=== PATIENT | male | born 1950 | race Caucasian/White ===

== ENCOUNTER 2020-06-02 08:04 | Outpatient (REF) | payer MEDICARE, OTHER, SELFPAY ==
[2020-06-02 10:31] LABS: MANUAL DIFF FLAG NO
[2020-06-02 10:46] LABS: Basophils Percent Auto 0.1 % (0-2); Eosinophils Absolute Auto 0.3 X10*3/uL (0.0-0.4); Eosinophils Percent Auto 4.7 % (0-4); Hematocrit 44.5 % (42-52); Hemoglobin 14.5 g/dl (14.0-18.0); Imm Gran Abs Auto 0.02 X10*3/uL (0.00-0.03); Imm Gran Pct Auto 0.3 % (0.0-0.4); Lymphocytes Percent Auto 27.5 % (20-40); Mean Corpuscular HGB Conc 32.6 g/dl (31.0-36.0); Mean Corpuscular Hemoglobin 28.9 pg (27.0-33.0); Mean Corpuscular Volume 88.8 fL (80-98); Monocytes Absolute Auto 0.6 X10*3/uL (0.1-1.2); Monocytes Percent Auto 8.3 % (2-11); Neutrophils Absolute Auto 4.2 X10*3/uL (2.0-8.3); Neutrophils Percent Auto 59.1 % (45-73); Platelet Count 283 X10*3/uL (160-400); Red Blood Count 5.01 X10*6/uL (4.60-5.80); Red Cell Distribution Width 12.1 % (11.0-16.0); White Blood Count 7.1 X10*3/uL (4.8-10.8)
[2020-06-02 11:00] LABS: Alanine Aminotransferase 21 U/L (0-40); Albumin Level 4.1 g/dL (3.5-5.0); Alkaline Phosphatase 75 U/L (39-117); Anion Gap 12 (12-20); Aspartate Amino Transferase 17 U/L (5-37); Bilirubin Total 1.7 mg/dL (0.0-1.0); Blood Urea Nitrogen 18 mg/dL (9-16); Calcium 9.1 mg/dL (8.4-10.2); Carbon Dioxide 28 mmol/L (22-29); Chloride 104 mmol/L (96-108); Cholesterol 160 mg/dL; Estimated Glomerular Filt Rate > 60; Glucose Fasting 134 mg/dL (60-99); HDL Cholesterol 34 mg/dL; LDL Cholesterol Calculated 103 mg/dl; Potassium 4.2 mmol/L (3.3-5.1); Sodium 140 mmol/L (135-145); Total Protein 6.3 g/dL (6.5-8.0); Triglycerides 116 mg/dL
[2020-06-02 11:04] LABS: Glucose Urine UA NEG (NEG); Leukocyte Esterase Urine NEG (NEG); Nitrite Urine NEG (NEG); PH 5.5 (5.0-8.0); Specific Gravity - Urine 1.025 (1.005-1.025); Urine Blood 1+ (NEG); Urine Ketones NEG (NEG); Urine Protein NEG (NEG-TRACE)
[2020-06-02 11:06] LABS: Appearance Urine CLOUDY; Color Urine YELLOW
[2020-06-02 11:07] LABS: Estimated Average Glucose 128 mg/dL; Hemoglobin A1c % 6.1 %
[2020-06-02 11:21] LABS: Prostate Specific Antigen Scr 0.77 ng/mL (<0.05-4.0)
[2020-06-02 11:25] LABS: Creatinine Urine 175.89 mg/dL; Microalbum/Creatinine Ratio Ur 14.7 ug/mg cr
[2020-06-02 11:29] LABS: Bacteria Urine TRACE /LPF; RBC Urine 0-2 /HPF (0); WBC Urine 0-2 /HPF (0-4)
[2020-06-02 11:30] LABS: Amorphous Sediment Urine 4+ /LPF
== END 2020-06-02 08:05 | disposition home or self-care (01) ==
LOC: HO.10HDL 08:04
PROVIDERS: Visit Provider Internal Medicine
DX: Z12.5 Encounter for screening for malignant neoplasm of prostate (principal); R30.0 Dysuria; I10 Essential (primary) hypertension; R73.03 Prediabetes; M19.90 Unspecified osteoarthritis, unspecified site
CPT/HCPCS: 36415; 80053; 80061; 81001; 81003; 82043; 83036; 84153; 85025

== ENCOUNTER 2020-07-09 14:42 | Outpatient (REF) | payer MEDICARE, OTHER, SELFPAY ==
--- NOTE | ~2020-07-09 | XR_ITS ---
EXAMINATION: XR CHEST CLINICAL INFORMATION: Cough COMPARISON: CT abdomen 01/08/2019, chest radiographs 09/30/2018 and 04/05/2017 TECHNIQUE: 2 views of the chest were obtained. FINDINGS: There is a 1.1 cm nodular opacity overlying the right anterior sixth rib right infrahilar region, not demonstrated on prior studies. Finding is not seen on the lateral view. Possibility of lung parenchymal nodule cannot be excluded. Recommend CT chest without contrast to further characterize. The lungs otherwise clear. There is no lobar or segmental airspace consolidation or effusion. The costophrenic sulci are clear. The heart is within normal size. The hilar and mediastinal contours are unremarkable. There is no acute bony abnormality. Ossification anterior spinal ligament and thoracic degenerative disc changes again noted. XR/XR chest 2V IMPRESSION: 1. Nodular density right infrahilar region 1.[address] chest to further characterize. 2. No lobar or segmental airspace consolidation or effusion.
[2020-07-09 15:38] LABS: MANUAL DIFF FLAG NO
[2020-07-09 15:47] LABS: Basophils Percent Auto 0.1 % (0-2); Eosinophils Absolute Auto 0.2 X10*3/uL (0.0-0.4); Eosinophils Percent Auto 2.1 % (0-4); Hemoglobin 13.9 g/dl (14.0-18.0); Imm Gran Abs Auto 0.01 X10*3/uL (0.00-0.03); Imm Gran Pct Auto 0.1 % (0.0-0.4); Lymphocytes Absolute Auto 1.5 X10*3/uL (1.2-4.9); Lymphocytes Percent Auto 17.1 % (20-40); Mean Corpuscular HGB Conc 33.1 g/dl (31.0-36.0); Mean Corpuscular Hemoglobin 29.2 pg (27.0-33.0); Mean Corpuscular Volume 88.2 fL (80-98); Mean Platelet Volume 8.8 fL (9.4-12.4); Monocytes Absolute Auto 0.8 X10*3/uL (0.1-1.2); Monocytes Percent Auto 8.6 % (2-11); Neutrophils Absolute Auto 6.5 X10*3/uL (2.0-8.3); Platelet Count 320 X10*3/uL (160-400); Red Blood Count 4.76 X10*6/uL (4.60-5.80); Red Cell Distribution Width 12.1 % (11.0-16.0)
[2020-07-09 16:18] LABS: Alanine Aminotransferase 20 U/L (0-40); Albumin Level 4.2 g/dL (3.5-5.0); Alkaline Phosphatase 71 U/L (39-117); Anion Gap 10 (12-20); Aspartate Amino Transferase 21 U/L (5-37); Bilirubin Total 1.5 mg/dL (0.0-1.0); Blood Urea Nitrogen 19 mg/dL (9-16); C Reactive Protein 1.24 mg/dL (< or = 0.50); Calcium 9.5 mg/dL (8.4-10.2); Carbon Dioxide 28 mmol/L (22-29); Chloride 108 mmol/L (96-108); Estimated Glomerular Filt Rate > 60; Glucose Random 97 mg/dL (60-115); Potassium 4.2 mmol/L (3.3-5.1); Sodium 142 mmol/L (135-145); Total Protein 6.9 g/dL (6.5-8.0)
[2020-07-09 16:56] LABS: Estimated Average Glucose 134 mg/dL; Hemoglobin A1c % 6.3 %
== END 2020-07-09 14:43 | disposition home or self-care (01) ==
LOC: HO.LAB 14:42
PROVIDERS: PCP Internal Medicine; Visit Provider Internal Medicine
DX: I10 Essential (primary) hypertension (principal); R53.83 Other fatigue; R05 Cough; R73.03 Prediabetes
CPT/HCPCS: 36415; 71046; 80053; 82550; 83036; 84484; 85025; 86140

== ENCOUNTER 2020-08-04 08:53 | Outpatient (REF) | payer MEDICARE, OTHER, SELFPAY ==
--- NOTE | ~2020-08-04 | CT_ITS ---
EXAMINATION: CT CHEST WITHOUT CONTRAST CLINICAL INFORMATION: Right lower lobe nodule on chest x-ray. COMPARISON: None. TECHNIQUE: Multidetector volumetric CT imaging of the chest was done. Axial MIP volume rendering provided. Sagittal and coronal reformatted images were obtained. This CT examination was performed using dose optimization techniques as appropriate, variously including the following: *Automated exposure control *Adjustment of mA and/or kV according to patient size (this includes techniques or standardized protocols for targeted exams where dose is matched to indication/reason for exam; i.e. extremities or head) *Use of iterative reconstruction technique DLP: 266 mGy-cm. FINDINGS: SENIOR DIGITAL DESIGNER: Well-expanded lungs with a probable nodule right lower lobe. LUNGS: The lungs are well expanded with tree in branching pattern in left apex right upper lobe posterior segment and superior segment left lower lobe. A larger tree-in-bud appearance is seen in the right middle lobe and minimal in the left lower lobe. Small punctate nodules measuring 2 mm as seen in the superior segment left upper lobe on axial image 225/5, calcified 2 mm nodule right middle lobe axial image 239/5, noncalcified 2 mm nodule right middle lobe axial image 270/5, 7 mm nodule subpleural based right lower lobe axial image 304/5, 8 mm nodule left lower lobe superior segment 301/5, several additional 2-3 mm nodules in the right lower lobe axial image 323/5 and 6 mm nodule left lower lobe axial image 437/5. MEDIASTINUM: The heart size and great vessels are normal. There are coronary artery calcifications. No pericardial effusion seen. Central trachea and the bronchi widely are widely patent. The thyroid lobes are symmetrical and normal. No abnormal-sized mediastinal or hilar lymph nodes seen. PLEURA: There is no pleural effusion. No pleural mass or thickening. AXILLA: Shotty lymph nodes seen in the axilla. UPPER ABDOMEN: Visualized liver, spleen, pancreas and bilateral adrenal glands are unremarkable. There are radiopaque gallstone suspected. OSSEOUS STRUCTURES: Moderate bridging osteophytes are seen throughout the dorsal spine. No lytic or sclerotic process seen. CT/CT chest wo con IMPRESSION: Multi segmental tree and branch appearance worse in the right middle lobe suggestive of terminal airway disease from bronchitis or bronchiolitis. The right middle lobe has thickened and variegated appearance of bronchioles likely long-standing inspissated secretions or debris. Intrabronchiolar lesion/malignancy is cannot be excluded. Consider bronchoscopy. There are several small pulmonary nodules, largest measuring 7 mm right lower lobe. Recommend clinical correlation with patient's history of follow-up CT chest as per Fleischner guidelines such as 6-12 months followed by 18-24 months. Coronary artery calcifications are present.
== END 2020-08-04 08:54 | disposition home or self-care (01) ==
LOC: HO.CT 08:53
PROVIDERS: Visit Provider Internal Medicine
DX: R91.8 Other nonspecific abnormal finding of lung field (principal)
CPT/HCPCS: 71250

== ENCOUNTER 2020-08-20 08:52 | Outpatient (REF) | payer MEDICARE, OTHER, SELFPAY ==
[2020-08-20 10:01] LABS: MANUAL DIFF FLAG NO
[2020-08-20 10:09] LABS: Basophils Percent Auto 0.2 % (0-2); Eosinophils Absolute Auto 0.2 X10*3/uL (0.0-0.4); Eosinophils Percent Auto 3.6 % (0-4); Hematocrit 42.4 % (42-52); Hemoglobin 14.2 g/dl (14.0-18.0); Imm Gran Abs Auto 0.01 X10*3/uL (0.00-0.03); Imm Gran Pct Auto 0.2 % (0.0-0.4); Lymphocytes Absolute Auto 1.4 X10*3/uL (1.2-4.9); Lymphocytes Percent Auto 21.6 % (20-40); Mean Corpuscular HGB Conc 33.5 g/dl (31.0-36.0); Mean Corpuscular Hemoglobin 29.8 pg (27.0-33.0); Mean Corpuscular Volume 89.1 fL (80-98); Mean Platelet Volume 8.5 fL (9.4-12.4); Monocytes Absolute Auto 0.7 X10*3/uL (0.1-1.2); Monocytes Percent Auto 9.9 % (2-11); Neutrophils Absolute Auto 4.3 X10*3/uL (2.0-8.3); Neutrophils Percent Auto 64.5 % (45-73); Platelet Count 278 X10*3/uL (160-400); Red Blood Count 4.76 X10*6/uL (4.60-5.80); Red Cell Distribution Width 11.9 % (11.0-16.0); White Blood Count 6.6 X10*3/uL (4.8-10.8)
[2020-08-20 10:57] LABS: Erythrocyte Sedimentation Rate 11 MM/HR (0-15)
[2020-08-24 13:26] LABS: IgA 328 mg/dL (70-320); IgG 1068 mg/dL (600-1540); IgM 71 mg/dL (50-300)
[2020-08-26 23:57] LABS: Asperg fumigatus Precip Abs NEGATIVE (NEGATIVE); Micropoly faeni Abs NEGATIVE (NEGATIVE); Pigeon serum Abs NEGATIVE (NEGATIVE); Saccharo pora viridis Abs NEGATIVE (NEGATIVE); Thermo candidus Abs NEGATIVE (NEGATIVE); Thermoa vulgaris #1 NEGATIVE (NEGATIVE)
== END 2020-08-20 08:53 | disposition home or self-care (01) ==
LOC: HO.LAB 08:52
PROVIDERS: PCP Internal Medicine; Visit Provider Hospitalist
DX: J42 Unspecified chronic bronchitis (principal); R91.8 Other nonspecific abnormal finding of lung field; R05 Cough; Z87.891 Personal history of nicotine dependence
CPT/HCPCS: 36415; 82784; 85025; 85652; 86003; 86331; 86606; 86609; 99202

== ENCOUNTER 2020-09-17 09:53 | Outpatient (REF) | payer MEDICARE, OTHER, SELFPAY ==
--- NOTE | ~2020-09-17 | XR_ITS ---
EXAMINATION: XR CHEST CLINICAL INFORMATION: Unspecified chronic bronchitis. COMPARISON: CT chest 08/04/2020. Chest radiograph 07/09/2020 TECHNIQUE: 2 views of the chest were obtained. FINDINGS: Nodular density measuring approximately 1 cm in diameter is identified in the right lung base unchanged appreciably compared with 07/09/2020 and corresponding to an area of cylindrical bronchiectasis with impacted mucus on the comparison CT of 04/25/2020. No focal pulmonary consolidation is identified. The cardiomediastinal silhouette is normal in appearance. No effusions or pneumothoraces are identified. Moderate multilevel anterior endplate osteophytosis of the visualized thoracolumbar spine is noted. XR/XR chest 2V IMPRESSION: Unchanged right middle lobe nodular density corresponding to focal cylindrical bronchiectasis with impacted secretions as visualized to better advantage on the comparison CT of 08/04/2020. Scattered subcentimeter noncalcified nodules noted on the comparison CT of 08/04/2020 are likely too small to be visualized by the current chest radiograph exam.
--- NOTE | 2020-09-17 17:48 | PFT_ITS ---
Forced vital capacity and FEV1 are both slightly decreased. [id number] and MVV also slightly decreased. Total lung capacity and residual volume are normal. Diffusion capacity normal. Bronchodilator challenge not performed. CONCLUSION: On the basis of above findings, there is no evidence of any restrictive pulmonary disorder. The patient may have a mild degree of obstructive airway disorder. Decreased FVC, FEV1, and MVV may be due to suboptimal effort. Clinical correlation is recommended. MD REBECA Edmonds/CAREY / [id number]
== END 2020-09-17 09:54 | disposition home or self-care (01) ==
LOC: HO.RESP 09:53
PROVIDERS: PCP Internal Medicine; Visit Provider Hospitalist
DX: J41.8 Mixed simple and mucopurulent chronic bronchitis (principal); R91.8 Other nonspecific abnormal finding of lung field
CPT/HCPCS: 71046; 94010; 94727; 94729; 99212

== ENCOUNTER 2020-10-07 08:34 | Day surgery (SDC) | payer MEDICARE, OTHER, SELFPAY ==
--- NOTE | 2020-10-06 09:00 | P.CONAN_ITS ---
Documented by User: Magali Mcnally NP 10/06/20 09:02 HPI - Anesthesia Eval Consult details Narrative: 69yo M for Bronchoscopy Fiberoptic PMFSH Active Problems Active Problems: All Active Problems (Updated 10/01/20 @ 08:41 by Charisma Ramsay, RN) Pulmonary nodules (Acute) Chronic bronchitis (Acute) Past Medical History Medical History Arthritis Chronic bronchitis DM type 2 (diabetes mellitus, type 2) Gallstones HTN (hypertension) ISIAH (obstructive sleep apnea) Pulmonary nodules Surgical History Surgical History (Updated 10/01/20 @ 08:41 by Charisma Ramsay RN) History of arthroscopy of right knee History of surgical removal of pilonidal cyst Hx of colonoscopy Social History Social History (Updated 08/20/20 @ 09:06 by KAREN Davies) Patient Tobacco Use Status: Former Tobacco user Tobacco use type: Cigarette Years Smoked: 30 years Use of substances other than those prescribed or required for medical reasons: Yes Have you been hit, kicked, punched, or otherwise hurt by someone within the past year? If so, by whom?: No Are you DNR?: No Advance Directives: No Advance Directives Information Provided: No Meds Allergies Allergy/AdvReac Type Severity Reaction Status Date / Time No Known Allergies Allergy Verified 10/07/20 08:56 [No Known Allergies*] Home Medications Medication Instructions Recorded Confirmed Last Taken Type hydrochlorothiazide 12.5 mg tablet 12.5 mg PO DAILY 08/20/20 10/07/20 10/07/20 06:30 History lisinopril 40 mg tablet 40 mg PO DAILY 08/20/20 10/01/20 10/07/20 06:30 History betamethasone dipropionate 0.05 % 1 appl TOPICAL BID 10/01/20 10/01/20 Unknown History topical cream calcipotriene 0.005 % topical cream 1 appl TOPICAL BID 10/01/20 10/01/20 Unknown History Exam Exam Date and Time: October 06, 2020 0900 Pertinent Lab Results Pertinent Lab Results: Laboratory Tests 07/09/20 08/20/20 15:10 09:50 WBC 6.6 Hgb 14.2 Hct 42.4 Plt Count 278 Sodium 142 Potassium 4.2 Chloride 108 Carbon Dioxide 28 BUN 19 H Creatinine 1.00 Narrative Narrative: PFT 09/2020 CONCLUSION:? On the basis of above findings, there is no evidence of any restrictive pulmonary disorder. ? The patient may have a mild degree of obstructive airway disorder. ? Decreased FVC, FEV1, and MVV may be due to suboptimal effort. ? Clinical correlation is recommended. Assessment and Plan Assessment Anesthesia Assessment: Chart Reviewed Documented by User: Moira Randhawa MD 10/07/20 10:35 [facility] Past Medical History Medical History Arthritis Chronic bronchitis DM type 2 (diabetes mellitus, type 2) Gallstones HTN (hypertension) ISIAH (obstructive sleep apnea) Pulmonary nodules Family History Family history of problems with anesthesia: No Surgical History Surgical History (Updated 10/01/20 @ 08:41 by Charisma Ramsay RN) History of arthroscopy of right knee History of surgical removal of pilonidal cyst Hx of colonoscopy History of Problems with Anesthesia: No Social History Social History (Updated 08/20/20 @ 09:06 by KAREN Davies) Patient Tobacco Use Status: Former Tobacco user Tobacco use type: Cigarette Years Smoked: 30 years Use of substances other than those prescribed or required for medical reasons: Yes Have you been hit, kicked, punched, or otherwise hurt by someone within the past year? If so, by whom?: No Are you DNR?: No Advance Directives: No Advance Directives Information Provided: No Meds Allergies Allergy/AdvReac Type Severity Reaction Status Date / Time No Known Allergies Allergy Verified 10/07/20 08:56 [No Known Allergies*] Home Medications Medication Instructions Recorded Confirmed Last Taken Type hydrochlorothiazide 12.5 mg tablet 12.5 mg PO DAILY 08/20/20 10/07/20 10/07/20 06:30 History lisinopril 40 mg tablet 40 mg PO DAILY 08/20/20 10/01/20 10/07/20 06:30 History betamethasone dipropionate 0.05 % 1 appl TOPICAL BID 10/01/20 10/01/20 Unknown History topical cream calcipotriene 0.005 % topical cream 1 appl TOPICAL BID 10/01/20 10/01/20 Unknown History Exam Airway Mallampati Class: III TM Dist: >3cm Neck ROM: Full Denture: Upper Assessment and Plan Assessment Anesthesia Assessment: Anesthesia Plan Discussed Final Anesthetic Review Family History of Problems with Anesthesia: No History of Problems with Anesthesia: No NPO: Yes ASA Class: III Final Preanesthetic Review: No Changes in Pt Med Stat, Meds/Allgs Chart Revi ewed, Consent Obtained/Reviewed and Anes Risks/Benef Reviewed Patient Risk: Intermediate Procedure Risk: Low Assessment/Block/Sedation in SS: Assess/Block/Sedation-SS Anesthetic Plan Anesthetic Plan: GA Disposition: Standard PACU
[2020-10-07] VITALS (7 sets, daily range): BP systolic 128–154; BP diastolic 58–70; PULSE 55–110; RESP 16–20; TEMP 36.5–36.6; O2SAT 96–99; BMI 44.6
--- NOTE | ~2020-10-07 | XR_ITS ---
EXAMINATION: XR CHEST CLINICAL INFORMATION: Post biopsy COMPARISON: Previous chest x-ray recent 09/17/2020 TECHNIQUE: Frontal view of the chest was obtained. FINDINGS: The cardiac and mediastinal contours are stable. There are bilateral pulmonary nodules. The largest measures 7 x 12 mm at the right lung base adjacent to the right heart border. These do not appear appreciably changed. The lung are otherwise clear. There is no pleural effusion or pneumothorax. There is no evidence of is 9. Visualized bony structures are unremarkable. XR/XR chest 1V IMPRESSION: No evidence for acute disease in the chest.
[2020-10-07 09:20] LABS: Glucose, Whole Blood 134 mg/dL (60-115)
[2020-10-07] MEDS: Lactated Ringers 1,000 ML 100 ML IVCONT (09:41)
--- NOTE | 2020-10-07 10:19 | MHC.SHP ---
Pre-Procedural Eval Section A Date of Service: 10/07/20 The patient is an INPATIENT: No Section B Chief Complaint: mucopurulent chonic bronchitis Allergies: Allergies Allergy/AdvReac Type Severity Reaction Status Date / Time No Known Allergies Allergy Verified 10/07/20 08:56 [No Known Allergies*] Plan I have reviewed the history and physical and performed a pertinent physical examination on my patient. No changes have occurred unless specified.
--- NOTE | 2020-10-07 11:39 | PM.OP ---
Brief Operative Note Date of Service: 10/07/20 Pre-op diagnosis: Pulmonary nodules Post-op diagnosis: same Procedure: Bronchoscopy with transbronchial biopsies, BAL and brushings RML Surgeon: Filipe Story MD Anesthesia: GLMA Was an Thread Weaver used for this Procedure?: No Estimated blood loss (mL): 2 Pathology: other (RML transbronchial bx, brushings RML) Condition: stable Disposition: same day
[2020-10-07] MEDS: Acetaminophen 325 MG TABLET 650 MG PO (12:17)
[2020-10-07 13:56] LABS: Eosinophils Bronchial 3 %; Lymphocytes Bronchial 6 %; Monocytes Bronchial 2 %; Neutrophils Bronchial 35 %; Other Bronchial 54 %
[2020-10-07 13:57] LABS: RBC Bronchial Washing 33 MM*3; WBC Bronchial Washing 110 MM*3
--- NOTE | 2020-10-09 09:21 | OP_ITS ---
SURGEON: Filipe Story MD PREOPERATIVE DIAGNOSIS: Pulmonary nodules. POSTOPERATIVE DIAGNOSIS: Pulmonary nodules. PROCEDURE PERFORMED: Bronchoscopy with transbronchial biopsies, bronchoalveolar lavage and brushings of the right middle lobe. ESTIMATED BLOOD LOSS: COMPLICATIONS: ANESTHESIA: LMA. ASSISTANTS: None. SPECIMENS: DESCRIPTION OF PROCEDURE: After the patient was adequately sedated, the flexible digital bronchoscope was inserted via the LMA to the level of the larynx. The vocal cords moved symmetrically to the midline without any evidence of any lesions or masses. The patient did have increased redundant tissue. After instilling the lidocaine, the bronchoscope was then passed the vocal cords to the level of the trachea. 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 After instilling additional lidocaine, the bronchoscope was then navigated to the entire tracheobronchial tree that was examined to the subsegmental level. No evidence of any endobronchial lesions or masses. No evidence of any significant secretions. The bronchoscope was navigated to the right middle lobe, where he has this peripheral density and BAL was completed with 1 aliquot of 50 mL of normal saline, recovering around 30 mL, sent for cell count and differential as well as microbiology. The bronchoscope was again navigated to the right middle lobe, where transbronchial biopsies were collected from the right middle lobe. Specimens were sent in formalin to pathology. In addition to that, brushings were also performed. No significant bleeding, although epinephrine was used with good hemostasis. Iced saline also used with good hemostasis. No evidence of any active bleeding at the end of the procedure. The patient tolerated the procedure well. No apparent complications. Minimal bleeding about 2 mL and chest x-ray pending. INTERPRETATION: 1. Successful transbronchial biopsies of the right middle lobe. 2. Bronchoalveolar lavage of the right middle lobe. 3. Bronchial brushings of the right middle lobe. 4. Bilateral lung washings. Filipe Story MD MR/MODL / [id number]
== END 2020-10-07 12:45 | disposition home or self-care (01) ==
PROVIDERS: PCP Internal Medicine; Visit Provider Hospitalist
PROC: 0BJ08ZZ Inspection of Tracheobronchial Tree, Via Natural or Artificial Opening Endoscopic (ICD-10-PCS; CPT 31622; principal; 2020-10-07 10:30)
DX: R91.8 Other nonspecific abnormal finding of lung field (principal); J41.1 Mucopurulent chronic bronchitis; I10 Essential (primary) hypertension; Z79.899 Other long term (current) drug therapy; Z87.891 Personal history of nicotine dependence
CPT/HCPCS: 31628; 31624; 31623; 71045; 82947; 87071; 87102; 87116; 87205; 88112; 88305; 89051; J0171; J1100; J2250; J2405; J3010

== ENCOUNTER → 2020-10-20 09:56 | Outpatient (BNVA) | payer MEDICARE, OTHER, SELFPAY | PROVIDERS: PCP Internal Medicine; Visit Provider Hospitalist | DX: R91.8 Other nonspecific abnormal finding of lung field (principal); J41.8 Mixed simple and mucopurulent chronic bronchitis; A49.1 Streptococcal infection, unspecified site | CPT/HCPCS: 99212 ==

== ENCOUNTER 2020-12-11 09:04 | Outpatient (REF) | payer MEDICARE, OTHER, SELFPAY ==
--- NOTE | ~2020-12-11 | CT_ITS ---
EXAMINATION: CT CHEST WITHOUT CONTRAST CLINICAL INFORMATION: Followup pulmonary nodule. COMPARISON: Previous chest CT most recent July 2020 and chest x-ray most recent October 2020 TECHNIQUE: Multidetector volumetric CT imaging of the chest was done. Axial MIP volume rendering provided. Sagittal and coronal reformatted images were obtained. This CT examination was performed using dose optimization techniques as appropriate, variously including the following: *Automated exposure control *Adjustment of mA and/or kV according to patient size (this includes techniques or standardized protocols for targeted exams where dose is matched to indication/reason for exam; i.e. extremities or head) *Use of iterative reconstruction technique DLP: 346 mGy-cm FINDINGS: LUNGS: There are clustered peribronchial nodules or tree-in-bud appearance seen throughout the lungs. There is a tubular dilated branching structure seen in the right middle lobe suggestive of bronchial soft tissue opacification or mucus plugging that is unchanged. There is a new similar area seen in the left lower lobe, for example axial image 429 series 7. Otherwise, this does not appear appreciably changed from July 2020 exam. There are several scattered separate calcified and noncalcified pulmonary nodules that are stable. The largest measures 6 mm in the right lower lobe axial image 302 series 7 and 5 mm in the left lower lobe axial image 415 series 7. MEDIASTINUM: There are small mediastinal lymph nodes that are stable. The heart does not appear enlarged. There is mild coronary artery calcification. There is no pericardial effusion. The thoracic aorta is tortuous. There is a low-attenuation left thyroid nodule 1 cm that is stable. No imaging followup needed. PLEURA: There is no pleural effusion. No pleural mass or thickening. AXILLA: There are small bilateral axillary lymph nodes that are stable. No enlarged axillary lymph nodes or chest wall mass is seen. UPPER ABDOMEN: There are gallstones in the gallbladder. OSSEOUS STRUCTURES: There are degenerative changes of the spine. CT/CT chest wo con IMPRESSION: New dilated tubular structure in the left lower lobe probably representing bronchial soft tissue opacification or mucus plugging. Otherwise clustered peribronchial tree-in-bud nodules and large area of bronchial soft tissue opacity or mucus plugging in the right middle lobe do not appear changed. There are several small scattered separate pulmonary nodules that are stable. Coronary artery calcification.
[2020-12-11 16:11] LABS: MANUAL DIFF FLAG NO
[2020-12-11 16:42] LABS: Basophils Percent Auto 0.3 % (0-2); Eosinophils Absolute Auto 0.4 X10*3/uL (0.0-0.4); Eosinophils Percent Auto 3.9 % (0-4); Hematocrit 39.7 % (42.0-52.0); Hemoglobin 13.2 g/dl (14.0-18.0); Imm Gran Abs Auto 0.02 X10*3/uL (0.00-0.03); Imm Gran Pct Auto 0.2 % (0.0-0.4); Lymphocytes Absolute Auto 2.3 X10*3/uL (1.2-4.9); Lymphocytes Percent Auto 24.8 % (20-40); Mean Corpuscular HGB Conc 33.2 g/dl (31.0-36.0); Mean Corpuscular Hemoglobin 29.7 pg (27.0-33.0); Mean Corpuscular Volume 89.4 fL (80.0-98.0); Monocytes Absolute Auto 0.9 X10*3/uL (0.1-1.2); Monocytes Percent Auto 9.6 % (2-11); Neutrophils Absolute Auto 5.7 x10*3/uL (2.0-8.3); Neutrophils Percent Auto 61.2 % (45-73); Platelet Count 282 X10*3/uL (160-400); Red Blood Count 4.44 X10*6/uL (4.60-5.80); Red Cell Distribution Width 12.3 % (11.0-16.0); White Blood Count 9.4 X10*3/uL (4.8-10.8)
[2020-12-11 16:44] LABS: Estimated Average Glucose 134 mg/dL; Hemoglobin A1c % 6.3 %
[2020-12-11 17:10] LABS: Anion Gap 12 (12-20); Blood Urea Nitrogen 20 mg/dL (9-16); Calcium 9.2 mg/dL (8.4-10.2); Carbon Dioxide 27 mmol/L (22-29); Chloride 106 mmol/L (96-108); Estimated Glomerular Filt Rate > 60; Glucose Random 92 mg/dL (60-115); Potassium 4.1 mmol/L (3.3-5.1); Sodium 141 mmol/L (135-145)
== END 2020-12-11 09:05 | disposition home or self-care (01) ==
LOC: HO.CT 09:04
PROVIDERS: Absent Provider Internal Medicine; PCP Internal Medicine; Visit Provider Hospitalist
DX: R91.8 Other nonspecific abnormal finding of lung field (principal); I10 Essential (primary) hypertension; R73.03 Prediabetes
CPT/HCPCS: 36415; 71250; 80048; 83036; 85025

== ENCOUNTER → 2021-01-26 09:54 | Outpatient (BNVA) | payer MEDICARE, OTHER, SELFPAY | PROVIDERS: PCP Internal Medicine; Visit Provider Hospitalist | DX: R91.8 Other nonspecific abnormal finding of lung field (principal); J41.8 Mixed simple and mucopurulent chronic bronchitis; J47.9 Bronchiectasis, uncomplicated; A49.1 Streptococcal infection, unspecified site; A31.0 Pulmonary mycobacterial infection | CPT/HCPCS: 99212 ==

== ENCOUNTER 2021-06-14 07:54 | Outpatient (REF) | payer MEDICARE, OTHER, SELFPAY ==
[2021-06-14 10:30] LABS: MANUAL DIFF FLAG NO
[2021-06-14 10:33] LABS: Basophils Percent Auto 0.5 % (0-2); Eosinophils Absolute Auto 0.3 X10*3/uL (0.0-0.4); Eosinophils Percent Auto 4.8 % (0-4); Hematocrit 43.1 % (42.0-52.0); Hemoglobin 14.3 g/dl (14.0-18.0); Imm Gran Abs Auto 0.01 X10*3/uL (0.00-0.03); Imm Gran Pct Auto 0.2 % (0.0-0.4); Lymphocytes Absolute Auto 1.7 X10*3/uL (1.2-4.9); Lymphocytes Percent Auto 26.3 % (20-40); Mean Corpuscular HGB Conc 33.2 g/dl (31.0-36.0); Mean Corpuscular Hemoglobin 29.2 pg (27.0-33.0); Mean Corpuscular Volume 88.1 fL (80.0-98.0); Mean Platelet Volume 9.4 fL (9.4-12.4); Monocytes Absolute Auto 0.5 X10*3/uL (0.1-1.2); Monocytes Percent Auto 7.9 % (2-11); Neutrophils Absolute Auto 3.9 x10*3/uL (2.0-8.3); Neutrophils Percent Auto 60.3 % (45-73); Platelet Count 293 X10*3/uL (160-400); Red Blood Count 4.89 X10*6/uL (4.60-5.80); Red Cell Distribution Width 12.2 % (11.0-16.0); White Blood Count 6.5 X10*3/uL (4.8-10.8)
[2021-06-14 10:45] LABS: Estimated Average Glucose 140 mg/dL; Hemoglobin A1c % 6.5 %
[2021-06-14 10:55] LABS: Alanine Aminotransferase 16 U/L (0-40); Alkaline Phosphatase 67 U/L (39-117); Anion Gap 13 (12-20); Aspartate Amino Transferase 16 U/L (5-37); Bilirubin Total 1.6 mg/dL (0.0-1.0); Blood Urea Nitrogen 21 mg/dL (9-16); Calcium 9.5 mg/dL (8.4-10.2); Carbon Dioxide 24 mmol/L (22-29); Chloride 105 mmol/L (96-108); Cholesterol 143 mg/dL; Estimated Glomerular Filt Rate > 60; Glucose Fasting 125 mg/dL (60-99); HDL Cholesterol 35 mg/dL; LDL Cholesterol Calculated 92 mg/dl; Potassium 4.2 mmol/L (3.3-5.1); Sodium 138 mmol/L (135-145); Triglycerides 84 mg/dL
[2021-06-14 11:05] LABS: PSA,Total (Free>4and<10) 0.94 ng/mL (0.00-4.00)
[2021-06-14 11:44] LABS: Creatinine Urine 175.83 mg/dL; Microalbum/Creatinine Ratio Ur 21.6 ug/mg cr
== END 2021-06-14 07:55 | disposition home or self-care (01) ==
LOC: HO.10HDL 07:54
PROVIDERS: Visit Provider Internal Medicine
DX: Z12.5 Encounter for screening for malignant neoplasm of prostate (principal); I10 Essential (primary) hypertension; G47.33 Obstructive sleep apnea (adult) (pediatric); R73.03 Prediabetes; M19.90 Unspecified osteoarthritis, unspecified site
CPT/HCPCS: 36415; 80053; 80061; 82043; 83036; 84153; 85025

== ENCOUNTER 2021-07-29 08:46 | Outpatient (REF) | payer MEDICARE, OTHER, SELFPAY ==
--- NOTE | ~2021-07-29 | XR_ITS ---
EXAMINATION: XR CHEST CLINICAL INFORMATION: Nonspecific abnormal findings of lung field COMPARISON: CT chest from 12/11/2020, chest radiograph from 10/07/2020, chest radiograph from 09/17/2020 chest radiograph from 07/09/2020 TECHNIQUE: 2 views of the chest were obtained. FINDINGS: Stable appearing nodular density in the right lung base. Prominence of the pulmonary vasculature. No pneumothorax. Trachea is midline. Cardiac mediastinal silhouette is not enlarged. No large pleural effusion. Degenerative changes of the thoracolumbar spine with anterior flowing osteophytes. Soft tissues are unremarkable. XR/XR chest 2V IMPRESSION: 1. Stable appearing nodular density in the right lung base. 2. Prominence of the pulmonary vasculature.
== END 2021-07-29 08:47 | disposition home or self-care (01) ==
LOC: HO.XRAY 08:46
PROVIDERS: PCP Internal Medicine; Visit Provider Hospitalist
DX: R91.8 Other nonspecific abnormal finding of lung field (principal); J41.8 Mixed simple and mucopurulent chronic bronchitis; A49.1 Streptococcal infection, unspecified site; A31.0 Pulmonary mycobacterial infection; J47.9 Bronchiectasis, uncomplicated
CPT/HCPCS: 71046; 99212

== ENCOUNTER 2021-10-07 08:26 | Outpatient (REF) | payer MEDICARE, OTHER, SELFPAY ==
--- NOTE | ~2021-10-07 | CT_ITS ---
EXAMINATION: CT CHEST WITHOUT CONTRAST CLINICAL INFORMATION: Prominence of pulmonary vasculature and nodular density in right lung COMPARISON: Chest x-ray of 07/29/[address] of 12/11/2020 TECHNIQUE: Multidetector volumetric CT imaging of the chest was done. Axial MIP volume rendering provided. Sagittal and coronal reformatted images were obtained. This CT examination was performed using dose optimization techniques as appropriate, variously including the following: *Automated exposure control *Adjustment of mA and/or kV according to patient size (this includes techniques or standardized protocols for targeted exams where dose is matched to indication/reason for exam; i.e. extremities or head) *Use of iterative reconstruction technique DLP: 270 mGy-cm FINDINGS: LUNGS: Central airways are patent. There is some mild central bronchial wall thickening seen. No bronchiectasis is noted. No significant changes of emphysema are appreciated. Calcified granulomas present. A few scattered sub-4 mm densities are present. There are some densities present within the left apex with the appearance of end-bronchial disease with tree-in-bud configuration. There are some scattered regions of tree-in-bud configuration disease in the dorsal aspect of the right upper lobe. There is a similar region of disease seen peripherally within the superior segment of the left lower lobe on image 225 of 613 as well as in the lingula on image 414 of 613. There is a tubular region of density within the right middle lobe measuring approximately 3 x 0.8 x 0.7 cm in size with the appearance of a dilated bronchus with soft tissue/debris within it. This is similar to previous examination of 12/11/2020. Within the right lower lobe there is a somewhat tubular density measuring 1.1 x 0.6 cm in size on image #[address] series #5. This is stable. There is an 8 x 5 mm noncalcified subpleural nodule within the right lower lobe on image 293 of 613. This is stable. Within the left upper lobe there is a subpleural tubular approximately 8 x 4 mm noncalcified density on image 112 of 613. This was present on previous CT scan of 12/11/2020. There is a 6 mm noncalcified rounded density seen within the left lower lobe on image 404 of 613. This is stable. There is a 4 mm noncalcified density seen within the left lower lobe on image 377 of 613. This is stable. MEDIASTINUM: Visualized thyroid gland appears unremarkable. Heart normal size. Coronary artery calcifications present. No pericardial effusion. Ascending thoracic aorta measures up to 4 cm in diameter. No mediastinal or hilar lymphadenopathy is identified. PLEURA: There is no pleural effusion. No pleural mass or thickening. AXILLA: No lymphadenopathy. UPPER ABDOMEN: Cholelithiasis is present. No adrenal gland mass is seen. OSSEOUS STRUCTURES: No suspicious destructive bony lesions identified. Multilevel degenerative disc disease is seen within the thoracic spine. There is calcification of the anterior longitudinal ligament at multiple levels in the thoracic spine. CT/CT chest wo IV con IMPRESSION: Stable appearance of bilateral regions of tree-in-bud configuration disease consistent with end bronchial disease with mucus plugging. There are again noted to be a few dilated tubular structures which are stable and most prominent being within the right middle lobe. Old granulomatous disease. A few stable 4 mm or greater noncalcified nodular densities. Prominent ascending thoracic aorta measuring up to 4 cm in diameter. Fleischner guidelines were followed.
== END 2021-10-07 08:27 | disposition home or self-care (01) ==
LOC: HO.CT 08:26
PROVIDERS: PCP Internal Medicine; Visit Provider Hospitalist
DX: R91.8 Other nonspecific abnormal finding of lung field (principal); J47.9 Bronchiectasis, uncomplicated
CPT/HCPCS: 71250

== ENCOUNTER 2021-10-13 09:42 | Outpatient (REF) | payer MEDICARE, OTHER, SELFPAY ==
[2021-10-13 10:39] LABS: Estimated Average Glucose 137 mg/dL; Hemoglobin A1c % 6.4 %
[2021-10-13 11:08] LABS: Alanine Aminotransferase 20 U/L (0-40); Albumin Level 4.1 g/dL (3.5-5.0); Alkaline Phosphatase 68 U/L (39-117); Anion Gap 13 (12-20); Aspartate Amino Transferase 17 U/L (5-37); Bilirubin Total 1.2 mg/dL (0.0-1.0); Blood Urea Nitrogen 16 mg/dL (9-16); Calcium 8.8 mg/dL (8.4-10.2); Carbon Dioxide 25 mmol/L (22-29); Chloride 104 mmol/L (96-108); Estimated Glomerular Filt Rate > 60; Glucose Random 123 mg/dL (60-115); Potassium 3.9 mmol/L (3.3-5.1); Sodium 138 mmol/L (135-145); Total Protein 6.9 g/dL (6.5-8.0)
[2021-10-13 11:09] LABS: Creatinine Urine 75.01 mg/dL; Microalbum/Creatinine Ratio Ur 18.6 ug/mg cr
== END 2021-10-13 09:43 | disposition home or self-care (01) ==
LOC: HO.10HDL 09:42
PROVIDERS: Visit Provider Internal Medicine
DX: I10 Essential (primary) hypertension (principal); R73.03 Prediabetes; L40.9 Psoriasis, unspecified
CPT/HCPCS: 36415; 80053; 82043; 83036

== ENCOUNTER → 2021-11-05 09:40 | Outpatient (BNVA) | payer MEDICARE, OTHER, SELFPAY | PROVIDERS: PCP Internal Medicine; Visit Provider Hospitalist | DX: R91.8 Other nonspecific abnormal finding of lung field (principal); J41.8 Mixed simple and mucopurulent chronic bronchitis; A31.0 Pulmonary mycobacterial infection; J47.9 Bronchiectasis, uncomplicated | CPT/HCPCS: 99212 ==

== ENCOUNTER 2021-11-19 05:58 | Day surgery (SDC) | payer MEDICARE, OTHER, SELFPAY ==
--- NOTE | 2021-11-18 11:36 | P.CONAN_ITS ---
Documented by User: Magali Mcnally NP 11/18/21 11:39 HPI - Anesthesia Eval Consult details Narrative: 71yo M for Colonoscopy PMFSH Active Problems Active Problems: All Active Problems (Updated 01/26/21 @ 21:41 by Filipe Story MD) Bronchiectasis (Acute) Nontuberculous mycobacterial disease of lung (Acute) Streptococcus viridans infection (Acute) ISIAH (obstructive sleep apnea) (Acute) Pulmonary nodules (Acute) Chronic bronchitis (Acute) Past Medical History Medical History Arthritis Bronchiectasis Chronic bronchitis Gallstones HTN (hypertension) Nontuberculous mycobacterial disease of lung ISIAH (obstructive sleep apnea) Prediabetes Pulmonary nodules Streptococcus viridans infection Family History Family history of problems with anesthesia: No Surgical History Surgical History History of arthroscopy of right knee History of surgical removal of pilonidal cyst Hx of colonoscopy Hx of total knee replacement History of Problems with Anesthesia: No Social History Social History Patient Tobacco Use Status: Former Tobacco user Quit Date: 20yr ago Tobacco use type: Cigarette Years Smoked: 30 years Use of substances other than those prescribed or required for medical reasons: Yes Substance Use Type Other:: gummies Substance Use Frequency: Occasionally Are you DNR?: No Advance Directives: No Advance Directives Information Provided: Yes Meds Allergies Allergy/AdvReac Type Severity Reaction Status Date / Time No Known Allergies Allergy Verified 11/19/21 06:10 [No Known Allergies*] Home Medications Medication Instructions Recorded Confirmed Last Taken Type hydrochlorothiazide 12.5 mg tablet 12.5 mg PO DAILY 08/20/20 11/19/21 10/07/20 06:30 History lisinopril 40 mg tablet 40 mg PO DAILY 08/20/20 11/19/21 10/07/20 06:30 History betamethasone dipropionate 0.05 % 1 appl topical BID 10/01/20 11/19/21 Unknown History topical cream calcipotriene 0.005 % topical cream 1 appl topical BID 10/01/20 11/19/21 Unknown History nebulizers 11/05/21 11/19/21 Unknown History Exam Exam Date and Time: November 18, 2021 1136 Pertinent Lab Results Pertinent Lab Results: Laboratory Tests 06/14/21 10/13/21 08:00 09:50 WBC 6.5 Hgb 14.3 Hct 43.1 Plt Count 293 Sodium 138 Potassium 3.9 Chloride 104 Carbon Dioxide 25 BUN 16 Creatinine 0.98 Narrative Narrative: XR chest 2V 07/2021 IMPRESSION: 1.? Stable appearing nodular density in the right lung base. 2.? Prominence of the pulmonary vasculature. CT chest wo IV con 10/2021 IMPRESSION: Stable appearance of bilateral regions of tree-in-bud configuration disease consistent with end bronchial disease with mucus plugging. There are again noted to be a few dilated tubular structures which are stable and most prominent being within the right middle lobe. ? Old granulomatous disease. ? A few stable 4 mm or greater noncalcified nodular densities. ? Prominent ascending thoracic aorta measuring up to 4 cm in diameter. ? Fleischner guidelines were followed. Assessment and Plan Assessment Anesthesia Assessment: Chart Reviewed Final Anesthetic Review Family History of Problems with Anesthesia: No History of Problems with Anesthesia: No Documented by User: Corinne Sullivan MD 11/19/21 08:12 [facility] Past Medical History Medical History Arthritis Bronchiectasis Chronic bronchitis Gallstones HTN (hypertension) Nontuberculous mycobacterial disease of lung ISIAH (obstructive sleep apnea) Prediabetes Pulmonary nodules Streptococcus viridans infection Surgical History Surgical History History of arthroscopy of right knee History of surgical removal of pilonidal cyst Hx of colonoscopy Hx of total knee replacement Social History Social History Patient Tobacco Use Status: Former Tobacco user Quit Date: 20yr ago Tobacco use type: Cigarette Years Smoked: 30 years Use of substances other than those prescribed or required for medical reasons: Yes Substance Use Type Other:: gummies Substance Use Frequency: Occasionally Are you DNR?: No Advance Directives: No Advance Directives Information Provided: Yes Meds Allergies Allergy/AdvReac Type Severity Reaction Status Date / Time No Known Allergies Allergy Verified 11/19/21 06:10 [No Known Allergies*] Home Medications Medication Instructions Recorded Confirmed Last Taken Type hydrochlorothiazide 12.5 mg tablet 12.5 mg PO DAILY 08/20/20 11/19/21 10/07/20 06:30 History lisinopril 40 mg tablet 40 mg PO DAILY 08/20/20 11/19/21 10/07/20 06:30 History betamethasone dipropionate 0.05 % 1 appl topical BID 10/01/20 11/19/21 Unknown History topical cream calcipotriene 0.005 % topical cream 1 appl topical BID 10/01/20 11/19/21 Unknown History nebulizers 11/05/21 11/19/21 Unknown History Exam Airway Mallampati Class: III TM Dist: >3cm Neck ROM: Full Denture: Upper Loose/Missing/Broken Teeth: Yes and Upper Heart: RRR Lungs: distant but clear Assessment and Plan Assessment Anesthesia Assessment: Anesthesia Plan Discussed Final Anesthetic Review NPO: Yes ASA Class: III Final Preanesthetic Review: Meds/Allgs Chart Reviewed, Consent Obtained/Reviewed and Anes Risks/Benef Reviewed Patient Risk: Intermediate Procedure Risk: Low Anesthetic Plan Anesthetic Plan: MAC: Disposition: Standard PACU
[2021-11-19 06:06] VITALS: BMI 44.6
[2021-11-19 06:16] VITALS: BP 161/77; PULSE 66; RESP 18; TEMP 36.6; O2SAT 95
[2021-11-19] MEDS: Lactated Ringers 1,000 ML 100 ML IVCONT (06:34)
[2021-11-19] MEDS: Ampicillin Sodium 2 GM in 0.9 % Sodium Chloride 100 ML IV (06:34)
[2021-11-19] MEDS: Gentamicin Sulfate/NaCl 80 MG/100 ML PIGGYBACK 100 MG IV (07:02)
[2021-11-19] MEDS: Albuterol Sulfate (0.083%) 2.5 MG/3 ML VIAL.NEB INHALE (07:18)
[2021-11-19 07:21] VITALS: PULSE 69; RESP 18; O2SAT 99
[2021-11-19 08:33] VITALS: BP 121/68; PULSE 79; RESP 18; TEMP 36.9; O2SAT 94
--- NOTE | 2021-11-19 08:39 | P.BOP_ITS ---
Brief Operative Note Date of Service: 11/19/21 Pre-op diagnosis: Screening Post-op diagnosis: other (Colon polyps) Procedure: Colonoscopy to the cecum and TI with hot snare polypectomy x 2, with placement of 2 Resolution clips on the more proximal ascending colon polypectomy site Surgeon: Burak Barragan Anesthesia: MAC Was an Automobile Body Repairer used for this Procedure?: No Estimated blood loss (mL): 2.0 Pathology: other (A. Ascending colon polyps) Condition: stable Disposition: PACU
[2021-11-19 08:48] VITALS: BP 122/62; PULSE 69; RESP 18; TEMP 36.9; O2SAT 97
--- NOTE | 2021-11-19 22:43 | OP_ITS ---
SURGEON: Burak Barragan MD INDICATIONS: The patient presents for evaluation of colorectal cancer screening and personal history of tubular adenomas of the colon. Full consent has been obtained from him for this, including risks of bleeding and perforation. PREOPERATIVE DIAGNOSIS: Colorectal cancer screening and personal history of tubular adenomas of the colon. POSTOPERATIVE DIAGNOSIS: PROCEDURE PERFORMED: Colonoscopy to the cecum and terminal ileum with hot snare polypectomy x 2, and placement of 2 resolution clips. ESTIMATED BLOOD LOSS: COMPLICATIONS: ANESTHESIA: Monitored anesthesia care. ASSISTANTS: SPECIMENS: POSTOPERATIVE DIAGNOSES: Colorectal cancer screening and personal history of tubular adenomas of the colon, colon polyps, diverticulosis, and internal hemorrhoids. DESCRIPTION OF PROCEDURE: The patient was placed in the left lateral decubitus position. The digital rectal exam revealed no abnormalities. The Olympus video pediatric colonoscope was entered into the rectum and advanced easily to the cecum. Once in the cecum, I did identify a normal-appearing cecal pouch with appendiceal orifice and a normal-appearing ileocecal valve. The terminal ileum was cannulated and appeared normal. The scope was withdrawn back in the colon. The entire cecum and ileocecal valve appeared normal. The scope was slowly withdrawn assessing all mucosal surfaces carefully. Preparation was excellent. In the proximal ascending colon was an approximately 8 to 10 mm raised, but relatively flat polyp, which was removed by hot snare polypectomy and recovered by suction. Two resolution clips were applied to the polypectomy site with good deployment and good hemostasis. There was no residual polyp tissue. Just distal to that was another flat approximately 12 mm polyp, which was removed by hot snare polypectomy and recovered by suction. The polypectomy site appeared clean, without any sign of residual polyp nor bleeding. I did not visualize any other polyps, colitis, nor angiodysplasia. There was a mild amount of sigmoid diverticulosis. In the rectum, the scope was retroflexed visualizing internal hemorrhoids, but no other pathology. The rectal mucosa appeared normal. The scope was straightened and withdrawn from the patient, he tolerated the procedure well and was returned to the recovery area in stable condition. IMPRESSION: 1. Colon polyps. 2. Diverticulosis. 3. Internal hemorrhoids. PLAN: The results of the pathology will be checked. I would recommend a repeat colonoscopy in 3 years for further screening and surveillance. He was advised not to use any aspirin or NSAIDs for 1 week. MD JOURDAN Orellana/CAREY / [id number] STEVEN
== END 2021-11-19 09:29 | disposition home or self-care (01) ==
PROVIDERS: PCP Internal Medicine; Visit Provider Internal Medicine
PROC: 0DJD8ZZ Inspection of Lower Intestinal Tract, Via Natural or Artificial Opening Endoscopic (ICD-10-PCS; CPT 45378; principal; 2021-11-19 07:30)
DX: Z12.11 Encounter for screening for malignant neoplasm of colon (principal); Z86.010 Personal history of colon polyps; D12.2 Benign neoplasm of ascending colon; K57.30 Diverticulosis of large intestine without perforation or abscess without bleeding; K64.8 Other hemorrhoids; I10 Essential (primary) hypertension; G47.33 Obstructive sleep apnea (adult) (pediatric); Z79.899 Other long term (current) drug therapy; Z79.82 Long term (current) use of aspirin; Z79.1 Long term (current) use of non-steroidal anti-inflammatories (NSAID); Z99.89 Dependence on other enabling machines and devices; Z87.891 Personal history of nicotine dependence
CPT/HCPCS: 45385; 88305; 94640; J0290; J1580; J2250

== ENCOUNTER 2022-05-10 09:22 | Emergency (ER) | payer MEDICARE, OTHER, SELFPAY ==
--- NOTE | ~2022-05-10 | XR_ITS ---
EXAMINATION: XR CHEST CLINICAL INFORMATION: Shortness of breath COMPARISON: Chest CT 10/07/2021 TECHNIQUE: 2 views of the chest were obtained FINDINGS: The lungs are well-expanded and clear of acute pneumonic process. There are small pulmonary nodules in the right middle lobe and lingular segments. Heart size and pulmonary vascularity is normal. There is mild spondylosis of dorsal spine. No aggressive lytic or sclerotic process seen. XR/XR chest 2V IMPRESSION: 1. No acute cardiopulmonary process seen. 2. Small pulmonary nodules in the right middle lobe and lingular segments. These were noted on the previous CT chest 10/07/2021.
[2022-05-10 09:26] VITALS: BP 183/80; PULSE 67; RESP 19; TEMP 36.6; O2SAT 98; BMI 45.4
[2022-05-10 09:55] VITALS: BP 193/86; PULSE 63; RESP 20; TEMP 36.8; O2SAT 98
--- NOTE | 2022-05-10 10:19 | PC.NURSE ---
pt resting comfortably in bed with at bedside, stating his biospy was one year ago, he chose to not go on antx at the time. stating he just felt off this morning. Stable on RA. Able to hold a conversation without getting sob
--- NOTE | 2022-05-10 10:55 | ECG_ITS ---
Test Reason : DYSPNEA Blood Pressure : / mmHG Vent. Rate : 053 BPM Atrial Rate : 053 BPM P-R Int : 188 ms QRS Dur : 098 ms QT Int : 424 ms P-R-T Axes : 023 031 070 degrees QTc Int : 397 ms Sinus bradycardia with sinus arrhythmia Otherwise normal ECG When compared with ECG of 01-OCT-2018 07:39, No significant change was found Referred By: Henrik Montague Electronically Signed By:Ji Forbes
--- NOTE | 2022-05-10 10:56 | ED.GENADULT ---
HPI - General Adult General Chief complaint: Upper Respiratory Symptoms Stated complaint: Diff breathing Time Seen by Provider: 05/10/22 10:38 Source: patient and family (, Milka) Mode of arrival: ambulatory Limitations: no limitations History of Present Illness HPI narrative: 71-year-old male who presents emergency department for evaluation of nausea and shortness of breath. The patient got up this morning at 05:30 hours. He states that he drinks coughing was feeling fine. At around 07:30 hours he developed nausea and felt short of breath. He states that he felt like his breathing was heavy. He did not have any dyspnea on exertion. He states that he has a 15 lb dog any was able to walk the dog down his stairs without any difficulty. He states that his dog is been ill and this is made him very sad and he was feeling anxious. When he started talking about his dog , he became tearful. He states that his symptoms of heaviness with breathing lasted approximately 2 hours. He states that his symptoms have improved at the time of my interview. He denied fever, chills, rhinorrhea, sore throat, cough, chest pain. He had associated nausea with no vomiting. Denied diarrhea. He denied dark stools or black stools. He states that he has arthritis but no increase myalgias arthralgias. The patient is followed by our telephone operator chief, Dr. Filipe Story and I did review the note from 11/05/2021. Patient has a diagnosis chronic bronchitis and bronchiectasis. On bronchoscopy he did grow strep viridans which was treated with antibiotics. 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 Related Data Home Medications Medication Instructions Recorded Confirmed hydrochlorothiazide 12.5 mg tablet 12.5 mg PO DAILY 08/20/20 11/19/21 lisinopril 40 mg tablet 40 mg PO DAILY 08/20/20 11/19/21 betamethasone dipropionate 0.05 % 1 appl topical BID 10/01/20 11/19/21 topical cream calcipotriene 0.005 % topical cream 1 appl topical BID 10/01/20 11/19/21 nebulizers 11/05/21 11/19/21 Previous Rx's Medication Instructions Recorded albuterol sulfate 2.5 mg/3 mL 2.5 mg (3 mL) inhalation Q4H PRN 03/15/21 (0.083 %) solution for nebulization shortness of breath or wheezing #180 mL sodium chloride 3 % for 4 ml inhalation BID secretions 03/15/21 nebulization #240 mL albuterol sulfate 90 mcg/actuation 2 inh inhalation Q6H PRN shortness 07/29/21 aerosol inhaler of breath or wheezing 30 days #18 grams Allergies Allergy/AdvReac Type Severity Reaction Status Date / Time No Known Allergies Allergy Verified 05/10/22 09:26 [No Known Allergies*] Review of Systems Review of Systems: Yes all other systems are reviewed and are negative [facility] Past Medical History [facility] Narrative: Social history: Denies alcohol use. He states he occasionally eats a marijuana gummy. Medical History Arthritis Bronchiectasis Chronic bronchitis Gallstones HTN (hypertension) Nontuberculous mycobacterial disease of lung ISIAH (obstructive sleep apnea) Prediabetes Pulmonary nodules Streptococcus viridans infection Surgical History History of arthroscopy of right knee History of surgical removal of pilonidal cyst Hx of colonoscopy Hx of total knee replacement Social History Social History Alcohol intake: current Alcohol intake frequency: a few times a month Patient Tobacco Use Status: Former Tobacco user Quit Date: 20yr ago Tobacco use type: Cigarette Years Smoked: 30 years Smoked in Last 30 Days: No Substance Use Type: Marijuana Advance Directives: Yes Advance Directives Information Provided: Yes Advance Directives on File: No Physical Exam ED Vital Signs: Vital Signs - 24 hr 05/10/22 09:26 05/10/22 09:55 05/10/22 09:55 Temperature 98 F 98.2 F Pulse Rate 67 63 Respiratory Rate 19 20 Blood Pressure 183/80 H 193/86 H Pulse Oximetry 98 98 98 Oxygen Delivery Method Room Air Room Air 05/10/22 13:12 05/10/22 14:43 05/10/22 15:33 Temperature 98.2 F Pulse Rate 49 L 53 53 Respiratory Rate 16 13 13 Blood Pressure 160/66 H 142/73 H 187/61 H Pulse Oximetry 97 98 98 Oxygen Delivery Method Room Air Room Air Room Air BMI result Body Mass Index 45.4 Const General: cooperative and no acute distress Orientation/consciousness: oriented to person and oriented to place Limitations: no limitations HENMT Head: Yes normal to inspection, Yes normocephalic and Yes atraumatic Ears: external ears normal General nose exam: Normal external nose present Face and sinus: Yes normal facial exam Mouth: Normal oral and palatal mucosa present Throat: Yes posterior oropharynx normal Eyes General: appearance normal, both eyes and all related structures Pupils: Equal, round and reactive pupils present Neck Neck: Yes normal visual inspection, Yes no lymphadenopathy, Yes trachea midline and Yes supple Chest Chest palpation & inspection: normal inspection of the chest and normal palpation of entire chest wall Resp Effort & Inspection: normal respiratory effort and able to speak in complete sentences Auscultation: clear to auscultation bilaterally Cardio Rate: regular rate Rhythm: regular rhythm Heart sounds: S1 normal heart sound present, S2 normal heart sound present and no murmurs GI Inspection: Yes normal to inspection Palpation (GI): Soft to palpation, nontender and no guarding Auscultation: normal bowel sounds General: Yes no CVA tenderness Back/Spine/Pelvis Back: no CVA tenderness Skin General skin exam: no rashes or lesions noted Neuro General: oriented to person and oriented to place Cranial nerves: Yes CN's II-XII intact bilaterally and Yes Equal, round and reactive pupils present Cognition (Neuro): normal cognition Motor exam (neuro): 5/5 motor strength present throughout Extrem General: Yes normal to inspection Psych Appearance: grossly normal Speech and movement: Normal speech and movement present Affect: Anxious affect present Attitude: cooperative Thought process: Normal thought process present Medications Administered Discontinued Medications Generic Name Dose Route Start Last Admin Trade Name Kelsie PRN Reason Stop Dose Admin Lorazepam 1 mg 05/10/22 10:54 05/10/22 11:30 Lorazepam 1 Mg Tablet PO 05/10/22 10:55 1 mg ONCE STA Administration Medical Decision Making Medical Decision Making [facility] Narrative: 71-year-old male who presents emergency department for evaluation of heaviness with breathing associated with nausea and no other symptoms. Symptoms started this morning but have now resolved. He also complains of being sad and anxious about his dog who is been ill recently. Vital signs did reveal an elevated blood pressure of 183/80 otherwise were unremarkable. Physical examination was unremarkable. I ordered laboratory evaluation to include CBC, CMP, lipase, PT/INR, PTT, troponin, BNP, chest x-ray two view, EKG. Patient was ordered to get Ativan 1 mg orally. 1306: My interpretation of his laboratory evaluation is as follows: Glucose elevated 123. Bilirubin elevated 1.9. BNP normal 38. High sensitive troponin I was detectable at 5.3 but not elevated. Chest x-ray was unremarkable. Patient is feeling better after receiving Ativan. I will repeat a 3 hour troponin at 14:30 hours. 1544: Repeat troponin was 5.9 suggests the patient did not have myocardial injury. I did discuss this with the patient patient's . I do not have a clear etiology for the patient's symptoms but I do think that there is a component of anxiety that may have caused his symptoms I did discuss this with him. Patient was discharged home with printed and verbal instructions. Differential Diagnosis Differential diagnosis includes but is not limited to pneumonia, bronchitis, pulmonary embolism, myocardial infarction, anxiety Lab Data MDM Lab Attestation statement: I reviewed the patient's lab results. 05/10/22 11:36 05/10/22 11:23 Labs: Lab Results 05/10/22 05/10/22 05/10/22 Range/Units 11:23 11:23 11:35 WBC (4.8-10.8) X10*3/uL RBC (4.60-5.80) X10*6/uL Hgb (14.0-18.0) g/dl Hct (42.0-52.0) % MCV (80.0-98.0) fL MCH (27.0-33.0) pg MCHC (31.0-36.0) g/dl RDW (11.0-16.0) % Plt Count (160-400) X10*3/uL MPV (9.4-12.4) fL Immature Gran % (Auto) (0.0-0.4) % Neut % (Auto) (45-73) % Lymph % (Auto) (20-40) % Keith % (Auto) (2-11) % Eos % (Auto) (0-4) % Baso % (Auto) (0-2) % Lymph # (Auto) (1.2-4.9) X10*3/uL Keith # (Auto) (0.1-1.2) X10*3/uL Eos # (Auto) (0.0-0.4) X10*3/uL Baso # (Auto) (0.0-0.2) X10*3/uL Abs Immat Gran (auto) (0.00-0.03) X10*3/uL Absolute Neuts (auto) (2.0-8.3) x10*3/uL Absolute Nucleated RBC (0.0-0.012) X10*3/uL Nucleated RBC % (auto) (0.0-0.2) /100WBC PT (10.0-13.1) SEC INR (0.9-1.1) APTT (26.0-36.4) SEC Sodium 139 (135-145) mmol/L Potassium 4.3 (3.3-5.1) mmol/L Chloride 104 (96-108) mmol/L Carbon Dioxide 26 (22-29) mmol/L Anion Gap 13 (12-20) BUN 15 (9-16) mg/dL Creatinine 0.98 (0.5-1.4) mg/dL Estim Creat Clear Calc 82.9 Estimated GFR > 60 Random Glucose 123 H (60-115) mg/dL Calcium 9.2 (8.4-10.2) mg/dL Total Bilirubin 1.9 H (0.0-1.0) mg/dL AST 21 (5-37) U/L ALT 19 (0-40) U/L Alkaline Phosphatase 75 (39-117) U/L Troponin I High Sens 5.5 (<3.5-35.0) ng/L B-Natriuretic Peptide 38 (<100) pg/mL Total Protein 7.2 (6.5-8.0) g/dL Albumin 4.1 (3.5-5.0) g/dL Lipase 65 (8-78) U/L 05/10/22 05/10/22 05/10/22 Range/Units 11:36 11:48 14:48 WBC 7.6 (4.8-10.8) X10*3/uL RBC 4.99 (4.60-5.80) X10*6/uL Hgb 14.9 (14.0-18.0) g/dl Hct 43.7 (42.0-52.0) % MCV 87.6 (80.0-98.0) fL MCH 29.9 (27.0-33.0) pg MCHC 34.1 (31.0-36.0) g/dl RDW 12.1 (11.0-16.0) % Plt Count 293 (160-400) X10*3/uL MPV 8.8 L (9.4-12.4) fL Immature Gran % (Auto) 0.1 (0.0-0.4) % Neut % (Auto) 70.1 (45-73) % Lymph % (Auto) 19.9 L (20-40) % Keith % (Auto) 7.5 (2-11) % Eos % (Auto) 2.1 (0-4) % Baso % (Auto) 0.3 (0-2) % Lymph # (Auto) 1.5 (1.2-4.9) X10*3/uL Keith # (Auto) 0.6 (0.1-1.2) X10*3/uL Eos # (Auto) 0.2 (0.0-0.4) X10*3/uL Baso # (Auto) 0.0 (0.0-0.2) X10*3/uL Abs Immat Gran (auto) 0.01 (0.00-0.03) X10*3/uL Absolute Neuts (auto) 5.3 (2.0-8.3) x10*3/uL Absolute Nucleated RBC 0.000 (0.0-0.012) X10*3/uL Nucleated RBC % (auto) 0.0 (0.0-0.2) /100WBC PT 10.8 (10.0-13.1) SEC INR 0.9 (0.9-1.1) APTT 33.7 (26.0-36.4) SEC Sodium (135-145) mmol/L Potassium (3.3-5.1) mmol/L Chloride (96-108) mmol/L Carbon Dioxide (22-29) mmol/L Anion Gap (12-20) BUN (9-16) mg/dL Creatinine (0.5-1.4) mg/dL Estim Creat Clear Calc Estimated GFR Random Glucose (60-115) mg/dL Calcium (8.4-10.2) mg/dL Total Bilirubin (0.0-1.0) mg/dL AST (5-37) U/L ALT (0-40) U/L Alkaline Phosphatase (39-117) U/L Troponin I High Sens 5.9 (<3.5-35.0) ng/L B-Natriuretic Peptide (<100) pg/mL Total Protein (6.5-8.0) g/dL Albumin (3.5-5.0) g/dL Lipase (8-78) U/L Independent Interpretation I performed an independent interpretation of an: EKG and Plain X-Ray Interpretation: My independent interpretation patient's 12 EKG done at 10:59 is as follows: Sinus bradycardia with a rate 53, normal FL interval, QRS duration QTC interval, no ST segment elevation, no depression, no PACs, no PVCs this is a normal EKG except for the bradycardia. My independent interpretation of the patient's chest x-ray: No acute disease right-sided pulmonary nodule. Radiology Impression Discussion of test interpretation with radiology: I have reviewed the radiologist's reading. Radiologist Impression: XR chest 2V IMPRESSION: 1. No acute cardiopulmonary process seen. 2. Small pulmonary nodules in the right middle lobe and lingular segments. These were noted on the previous CT chest 10/07/2021. Discharge Plan Discharge Clinical Impression: Chest pain, Dyspnea, Nausea Patient Disposition: Home, Self-Care Instructions: Chest Pain (ED) Additional Instructions: Your blood work was unremarkable. Your high sensitivity troponin I (marker of heart damage) his was initially detectable but not elevated at 5.5. Your repeat 3 hour troponin was again detectable but not elevated at 5.9. Since there was no significant increase, this suggests that you did not have heart damage as the cause of your symptoms today which is reassuring. Your chest x-ray was unremarkable, you do have a stable appearing pulmonary nodule which is unchanged from previous chest x-ray At this time I do not have a clear cause for your symptoms, but I do believe that stress and anxiety may have played a role in your symptoms. You did receive Ativan 1 mg orally today. Follow-up with your doctor in 2 days. Please return to the emergency department if your symptoms get worse or if you develop any symptoms that are concerning to you. Signs of heart disease include chest pain with exertion, shortness of breath with exertion, lightheadedness, dizziness with exertion Prescriptions: No Action sodium chloride 3 % solution for nebulization 4 ml inhalation BID Qty: 240 3RF albuterol sulfate 2.5 mg /3 mL (0.083 %) solution for nebulization 2.5 mg inhalation Q4H PRN (Reason: shortness of breath or wheezing) Qty: 180 3RF calcipotriene 0.005 % cream 1 appl topical BID betamethasone dipropionate 0.05 % cream 1 appl topical BID lisinopril 40 mg tablet 40 mg PO DAILY hydrochlorothiazide 12.5 mg tablet 12.5 mg PO DAILY (DME) nebulizers Misc See Rx Instructions .ROUTE Rx Instructions: As directed albuterol sulfate 90 mcg/actuation HFA aerosol inhaler 2 inh inhalation Q6H PRN (Reason: shortness of breath or wheezing) 30 Days Qty: 18 12RF
[2022-05-10] MEDS: LORazepam 1 MG TABLET PO (11:30)
[2022-05-10 11:43] LABS: MANUAL DIFF FLAG NO
[2022-05-10 11:57] LABS: Alanine Aminotransferase 19 U/L (0-40); Albumin Level 4.1 g/dL (3.5-5.0); Alkaline Phosphatase 75 U/L (39-117); Anion Gap 13 (12-20); Aspartate Amino Transferase 21 U/L (5-37); Bilirubin Total 1.9 mg/dL (0.0-1.0); Blood Urea Nitrogen 15 mg/dL (9-16); Calcium 9.2 mg/dL (8.4-10.2); Carbon Dioxide 26 mmol/L (22-29); Chloride 104 mmol/L (96-108); Creatinine Clr Calc Pharmacy 82.9; Estimated Glomerular Filt Rate > 60; Glucose Random 123 mg/dL (60-115); Lipase 65 U/L (8-78); Potassium 4.3 mmol/L (3.3-5.1); Sodium 139 mmol/L (135-145); Total Protein 7.2 g/dL (6.5-8.0); Troponin-I High Sensitivity 5.5 ng/L (<3.5-35.0)
[2022-05-10 11:58] LABS: Basophils Percent Auto 0.3 % (0-2); Eosinophils Absolute Auto 0.2 X10*3/uL (0.0-0.4); Eosinophils Percent Auto 2.1 % (0-4); Hematocrit 43.7 % (42.0-52.0); Hemoglobin 14.9 g/dl (14.0-18.0); Imm Gran Abs Auto 0.01 X10*3/uL (0.00-0.03); Imm Gran Pct Auto 0.1 % (0.0-0.4); Lymphocytes Absolute Auto 1.5 X10*3/uL (1.2-4.9); Lymphocytes Percent Auto 19.9 % (20-40); Mean Corpuscular HGB Conc 34.1 g/dl (31.0-36.0); Mean Corpuscular Hemoglobin 29.9 pg (27.0-33.0); Mean Corpuscular Volume 87.6 fL (80.0-98.0); Mean Platelet Volume 8.8 fL (9.4-12.4); Monocytes Absolute Auto 0.6 X10*3/uL (0.1-1.2); Monocytes Percent Auto 7.5 % (2-11); Neutrophils Absolute Auto 5.3 x10*3/uL (2.0-8.3); Neutrophils Percent Auto 70.1 % (45-73); Platelet Count 293 X10*3/uL (160-400); Red Blood Count 4.99 X10*6/uL (4.60-5.80); Red Cell Distribution Width 12.1 % (11.0-16.0); White Blood Count 7.6 X10*3/uL (4.8-10.8)
[2022-05-10 12:00] LABS: INTERNATIONAL NORM RATIO 0.9 (0.9-1.1); Prothrombin Time 10.8 SEC (10.0-13.1)
[2022-05-10 12:02] LABS: Partial Thromboplastin Time 33.7 SEC (26.0-36.4)
[2022-05-10 12:05] LABS: B Type Natriuretic Peptide 38 pg/mL (<100)
[2022-05-10 13:12] VITALS: BP 160/66; PULSE 49; RESP 16; TEMP 36.8; O2SAT 97
[2022-05-10 14:43] VITALS: BP 142/73; PULSE 53; RESP 13; O2SAT 98
[2022-05-10 15:15] LABS: Troponin-I High Sensitivity 5.9 ng/L (<3.5-35.0)
[2022-05-10 15:33] VITALS: BP 187/61; PULSE 53; RESP 13; O2SAT 98
== END 2022-05-10 16:16 | disposition home or self-care (01) ==
PROVIDERS: Emergency Provider Emergency Medicine Emergency Medical Services; PCP Internal Medicine
DX: R07.9 Chest pain, unspecified (principal); R06.02 Shortness of breath; R11.0 Nausea; R91.8 Other nonspecific abnormal finding of lung field
CPT/HCPCS: 36415; 71046; 80053; 83690; 83880; 84484; 85025; 85610; 85730; 93005; 99284; 99285

== ENCOUNTER 2022-05-23 04:54 | Emergency (ER) | payer MEDICARE, OTHER, SELFPAY ==
--- NOTE | ~2022-05-23 | CT_ITS ---
EXAMINATION: CT CERVICAL SPINE WITHOUT CONTRAST CLINICAL INFORMATION: Left arm pain, intermittent. COMPARISON: None available. TECHNIQUE: 3 mm thin axial and reformatted 2 mm thin sagittal and coronal images of cervical spine were obtained without contrast. This CT examination was performed using dose optimization techniques as appropriate, variously including the following: *Automated exposure control *Adjustment of mA and/or kV according to patient size (this includes techniques or standardized protocols for targeted exams where dose is matched to indication/reason for exam; i.e. extremities or head) *Use of iterative reconstruction technique DLP: 749 mGy-cm FINDINGS: On sagittal reconstructed images there is normal cervical lordosis. There is loss of C5-C6 disc heights with ventral and posterior spondylosis. Rest the disc heights are normal. The craniovertebral junction and the C1-C2 alignment is normal. No visible acute fracture, dislocation or subluxation seen. The C2-C3 and the C3-C4 disc level appears unremarkable. At C4-C5 disc level there is mild left uncovertebral hypertrophic changes narrowing the left neural foramina. The right neural foramina appears patent. No underlying disc bulge or herniation seen. At C5-C6 disc levels is posterior moderate spondylosis/bulge complex resulting in mild to moderate AP canal stenosis. There is bilateral narrowing of neural foramina from uncovertebral hypertrophic changes. At C6-C7 disc level there is no disc bulge, spinal canal stenosis. The neural foramina are patent bilaterally. The C7-T1 disc level appears unremarkable. CT/CT cervical spine wo IV con IMPRESSION: 1. Degenerative disc changes C5-C6 disc level with posterior spondylosis/bulge complex resulting in mild to moderate AP canal stenosis and bilateral narrowing of neural foramina. 2. Mild left uncovertebral hypertrophic changes narrowing the left neural foramina at C4-C5 disc level. Fleischner guidelines were followed.
[2022-05-23 05:00] VITALS: BP 155/63; PULSE 56; RESP 16; TEMP 36.7; O2SAT 97; BMI 45.4
--- NOTE | 2022-05-23 05:13 | ECG_ITS ---
Test Reason : chest pain Blood Pressure : / mmHG Vent. Rate : 055 BPM Atrial Rate : 055 BPM P-R Int : 184 ms QRS Dur : 098 ms QT Int : 452 ms P-R-T Axes : 010 016 058 degrees QTc Int : 432 ms Sinus bradycardia with Premature supraventricular complexes Otherwise normal ECG When compared with ECG of 10-MAY-2022 10:59, Premature supraventricular complexes are now Present Referred By: Generic ED Physician Electronically Signed By:KEVIN RONQUILLO
[2022-05-23 05:32] LABS: MANUAL DIFF FLAG NO
[2022-05-23 05:33] LABS: Basophils Percent Auto 0.3 % (0-2); Eosinophils Absolute Auto 0.3 X10*3/uL (0.0-0.4); Hematocrit 41.9 % (42.0-52.0); Hemoglobin 14.1 g/dl (14.0-18.0); Imm Gran Abs Auto 0.01 X10*3/uL (0.00-0.03); Imm Gran Pct Auto 0.1 % (0.0-0.4); Lymphocytes Percent Auto 28.9 % (20-40); Mean Corpuscular HGB Conc 33.7 g/dl (31.0-36.0); Mean Corpuscular Hemoglobin 29.4 pg (27.0-33.0); Mean Corpuscular Volume 87.5 fL (80.0-98.0); Mean Platelet Volume 8.7 fL (9.4-12.4); Monocytes Absolute Auto 0.6 X10*3/uL (0.1-1.2); Monocytes Percent Auto 9.1 % (2-11); Neutrophils Absolute Auto 4.1 x10*3/uL (2.0-8.3); Neutrophils Percent Auto 57.6 % (45-73); Platelet Count 266 X10*3/uL (160-400); Red Blood Count 4.79 X10*6/uL (4.60-5.80); White Blood Count 7.1 X10*3/uL (4.8-10.8)
[2022-05-23 05:51] LABS: Alanine Aminotransferase 19 U/L (0-40); Albumin Level 3.9 g/dL (3.5-5.0); Alkaline Phosphatase 66 U/L (39-117); Anion Gap 12 (12-20); Aspartate Amino Transferase 15 U/L (5-37); Bilirubin Total 1.1 mg/dL (0.0-1.0); Blood Urea Nitrogen 22 mg/dL (9-16); Calcium 8.7 mg/dL (8.4-10.2); Carbon Dioxide 25 mmol/L (22-29); Chloride 107 mmol/L (96-108); Creatinine Clr Calc Pharmacy 74.5; Estimated Glomerular Filt Rate > 60; Glucose Random 154 mg/dL (60-115); Potassium 3.9 mmol/L (3.3-5.1); Sodium 140 mmol/L (135-145); Total Protein 6.4 g/dL (6.5-8.0)
[2022-05-23 05:52] LABS: Troponin-I High Sensitivity 4.3 ng/L (<3.5-35.0)
--- NOTE | 2022-05-23 06:37 | ED.EXTPRO ---
HPI - Extremity Problem General Chief complaint: Extremity Injury, Upper Stated complaint: SoB, arm pain radiates to chest Time Seen by Provider: 05/23/22 06:34 Source: patient, RN notes reviewed and old records reviewed Mode of arrival: ambulatory Limitations: no limitations History of Present Illness HPI Narrative: 71-year-old male with a PMHx of anxiety, prediabetes, obstructive sleep apnea, pulmonary nodules, non tuberculosis mycobacterial lung disease presents to the ED for episodic aching left arm pain mostly originating from the upper arm/elbow radiating down to his fingers with assoc numbness and tingling for a few days. Reports episodes will last for approximately an hour associated with deep breathing and nausea then spontaneously resolved. Reports taken Tylenol this morning with some relief, he has tried topical CBD oil with good symptom control. Patient was also evaluated in our facility on 05/10 for similar symptoms, workup unremarkable diagnosed with anxiety. Denies prior injuries to the shoulder/elbow/hand, chest pain, headache, SOB, dizziness, lightheadedness, vomiting, abdominal pain, change in urine/bowel habits, swelling of the joint, fever, or chills. MD Complaint: extremity pain Onset (ago): day(s) Pain Consistency: intermittent Location: left and elbow Quality: aching Radiation: distal Relieving factors: medication Related Data Home Medications Medication Instructions Recorded Confirmed hydrochlorothiazide 12.5 mg tablet 12.5 mg PO DAILY 08/20/20 11/19/21 lisinopril 40 mg tablet 40 mg PO DAILY 08/20/20 11/19/21 betamethasone dipropionate 0.05 % 1 appl topical BID 10/01/20 11/19/21 topical cream calcipotriene 0.005 % topical cream 1 appl topical BID 10/01/20 11/19/21 nebulizers 11/05/21 11/19/21 Previous Rx's Medication Instructions Recorded albuterol sulfate 2.5 mg/3 mL 2.5 mg (3 mL) inhalation Q4H PRN 03/15/21 (0.083 %) solution for nebulization shortness of breath or wheezing #180 mL sodium chloride 3 % for 4 ml inhalation BID secretions 03/15/21 nebulization #240 mL albuterol sulfate 90 mcg/actuation 2 inh inhalation Q6H PRN shortness 07/29/21 aerosol inhaler of breath or wheezing 30 days #18 grams cyclobenzaprine 10 mg tablet 10 mg PO TID PRN muscle spasm #14 05/23/22 tabs Allergies Allergy/AdvReac Type Severity Reaction Status Date / Time No Known Allergies Allergy Verified 05/10/22 09:26 [No Known Allergies*] Review of Systems Review of Systems: Constitutional: No Fever, No Chills ENT/Mouth: No Nasal Congestion, No Hoarseness, No Rhinorrhea, No Swallowing Difficulty Cardiovascular: No Chest Pain, No SOB Respiratory: No Cough, No Sputum, No Wheezing Gastrointestinal: + Nausea, No Vomiting, No Diarrhea, No Constipation, No Abdominal pain Genitourinary: No Dysuria, No Urinary Frequency, No Hematuria, No Urinary Incontinence/retention, No Urgency, No Flank Pain Musculoskeletal: No joint pain, No Myalgias, No Joint Swelling Skin: No Skin Lesions, No rash Neuro: No Weakness, + Numbness, + Paresthesias Yes all other systems are reviewed and are negative PMFSH Past Medical History Attestation statement: The following information was validated with the patient. Medical History Arthritis Bronchiectasis Chronic bronchitis Gallstones HTN (hypertension) Nontuberculous mycobacterial disease of lung ISIAH (obstructive sleep apnea) Prediabetes Pulmonary nodules Streptococcus viridans infection Surgical History History of arthroscopy of right knee History of surgical removal of pilonidal cyst Hx of colonoscopy Hx of total knee replacement Social History Social History Alcohol intake: current Alcohol intake frequency: holidays/special occasions only Patient Tobacco Use Status: Former Tobacco user Quit Date: 20yr ago Tobacco use type: Cigarette Years Smoked: 30 years Smoked in Last 30 Days: No Use of substances other than those prescribed or required for medical reasons: Yes Substance Use Type: Marijuana Substance Use Frequency: Socially Advance Directives: No Physical Exam Vital Signs: Vital Signs: Last Vital Signs Temp 97.4 F 05/23/22 08:00 Pulse 49 L 05/23/22 08:00 Resp 8 L 05/23/22 08:00 BP 158/74 H 05/23/22 08:00 Pulse Ox 96 05/23/22 08:00 O2 Del Method Room Air 05/23/22 08:00 BMI result Body Mass Index 45.4 Const: General: cooperative, healthy appearing and no acute distress Nutritional Appearance: well nourished Orientation/consciousness: patient oriented x3 Limitations: no limitations HEENT: Head: Yes normal to inspection and Yes atraumatic Ears: hearing grossly normal bilaterally General nose exam: Normal external nose present Face and sinus: Yes normal facial exam Eyes: General: appearance normal, both eyes and all related structures Alignment and Position: alignment normal Periorbital: periorbital findings normal Eyelids: Yes eyelids normal Conjunctivae: conjunctivae normal EOM: EOMs intact bilaterally Neck: Neck: Yes normal visual inspection and Yes no meningeal signs Chest: Chest palpation & inspection: normal inspection of the chest Resp: Effort & Inspection: normal respiratory effort, able to speak in complete sentences and no respiratory distress Auscultation: clear to auscultation bilaterally Cardio: Jugular venous distension: no JVD Rate: regular rate Rhythm: regular rhythm Heart sounds: S1 normal heart sound present and S2 normal heart sound present Peripheral pulses: Peripheral pulses 2+ throughout GI: Inspection: Yes normal to inspection Palpation (GI): Soft to palpation, nontender, no guarding and not rigid : General: Yes no CVA tenderness Back/Spine/Pelvis: Other: No midline cervical/thoracic/lumbar spinous tenderness/step-off or deformity Back: no CVA tenderness Skin: Rashes: no rashes Wounds: no wounds Neuro: General: patient oriented x3, tone normal, moves all extremities, no meningeal signs, no focal motor deficits and CN's II-XI intact bilaterally Cranial nerves: Yes CN's II-XII intact bilaterally and Yes Bilaterally intact EOM present Cognition (Neuro): normal cognition Gait exam (Neuro): Normal gait present Motor exam (neuro): 5/5 motor strength present throughout Extrem: Other: Small bruising and abrasions noted to the left forearm without deformity/swelling/erythema. No tenderness to palpation to left arm/elbow. General: Yes normal to inspection, Yes full ROM and Yes capillary refill normal Right upper extremity: normal to inspection and full ROM Left upper extremity: normal to inspection and full ROM Right lower extremity: edema Details: 1+ Left lower extremity: edema Details: 1+ Course Course Course Narrative: -1102--labs reassuring. BUN mildly elevated, appears chronic. Troponin x2 negative CT cervical spine wo IV con IMPRESSION: 1.? Degenerative disc changes C5-C6 disc level with posterior spondylosis/bulge complex resulting in mild to moderate AP canal stenosis and bilateral narrowing of neural foramina. 2.? Mild left uncovertebral hypertrophic changes narrowing the left neural foramina at C4-C5 disc level. ? Fleischner guidelines were followed. > Results discussed with patient, recommended close PCP/Spine, reports symptomatic improvement after p.o. Flexeril. Discussed close follow-up including worrisome signs and symptoms and strict return precautions, and when to return to the emergency department. They verbalized understanding and feel safe for discharge at this time. Medications Administered Discontinued Medications Generic Name Dose Route Start Last Admin Trade Name Freq PRN Reason Stop Dose Admin Cyclobenzaprine HCl 10 mg 05/23/22 07:21 05/23/22 07:39 Cyclobenzaprine Hcl 10 Mg Tablet PO 05/23/22 07:22 10 mg ONCE ONE Administration Medical Decision Making Medical Decision Making [facility] Narrative: 71-year-old male with a PMHx of anxiety, prediabetes, obstructive sleep apnea, pulmonary nodules, non tuberculosis mycobacterial lung disease presents to the ED for episodic aching left arm pain mostly originating from the upper arm/elbow radiating down to his fingers with numbness and tingling for a few days. On physical exam, vitals signs stable, no deformity/swelling/tenderness to palpation to the left arm with full ROM. No midline spinous tenderness throughout or red flag symptoms. Concern for cubital tunnel syndrome, cervical radiculopathy, vs muscle spasm vs anxiety. Lower concern for AL, PE, septic joint, stroke, or rotator cuff injury. No evidence of cellulitis, compartment soft Plan: EKG, labs, cervical spine CT, pain control Please refer to course for remaining clinical decision making, interpretation of labs/imaging results, and discussions with consultants and/or family members. Differential Diagnosis Differential Diagnoses: The differential diagnosis associated with the presentation includes As above Admission/Observation Consideration of admission/observation: Escalation of care including admission/observation considered Lab Data [facility] Lab Attestation statement: I reviewed the patient's lab results. 05/23/22 05:27 05/23/22 05:27 Labs: Lab Results 05/23/22 05/23/22 05/23/22 Range/Units 05:27 05:27 05:27 WBC 7.1 (4.8-10.8) X10*3/uL RBC 4.79 (4.60-5.80) X10*6/uL Hgb 14.1 (14.0-18.0) g/dl Hct 41.9 L (42.0-52.0) % MCV 87.5 (80.0-98.0) fL MCH 29.4 (27.0-33.0) pg MCHC 33.7 (31.0-36.0) g/dl RDW 12.0 (11.0-16.0) % Plt Count 266 (160-400) X10*3/uL MPV 8.7 L (9.4-12.4) fL Immature Gran % (Auto) 0.1 (0.0-0.4) % Neut % (Auto) 57.6 (45-73) % Lymph % (Auto) 28.9 (20-40) % Grand % (Auto) 9.1 (2-11) % Eos % (Auto) 4.0 (0-4) % Baso % (Auto) 0.3 (0-2) % Lymph # (Auto) 2.0 (1.2-4.9) X10*3/uL Grand # (Auto) 0.6 (0.1-1.2) X10*3/uL Eos # (Auto) 0.3 (0.0-0.4) X10*3/uL Baso # (Auto) 0.0 (0.0-0.2) X10*3/uL Abs Immat Gran (auto) 0.01 (0.00-0.03) X10*3/uL Absolute Neuts (auto) 4.1 (2.0-8.3) x10*3/uL Absolute Nucleated RBC 0.000 (0.0-0.012) X10*3/uL Nucleated RBC % (auto) 0.0 (0.0-0.2) /100WBC Sodium 140 (135-145) mmol/L Potassium 3.9 (3.3-5.1) mmol/L Chloride 107 (96-108) mmol/L Carbon Dioxide 25 (22-29) mmol/L Anion Gap 12 (12-20) BUN 22 H (9-16) mg/dL Creatinine 1.09 (0.5-1.4) mg/dL Estim Creat Clear Calc 74.5 Estimated GFR > 60 Random Glucose 154 H (60-115) mg/dL Calcium 8.7 (8.4-10.2) mg/dL Magnesium 2.1 (1.6-2.6) mg/dL Total Bilirubin 1.1 H (0.0-1.0) mg/dL AST 15 (5-37) U/L ALT 19 (0-40) U/L Alkaline Phosphatase 66 (39-117) U/L Troponin I High Sens 4.3 (<3.5-35.0) ng/L Total Protein 6.4 L (6.5-8.0) g/dL Albumin 3.9 (3.5-5.0) g/dL 05/23/22 Range/Units 08:23 WBC (4.8-10.8) X10*3/uL RBC (4.60-5.80) X10*6/uL Hgb (14.0-18.0) g/dl Hct (42.0-52.0) % MCV (80.0-98.0) fL MCH (27.0-33.0) pg MCHC (31.0-36.0) g/dl RDW (11.0-16.0) % Plt Count (160-400) X10*3/uL MPV (9.4-12.4) fL Immature Gran % (Auto) (0.0-0.4) % Neut % (Auto) (45-73) % Lymph % (Auto) (20-40) % Grand % (Auto) (2-11) % Eos % (Auto) (0-4) % Baso % (Auto) (0-2) % Lymph # (Auto) (1.2-4.9) X10*3/uL Grand # (Auto) (0.1-1.2) X10*3/uL Eos # (Auto) (0.0-0.4) X10*3/uL Baso # (Auto) (0.0-0.2) X10*3/uL Abs Immat Gran (auto) (0.00-0.03) X10*3/uL Absolute Neuts (auto) (2.0-8.3) x10*3/uL Absolute Nucleated RBC (0.0-0.012) X10*3/uL Nucleated RBC % (auto) (0.0-0.2) /100WBC Sodium (135-145) mmol/L Potassium (3.3-5.1) mmol/L Chloride (96-108) mmol/L Carbon Dioxide (22-29) mmol/L Anion Gap (12-20) BUN (9-16) mg/dL Creatinine (0.5-1.4) mg/dL Estim Creat Clear Calc Estimated GFR Random Glucose (60-115) mg/dL Calcium (8.4-10.2) mg/dL Magnesium (1.6-2.6) mg/dL Total Bilirubin (0.0-1.0) mg/dL AST (5-37) U/L ALT (0-40) U/L Alkaline Phosphatase (39-117) U/L Troponin I High Sens 4.2 (<3.5-35.0) ng/L Total Protein (6.5-8.0) g/dL Albumin (3.5-5.0) g/dL Radiology Impression Discussion of test interpretation with radiology: I have reviewed the radiologist's reading. External Record Review External record reviewed: Inpatient record, Office record, Outpatient record, Prior outpatient labs, Prior outpatient radiology, Primary care record and Outside ED record Discharge Plan Discharge Clinical Impression: Cervical arthritis Patient Disposition: Home, Self-Care Instructions: Osteoarthritis (DC) Additional Instructions: Your blood work was reassuring, your heart enzymes were negative Your CT scan shows some arthritic changes and some mild narrowing. This could be related to her pain Please of close follow-up with her PCP as well as a internet security specialist [employer] as a muscle relaxer, take at night as it makes you drowsy, do not drive, drink alcohol, or operate machinery while taking In addition take Tylenol and Motrin If symptoms persist or worsen you develop weakness, headache, nausea or vomiting return to the ED Prescriptions: New cyclobenzaprine 10 mg tablet 10 mg PO TID PRN (Reason: muscle spasm) Qty: 14 0RF No Action sodium chloride 3 % solution for nebulization 4 ml inhalation BID Qty: 240 3RF albuterol sulfate 2.5 mg /3 mL (0.083 %) solution for nebulization 2.5 mg inhalation Q4H PRN (Reason: shortness of breath or wheezing) Qty: 180 3RF calcipotriene 0.005 % cream 1 appl topical BID betamethasone dipropionate 0.05 % cream 1 appl topical BID lisinopril 40 mg tablet 40 mg PO DAILY hydrochlorothiazide 12.5 mg tablet 12.5 mg PO DAILY (DME) nebulizers Misc See Rx Instructions .ROUTE Rx Instructions: As directed albuterol sulfate 90 mcg/actuation HFA aerosol inhaler 2 inh inhalation Q6H PRN (Reason: shortness of breath or wheezing) 30 Days Qty: 18 12RF Referrals: Silverio Rutherford MD [Primary Care Provider] - Sho Antoine MD [Physician] - Interventions: ED Discharge Assessment Last Done: 05/23/22 11:17 Discharge Date/Time: 05/23/22 11:18
[2022-05-23] MEDS: Cyclobenzaprine HCl 10 MG TABLET PO (07:39)
[2022-05-23 07:59] LABS: Magnesium 2.1 mg/dL (1.6-2.6)
[2022-05-23 08:00] VITALS: BP 158/74; PULSE 49; RESP 8; TEMP 36.3; O2SAT 96
[2022-05-23 08:55] LABS: Troponin-I High Sensitivity 4.2 ng/L (<3.5-35.0)
== END 2022-05-23 11:18 | disposition home or self-care (01) ==
PROVIDERS: Physician Assistant; Emergency Provider Emergency Medicine; PCP Internal Medicine
DX: M47.892 Other spondylosis, cervical region (principal); R60.0 Localized edema; I10 Essential (primary) hypertension; Z79.899 Other long term (current) drug therapy
CPT/HCPCS: 36415; 72125; 80053; 83735; 84484; 85025; 93005; 99284

== ENCOUNTER 2022-06-17 10:11 | Outpatient (REF) | payer MEDICARE, OTHER, SELFPAY ==
--- NOTE | ~2022-06-17 | XR_ITS ---
EXAMINATION: XR CHEST 2 VIEWS CLINICAL INFORMATION: Cough. COMPARISON: Chest radiographs dated 05/10/2022; CT chest dated 10/07/2021. TECHNIQUE: Frontal and lateral views of the chest were obtained. FINDINGS: The heart, great vessels, pulmonary vasculature and mediastinum are normal. The lungs show no focal infiltrate, effusion or pneumothorax. There is mild right base linear scar/subsegmental atelectasis. There is mild bronchiolar wall thickening. Small bibasilar nodules are redemonstrated. There is no acute osseous abnormality. XR/XR chest 2V IMPRESSION: 1. There is mild, increased right base atelectasis. Recommend short-term follow-up chest radiographs to ensure regression/resolution and exclude the possibility of underlying obstructive process. 2. There is bilateral bronchiolar wall thickening, likely infectious or inflammatory in etiology. 3. Small bibasilar lung nodules are redemonstrated.
== END 2022-06-17 10:12 | disposition home or self-care (01) ==
LOC: HO.XRAY 10:11
PROVIDERS: PCP Internal Medicine; Visit Provider Internal Medicine
DX: R05.9 Cough, unspecified (principal)
CPT/HCPCS: 71046

== ENCOUNTER 2022-07-06 10:37 | Outpatient (REF) | payer MEDICARE, OTHER, SELFPAY ==
--- NOTE | ~2022-07-06 | XR_ITS ---
EXAMINATION: XR CHEST CLINICAL INFORMATION: Right lower lobe atelectasis. COMPARISON: Chest radiograph 06/17/2022. TECHNIQUE: 2 views of the chest were obtained. FINDINGS: Normal appearance of the cardiomediastinal silhouette. Previously described platelike opacities in the right lower lobe are decreased. No new focal airspace opacities. No pleural effusion or pneumothorax. Thoracic spondylosis. No acute osseous abnormalities. The visualized upper abdomen is within normal limits. XR/XR chest 2V IMPRESSION: Decreased right lower lobe atelectasis. No new focal airspace opacities. No pleural effusion or pneumothorax.
== END 2022-07-06 10:38 | disposition home or self-care (01) ==
LOC: HO.XRAY 10:37
PROVIDERS: PCP Internal Medicine; Visit Provider Internal Medicine
DX: R91.8 Other nonspecific abnormal finding of lung field (principal)
CPT/HCPCS: 71046

== ENCOUNTER 2022-09-08 14:06 | Outpatient (AMB) | payer MEDICARE, OTHER, SELFPAY ==
[2022-09-08 14:18] VITALS: PULSE 65; O2SAT 95; BMI 45.4
--- NOTE | 2022-09-08 14:18 | A.OFFVIS_ITS ---
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 Apparently he had been exposed to very unclean environment prior to developing the worsening cough. He was cleaning house for 3 weeks without a respirator. He started developing worsening cough. Therefore, he went to see his primary care doctor ordered a chest x-ray. There appeared to be nodular opacity the right hemithorax. Therefore, he underwent a CT scan of the chest. The CT scan he did demonstrate evidence tree-in-bud in addition to bronchitis and bronchiolitis. In addition to that appears to mucus plugging with what appears to be a density in the right middle lobe which also appears to be inspissated mucus. Again malignancies also in differential although he appears to disease elsewhere suggesting that is more of a diffuse process. Likely from a exposure. Therefore, will have him undergo blood work in addition to start chest physical therapy with a flutter valve to see if he can clear his own mucus. The patient is aware that he needs to avoid significant tracey or moldy environment. And if he ever needs to going to that is dosing virus he needs to wear a respirator. Will plan to follow-up in 4 weeks with chest x-ray and pulmonary function studies. If the densities still present on his x-ray or getting worse with definitely perform bronchoscopy at that time. 09/17/2020 the patient is here for a pulmonary follow-up visit. The patient overall is doing fairly well. Does have a cough [id number] severity. Tends to be nonproductive. He has been using the flutter valve with some success. He did undergo blood work and we did reviewed. He appears to have significant allergies with elevated IgE level. His major allergies are to dogs and cats. He also has other environmental allergies. At this point will start the patient on singular for additional allergy coverage. We did review his chest x-ray and still demonstrates the opacity in the right middle lobe area. This point based on the fact that the density is not clearing with chest physical therapy will go ahead and plan for bronchoscopy at this time. 10/20/2020 the patient is here for a pulmonary follow-up visit. Overall the patient has been doing well. He did undergo the bronchoscopy. He is reassured that the cytology and the pathology were both negative for malignancy. He did have chronic inflammatory and reactive changes. The patient was found to have strep viridans and the culture. Therefore did start antibiotics. He is almost done with him. He is also going to be performing chest physical therapy with the Acapella valve. Hopefully to clearing any mucus blockage. In addition to that he does use APAP. The BiPAP therapy continues to be affecting beneficial. He was concerned about his response to the therapy. I did download his APAP and his AHI is down to 1. therefore, he does not need any further adjustments. The patient is reassured. We did review his last CT scan of the chest that was back in July 2020. Will plan to do another CT scan in 6 months from his last 1 which should be in January 2021. 01/26/2021 the patient is here for a pulmonary follow-up visit. Overall he is doing well from a respiratory status. he has undergoing a couple surgeries since we last spoke. Overall though he is doing okay. He has been using the Acapella valve. He did have a repeat CT scan of the chest that was personally by me. The patient understands that the cylindrical density is still present and looks slightly bigger in size. There is also evidence of tree-in-bud in. 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 I will provide him with a nebulizer also with hypertonic saline in order to provide better chest physical therapy. He continues to use the Acapella valve. Will have come back in 6 months a repeat chest x-ray. If the area continues to change will consider additional diagnostic testing. 07/29/2021 the patient is here for a pulmonary follow-up visit. He has been performing the chest PT although he has not seen any significant amount of mucus production. Denies any significant shortness of breath or weight loss or night sweats. The patient did have a chest x-ray still demonstrating the persistent right-sided nodular opacity. Based on the x-rays hard to North appears to be any difference in size or shape. Will require CT scan to be repeated in order to address that. We again talked about further diagnostic interventions. If the CT scan demonstrates any interval worsening of this nodular density then we will talk about how to proceed with more invasive interventions. 11/05/2021 the patient is here for a pulmonary follow-up visit. Overall the patient is doing well from a respiratory status. Cough seems to be better. Patient also is performing the chest out of either once or twice a day. Patient understands that the important for mucus clearance and bronchopulmonary hygiene. 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 The patient also has psoriasis and apparently been getting worse. He did talk to the tele marketing executive regarding biologic therapy but it would be contraindicated while having mycobacterial disease. The patient can consider PD4 inhibitors we can discuss that further with his tele marketing executive. In the meantime he did undergo a CT scan of the chest that was personally by me. Pulmonary nodules appear to be stable without any significant changes. Therefore at this point will continue monitoring. I do not advise treating the mycobacterial disease. appears to be localized is not getting worse. The patient can the start therapy becomes more symptomatic or if there is any worsening in the CT scan. This point treatment will be prolonged and does have high level relapse. Will follow-up with a CT scan in 1 years time. Will meantime does continue to use CPAP. the patient has been some difficulties with the settings. I did have him we can acquire in order to bring it in is still having difficulties. 09/08/2022 the patient is here for pulmonary follow-up visit. The patient overall is doing well. Although he has been taking care of his sick in therefore not been able to take care of himself. He has not been performing the chest PT and the patient has not been using his inhaler. He is been using the APAP. The APAP therapy has been affecting beneficial. I did download the machine and his AHI is down to 1. He feels sometimes the pressure is not high enough, therefore increased his minimum pressure from 8-10 cm. The patient also had a CT scan of the chest that I personally reviewed. It appears that he has significant treating budding pulmonary nodules 3 much unchanged from before. He does have mycobacterial disease. At this point in view of the persistent findings will go ahead and start him on azithromycin therapy. [facility] Medical History Arthritis Bronchiectasis Chronic bronchitis Gallstones HTN (hypertension) Nontuberculous mycobacterial disease of lung ISIAH (obstructive sleep apnea) Prediabetes Pulmonary nodules Streptococcus viridans infection Surgical History History of arthroscopy of right knee History of surgical removal of pilonidal cyst Hx of colonoscopy Hx of total knee replacement Social History Alcohol intake: current Alcohol intake frequency: holidays/special occasions only Patient Tobacco Use Status: Former Tobacco user Quit Date: 20yr ago Tobacco use type: Cigarette Years Smoked: 30 years Substance Use Type: Marijuana Review of Systems Const Denies night sweats ENT Denies change in voice, Denies lip swelling, Denies mouth pain, Reports nasal congestion, Reports nasal discharge and Denies tongue swelling Card Denies chest pain Resp Reports cough GI Denies abdominal pain Musc Denies no additional complaints Neuro Denies Neuro-related abnormal movements Psych Denies no additional complaints Naun/Lymph Denies easy bleeding and Denies lymphadenopathy Aller/Immun Denies lip swelling and Denies tongue swelling Physical Exam Vital Signs: Last Vital Signs Pulse 65 09/08/22 14:18 Pulse Ox 95 09/08/22 14:18 Oxygen Delivery Method Room Air 09/08/22 14:18 BMI result Body Mass Index 45.4 Const General: alert Neck Neck: Yes normal visual inspection, Yes full ROM and Yes no lymphadenopathy Chest Chest palpation & inspection: normal inspection of the chest Resp Auscultation: diminished lung sounds Cardio Rate: regular rate Rhythm: regular rhythm Heart sounds: S1 normal heart sound present and S2 normal heart sound present GI Palpation (GI): Soft to palpation and nontender Auscultation: normal bowel sounds Skin General skin exam: rashes and/or lesions noted Assessment & Plan Assessment & Plan (1) Pulmonary nodules: Code(s): R91.8 - Other nonspecific abnormal finding of lung field (2) Chronic bronchitis: Code(s): J42 - Unspecified chronic bronchitis Qualifiers: Chronic bronchitis type: mixed simple and mucopurulent Qualified Code(s): J41.8 - Mixed simple and mucopurulent chronic bronchitis (3) Nontuberculous mycobacterial disease of lung: Code(s): A31.0 - Pulmonary mycobacterial infection (4) Bronchiectasis: Code(s): J47.9 - Bronchiectasis, uncomplicated Plan continue CPT with Acapella valve continue hypertonic saline 7% via nebulizer CPT continue APAP therapy start Azithromycin MWF, consider adding additional antimycobacterial therapies Will need an EKG once on Azithromycin F/U 4-6 months Medications: New azithromycin 500 mg PO 3XW 28 days 12 tabs 5RF Refilled sodium chloride 3% 4 mL inhalation BID 240 mL 11RF secretions J47.9 - Bronchiectasis, uncomplicated albuterol sulfate 90 mcg/actuation 2 inhalations inhalation Q6H 30 days PRN 18 grams 12RF shortness of breath or wheezing J44.9 - Chronic obstructive pulmonary disease, unspecified Coding Level of Care Code Est Pt Level 4 (48827) Diagnoses Pulmonary nodules R91.8 Chronic bronchitis J41.8 Chronic bronchitis type: mixed simple and mucopurulent Nontuberculous mycobacterial disease of lung A31.0 Bronchiectasis J47.9 Time Spent (min) 20
== END 2022-09-08 14:50 | disposition home or self-care (01) ==
PROVIDERS: PCP Internal Medicine; Visit Provider Hospitalist
DX: R91.8 Other nonspecific abnormal finding of lung field (principal); J41.8 Mixed simple and mucopurulent chronic bronchitis; A31.0 Pulmonary mycobacterial infection; J47.9 Bronchiectasis, uncomplicated
CPT/HCPCS: 99214

== ENCOUNTER → 2022-09-08 14:06 | Outpatient (BNVA) | payer MEDICARE, OTHER, SELFPAY | PROVIDERS: PCP Internal Medicine; Visit Provider Hospitalist | DX: R91.8 Other nonspecific abnormal finding of lung field (principal); J41.8 Mixed simple and mucopurulent chronic bronchitis; J47.9 Bronchiectasis, uncomplicated; A31.0 Pulmonary mycobacterial infection | CPT/HCPCS: 99212 ==

== ENCOUNTER 2023-02-08 15:24 | Outpatient (REF) | payer MEDICARE, OTHER, SELFPAY | END 2023-02-08 15:25 | disposition home or self-care (01) | LOC: HO.LAB 15:24 | PROVIDERS: PCP Internal Medicine; Visit Provider Internal Medicine | DX: I10 Essential (primary) hypertension (principal); L40.9 Psoriasis, unspecified; R73.03 Prediabetes; G47.33 Obstructive sleep apnea (adult) (pediatric); K57.90 Diverticulosis of intestine, part unspecified, without perforation or abscess without bleeding | CPT/HCPCS: 36415; 80053; 83036; 85025 ==

== ENCOUNTER 2023-03-17 09:03 | Outpatient (AMB) | payer MEDICARE, OTHER, SELFPAY ==
--- NOTE | 2023-03-17 09:10 | A.OFFVIS_ITS ---
Intake Vital Signs 03/17/23 09:11 Height 5 ft 4 in Weight 270 lb BMI 46.3 Pulse 53 Pulse Source Pulse Oximeter Pulse Oximetry (%) 95 Oxygen Delivery Method Room Air Intake Visit Reasons: CT Chest Follow Up Hand Booked Folder And Stitcher Required: No Allergies No Known Allergies [No Known Allergies*] Allergy (Verified 03/17/23 09:12) HPI HPI Comments History of Present Illness Details The patient is a 72-year-old gentleman with a known history of hypertension currently on ANNE-inhibitor was started developing worsening cough. Apparently he had been exposed to very unclean environment prior to developing the worsening cough. He was cleaning house for 3 weeks without a respirator. He started developing worsening cough. Therefore, he went to see his primary care doctor ordered a chest x-ray. There appeared to be nodular opacity the right hemithorax. Therefore, he underwent a CT scan of the chest. The CT scan he did demonstrate evidence tree-in-bud in addition to bronchitis and bronchiolitis. In addition to that appears to mucus plugging with what appears to be a density in the right middle lobe which also appears to be inspissated mucus. Again malignancies also in differential although he appears to disease elsewhere suggesting that is more of a diffuse process. Likely from a exposure. Therefore, will have him undergo blood work in addition to start chest physical therapy with a flutter valve to see if he can clear his own mucus. The patient is aware that he needs to avoid significant tracey or moldy environment. And if he ever needs to going to that is dosing virus he needs to wear a respirator. Will plan to follow-up in 4 weeks with chest x-ray and pulmonary function studies. If the densities still present on his x-ray or getting worse with definitely perform bronchoscopy at that time. 09/17/2020 the patient is here for a pulmonary follow-up visit. The patient overall is doing fairly well. Does have a cough [id number] severity. Tends to be nonproductive. He has been using the flutter valve with some success. He did undergo blood work and we did reviewed. He appears to have significant allergies with elevated IgE level. His major allergies are to dogs and cats. He also has other environmental allergies. At this point will start the patient on singular for additional allergy coverage. We did review his chest x-ray and still demonstrates the opacity in the right middle lobe area. This point based on the fact that the density is not clearing with chest physical therapy will go ahead and plan for bronchoscopy at this time. 10/20/2020 the patient is here for a pulmonary follow-up visit. Overall the patient has been doing well. He did undergo the bronchoscopy. He is reassured that the cytology and the pathology were both negative for malignancy. He did have chronic inflammatory and reactive changes. The patient was found to have strep viridans and the culture. Therefore did start antibiotics. He is almost done with him. He is also going to be performing chest physical therapy with the Acapella valve. Hopefully to clearing any mucus blockage. In addition to that he does use APAP. The BiPAP therapy continues to be affecting beneficial. He was concerned about his response to the therapy. I did download his APAP and his AHI is down to 1. therefore, he does not need any further adjustments. The patient is reassured. We did review his last CT scan of the chest that was back in July 2020. Will plan to do another CT scan in 6 months from his last 1 which should be in January 2021. 01/26/2021 the patient is here for a pulmonary follow-up visit. Overall he is doing well from a respiratory status. he has undergoing a couple surgeries since we last spoke. Overall though he is doing okay. He has been using the Acapella valve. He did have a repeat CT scan of the chest that was personally by me. The patient understands that the cylindrical density is still present and looks slightly bigger in size. There is also evidence of tree-in-bud in. 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 I will provide him with a nebulizer also with hypertonic saline in order to provide better chest physical therapy. He continues to use the Acapella valve. Will have come back in 6 months a repeat chest x-ray. If the area continues to change will consider additional diagnostic testing. 07/29/2021 the patient is here for a pulmonary follow-up visit. He has been performing the chest PT although he has not seen any significant amount of mucus production. Denies any significant shortness of breath or weight loss or night sweats. The patient did have a chest x-ray still demonstrating the persistent right-sided nodular opacity. Based on the x-rays hard to North appears to be any difference in size or shape. Will require CT scan to be repeated in order to address that. We again talked about further diagnostic interventions. If the CT scan demonstrates any interval worsening of this nodular density then we will talk about how to proceed with more invasive interventions. 11/05/2021 the patient is here for a pulmonary follow-up visit. Overall the patient is doing well from a respiratory status. Cough seems to be better. Patient also is performing the chest out of either once or twice a day. Patient understands that the important for mucus clearance and bronchopulmonary hygiene. 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 The patient also has psoriasis and apparently been getting worse. He did talk to the industrial equipment wirer regarding biologic therapy but it would be contraindicated while having mycobacterial disease. The patient can consider PD4 inhibitors we can discuss that further with his industrial equipment wirer. In the meantime he did undergo a CT scan of the chest that was personally by me. Pulmonary nodules appear to be stable without any significant changes. Therefore at this point will continue monitoring. I do not advise treating the mycobacterial disease. appears to be localized is not getting worse. The patient can the start therapy becomes more symptomatic or if there is any worsening in the CT scan. This point treatment will be prolonged and does have high level relapse. Will follow-up with a CT scan in 1 years time. Will meantime does continue to use CPAP. the patient has been some difficulties with the settings. I did have him we can acquire in order to bring it in is still having difficulties. 09/08/2022 the patient is here for pulmona ry follow-up visit. The patient overall is doing well. Although he has been taking care of his sick in therefore not been able to take care of himself. He has not been performing the chest PT and the patient has not been using his inhaler. He is been using the APAP. The APAP therapy has been affecting beneficial. I did download the machine and his AHI is down to 1. He feels sometimes the pressure is not high enough, therefore increased his minimum pressure from 8-10 cm. The patient also had a CT scan of the chest that I personally reviewed. It appears that he has significant treating budding pulmonary nodules 3 much unchanged from before. He does have mycobacterial disease. At this point in view of the persistent findings will go ahead and start him on azithromycin therapy. 03/17/2023 the patient is here for a pulmo ronnelly follow-up visit. Overall he doing well. He is concerned that he is gained weight. Respiratory status stable. He did take the azithromycin but only for a month. Then he stopped it. Has not seen any significant congestion or cough. He is slightly short of breath but partly because of his weight gain and also having knee issues. The patient's last CT scan was back in July 2022 demonstrating the nodular densities again on the right side but also on the left upper lobe. The patient had a CT scan at a location [place]. We did compare to his previous. No significant changes. Although the Sizer significant. Will plan to repeat the CT scan in the fall 2023. He needs to continue using the chest PT for mucus clearance. The patient will hold off on azithromycin right now but if the CT scans worse then he will have to go back on antimycobacterial therapy. If he becomes congested I did give him a sputum cup so we can provide us another AFB culture. The patient is also using CPAP. CPAP therapy has been affecting beneficial. He still feels like his AHI is going up. Likely from the weight gain. Current settings are 8- 16. His average pressure is around 9 cm and sometimes he goes up to 15. Therefore, I will just increase the pressures the little bit 10/08/2016. He will try it if he has any difficulties he will call the office about in change in back. The therapy continues to be affecting beneficial. His AHI is 2.3. [facility] Medical History Arthritis Bronchiectasis Chronic bronchitis Gallstones HTN (hypertension) Nontuberculous mycobacterial disease of lung ISIAH (obstructive sleep apnea) Prediabetes Pulmonary nodules Streptococcus viridans infection Surgical History History of arthroscopy of right knee History of surgical removal of pilonidal cyst Hx of colonoscopy Hx of total knee replacement Social History Alcohol intake: current Alcohol intake frequency: holidays/special occasions only Patient Tobacco Use Status: Former Tobacco user Quit Date: 20yr ago Tobacco use type: Cigarette Years Smoked: 30 years Substance Use Type: Marijuana Review of Systems Const Denies night sweats ENT Denies change in voice, Denies lip swelling, Denies mouth pain, Reports nasal congestion, Reports nasal discharge and Denies tongue swelling Card Denies chest pain Resp Reports cough GI Denies abdominal pain Musc Denies no additional complaints Neuro Denies Neuro-related abnormal movements Psych Denies no additional complaints Naun/Lymph Denies easy bleeding and Denies lymphadenopathy Aller/Immun Denies lip swelling and Denies tongue swelling Physical Exam Vital Signs: Last Vital Signs Pulse 53 03/17/23 09:11 Pulse Ox 95 03/17/23 09:11 Oxygen Delivery Method Room Air 03/17/23 09:11 BMI result Body Mass Index 46.3 Const General: alert Neck Neck: Yes normal visual inspection, Yes full ROM and Yes no lymphadenopathy Chest Chest palpation & inspection: normal inspection of the chest Resp Auscultation: diminished lung sounds Cardio Rate: regular rate Rhythm: regular rhythm Heart sounds: S1 normal heart sound present and S2 normal heart sound present GI Palpation (GI): Soft to palpation and nontender Auscultation: normal bowel sounds Skin General skin exam: rashes and/or lesions noted Assessment & Plan Assessment & Plan (1) Pulmonary nodules: Code(s): R91.8 - Other nonspecific abnormal finding of lung field (2) Chronic bronchitis: Code(s): J42 - Unspecified chronic bronchitis Qualifiers: Chronic bronchitis type: mixed simple and mucopurulent Qualified Code(s): J41.8 - Mixed simple and mucopurulent chronic bronchitis (3) Nontuberculous mycobacterial disease of lung: Code(s): A31.0 - Pulmonary mycobacterial infection (4) Bronchiectasis: Code(s): J47.9 - Bronchiectasis, uncomplicated Qualifiers: Bronchiectasis type: uncomplicated Qualified Code(s): J47.9 - Bronchiectasis, uncomplicated Plan continue CPT with Acapella valve continue hypertonic saline 7% via nebulizer CPT continue APAP therapy stopped Azithromycin MWF, consider adding additional antimycobacterial therapies repeat AFB sputum CT chest 10/2023 F/U 6-8 months Orders: Orders Acid-fast Culture + Smear 03/17/23 A31.0 - Pulmonary mycobacterial infection CT chest wo IV con 10/08/23 R91.8 - Other nonspecific abnormal finding of lung field Coding Level of Care Code Est Pt Level 4 (62819) Diagnoses Pulmonary nodules R91.8 Mixed simple and mucopurulent chronic bronchitis J41.8 Chronic bronchitis type: mixed simple and mucopurulent Nontuberculous mycobacterial disease of lung A31.0 Bronchiectasis without complication J47.9 Bronchiectasis type: uncomplicated Time Spent (min) 17
[2023-03-17 09:11] VITALS: PULSE 53; O2SAT 95; BMI 46.3
== END 2023-03-17 09:29 | disposition home or self-care (01) ==
PROVIDERS: PCP Internal Medicine; Visit Provider Hospitalist
DX: R91.8 Other nonspecific abnormal finding of lung field (principal); J41.8 Mixed simple and mucopurulent chronic bronchitis; A31.0 Pulmonary mycobacterial infection; J47.9 Bronchiectasis, uncomplicated
CPT/HCPCS: 99214

== ENCOUNTER → 2023-03-17 09:03 | Outpatient (BNVA) | payer MEDICARE, OTHER, SELFPAY | PROVIDERS: PCP Internal Medicine; Visit Provider Hospitalist | DX: J41.8 Mixed simple and mucopurulent chronic bronchitis (principal); R91.8 Other nonspecific abnormal finding of lung field; A31.0 Pulmonary mycobacterial infection; J47.9 Bronchiectasis, uncomplicated | CPT/HCPCS: 99212 ==

== ENCOUNTER 2023-05-02 06:34 | Emergency (ER) | payer MEDICARE, OTHER, SELFPAY ==
[2023-05-02] VITALS (7 sets, daily range): BP systolic 147–167; BP diastolic 56–79; PULSE 44–75; RESP 12–17; TEMP 36.4–36.6; O2SAT 95–98; BMI 47.6
--- NOTE | 2023-05-02 | ECG_ITS ---
Test Reason : CHEST PAIN Blood Pressure : / mmHG Vent. Rate : 071 BPM Atrial Rate : 071 BPM P-R Int : 200 ms QRS Dur : 096 ms QT Int : 394 ms P-R-T Axes : 064 023 067 degrees QTc Int : 428 ms Poor data quality Normal sinus rhythm Abnormal ECG When compared with ECG of 23-MAY-2022 05:19, Poor data quality in current ECG precludes serial comparison Referred By: Generic ED Physician Electronically Signed By:Ji Forbes
--- NOTE | ~2023-05-02 | XR_ITS ---
EXAMINATION: XR CHEST CLINICAL INFORMATION: Pain COMPARISON: PA and lateral chest 07/06/2022 TECHNIQUE: Frontal view of the chest was obtained. FINDINGS: Lungs are mildly hypoinflated. Otherwise no abnormality is noted involving the heart, lungs, mediastinum, bony thorax or soft tissues. Mild degenerative changes are present in the spine and shoulders. XR/XR chest 1V IMPRESSION: Unremarkable examination.
--- NOTE | 2023-05-02 06:59 | PC.NURSE ---
Iv access established, 22G placed in right AC, labs obtained and sent to lab.
--- NOTE | 2023-05-02 07:01 | MHC.EDTECH ---
THIS PCT JUST ASSUMED CARE OF PATIENT ,PATIENT WAS CHANGE INTO HOSPITAL G[facility] ,AND HOOKED UP TO LOG TUMBLER ,BLOOD DRAWN AND SENT TO LAB ,PATIENT CALL DENIS WITHIN REACH .
[2023-05-02 07:03] LABS: MANUAL DIFF FLAG NO
[2023-05-02 07:16] LABS: Basophils Percent Auto 0.5 % (0-2); Eosinophils Absolute Auto 0.2 X10*3/uL (0.0-0.4); Eosinophils Percent Auto 3.7 % (0-4); Hematocrit 42.8 % (42.0-52.0); Hemoglobin 14.5 g/dl (14.0-18.0); Imm Gran Abs Auto 0.02 X10*3/uL (0.00-0.03); Imm Gran Pct Auto 0.3 % (0.0-0.4); Lymphocytes Absolute Auto 1.7 X10*3/uL (1.2-4.9); Lymphocytes Percent Auto 26.6 % (20-40); Mean Corpuscular HGB Conc 33.9 g/dl (31.0-36.0); Mean Corpuscular Volume 88.4 fL (80.0-98.0); Mean Platelet Volume 8.9 fL (9.4-12.4); Monocytes Absolute Auto 0.5 X10*3/uL (0.1-1.2); Neutrophils Absolute Auto 3.8 x10*3/uL (2.0-8.3); Neutrophils Percent Auto 60.9 % (45-73); Platelet Count 250 X10*3/uL (160-400); Red Blood Count 4.84 X10*6/uL (4.60-5.80); Red Cell Distribution Width 11.9 % (11.0-16.0); White Blood Count 6.2 X10*3/uL (4.8-10.8)
--- NOTE | 2023-05-02 07:21 | ECG_ITS ---
Test Reason : chest pain Blood Pressure : / mmHG Vent. Rate : 059 BPM Atrial Rate : 059 BPM P-R Int : 206 ms QRS Dur : 102 ms QT Int : 410 ms P-R-T Axes : 065 027 081 degrees QTc Int : 405 ms Sinus bradycardia with marked sinus arrhythmia Otherwise normal ECG When compared with ECG of 02-MAY-2023 06:39, ST no longer depressed in Anterior leads T wave inversion no longer evident in Lateral leads Referred By: Italia Muller Electronically Signed By:Ji Forbes
--- NOTE | 2023-05-02 07:47 | ED.CHESTPAIN ---
HPI - Chest Pain General Chief Complaint: Chest Pain Stated Complaint: heart pain Time Seen by Provider: 05/02/23 07:04 Source: patient Mode of arrival: ambulatory Limitations: no limitations History of Present Illness HPI narrative: 72 yo male with PMH of ISIAH on CPAP, HTN, anxiety, bronchiectasis here with c/o being at the grocery store yesterday looking in the freezer section when he felt a little weak and woozy no chest pain or shortness of breath he did not fall. He checked his HR and it was in the 40s. His O2 was normal. He went home and kept an eye on it all day - his HR was normal the rest of the day. He had a hard time sleeping thinking about it. This am he woke u and felt internal shaking and panicking. He woke up this AM denies chest pain to me states it was this recurrent L sided body pain in the arm and leg that he has seen specialists for. He is just feeling stressed about yesterday's event. No travel no procedures. He is under stress due to recent knee surgery his had. MD complaint: other Onset (ago): day(s) (yesterday ) Timing of current episode: now resolved Prior episodes: No Onset: other (standing) Pain location: other (L side of body) Pain radiation: none Severity: moderate Quality: aching Relieving factors: nothing Exacerbating factors: nothing Context: other (hx of similar episodes) Treatment prior to arrival: aspirin Related Data Home Medications Medication Instructions Recorded Confirmed hydrochlorothiazide 12.5 mg tablet 12.5 mg PO DAILY 08/20/20 11/19/21 lisinopril 40 mg tablet 40 mg PO DAILY 08/20/20 11/19/21 betamethasone dipropionate 0.05 % 1 appl topical BID 10/01/20 11/19/21 topical cream calcipotriene 0.005 % topical cream 1 appl topical BID 10/01/20 11/19/21 nebulizers 11/05/21 11/19/21 buspirone 10 mg tablet 10 mg PO BID PRN 09/08/22 Previous Rx's Medication Instructions Recorded albuterol sulfate 2.5 mg/3 mL 2.5 mg (3 mL) inhalation Q4H PRN 03/15/21 (0.083 %) solution for nebulization shortness of breath or wheezing #180 mL albuterol sulfate 90 mcg/actuation 2 inh inhalation Q6H PRN shortness 09/08/22 aerosol inhaler of breath or wheezing 30 days #18 grams azithromycin 500 mg tablet 500 mg PO 3XW 28 days #12 tabs 09/08/22 sodium chloride 3 % for 4 ml inhalation BID secretions 09/08/22 nebulization #240 mL Allergies Allergy/AdvReac Type Severity Reaction Status Date / Time No Known Allergies Allergy Verified 05/02/23 06:59 [No Known Allergies*] Review of Systems Review of Systems: Constitutional : No Weight loss, No Fever, No Chills ENT/Mouth : No sore throat, No Rhinorrhea Eyes: No Eye Pain, No Swelling Cardiovascular : no Chest Pain, no SOB, no Dyspnea on Exertion, No Orthopnea, No Edema, No Palpitations Respiratory : No Cough, No Sputum Gastrointestinal : pos Nausea, No Vomiting, No Diarrhea, No abdominal Pain, No Hematochezia, No Melena Genitourinary : No Dysuria, No Urinary Frequency Musculoskeletal : No joint pain, pos Myalgias, No Joint Swelling Skin : No Skin Lesions, No rash Neuro : No Weakness, No Numbness, No Dizziness, No Headache Psych : No Anxiety/Panic, No Depression All other systems reviewed and are negative PMFSH Past Medical History Attestation statement: The following information was validated with the patient. Source: old records reviewed Medical History Prediabetes Bronchiectasis Nontuberculous mycobacterial disease of lung Streptococcus viridans infection Arthritis Gallstones ISIAH (obstructive sleep apnea) HTN (hypertension) Pulmonary nodules Chronic bronchitis Surgical History Hx of total knee replacement History of surgical removal of pilonidal cyst History of arthroscopy of right knee Hx of colonoscopy Social History Social History Alcohol intake: current Alcohol intake frequency: holidays/special occasions only Patient Tobacco Use Status: Former Tobacco user Quit Date: 20yr ago Tobacco use type: Cigarette Years Smoked: 30 years Substance Use Type: Marijuana Advance Directives: Yes Advance Directives Information Provided: Yes Advance Directives on File: No Physical Exam Vital Signs: Vital Signs: Last Vital Signs Temp 97.8 F 05/02/23 11:56 Pulse 53 05/02/23 11:56 Resp 14 05/02/23 11:56 BP 151/64 H 05/02/23 11:56 Pulse Ox 96 05/02/23 11:56 O2 Del Method Room Air 05/02/23 11:56 BMI result Body Mass Index 47.6 Appearance: Alert. Oriented X3. No acute distress. Eyes: Pupils equal, round and reactive to light. ENT: Pharynx normal. Neck: Normal inspection. Neck supple. CVS: Normal heart rate and rhythm. Pulses normal. Respiratory: No respiratory distress. Breath sounds normal. Abdomen: Soft and nontender. Skin: Skin warm and dry. Normal skin color. Normal skin turgor. Extremities: No lower extremity edema. No calf ttp Neuro: Oriented X 3. No motor deficit. No sensory deficit. Medical Decision Making Medical Decision Making [facility] Narrative: 72 yo male with PMH of ISIAH on CPAP, HTN, anxiety, bronchiectasis here with event yesterday when he felt dizzy and his HR went to 40s he has no real chest pain it is his intermittent baseline L sided pain that he has had he has no tachycardia, hypoxia signs of DVT to suggest VTE. At this time will obtain EKG as initial had too much artifact, CXR, troponin x 2, orthostatic VS, monitor on tele. Seems atypical for ACS not related to exertion if negative workup would recommend holter monitor at home. Differential Diagnosis Differential Diagnoses: The differential diagnosis associated with the presentation includes anxiety, atypical chest pain, lyte abnormality Admission/Observation Consideration of admission/observation: Escalation of care including admission/observation considered negative troponin x 2, HR down into 40s x 1 sinus bradycardia but no symptoms orthostatics negative will refer for holter monitor Lab Data [facility] Lab Attestation statement: I reviewed the patient's lab results. 05/02/23 06:58 05/02/23 06:58 Labs: Lab Results 05/02/23 05/02/23 Range/Units 06:58 10:08 WBC 6.2 (4.8-10.8) X10*3/uL RBC 4.84 (4.60-5.80) X10*6/uL Hgb 14.5 (14.0-18.0) g/dl Hct 42.8 (42.0-52.0) % MCV 88.4 (80.0-98.0) fL MCH 30.0 (27.0-33.0) pg MCHC 33.9 (31.0-36.0) g/dl RDW 11.9 (11.0-16.0) % Plt Count 250 (160-400) X10*3/uL MPV 8.9 L (9.4-12.4) fL Immature Gran % (Auto) 0.3 (0.0-0.4) % Neut % (Auto) 60.9 (45-73) % Lymph % (Auto) 26.6 (20-40) % [place] % (Auto) 8.0 (2-11) % Eos % (Auto) 3.7 (0-4) % Baso % (Auto) 0.5 (0-2) % Lymph # (Auto) 1.7 (1.2-4.9) X10*3/uL [place] # (Auto) 0.5 (0.1-1.2) X10*3/uL Eos # (Auto) 0.2 (0.0-0.4) X10*3/uL Baso # (Auto) 0.0 (0.0-0.2) X10*3/uL Abs Immat Gran (auto) 0.02 (0.00-0.03) X10*3/uL Absolute Neuts (auto) 3.8 (2.0-8.3) x10*3/uL Absolute Nucleated RBC 0.000 (0.0-0.012) X10*3/uL Nucleated RBC % (auto) 0.0 (0.0-0.2) /100WBC Sodium 141 (135-145) mmol/L Potassium 3.9 (3.3-5.1) mmol/L Chloride 106 (96-108) mmol/L Carbon Dioxide 23 (22-29) mmol/L Anion Gap 16 (12-20) BUN 21 H (9-16) mg/dL Creatinine 1.01 (0.5-1.4) mg/dL Estim Creat Clear Calc 81.4 Estimated GFR > 60 Random Glucose 144 H (60-115) mg/dL Calcium 9.4 (8.4-10.2) mg/dL Total Bilirubin 1.4 H (0.0-1.0) mg/dL AST 22 (5-37) U/L ALT 23 (0-40) U/L Alkaline Phosphatase 66 (39-117) U/L Troponin I High Sens 10.0 D 6.2 (<3.5-35.0) ng/L Total Protein 7.3 (6.5-8.0) g/dL Albumin 3.9 (3.5-5.0) g/dL Independent Interpretation I performed an independent interpretation of an: EKG and Plain X-Ray (normal ) Interpretation: Rate: 59 Rhythm: sinus bradycardia [place]: normal Normal P waves. Normal KIKE. Normal QRS complex. ST T wave : nonspecific changes I and aVL, no BC qTC: 405 prior studies: no sig change from priors The study has been interpreted contemporaneously by me. EKG #2 Rate: 53 Rhythm: sinus bradycardia with PACs [place]: normal Normal P waves. Normal KIKE. Normal QRS complex. ST T wave : on BC, nonspecific I and aVL ST T wave qTC: 410 prior studies: no acute ischemia The study has been interpreted contemporaneously by me. . Radiology Impression Discussion of test interpretation with radiology: I have reviewed the radiologist's reading. External Record Review External record reviewed: Inpatient record Critical Care Time Critical Care Time Critical Care Time: Yes Total Critical Care Time: 35 Attestation: review or records, repeat labs, repeat EKG I attest to this time spent taking care of the patient Discharge Plan Discharge Clinical Impression: Atypical chest pain, PAC (premature atrial contraction) Patient Disposition: Home, Self-Care Instructions: Chest Pain (ED), Premature Atrial Contractions (ED) Additional Instructions: your chest xray, troponin x 2 were normal. blood pressure not dropping when you stand. you need to call your doctor today to ask for outpatient holter monitor. please return for any worsening symptoms or concerns. your EKG shows premature atrial contractions but no evidence of heart block. this is usually benign. please follow up with your doctor. Prescriptions: No Action albuterol sulfate 2.5 mg /3 mL (0.083 %) solution for nebulization 2.5 mg inhalation Q4H PRN (Reason: shortness of breath or wheezing) Qty: 180 3RF calcipotriene 0.005 % cream 1 appl topical BID betamethasone dipropionate 0.05 % cream 1 appl topical BID lisinopril 40 mg tablet 40 mg PO DAILY hydrochlorothiazide 12.5 mg tablet 12.5 mg PO DAILY (DME) nebulizers Misc See Rx Instructions .ROUTE Rx Instructions: As directed buspirone 10 mg tablet 10 mg PO BID PRN sodium chloride 3 % solution for nebulization 4 ml inhalation BID Qty: 240 11RF albuterol sulfate 90 mcg/actuation HFA aerosol inhaler 2 inh inhalation Q6H PRN (Reason: shortness of breath or wheezing) 30 Days Qty: 18 12RF azithromycin 500 mg tablet 500 mg PO 3XW 28 Days Qty: 12 5RF Discharge Date/Time: 05/02/23 12:07
[2023-05-02 08:14] LABS: Anion Gap 16 (12-20)
[2023-05-02 08:21] LABS: Alanine Aminotransferase 23 U/L (0-40); Albumin Level 3.9 g/dL (3.5-5.0); Alkaline Phosphatase 66 U/L (39-117); Aspartate Amino Transferase 22 U/L (5-37); Bilirubin Total 1.4 mg/dL (0.0-1.0); Blood Urea Nitrogen 21 mg/dL (9-16); Calcium 9.4 mg/dL (8.4-10.2); Carbon Dioxide 23 mmol/L (22-29); Chloride 106 mmol/L (96-108); Creatinine Clr Calc Pharmacy 81.4; Estimated Glomerular Filt Rate > 60; Glucose Random 144 mg/dL (60-115); Potassium 3.9 mmol/L (3.3-5.1); Sodium 141 mmol/L (135-145); Total Protein 7.3 g/dL (6.5-8.0)
[2023-05-02 10:36] LABS: Troponin-I High Sensitivity 6.2 ng/L (<3.5-35.0)
--- NOTE | 2023-05-02 11:08 | ECG_ITS ---
Test Reason : repeat EKG bradycardia Blood Pressure : / mmHG Vent. Rate : 053 BPM Atrial Rate : 053 BPM P-R Int : 190 ms QRS Dur : 098 ms QT Int : 438 ms P-R-T Axes : 055 030 077 degrees QTc Int : 410 ms Sinus bradycardia with Premature atrial complexes Nonspecific T wave abnormality Abnormal ECG When compared with ECG of 02-MAY-2023 07:25, Premature atrial complexes are now Present Referred By: Italia Muller Electronically Signed By:Ji Forbes
== END 2023-05-02 12:07 | disposition home or self-care (01) ==
PROVIDERS: Emergency Provider Emergency Medicine; PCP Internal Medicine
DX: R07.89 Other chest pain (principal); I49.1 Atrial premature depolarization; I10 Essential (primary) hypertension; G47.33 Obstructive sleep apnea (adult) (pediatric); Z79.899 Other long term (current) drug therapy
CPT/HCPCS: 36415; 71045; 80053; 84484; 85025; 93005; 99283; 99284

== ENCOUNTER → 2023-05-02 06:39 | Outpatient (BNV) | payer MEDICARE, OTHER, SELFPAY | PROVIDERS: Emergency Provider Emergency Medicine; PCP Internal Medicine; Visit Provider Internal Medicine Cardiovascular Disease | DX: R00.1 Bradycardia, unspecified (principal) | CPT/HCPCS: 93010 ==

== ENCOUNTER → 2023-05-10 07:40 | Outpatient (REF) | payer MEDICARE, OTHER, SELFPAY ==
--- NOTE | 2023-05-10 07:43 | HM_ITS ---
Conclusion: 1. Patient was monitored for total period of 2 days and 23 hours 2. Baseline was sinus rhythm with average heart rate of 48 beats per minute 3. Frequent sinus bradycardia noted with 87% of the time heart rate below 60 beats per minute with no significant pauses 4. Occasional PACs noted with total burden of 0.6% 5. Patient marked the counter 4 times in association with sinus bradycardia or PACs or PVCs MTDD
== END ==
LOC: HO.CARD 07:40
PROVIDERS: PCP Internal Medicine; Visit Provider Internal Medicine
DX: R00.1 Bradycardia, unspecified (principal)
CPT/HCPCS: 93242

== ENCOUNTER → 2023-05-10 07:43 | Outpatient (BNV) | payer MEDICARE, OTHER, SELFPAY | PROVIDERS: PCP Internal Medicine; Visit Provider Internal Medicine Cardiovascular Disease | DX: R00.1 Bradycardia, unspecified (principal) | CPT/HCPCS: 93244 ==

== ENCOUNTER 2023-05-16 14:49 | Outpatient (REF) | payer MEDICARE, OTHER, SELFPAY ==
[2023-05-16 15:01] LABS: MANUAL DIFF FLAG NO
[2023-05-16 15:37] LABS: Basophils Percent Auto 0.2 % (0-2); Eosinophils Absolute Auto 0.3 X10*3/uL (0.0-0.4); Eosinophils Percent Auto 2.8 % (0-4); Hematocrit 44.6 % (42.0-52.0); Hemoglobin 15.1 g/dl (14.0-18.0); Imm Gran Abs Auto 0.02 X10*3/uL (0.00-0.03); Imm Gran Pct Auto 0.2 % (0.0-0.4); Lymphocytes Absolute Auto 2.3 X10*3/uL (1.2-4.9); Lymphocytes Percent Auto 23.8 % (20-40); Mean Corpuscular HGB Conc 33.9 g/dl (31.0-36.0); Mean Corpuscular Hemoglobin 29.7 pg (27.0-33.0); Mean Corpuscular Volume 87.8 fL (80.0-98.0); Monocytes Absolute Auto 0.8 X10*3/uL (0.1-1.2); Monocytes Percent Auto 7.8 % (2-11); Neutrophils Absolute Auto 6.2 x10*3/uL (2.0-8.3); Neutrophils Percent Auto 65.2 % (45-73); Platelet Count 283 X10*3/uL (160-400); Red Blood Count 5.08 X10*6/uL (4.60-5.80); Red Cell Distribution Width 11.9 % (11.0-16.0); White Blood Count 9.6 X10*3/uL (4.8-10.8)
[2023-05-16 16:06] LABS: B Type Natriuretic Peptide 55 pg/mL (<100)
[2023-05-16 18:53] LABS: D Dimer High Sensitivity 378 NG/ML
== END 2023-05-16 14:50 | disposition home or self-care (01) ==
LOC: HO.LAB 14:49
PROVIDERS: PCP Internal Medicine; Visit Provider Internal Medicine
DX: R06.02 Shortness of breath (principal); G47.33 Obstructive sleep apnea (adult) (pediatric); I10 Essential (primary) hypertension
CPT/HCPCS: 36415; 83880; 85025; 85379

== ENCOUNTER 2023-05-19 12:52 | Outpatient (AMB) | payer MEDICARE, OTHER, SELFPAY ==
--- NOTE | 2023-05-19 12:54 | MHC.OFFVIS ---
Intake Vital Signs 05/19/23 12:55 Height 5 ft 4 in Weight 273 lb 5.971 oz BMI 46.9 BP 134/78 Blood Pressure Location Lt brachial Position Sitting Pulse 50 Pulse Source Pulse Oximeter Pulse Oximetry (%) 98 Oxygen Delivery Method Room Air Intake Visit Reasons: Worsening COPD Sports Book Board Attendant Required: No Allergies No Known Allergies [No Known Allergies*] Allergy (Verified 05/19/23 12:58) HPI HPI Comments History of Present Illness Details The patient is a 72-year-old gentleman with a known history of hypertension currently on ANNE-inhibitor was started developing worsening cough. Apparently he had been exposed to very unclean environment prior to developing the worsening cough. He was cleaning house for 3 weeks without a respirator. He started developing worsening cough. Therefore, he went to see his primary care doctor ordered a chest x-ray. There appeared to be nodular opacity the right hemithorax. Therefore, he underwent a CT scan of the chest. The CT scan he did demonstrate evidence tree-in-bud in addition to bronchitis and bronchiolitis. In addition to that appears to mucus plugging with what appears to be a density in the right middle lobe which also appears to be inspissated mucus. Again malignancies also in differential although he appears to disease elsewhere suggesting that is more of a diffuse process. Likely from a exposure. Therefore, will have him undergo blood work in addition to start chest physical therapy with a flutter valve to see if he can clear his own mucus. The patient is aware that he needs to avoid significant tracey or moldy environment. And if he ever needs to going to that is dosing virus he needs to wear a respirator. Will plan to follow-up in 4 weeks with chest x-ray and pulmonary function studies. If the densities still present on his x-ray or getting worse with definitely perform bronchoscopy at that time. 09/08/2022 the patient is here for pulmonary follow-up visit. The patient overall is doing well. Although he has been taking care of his sick in therefore not been able to take care of himself. He has not been performing the chest PT and the patient has not been using his inhaler. He is been using the APAP. The APAP therapy has been affecting beneficial. I did download the machine and his AHI is down to 1. He feels sometimes the pressure is not high enough, therefore increased his minimum pressure from 8-10 cm. The patient also had a CT scan of the chest that I personally reviewed. It appears that he has significant treating budding pulmonary nodules 3 much unchanged from before. He does have mycobacterial disease. At this point in view of the persistent findings will go ahead and start him on azithromycin therapy. 03/17/2023 the patient is here for a pulmonary follow-up visit. Overall he doing well. He is concerned that he is gained weight. Respiratory status stable. He did take the azithromycin but only for a month. Then he stopped it. Has not seen any significant congestion or cough. He is slightly short of breath but partly because of his weight gain and also having knee issues. The patient's last CT scan was back in July 2022 demonstrating the nodular densities again on the right side but also on the left upper lobe. The patient had a CT scan at a location [place]. We did compare to his previous. No significant changes. Although the Sizer significant. Will plan to repeat the CT scan in the fall 2023. He needs to continue using the chest PT for mucus clearance. The patient will hold off on azithromycin right now but if the CT scans worse then he will have to go back on antimycobacterial therapy. If he becomes congested I did give him a sputum cup so we can provide us another AFB culture. The patient is also using CPAP. CPAP therapy has been affecting beneficial. He still feels like his AHI is going up. Likely from the weight gain. Current settings are 8-16. His average pressure is around 9 cm and sometimes he goes up to 15. Therefore, I will just increase the pressures the little bit 10/08/2016. He will try it if he has any difficulties he will call the office about in change in back. The therapy continues to be affecting beneficial. His AHI is 2.3. 05/19/2023 the patient is here for sick visit. The patient has been complaining of shortness of breath along with feeling tremulousness internally. Feels anxious. He has been having a lot of issues with the family with health issues. Making him a little bit more concerned. He went to the ER because the shortness of breath in the anxious feeling. He had a blood work done which is reassuring. EKG was consistent with sinus bradycardia. Ultimately after that he did undergo a Holter monitor and demonstrated bradycardia. He then went to see his primary care doctor for order blood work including a D-dimer though slightly elevated. He was recommended to go to the ER if symptoms worsen. The patient did come in for sick visit. He is feeling little better although he still having this episodic episodes of the shortness of breath sensation in the fluttering side. We did go for brief walking oximetry the patient maintained a nice stable pulse ox and also heart rate actually came up to about 80 beats per minute. He has been pretty sedentary for the last few weeks since his has been healing from surgery. The patient also has significant lower extremity edema. Since he went to the ER is trying to make dietary discretion. I do believe that he is volume overloaded and taking a diuretic a stronger diuretic for a few days will be helpful in improving his volume status and hopefully that will decrease the workload hard. I am concerned for his underlying cardiac risk. He is going to be seeing Cardiology in July. Will go ahead and request a nuclear stress test at this time. In the meantime the patient is using the CPAP. The CPAP therapy has been affecting beneficial in his AHI now is below 1 which is reassuring. He is trying to sleep elevated. The patient also has been taking a baby asthma which I believe is a good idea. [facility] Medical History Prediabetes Bronchiectasis Nontuberculous mycobacterial disease of lung Streptococcus viridans infection Arthritis Gallstones ISIAH (obstructive sleep apnea) HTN (hypertension) Pulmonary nodules Chronic bronchitis Surgical History Hx of total knee replacement History of surgical removal of pilonidal cyst History of arthroscopy of right knee Hx of colonoscopy Social History Alcohol intake: current Alcohol intake frequency: holidays/special occasions only Patient Tobacco Use Status: Former Tobacco user Quit Date: 20yr ago Tobacco use type: Cigarette Years Smoked: 30 years Substance Use Type: Marijuana Review of Systems Const Reports fatigue and Denies night sweats ENT Denies change in voice, Denies lip swelling, Denies mouth pain, Reports nasal congestion, Reports nasal discharge and Denies tongue swelling Card Denies chest pain and Reports dyspnea on exertion Resp Reports cough and Reports dyspnea on exertion GI Denies abdominal pain Musc Denies no additional complaints Neuro Denies Neuro-related abnormal movements Psych Denies no additional complaints Endo Reports fatigue Naun/Lymph Denies easy bleeding and Denies lymphadenopathy Aller/Immun Denies lip swelling and Denies tongue swelling Physical Exam Vital Signs: Last Vital Signs Pulse 50 05/19/23 12:55 BP 134/78 05/19/23 12:55 Pulse Ox 98 05/19/23 12:55 Oxygen Delivery Method Room Air 05/19/23 12:55 BMI result Body Mass Index 46.9 Const General: alert Neck Neck: Yes normal visual inspection, Yes full ROM and Yes no lymphadenopathy Chest Chest palpation & inspection: normal inspection of the chest Resp Auscultation: diminished lung sounds Cardio Rate: regular rate Rhythm: regular rhythm Heart sounds: S1 normal heart sound present and S2 normal heart sound present GI Palpation (GI): Soft to palpation and nontender Auscultation: normal bowel sounds Skin General skin exam: rashes and/or lesions noted Assessment & Plan Assessment & Plan (1) Pulmonary nodules: Code(s): R91.8 - Other nonspecific abnormal finding of lung field (2) Chronic bronchitis: Code(s): J42 - Unspecified chronic bronchitis Qualifiers: Chronic bronchitis type: mixed simple and mucopurulent Qualified Code(s): J41.8 - Mixed simple and mucopurulent chronic bronchitis (3) Nontuberculous mycobacterial disease of lung: Code(s): A31.0 - Pulmonary mycobacterial infection (4) Bronchiectasis: Code(s): J47.9 - Bronchiectasis, uncomplicated Qualifiers: Bronchiectasis type: uncomplicated Qualified Code(s): J47.9 - Bronchiectasis, uncomplicated Plan Lasix x 2 day continue ASA Nuclear stress test continue hypertonic saline 7% via nebulizer CPT continue APAP therapy stopped Azithromycin repeat AFB sputum CT chest 10/2023 Needs to go to the ED if recurrent symptoms F/U 3-4 months Orders: Orders [place] lexiscan stress w [place] Today NM cardiolite stress test Today R07.9 - Chest pain, unspecified Medications: New furosemide (Lasix) 20 mg PO DAILY 4 days 4 tabs 0RF Coding Level of Care Code Est Pt Level 4 (81049) Diagnoses Pulmonary nodules R91.8 Mixed simple and mucopurulent chronic bronchitis J41.8 Chronic bronchitis type: mixed simple and mucopurulent Nontuberculous mycobacterial disease of lung A31.0 Bronchiectasis without complication J47.9 Bronchiectasis type: uncomplicated Time Spent (min) 17
[2023-05-19 12:55] VITALS: BP 134/78; PULSE 50; O2SAT 98; BMI 46.9
== END 2023-05-19 13:21 | disposition home or self-care (01) ==
PROVIDERS: PCP Internal Medicine; Visit Provider Hospitalist
DX: R91.8 Other nonspecific abnormal finding of lung field (principal); J41.8 Mixed simple and mucopurulent chronic bronchitis; A31.0 Pulmonary mycobacterial infection; J47.9 Bronchiectasis, uncomplicated
CPT/HCPCS: 99214

== ENCOUNTER → 2023-05-19 12:52 | Outpatient (BNVA) | payer MEDICARE, OTHER, SELFPAY | PROVIDERS: PCP Internal Medicine; Visit Provider Hospitalist | DX: R91.8 Other nonspecific abnormal finding of lung field (principal); J41.8 Mixed simple and mucopurulent chronic bronchitis; J47.9 Bronchiectasis, uncomplicated; A31.0 Pulmonary mycobacterial infection | CPT/HCPCS: 99212 ==

== ENCOUNTER 2023-05-23 21:05 | Emergency (ER) | payer MEDICARE, OTHER, SELFPAY ==
[2023-05-23 21:08] VITALS: BP 189/83; PULSE 60; RESP 18; TEMP 35.9; O2SAT 98; BMI 47.4
--- NOTE | 2023-05-23 21:16 | ECG_ITS ---
Test Reason : ANXIETY Blood Pressure : / mmHG Vent. Rate : 047 BPM Atrial Rate : 047 BPM P-R Int : 194 ms QRS Dur : 102 ms QT Int : 442 ms P-R-T Axes : 025 020 061 degrees QTc Int : 391 ms Sinus bradycardia Otherwise normal ECG When compared with ECG of 02-MAY-2023 11:16, Premature atrial complexes are no longer Present Referred By: Generic ED Physician Electronically Signed By:KEVIN RONQUILLO
[2023-05-23 21:56] LABS: MANUAL DIFF FLAG NO
[2023-05-23 22:05] LABS: Basophils Percent Auto 0.4 % (0-2); Eosinophils Absolute Auto 0.3 X10*3/uL (0.0-0.4); Eosinophils Percent Auto 3.2 % (0-4); Hematocrit 42.5 % (42.0-52.0); Hemoglobin 14.3 g/dl (14.0-18.0); Imm Gran Abs Auto 0.03 X10*3/uL (0.00-0.03); Imm Gran Pct Auto 0.3 % (0.0-0.4); Lymphocytes Absolute Auto 2.6 X10*3/uL (1.2-4.9); Lymphocytes Percent Auto 25.5 % (20-40); Mean Corpuscular HGB Conc 33.6 g/dl (31.0-36.0); Mean Corpuscular Volume 89.3 fL (80.0-98.0); Mean Platelet Volume 8.9 fL (9.4-12.4); Monocytes Absolute Auto 0.8 X10*3/uL (0.1-1.2); Monocytes Percent Auto 8.1 % (2-11); Neutrophils Absolute Auto 6.5 x10*3/uL (2.0-8.3); Neutrophils Percent Auto 62.5 % (45-73); Platelet Count 248 X10*3/uL (160-400); Red Blood Count 4.76 X10*6/uL (4.60-5.80); White Blood Count 10.4 X10*3/uL (4.8-10.8)
[2023-05-23 22:18] LABS: Alanine Aminotransferase 22 U/L (0-40); Alkaline Phosphatase 66 U/L (39-117); Anion Gap 12 (12-20); Aspartate Amino Transferase 15 U/L (5-37); Blood Urea Nitrogen 23 mg/dL (9-16); Calcium 9.4 mg/dL (8.4-10.2); Carbon Dioxide 26 mmol/L (22-29); Chloride 106 mmol/L (96-108); Creatinine Clr Calc Pharmacy 85.4; Estimated Glomerular Filt Rate > 60; Glucose Random 147 mg/dL (60-115); Potassium 3.9 mmol/L (3.3-5.1); Sodium 140 mmol/L (135-145); Total Protein 6.9 g/dL (6.5-8.0)
[2023-05-23 22:25] LABS: Troponin-I High Sensitivity 4.9 ng/L (<3.5-35.0)
[2023-05-24 03:40] VITALS: BP 187/66; PULSE 55; RESP 17; TEMP 36.7; O2SAT 96
[2023-05-24 03:52] VITALS: BP 178/80; PULSE 59; RESP 16; O2SAT 96
--- NOTE | 2023-05-24 04:02 | ED_ITS ---
HPI - General Adult General Chief complaint: General Medical Stated complaint: Sob/Anxiety Time Seen by Provider: 05/24/23 04:02 Source: patient Mode of arrival: ambulatory Limitations: no limitations History of Present Illness HPI narrative: Patient history of anxiety take buspirone been more anxious lately got worse when he uses CPAP at this time patient is feeling much better any SI or HI no chest pain no palpitation Related Data Home Medications ?Medication ?Instructions ?Recorded ?Confirmed hydrochlorothiazide 12.5 mg tablet 12.5 mg PO DAILY 08/20/20 11/19/21 lisinopril 40 mg tablet 40 mg PO DAILY 08/20/20 11/19/21 betamethasone dipropionate 0.05 % 1 appl topical BID 10/01/20 11/19/21 topical cream calcipotriene 0.005 % topical cream 1 appl topical BID 10/01/20 11/19/21 nebulizers 11/05/21 11/19/21 buspirone 10 mg tablet 10 mg PO BID PRN 09/08/22 fluoride (sodium) 1.1 % dental PO 05/19/23 paste triamcinolone acetonide 0.1 % 1 appl topical BID-TID 05/19/23 topical cream Previous Rx's ?Medication ?Instructions ?Recorded albuterol sulfate 2.5 mg/3 mL 2.5 mg (3 mL) inhalation Q4H PRN 03/15/21 (0.083 %) solution for nebulization shortness of breath or wheezing #180 mL albuterol sulfate 90 mcg/actuation 2 inh inhalation Q6H PRN shortness 09/08/22 aerosol inhaler of breath or wheezing 30 days #18 grams azithromycin 500 mg tablet 500 mg PO 3XW 28 days #12 tabs 09/08/22 sodium chloride 3 % for 4 ml inhalation BID secretions 09/08/22 nebulization #240 mL furosemide 20 mg tablet (Lasix) 20 mg PO DAILY 4 days #4 tabs 05/19/23 alprazolam 0.5 mg tablet 0.5 mg PO BEDTIME PRN anxiety #14 05/24/23 tabs Allergies Allergy/AdvReac Type Severity Reaction Status Date / Time No Known Allergies Allergy Verified 05/23/23 21:13 [No Known Allergies*] Review of Systems 2 Review of Systems: Yes all other systems are reviewed and are negative PMFSH Past Medical History Medical History Prediabetes Bronchiectasis Nontuberculous mycobacterial disease of lung Streptococcus viridans infection Arthritis Gallstones ISIAH (obstructive sleep apnea) HTN (hypertension) Pulmonary nodules Chronic bronchitis Surgical History Hx of total knee replacement History of surgical removal of pilonidal cyst History of arthroscopy of right knee Hx of colonoscopy Social History Social History Alcohol intake: current Alcohol intake frequency: holidays/special occasions only Alcohol type: beer Patient Tobacco Use Status: Former Tobacco user Quit Date: 20yr ago Tobacco use type: Cigarette Years Smoked: 30 years Smoked in Last 30 Days: No Use of substances other than those prescribed or required for medical reasons: No Substance Use Type: Marijuana Advance Directives: No Advance Directives Information Provided: No Physical Exam ED Vital Signs: Vital Signs - 24 hr 05/23/23 21:08 05/24/23 03:40 05/24/23 03:52 Temperature 96.6 F L 98.1 F Pulse Rate 60 55 59 Respiratory Rate 18 17 16 Blood Pressure 189/83 H 187/66 H 178/80 H Pulse Oximetry 98 96 96 Oxygen Delivery Method Room Air Room Air Room Air BMI result Body Mass Index 47.4 Appearance: Alert. Oriented X3. No acute distress. Anxious Eyes: PERRLA, No Nystagmus ENT: Pharynx normal. Oral Mucosa moist Neck: Normal inspection. Neck supple. CVS: Normal heart rate and rhythm. Pulses normal. Respiratory: No respiratory distress. Equal air entry bilateral, no wheezing/rales/rhonchi Abdomen: Soft and nontender. Bowel sounds are present, Skin: Skin warm and dry. Normal skin color. Normal skin turgor. Extremities: No lower extremity edema. No calf tenderness Neuro: Oriented X 3. No motor deficit. Medical Decision Making Medical Decision Making [facility] Narrative: Patient's anxiety comes here for anxiety attack happened earlier at this time patient feeling much better take risperidone. Patient advised to continue BuSpar and take Xanax 0.5 mg as needed for severe anxiety/panic attack Lab Data [facility] Lab Attestation statement: I reviewed the patient's lab results. 05/23/23 21:39 04/16/24 21:39 Labs: Lab Results 05/23/23 Range/Units 21:39 WBC 10.4 (4.8-10.8) X10*3/uL RBC 4.76 (4.60-5.80) X10*6/uL Hgb 14.3 (14.0-18.0) g/dl Hct 42.5 (42.0-52.0) % MCV 89.3 (80.0-98.0) fL MCH 30.0 (27.0-33.0) pg MCHC 33.6 (31.0-36.0) g/dl RDW 12.0 (11.0-16.0) % Plt Count 248 (160-400) X10*3/uL MPV 8.9 L (9.4-12.4) fL Immature Gran % (Auto) 0.3 (0.0-0.4) % Neut % (Auto) 62.5 (45-73) % Lymph % (Auto) 25.5 (20-40) % Nash % (Auto) 8.1 (2-11) % Eos % (Auto) 3.2 (0-4) % Baso % (Auto) 0.4 (0-2) % Lymph # (Auto) 2.6 (1.2-4.9) X10*3/uL Nash # (Auto) 0.8 (0.1-1.2) X10*3/uL Eos # (Auto) 0.3 (0.0-0.4) X10*3/uL Baso # (Auto) 0.0 (0.0-0.2) X10*3/uL Abs Immat Gran (auto) 0.03 (0.00-0.03) X10*3/uL Absolute Neuts (auto) 6.5 (2.0-8.3) x10*3/uL Absolute Nucleated RBC 0.000 (0.0-0.012) X10*3/uL Nucleated RBC % (auto) 0.0 (0.0-0.2) /100WBC Sodium 140 (135-145) mmol/L Potassium 3.9 (3.3-5.1) mmol/L Chloride 106 (96-108) mmol/L Carbon Dioxide 26 (22-29) mmol/L Anion Gap 12 (12-20) BUN 23 H (9-16) mg/dL Creatinine 0.96 (0.5-1.4) mg/dL Estim Creat Clear Calc 85.4 Estimated GFR > 60 Random Glucose 147 H (60-115) mg/dL Calcium 9.4 (8.4-10.2) mg/dL Total Bilirubin 1.0 (0.0-1.0) mg/dL AST 15 (5-37) U/L ALT 22 (0-40) U/L Alkaline Phosphatase 66 (39-117) U/L Troponin I High Sens 4.9 (<3.5-35.0) ng/L Total Protein 6.9 (6.5-8.0) g/dL Albumin 4.0 (3.5-5.0) g/dL Independent Interpretation I performed an independent interpretation of an: EKG Interpretation: Sinus bradycardia heart rate 47 beats per minute no acute ST-T elevation normal axis no acute ischemia Discharge Plan Discharge Clinical Impression: Acute anxiety Patient Disposition: Home, Self-Care Instructions: Anxiety (ED) Additional Instructions: Continue your medication as prescribed by PCP Alprazolam 0.5 mg for severe anxiety as needed Prescriptions: New alprazolam 0.5 mg tablet 0.5 mg PO BEDTIME PRN (Reason: anxiety) Qty: 14 0RF No Action albuterol sulfate 2.5 mg /3 mL (0.083 %) solution for nebulization 2.5 mg inhalation Q4H PRN (Reason: shortness of breath or wheezing) Qty: 180 3RF calcipotriene 0.005 % cream 1 appl topical BID betamethasone dipropionate 0.05 % cream 1 appl topical BID lisinopril 40 mg tablet 40 mg PO DAILY hydrochlorothiazide 12.5 mg tablet 12.5 mg PO DAILY (DME) nebulizers Misc See Rx Instructions .ROUTE Rx Instructions: As directed buspirone 10 mg tablet 10 mg PO BID PRN sodium chloride 3 % solution for nebulization 4 ml inhalation BID Qty: 240 11RF albuterol sulfate 90 mcg/actuation HFA aerosol inhaler 2 inh inhalation Q6H PRN (Reason: shortness of breath or wheezing) 30 Days Qty: 18 12RF azithromycin 500 mg tablet 500 mg PO 3XW 28 Days Qty: 12 5RF triamcinolone acetonide 0.1 % cream 1 appl topical BID-TID fluoride (sodium) 1.1 % paste PO furosemide [Lasix] 20 mg tablet 20 mg PO DAILY 4 Days Qty: 4 0RF Print Language: Portuguese
[2023-05-24 05:13] VITALS: BP 153/68; PULSE 59; RESP 16; TEMP 36.7; O2SAT 98
== END 2023-05-24 05:14 | disposition home or self-care (01) ==
PROVIDERS: Emergency Provider Internal Medicine; PCP Internal Medicine
DX: R06.02 Shortness of breath (principal); F41.9 Anxiety disorder, unspecified; R00.1 Bradycardia, unspecified; Z79.899 Other long term (current) drug therapy
CPT/HCPCS: 36415; 80053; 84484; 85025; 93005; 99283; 99284

== ENCOUNTER → 2023-05-23 21:16 | Outpatient (BNV) | payer MEDICARE, OTHER, SELFPAY | PROVIDERS: Emergency Provider Internal Medicine; PCP Internal Medicine; Visit Provider Internal Medicine | DX: R00.1 Bradycardia, unspecified (principal) | CPT/HCPCS: 93010 ==

== ENCOUNTER → 2023-06-22 08:18 | Outpatient (REF) | payer MEDICARE, OTHER, SELFPAY ==
--- NOTE | ~2023-06-22 | NM_ITS ---
Myocardial perfusion study Indication: Shortness of breath Technique: The patient was brought in for a Lexiscan perfusion study on 06/21/2023. Patient performed low-level exercise and was injected 0.4 mg of Lexiscan intravenously. Within a minute of injection, 40 mCi of sestamibi was given intravenously. Images were obtained using the SPECT gamma camera interlaced with the gating device. Images were obtained in supine position. Resting perfusion study was performed on 06/26/2023. Patient was administered 40 mCi of sestamibi intravenously at rest. Images were then obtained in supine position. Images obtained with and without CT attenuation. Total DLP 144 mGy-cm. Images were processed with the software and compared side to side in short axis, horizontal long axis and vertical long axis views. Findings: The stress perfusion study showed non attenuated images show mildly reduced uptake in the basal inferior wall of the LV myocardium as well as thinning of the anterior wall of the LV myocardium. Attenuation corrected images show mildly reduced uptake in the apex of the LV myocardium.. The gated study shows normal LV systolic function with calculated LVEF of 66%. LV cavity is normal in size. The gated study shows normal systolic wall thickening and contraction of segments. Resting study shows non attenuated images show improved uptake in the basal inferior as the anterior wall of the LV myocardium. Attenuation corrected images show improved uptake in the apex of the LV myocardium Gating at rest reveals normal systolic wall motion with ejection fraction at 59%. The findings are consistent with equivocal for small area of mild reversible defect of the apex suggestive of ischemia.. NM/NM cardiolite stress test Impression: 1. Myocardial perfusion imaging study shows equivocal for apical ischemia 2. Gated LVEF is 66% 3. Transient ischemic dilatation not present EKG is nondiagnostic for ischemia
--- NOTE | 2023-06-22 08:21 | CA_ITS ---
Acquisition Time: 2023-06-22 08:29:28 Total Exercise Time: 00:02:00 Test Indications: Dyspnea Medications: ALBUTEROL ALPRAZOLAM AZITHROMYCIN BUSPIRONE FUROSEMIDE HCTZ LISINOPRIL Protocol: LEXISCAN Max HR: 102 BPM 68% of Pred: 149 BPM Max BP: 152/080 mmHG Max Work Load: 1.6 METS Pharmacological stress test with Lexiscan injeciton while walking slowly on the treadmill, without anginal symptoms, with isolated PACs, with normotensive response to injection, withnondiagnoisitic EKGs. Aminophylline 75mg IVP given to reverse Lexiscan. Nuclear images pending. Test reviewed with Dr. Herman Referred By: Filipe Story Overread By: Janell Uribe
== END ==
LOC: HO.CARD 08:18
PROVIDERS: PCP Internal Medicine; Visit Provider Hospitalist
DX: R07.9 Chest pain, unspecified (principal)
CPT/HCPCS: 78452; 93017; A9500; J0280; J2785

== ENCOUNTER → 2023-06-22 08:21 | Outpatient (BNV) | payer MEDICARE, OTHER, SELFPAY | PROVIDERS: PCP Internal Medicine; Visit Provider Nurse Practitioner | DX: R06.02 Shortness of breath (principal) | CPT/HCPCS: 78452; 93016; 93018 ==

== ENCOUNTER 2023-07-26 09:18 | Outpatient (AMB) | payer MEDICARE, OTHER, SELFPAY ==
[2023-07-26 09:29] VITALS: BP 130/64; PULSE 68; BMI 46.1
--- NOTE | 2023-07-26 09:29 | A.OFFVIS_ITS ---
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: No Accompanied by: Self / Same As Patient Allergies No Known Allergies [No Known Allergies*] Allergy (Verified 05/23/23 21:13) Medication List - Last Reconciled 07/26/23 by Corey West MD albuterol sulfate 2.5 mg (3 mL) inhalation Q4H PRN albuterol sulfate 90 mcg/actuation 2 inhalations inhalation Q6H PRN 30 days betamethasone dipropionate 0.05% 1 appl topical BID buspirone 10 mg PO BID PRN calcipotriene 0.005% 1 appl topical BID hydrochlorothiazide 12.5 mg PO DAILY lisinopril 40 mg PO DAILY nebulizers As directed sodium chloride 3% 4 mL inhalation BID HPI Comments Details: Lisandro has been referred for evaluation of a recent stress test reported as equivocal. He denies any history of coronary artery disease myocardial infarction or cardiomyopathy. He also denies any clear-cut exertional anginal- type chest pains. Breathing is also at baseline. From the pulmonary standpoint, listed to have diagnosis including bronchiectasis, non tuberculous mycobacterial disease or lung as well as bronchitis and pulmonary nodules. Within limits of his activity, he is doing fine for the most part. [facility] Medical History Prediabetes Bronchiectasis Nontuberculous mycobacterial disease of lung Streptococcus viridans infection Arthritis Gallstones ISIAH (obstructive sleep apnea) HTN (hypertension) Pulmonary nodules Chronic bronchitis Surgical History Hx of total knee replacement History of surgical removal of pilonidal cyst History of arthroscopy of right knee Hx of colonoscopy Social History Alcohol intake: current Alcohol intake frequency: holidays/special occasions only Alcohol type: beer Patient Tobacco Use Status: Former Tobacco user Tobacco use type: Cigarette Years Smoked: 30 years Substance Use Type: Marijuana Review of Systems Const Denies chills, Denies fatigue, Denies fever(s), Denies frequent falls, Denies weakness, Denies weight gain and Denies weight loss ENT Denies dizziness Card Denies chest pain, Denies leg edema, Denies lightheadedness, Denies palpitations, Denies dyspnea and Denies dyspnea on exertion Resp Denies cough, Denies dyspnea and Denies dyspnea on exertion GI Denies hematochezia Musc Denies abnormal gait, Denies muscle weakness, Denies numbness, Denies radiating pain into limb and Denies tingling Neuro Denies abnormal gait, Denies dizziness, Denies frequent falls, Denies numbness, Denies tingling and Denies weakness Endo Denies fatigue and Denies palpitations Physical Exam Vital Signs: Last Vital Signs Pulse 68 07/26/23 09:29 BP 130/64 07/26/23 09:29 BMI result Body Mass Index 46.1 Const General: comfortable and no acute distress Orientation/consciousness: patient oriented x3 HEENT Other: Unremarkable Head: Yes normal to inspection Neck Neck: Yes normal visual inspection Chest Chest palpation & inspection: normal inspection of the chest Resp Auscultation: clear to auscultation bilaterally Cardio Palpation: normal PMI Heart sounds: S1 normal heart sound present, S2 normal heart sound present, no gallops, no murmurs and no rubs GI Palpation (GI): Soft to palpation Back/Spine/Pelvis Other: unremarkable Skin General skin exam: no rashes or lesions noted Neuro General: patient oriented x3 Extrem General: Yes normal to inspection Psych Mental Status: mental status grossly normal Assessment & Plan Assessment & Plan (1) Equivocal stress test: Code(s): R94.39 - Abnormal result of other cardiovascular function study Category: Medical (2) Sinus bradycardia: Code(s): R00.1 - Bradycardia, unspecified Category: Medical Plan Recent EKG with sinus bradycardia at 47/Min. In the Holter monitor, underlying rhythm is sinus with an average rate of 48/Min. Frequent sinus bradycardia noted about 87% of the time. Myocardial perfusion imaging study shows equivocal findings for apical ischemia. Recent chest CT scan reported to have mild coronary calcification. Overall, patient does not have any overt cardiac symptoms and specifically no exertional angina. The stress test findings could be related to his body habitus possibly. In the absence of symptoms, mainly risk factor modification. Weight loss if able. Blood pressure management and it seems okay today but has been high in the past. His baseline LDL is not too high at 92 mg/dL. Will get an echocardiogram for cardiac function as well as wall motion and see him back in follow-up. Orders: Orders CA echo transthoracic complete Today I25.10 - Atherosclerotic heart disease of [place] coronary artery without angina pectoris Coding Level of Care Code New Pt Level 4 (42576) Diagnoses Equivocal stress test R94.39 Sinus bradycardia R00.1
== END 2023-07-26 09:56 | disposition home or self-care (01) ==
PROVIDERS: PCP Internal Medicine; Visit Provider Internal Medicine
DX: R00.1 Bradycardia, unspecified (principal); R94.39 Abnormal result of other cardiovascular function study
CPT/HCPCS: 99214

== ENCOUNTER → 2023-07-26 09:18 | Outpatient (BNVA) | payer MEDICARE, OTHER, SELFPAY | PROVIDERS: PCP Internal Medicine; Visit Provider Internal Medicine | DX: R94.39 Abnormal result of other cardiovascular function study (principal); R00.1 Bradycardia, unspecified | CPT/HCPCS: 99212 ==

== ENCOUNTER → 2023-08-15 10:51 | Outpatient (REF) | payer MEDICARE, OTHER, SELFPAY ==
--- NOTE | 2023-08-15 10:53 | CA_ITS ---
Transthoracic Echocardiogram Patient (Last, First, Middle): Lisandro Cuevas A Gender: Male Date of : 1950 Age: 72 Procedure Date: 08/15/2023 Procedure Type: Transthoracic Echocardiogram Location: OP Height: 162.56 cm Weight: 120.2 kg BSA: 2.20 m2 Heart Rate: bpm BP: 140 / 62 mmHg Insurance Attorney: TO Referring MD: Corey West MD Symptoms: I25.10 - Atherosclerotic heart disease of [place] coronary artery without... Study Quality: Fair/Contrast ECG Rhythm: Sinus Conclusions: - The left ventricular systolic function is normal. The calculated ejection fraction is 70% by biplane method. - There is moderate septal asymmetric hypertrophy. - No obvious valvular pathology seen on this study. - There is mild dilatation of the ascending aorta measuring 4.00 cm. Findings Procedure Information Contrast agent, definity, is being given per protocol without apparent complications. Left Ventricle Normal left ventricular cavity size. There is mildly increased left ventricular wall thickness. The left ventricular systolic function is normal. The calculated ejection fraction is 70% by biplane method. There is no evidence of regional wall motion abnormalities. Evidence suggests grade I (mild) diastolic dysfunction. There is moderate septal asymmetric hypertrophy. Right Ventricle Mildly increased right ventricular cavity size. There is normal right ventricular systolic function. Atria The left atrium is mildly dilated. The right atrium is normal in size. Aortic Valve There is a normal trileaflet aortic valve. There is no aortic valve stenosis. There is no aortic valve regurgitation. Mitral Valve The mitral valve appears normal. There is no mitral valve regurgitation. There is no mitral valve stenosis. Pulmonic Valve The pulmonic valve is likely normal. Tricuspid Valve There is trace tricuspid valve regurgitation. There is no evidence of pulmonary hypertension. Great Vessels There is mild dilatation of the ascending aorta measuring 4.00 cm. Venous The inferior vena cava is normal in size and collapses greater than 50% with inspiration. Pericardium/Pleural Prominent epicardial adipose tissue noted. There is no evidence of pericardial effusion. Prior Study Comparison Changes noted compared to prior study dated: 10/10/2018. slight increase in ascending aortic size. Recommendations, Care & Conclusions No obvious valvular pathology seen on this study. Measurements 2D Linear Measurements IVSd: 1.33 0.6-0.9/0.6-1.0 cm LVIDd: 4.86 3.9-5.3/4.2-5.9 cm LVIDd Index: 2.21 2.4-3.2/2.2-3.1 cm/m2 LVIDs: 3.04 2.0-3.6 cm LVPWd: 1.10 0.7-1.1 cm LA Diam: 4.00 2.7-3.8/3.0-4.0 cm LAIDs Index: 1.82 1.5-2.3 cm/m2 LV Mass: 283.53 67-162/88-224 g LV Mass Index: 128.88 43-95/49-115 g/m2 LVOT Diam: 2.40 3.0+(-)1.3 cm 2D Systolic Function EF 4C: 68.10 >55% EF 2C: 67.10 >55% EF BiP: 69.50 >55% Mitral Valve MV VTI: 0.50 MV Pk Diego: 1.09 MV Mn Diego: 0.60 MV Pk Grad: 5.00 MV Mn Grad: 2.00 MV Pk E: 0.90 MV PK A: 1.11 MV Decel Time: 316.00 E/A: 0.80 E'Lateral: 5.66 E'Medial: 5.44 E/E' Med: 16.50 E/E' Lat: 15.90 PHT: 93.00 MVA PHT: 2.37 MVA Continuity: 3.02 Decel [place]: 2.85 Aortic Valve AoV Pk Diego: 1.77 AoV Mn Diego: 1.27 AoV VTI: 0.44 AoV Pk Grad: 13.00 Aov Mn Grad: 7.00 BIANCA Cont.VTI: 3.39 LVOT LVOT Pk Diego: 1.33 LVOT Mn Diego: 0.88 LVOT VTI: 0.33 LVOT Pk Grad: 7.00 LVOT Mn Grad: 4.00 LVOT Diam: 2.40 LVOT Area: 4.52 Diastolic Function MV Pk E: 0.90 MV Pk A: 1.11 E/A: 0.80 E'Medial: 5.44 E/E' Med: 16.50 E' Laterial: 5.66 E/E' Lat: 15.90 Right Ventricle TAPSE (mm): 27.70 TVS' Diego: 15.40 Tricuspid Valve TR Pk Diego: 2.48 TR Pk Grad: 25.00 RA Press: 8.00 RVSP: 33.00 Great Vessels Aorta Sinus of Valsalva: 3.70 2.0-3.[address] [place]: 3.64 1.7-3.4 cm Ao Asc: 4.00 2.1-3.4 cm Updated in Other Vendor System with Status of Final Corey West MD electronically signed on 08/15/2023 1:26:44 PM with status of Final
== END ==
LOC: HO.CARD 10:51
PROVIDERS: PCP Internal Medicine; Visit Provider Internal Medicine
DX: I25.10 Atherosclerotic heart disease of native coronary artery without angina pectoris (principal)
CPT/HCPCS: 93306; Q9957

== ENCOUNTER → 2023-08-15 10:53 | Outpatient (BNV) | payer MEDICARE, OTHER, SELFPAY | PROVIDERS: PCP Internal Medicine; Visit Provider Internal Medicine | DX: I42.2 Other hypertrophic cardiomyopathy (principal) | CPT/HCPCS: 93306 ==

== ENCOUNTER 2023-09-08 10:05 | Outpatient (REF) | payer MEDICARE, OTHER, SELFPAY ==
[2023-09-08 10:26] LABS: MANUAL DIFF FLAG NO
[2023-09-08 11:06] LABS: Appearance Urine Clear; Color Urine Dark Yellow; Glucose Urine UA Negative (Negative); Leukocyte Esterase Urine Negative (Negative); Nitrite Urine Negative (Negative); PH 5.5 (5.0-9.0); Urine Blood Negative (Negative); Urine Ketones Negative (Negative); Urine Protein Trace mg/dL (Neg-Trace)
[2023-09-08 11:06] LABS: Basophils Percent Auto 0.3 % (0-2); Eosinophils Absolute Auto 0.3 X10*3/uL (0.0-0.4); Eosinophils Percent Auto 4.7 % (0-4); Hematocrit 42.8 % (42.0-52.0); Hemoglobin 14.5 g/dl (14.0-18.0); Imm Gran Abs Auto 0.02 X10*3/uL (0.00-0.03); Imm Gran Pct Auto 0.3 % (0.0-0.4); Lymphocytes Absolute Auto 1.8 X10*3/uL (1.2-4.9); Mean Corpuscular HGB Conc 33.9 g/dl (31.0-36.0); Mean Corpuscular Hemoglobin 30.1 pg (27.0-33.0); Mean Platelet Volume 9.1 fL (9.4-12.4); Monocytes Absolute Auto 0.5 X10*3/uL (0.1-1.2); Monocytes Percent Auto 7.7 % (2-11); Neutrophils Absolute Auto 4.3 x10*3/uL (2.0-8.3); Platelet Count 275 X10*3/uL (160-400); Red Blood Count 4.81 X10*6/uL (4.60-5.80); Red Cell Distribution Width 12.3 % (11.0-16.0); White Blood Count 7.1 X10*3/uL (4.8-10.8)
[2023-09-08 11:28] LABS: Estimated Average Glucose 143 mg/dL; Hemoglobin A1c % 6.6 % (<6.0)
[2023-09-08 12:02] LABS: Prostate Specific Antigen 1.57 ng/mL (<0.05-4.0)
[2023-09-08 12:04] LABS: Alanine Aminotransferase 19 U/L (0-40); Albumin Level 4.1 g/dL (3.5-5.0); Alkaline Phosphatase 71 U/L (39-117); Anion Gap 12 (12-20); Aspartate Amino Transferase 16 U/L (5-37); Bilirubin Total 1.7 mg/dL (0.0-1.0); Blood Urea Nitrogen 16 mg/dL (9-16); Calcium 9.8 mg/dL (8.4-10.2); Carbon Dioxide 26 mmol/L (22-29); Chloride 106 mmol/L (96-108); Cholesterol 139 mg/dL (<200); Estimated Glomerular Filt Rate > 60; Glucose Fasting 140 mg/dL (60-99); HDL Cholesterol 36 mg/dL (>40); LDL Cholesterol Calculated 82 mg/dL (<100); Sodium 140 mmol/L (135-145); Triglycerides 106 mg/dL (<150)
[2023-09-08 12:11] LABS: Microalbum/Creatinine Ratio Ur 7.3 ug/mg cr (<30)
== END 2023-09-08 10:06 | disposition home or self-care (01) ==
LOC: HO.LAB 10:05
PROVIDERS: PCP Internal Medicine; Visit Provider Internal Medicine
DX: Z12.5 Encounter for screening for malignant neoplasm of prostate (principal); G47.33 Obstructive sleep apnea (adult) (pediatric); F51.9 Sleep disorder not due to a substance or known physiological condition, unspecified
CPT/HCPCS: 36415; 80053; 80061; 81003; 82043; 82570; 83036; 84153; 85025

== ENCOUNTER 2023-10-09 08:47 | Emergency (ER) | payer MEDICARE, OTHER, SELFPAY ==
--- NOTE | ~2023-10-09 | XR_ITS ---
EXAMINATION: XR CHEST CLINICAL INFORMATION: sob COMPARISON: Chest radiograph 05/02/2023 TECHNIQUE: 2 views of the chest FINDINGS: Lines and tubes: None. Clear lungs. No pleural effusion. No pneumothorax. Borderline enlarged cardiac silhouette, unchanged. Multilevel flowing disc osteophyte complexes suggesting diffuse idiopathic skeletal hyperostosis. XR/XR chest 2V IMPRESSION: 1. Clear lungs. 2. Borderline enlarged cardiac silhouette, unchanged. Electronically signed by: Ramona Montalvo MD 10/09/2023 10:20 AM EDT
--- NOTE | 2023-10-09 09:01 | ECG_ITS ---
Test Reason : CHEST PAIN Blood Pressure : / mmHG Vent. Rate : 067 BPM Atrial Rate : 000 BPM P-R Int : 000 ms QRS Dur : 096 ms QT Int : 416 ms P-R-T Axes : 000 034 071 degrees QTc Int : 439 ms Sinus rhythm with sinus arrhythmia Nonspecific ST abnormality Abnormal ECG When compared with ECG of 23-MAY-2023 21:34, No significant change was found Referred By: Sonal Mcneil Electronically Signed By:LEO ROMAN
--- NOTE | 2023-10-09 09:02 | ED.SOB ---
HPI - SOB/Dyspnea General Chief Complaint: Dyspnea Stated Complaint: Diff breathing Time Seen by Provider: 10/09/23 08:54 Source: patient, RN notes reviewed and old records reviewed Mode of arrival: ambulatory History of Present Illness ED Provider: Sonal Mcneil PA-C HPI Narrative: 72-year-old male with a past medical history of prediabetes, bronchiectasis, arthritis, ISIAH, HTN, non tuberculosis mycobacterium disease of lung, presenting to the ED complaining SOB described as feeling like I can not get enough air x few days with left chest wall discomfort under breast. Admits to similar symptoms in the past, attributed to his anxiety. denies CP being worse with movement or deep breathing. Denies fever, chills, cough, LE edema, recent travel, AC use Related Data Home Medications ?Medication ?Instructions ?Recorded ?Confirmed hydrochlorothiazide 12.5 mg tablet 12.5 mg PO DAILY 08/20/20 07/26/23 lisinopril 40 mg tablet 40 mg PO DAILY 08/20/20 07/26/23 betamethasone dipropionate 0.05 % 1 appl topical BID 10/01/20 07/26/23 topical cream calcipotriene 0.005 % topical cream 1 appl topical BID 10/01/20 07/26/23 nebulizers 11/05/21 11/19/21 buspirone 10 mg tablet 10 mg PO BID PRN 09/08/22 07/26/23 Previous Rx's ?Medication ?Instructions ?Recorded albuterol sulfate 2.5 mg/3 mL 2.5 mg (3 mL) inhalation Q4H PRN 03/15/21 (0.083 %) solution for nebulization shortness of breath or wheezing #180 mL albuterol sulfate 90 mcg/actuation 2 inh inhalation Q6H PRN shortness 09/08/22 aerosol inhaler of breath or wheezing 30 days #18 grams sodium chloride 3 % for 4 ml inhalation BID secretions 09/08/22 nebulization #240 mL apixaban 5 mg tablet (Eliquis) 5 mg PO BID 30 days #60 tabs 10/09/23 Allergies Allergy/AdvReac Type Severity Reaction Status Date / Time No Known Allergies Allergy Verified 10/09/23 09:05 [No Known Allergies*] Review of Systems Review of Systems: Yes all other systems are reviewed and are negative Constitutional: Constitutional: Reports as per HPI PMF Past Medical History Attestation statement: The following information was validated with the patient. Source: old records reviewed Medical History Prediabetes Bronchiectasis Nontuberculous mycobacterial disease of lung Streptococcus viridans infection Arthritis Gallstones ISIAH (obstructive sleep apnea) HTN (hypertension) Pulmonary nodules Chronic bronchitis Surgical History Hx of total knee replacement History of surgical removal of pilonidal cyst History of arthroscopy of right knee Hx of colonoscopy Social History Social History Alcohol intake: current Alcohol intake frequency: holidays/special occasions only Alcohol type: beer Patient Tobacco Use Status: Former Tobacco user Tobacco use type: Cigarette Years Smoked: 30 years Substance Use Type: Marijuana Advance Directives: No Advance Directives Information Provided: Yes Do you have a plan to hurt others: No Plan Physical Exam Vital Signs: Vital Signs: Last Vital Signs Temp 98.0 F 10/09/23 11:31 Pulse 53 10/09/23 11:31 Resp 16 10/09/23 11:31 BP 190/63 H 10/09/23 11:31 Pulse Ox 96 10/09/23 11:31 O2 Del Method Room Air 10/09/23 11:31 BMI result Body Mass Index 45.5 Const: General: cooperative, healthy appearing and no acute distress Orientation/consciousness: patient oriented x3 Limitations: no limitations HEENT: Head: Yes normal to inspection and Yes atraumatic Ears: hearing grossly normal bilaterally General nose exam: Normal external nose present Face and sinus: Yes normal facial exam Eyes: General: appearance normal, both eyes and all related structures EOM: EOMs intact bilaterally Neck: Neck: Yes normal visual inspection and Yes no meningeal signs Chest: Chest palpation & inspection: normal inspection of the chest, no crepitus and no tenderness Resp: Effort & Inspection: normal respiratory effort and no respiratory distress Auscultation: clear to auscultation bilaterally and no wheezes Cardio: Rate: regular rate Heart sounds: S1 normal heart sound present and S2 normal heart sound present GI: Inspection: Yes normal to inspection Palpation (GI): Soft to palpation, nontender, no guarding and not rigid : General: Yes no CVA tenderness Back/Spine/Pelvis: Back: no CVA tenderness Skin: Rashes: no rashes Wounds: no wounds Neuro: General: patient oriented x3, tone normal and no meningeal signs Cranial nerves: Yes CN's II-XII intact bilaterally Gait exam (Neuro): Normal gait present Extrem: Other: 1+ bilateral LE pitting edema General: Yes normal to inspection Course Course Course Narrative: -patient appears to be in new onset AFib, rate controlled. -1115--no leukocytosis, labs otherwise reassuring. Trop negative. -TSH WNL -COVID/flu/RSV negative XR chest 2V IMPRESSION: 1. Clear lungs. 2. Borderline enlarged cardiac silhouette, unchanged. -[id number] = 3, recommended anticoagulation > will initiate patient on Eliquis -1311--repeat Trop without rise, [place] unlikely Results discussed with patient including worrisome signs and symptoms and strict return precautions, and when to return to the emergency department. They verbalized understanding and feel safe for discharge at this time. Medical Decision Making Medical Decision Making [facility] Narrative: 72-year-old male with a past medical history of prediabetes, bronchiectasis, arthritis, ISIAH, HTN, non tuberculosis mycobacterium disease of lung, presenting to the ED complaining SOB described as feeling like I can not get enough air x few days with left chest wall discomfort under breast. On exam vital signs stable, NAD, nontoxic appearing, lungs CTA. 1+ bilateral LE pitting edema. Concern for atypical ACS vs CHF vs pneumonia. Lower suspicion for pulmonary embolism, AAA, dissection Plan: Labs, CXR, viral studies Please refer to course for remaining clinical decision making, interpretation of labs/imaging results, and discussions with consultants and/or family members. Differential Diagnosis Differential Diagnoses: The differential diagnosis associated with the presentation includes As above Admission/Observation Consideration of admission/observation: Escalation of care including admission/observation considered Lab Data [facility] Lab Attestation statement: I reviewed the patient's lab results. 10/09/23 09:23 10/09/23 09:16 Labs: Lab Results 10/09/23 10/09/23 10/09/23 Range/Units 09:16 09:23 12:29 WBC 7.8 (4.8-10.8) X10*3/uL RBC 4.77 (4.60-5.80) X10*6/uL Hgb 14.7 (14.0-18.0) g/dl Hct 42.1 (42.0-52.0) % MCV 88.3 (80.0-98.0) fL MCH 30.8 (27.0-33.0) pg MCHC 34.9 (31.0-36.0) g/dl RDW 11.8 (11.0-16.0) % Plt Count 255 (160-400) X10*3/uL MPV 8.7 L (9.4-12.4) fL Immature Gran % (Auto) 0.4 (0.0-0.4) % Neut % (Auto) 71.3 (45-73) % Lymph % (Auto) 18.2 L (20-40) % [place] % (Auto) 7.9 (2-11) % Eos % (Auto) 1.9 (0-4) % Baso % (Auto) 0.3 (0-2) % Lymph # (Auto) 1.4 (1.2-4.9) X10*3/uL [place] # (Auto) 0.6 (0.1-1.2) X10*3/uL Eos # (Auto) 0.2 (0.0-0.4) X10*3/uL Baso # (Auto) 0.0 (0.0-0.2) X10*3/uL Abs Immat Gran (auto) 0.03 (0.00-0.03) X10*3/uL Absolute Neuts (auto) 5.5 (2.0-8.3) x10*3/uL Absolute Nucleated RBC 0.000 (0.0-0.012) X10*3/uL Nucleated RBC % (auto) 0.0 (0.0-0.2) /100WBC PT 11.1 (11.1-13.3) SEC INR 0.9 (0.9-1.1) Sodium 140 (135-145) mmol/L Potassium 3.7 (3.3-5.1) mmol/L Chloride 108 (96-108) mmol/L Carbon Dioxide 25 (22-29) mmol/L Anion Gap 11 L (12-20) BUN 20 H (9-16) mg/dL Creatinine 1.04 (0.5-1.4) mg/dL Estim Creat Clear Calc 77.0 Estimated GFR > 60 Random Glucose 166 H (60-115) mg/dL Calcium 9.2 D (8.4-10.2) mg/dL Magnesium 2.3 (1.6-2.6) mg/dL Total Bilirubin 1.3 H (0.0-1.0) mg/dL Direct Bilirubin 0.4 (0.0-0.5) mg/dL AST 14 (5-37) U/L ALT 19 (0-40) U/L Alkaline Phosphatase 65 (39-117) U/L Troponin I High Sens 4.2 5.7 (<3.5-35.0) ng/L B-Natriuretic Peptide 72 (<100) pg/mL Total Protein 7.0 (6.5-8.0) g/dL Albumin 4.1 (3.5-5.0) g/dL TSH 1.62 (0.32-4.0) uIU/mL Influenza Type A (PCR) NEGATIVE (Negative) Influenza Type B (PCR) NEGATIVE (Negative) RSV RNA Qual (PCR) NEGATIVE (Negative) SARS-CoV-2 RNA (RT-PCR) NEGATIVE (Negative) Independent Interpretation I performed an independent interpretation of an: EKG (My interpretation EKG AFib rate of 67. QRS 96. QTC 439. AFib has replaced sinus rhythm when compared to prior. ) Radiology Impression Discussion of test interpretation with radiology: I have reviewed the radiologist's reading. External Record Review External record reviewed: Inpatient record, Office record, Outpatient record, Prior outpatient labs, Prior outpatient radiology, Primary care record and Outside ED record Tests considered The following testing was considered but not selected: As above Prescription Management I considered prescription management with: Other Chronic Conditions Patient?s care impacted by: Other (ISIAH, bronchiectasis) Discharge Plan Discharge Clinical Impression: New onset atrial fibrillation Patient Disposition: Home, Self-Care Instructions: A-fib (Atrial Fibrillation) (DC) Additional Instructions: You are in atrial fibrillation. Continue home prescribed medications In addition you need to start taking a blood thinner, Eliquis. IF YOU FALL, HIT HER HEAD, DEVELOP HEADACHE, CHEST PAIN OR SHORTNESS OF BREATH RETURN TO THE ED Being on a blood thinner to our risk of internal bleeding You need to follow-up with her doctor and Cardiology Prescriptions: New Eliquis 5 mg tablet 5 mg PO BID 30 Days Qty: 60 0RF No Action albuterol sulfate 2.5 mg /3 mL (0.083 %) solution for nebulization 2.5 mg inhalation Q4H PRN (Reason: shortness of breath or wheezing) Qty: 180 3RF calcipotriene 0.005 % cream 1 appl topical BID betamethasone dipropionate 0.05 % cream 1 appl topical BID lisinopril 40 mg tablet 40 mg PO DAILY hydrochlorothiazide 12.5 mg tablet 12.5 mg PO DAILY (DME) nebulizers Misc See Rx Instructions .ROUTE Rx Instructions: As directed buspirone 10 mg tablet 10 mg PO BID PRN sodium chloride 3 % solution for nebulization 4 ml inhalation BID Qty: 240 11RF albuterol sulfate 90 mcg/actuation HFA aerosol inhaler 2 inh inhalation Q6H PRN (Reason: shortness of breath or wheezing) 30 Days Qty: 18 12RF Referrals: [facility] [Provider Group] - 1 week Silverio Rutherford MD [Primary Care Provider] - 2 days Print Language: Beninese
[2023-10-09 09:04] VITALS: BP 168/65; PULSE 66; RESP 18; TEMP 36.9; O2SAT 96; BMI 45.5
[2023-10-09 09:28] LABS: MANUAL DIFF FLAG NO
[2023-10-09 09:29] LABS: Basophils Percent Auto 0.3 % (0-2); Eosinophils Absolute Auto 0.2 X10*3/uL (0.0-0.4); Eosinophils Percent Auto 1.9 % (0-4); Hematocrit 42.1 % (42.0-52.0); Hemoglobin 14.7 g/dl (14.0-18.0); Imm Gran Abs Auto 0.03 X10*3/uL (0.00-0.03); Imm Gran Pct Auto 0.4 % (0.0-0.4); Lymphocytes Absolute Auto 1.4 X10*3/uL (1.2-4.9); Lymphocytes Percent Auto 18.2 % (20-40); Mean Corpuscular HGB Conc 34.9 g/dl (31.0-36.0); Mean Corpuscular Hemoglobin 30.8 pg (27.0-33.0); Mean Corpuscular Volume 88.3 fL (80.0-98.0); Mean Platelet Volume 8.7 fL (9.4-12.4); Monocytes Absolute Auto 0.6 X10*3/uL (0.1-1.2); Monocytes Percent Auto 7.9 % (2-11); Neutrophils Absolute Auto 5.5 x10*3/uL (2.0-8.3); Neutrophils Percent Auto 71.3 % (45-73); Platelet Count 255 X10*3/uL (160-400); Red Blood Count 4.77 X10*6/uL (4.60-5.80); Red Cell Distribution Width 11.8 % (11.0-16.0); White Blood Count 7.8 X10*3/uL (4.8-10.8)
[2023-10-09 09:35] LABS: INTERNATIONAL NORM RATIO 0.9 (0.9-1.1); Prothrombin Time 11.1 SEC (11.1-13.3)
[2023-10-09 09:46] LABS: Alanine Aminotransferase 19 U/L (0-40); Albumin Level 4.1 g/dL (3.5-5.0); Alkaline Phosphatase 65 U/L (39-117); Anion Gap 11 (12-20); Aspartate Amino Transferase 14 U/L (5-37); Bilirubin Direct 0.4 mg/dL (0.0-0.5); Bilirubin Total 1.3 mg/dL (0.0-1.0); Blood Urea Nitrogen 20 mg/dL (9-16); Calcium 9.2 mg/dL (8.4-10.2); Carbon Dioxide 25 mmol/L (22-29); Chloride 108 mmol/L (96-108); Estimated Glomerular Filt Rate > 60; Glucose Random 166 mg/dL (60-115); Magnesium 2.3 mg/dL (1.6-2.6); Potassium 3.7 mmol/L (3.3-5.1); Sodium 140 mmol/L (135-145)
[2023-10-09 09:52] LABS: B Type Natriuretic Peptide 72 pg/mL (<100)
[2023-10-09 09:53] LABS: Troponin-I High Sensitivity 4.2 ng/L (<3.5-35.0)
[2023-10-09 10:07] LABS: TSH reflex Free T4 1.62 uIU/mL (0.32-4.0)
[2023-10-09 10:12] LABS: Influenza A PCR NEGATIVE (Negative); Influenza B PCR NEGATIVE (Negative); Resp Syncy Virus RNA Qual PCR NEGATIVE (Negative); SARS COV2 PCR INHOUSE NEGATIVE (Negative)
[2023-10-09 11:31] VITALS: BP 190/63; PULSE 53; RESP 16; TEMP 36.7; O2SAT 96
[2023-10-09 13:05] LABS: Troponin-I High Sensitivity 5.7 ng/L (<3.5-35.0)
[2023-10-09] MEDS: Apixaban 5 MG TABLET PO (13:13)
[2023-10-09 13:48] VITALS: BP 190/63; PULSE 53; RESP 16; TEMP 36.7; O2SAT 96
== END 2023-10-09 13:48 | disposition home or self-care (01) ==
PROVIDERS: Physician Assistant; Emergency Provider Emergency Medicine; PCP Internal Medicine
DX: I49.8 Other specified cardiac arrhythmias (principal); I48.91 Unspecified atrial fibrillation; R06.00 Dyspnea, unspecified; R06.02 Shortness of breath; R07.9 Chest pain, unspecified; Z03.818 Encounter for observation for suspected exposure to other biological agents ruled out
CPT/HCPCS: 0241U; 36415; 71046; 80048; 80076; 83735; 83880; 84443; 84484; 85025; 85610; 93005; 99284

== ENCOUNTER 2023-10-24 16:19 | Outpatient (REF) | payer MEDICARE, SELFPAY ==
--- NOTE | ~2023-10-24 | CT_ITS ---
EXAMINATION: CT CHEST WITHOUT CONTRAST CLINICAL INFORMATION: Shortness of breath COMPARISON: October 07, 2021 TECHNIQUE: Multidetector volumetric CT imaging of the chest was done. Axial MIP volume rendering provided. Sagittal and coronal reformatted images were obtained. This CT examination was performed using dose optimization techniques as appropriate, variously including the following: *Automated exposure control *Adjustment of mA and/or kV according to patient size (this includes techniques or standardized protocols for targeted exams where dose is matched to indication/reason for exam; i.e. extremities or head) *Use of iterative reconstruction technique DLP: 638 mGy-cm FINDINGS: TRAVELING OPERATOR: Unremarkable LUNGS: There are mild changes of centrilobular emphysema seen again. There are numerous lung nodules some of them in clusters unchanged significantly since previous study and there is right middle lobe granuloma calcified. Tree in bud appearance micronodules seen in the left upper lobe, left lower lobe, right middle lobe with peribronchial thickening. No evidence of dense consolidations. Central airways are patent. MEDIASTINUM: Thyroid gland is unremarkable. There is no mediastinal or hilar lymphadenopathy seen. No pericardial effusion. CORONARY ARTERY CALCIFICATION: Mild coronary artery calcifications present. PLEURA: There is no pleural effusion. No pleural mass or thickening. AXILLA: No lymphadenopathy. UPPER ABDOMEN: Partially visualized gallbladder reveals gallstones. Liver is of low attenuation due to hepatic steatosis. OSSEOUS STRUCTURES: There are changes of degenerative spondylosis in the thoracic spine CT/CT chest wo IV con IMPRESSION: 1. Mild changes of centrilobular emphysema. 2. Numerous lung nodules with tree in bud appearance and peribronchial thickening, stable since previous study. 3. Cholelithiasis unchanged since previous study. 4. Hepatic steatosis. Fleischner guidelines were followed. Electronically signed by: Evangelista Hodge MD 12/20/2023 06:20 PM [facility] [place]
== END 2023-10-24 16:20 | disposition home or self-care (01) ==
LOC: HO.CT 16:19
PROVIDERS: PCP Internal Medicine; Visit Provider Hospitalist
DX: R91.8 Other nonspecific abnormal finding of lung field (principal)
CPT/HCPCS: 71250

== ENCOUNTER 2023-10-25 08:52 | Outpatient (AMB) | payer MEDICARE, OTHER, SELFPAY ==
--- NOTE | 2023-10-25 08:54 | A.OFFVIS_ITS ---
Vital Signs 10/25/23 08:55 Height 5 ft 4 in Weight 264 lb 8.875 oz BMI 45.4 BP 130/62 Blood Pressure Location Lt brachial Position Sitting Pulse 56 Pulse Source Pulse Oximeter Intake Visit Reasons: 3 mth s/p echo Allergies No Known Allergies [No Known Allergies*] Allergy (Verified 10/09/23 09:05) Medication List - Last Reconciled 10/25/23 by Corey West MD albuterol sulfate 2.5 mg (3 mL) inhalation Q4H PRN albuterol sulfate 90 mcg/actuation 2 inhalations inhalation Q6H PRN 30 days betamethasone dipropionate 0.05% 1 appl topical BID buspirone 10 mg PO BID PRN calcipotriene 0.005% 1 appl topical BID hydrochlorothiazide 12.5 mg PO DAILY lisinopril 40 mg PO DAILY nebulizers As directed sodium chloride 3% 4 mL inhalation BID HPI Comments Details: Lisandro returns for follow-up. In the past, he was seen regarding question of equivocal stress test. He has no history of coronary disease or myocardial infarction or cardiomyopathy. It does not have any exertional chest pains. Known pulmonary issues including bronchiectasis, non tuberculous mycobacterial disease, bronchitis/pulmonary nodules. He recently came to the ER for shortness of breath and in that context, diagnosed to have atrial fibrillation. However, EKG showed rather sinus rhythm and it was discussed with the ER provider. Otherwise, no new issues relevant to cardiac. [facility] Medical History Prediabetes Bronchiectasis Nontuberculous mycobacterial disease of lung Streptococcus viridans infection Arthritis Gallstones ISIAH (obstructive sleep apnea) HTN (hypertension) Pulmonary nodules Chronic bronchitis Surgical History Hx of total knee replacement History of surgical removal of pilonidal cyst History of arthroscopy of right knee Hx of colonoscopy Family History (Updated 10/25/23 @ 09:15 by Corey West MD) Mother Heart attack Father CHF (congestive heart failure) Social History Alcohol intake: current Alcohol intake frequency: holidays/special occasions only Alcohol type: beer Patient Tobacco Use Status: Former Tobacco user Tobacco use type: Cigarette Years Smoked: 30 years Substance Use Type: Marijuana Review of Systems Const Denies weakness ENT Denies dizziness Card Denies chest pain, Denies chest pain with activity, Denies syncope, Denies rapid heart rate, Denies pedal edema, Denies edema, Denies leg edema, Denies lightheadedness, Denies palpitations, Denies dyspnea, Denies dyspnea on exertion and Denies orthopnea Resp Denies cough, Denies dyspnea and Denies dyspnea on exertion GI Denies hematochezia and Denies change in stool character Musc Denies abnormal gait, Denies muscle cramps, Denies muscle weakness, Denies numbness, Denies radiating pain into limb and Denies tingling Neuro Denies abnormal gait, Denies dizziness, Denies syncope, Denies numbness, Denies tingling and Denies weakness Endo Denies palpitations Physical Exam Vital Signs: Last Vital Signs Pulse 56 10/25/23 08:55 BP 130/62 10/25/23 08:55 BMI result Body Mass Index 45.4 Const General: comfortable and no acute distress Orientation/consciousness: patient oriented x3 HEENT Other: Unremarkable Head: Yes normal to inspection Neck Neck: Yes normal visual inspection Chest Chest palpation & inspection: normal inspection of the chest Resp Auscultation: clear to auscultation bilaterally Cardio Palpation: normal PMI Heart sounds: S1 normal heart sound present, S2 normal heart sound present, no gallops, no murmurs and no rubs GI Palpation (GI): Soft to palpation Back/Spine/Pelvis Other: unremarkable Skin General skin exam: no rashes or lesions noted Neuro General: patient oriented x3 Extrem General: Yes normal to inspection Psych Mental Status: mental status grossly normal Assessment & Plan Assessment & Plan (1) Equivocal stress test: Code(s): R94.39 - Abnormal result of other cardiovascular function study Category: Medical (2) Sinus bradycardia: Code(s): R00.1 - Bradycardia, unspecified Category: Medical (3) ISIAH (obstructive sleep apnea): Code(s): G47.33 - Obstructive sleep apnea (adult) (pediatric) Category: Medical Plan EKG with underlying sinus rhythm and sinus arrhythmia. Nonspecific ST-T changes. Echocardiogram with LVEF of 70%. Moderate septal hypertrophy. No significant valvular findings. Ascending aortic size 4 cm, probably acceptable for his age. Myocardial perfusion imaging study shows equivocal findings for apical ischemia. In the Holter monitor, underlying rhythm is sinus with an average rate of 48/Min. Frequent sinus bradycardia noted about 87% of the time. Recent chest CT scan reported to have mild coronary calcification. It seems he has had anterior chest CTA yesterday but not yet reported. Recent ER finding of atrial fibrillation is an error. Overall, patient has absolutely no symptoms like angina. Stress test findings possibly from his body habitus. Overall, mainly risk factor modification. If able to lose weight, that will definitely help. Blood pressure has been up and down. Today, seems reasonable. Lipids seem reasonable even without any statin s. Overall, patient does not have any overt cardiac symptoms and specifically no exertional angina. The stress test findings could be related to his body habitus possibly. In the absence of symptoms, mainly risk factor modification. Weight loss if able. Blood pressure management and it seems okay today but has been high in the past. His baseline LDL is not too high at 92 mg/dL. For the obstructive sleep apnea, he is on CPAP. Follow-up in 6 months. In the interim, call with concerns. Coding Level of Care Code Est Pt Level 4 (12683) Diagnoses Equivocal stress test R94.39 Sinus bradycardia R00.1 ISIAH (obstructive sleep apnea) G47.33
[2023-10-25 08:55] VITALS: BP 130/62; PULSE 56; BMI 45.4
== END 2023-10-25 09:22 | disposition home or self-care (01) ==
PROVIDERS: PCP Internal Medicine; Visit Provider Internal Medicine
DX: R94.39 Abnormal result of other cardiovascular function study (principal); R00.1 Bradycardia, unspecified; G47.33 Obstructive sleep apnea (adult) (pediatric)
CPT/HCPCS: 99214

== ENCOUNTER → 2023-10-25 08:52 | Outpatient (BNVA) | payer MEDICARE, OTHER, SELFPAY | PROVIDERS: PCP Internal Medicine; Visit Provider Internal Medicine | DX: R94.39 Abnormal result of other cardiovascular function study (principal); R00.1 Bradycardia, unspecified; G47.33 Obstructive sleep apnea (adult) (pediatric) | CPT/HCPCS: 99212 ==

== ENCOUNTER 2023-11-10 09:28 | Outpatient (AMB) | payer MEDICARE, OTHER, SELFPAY ==
[2023-11-10 09:33] VITALS: BP 132/70; PULSE 58; O2SAT 96; BMI 46.4
--- NOTE | 2023-11-10 09:33 | MHC.OFFVIS ---
Vital Signs 11/10/23 09:33 Height 5 ft 4 in Weight 270 lb 1.06 oz BMI 46.4 BP 132/70 Blood Pressure Location Lt brachial Position Sitting Pulse 58 Pulse Source Pulse Oximeter Pulse Oximetry (%) 96 Oxygen Delivery Method Room Air Intake Visit Reasons: COPD Medical Staff Services Manager Required: No Allergies No Known Allergies [No Known Allergies*] Allergy (Verified 11/10/23 09:36) HPI Comments Details: The patient is a 73-year-old gentleman with a known history of hypertension currently on ANNE-inhibitor was started developing worsening cough. Apparently he had been exposed to very unclean environment prior to developing the worsening cough. He was cleaning house for 3 weeks without a respirator. He started developing worsening cough. Therefore, he went to see his primary care doctor ordered a chest x-ray. There appeared to be nodular opacity the right hemithorax. Therefore, he underwent a CT scan of the chest. The CT scan he did demonstrate evidence tree-in-bud in addition to bronchitis and bronchiolitis. In addition to that appears to mucus plugging with what appears to be a density in the right middle lobe which also appears to be inspissated mucus. Again malignancies also in differential although he appears to disease elsewhere suggesting that is more of a diffuse process. Likely from a exposure. Therefore, will have him undergo blood work in addition to start chest physical therapy with a flutter valve to see if he can clear his own mucus. The patient is aware that he needs to avoid significant tracey or moldy environment. And if he ever needs to going to that is dosing virus he needs to wear a respirator. Will plan to follow-up in 4 weeks with chest x-ray and pulmonary function studies. If the densities still present on his x-ray or getting worse with definitely perform bronchoscopy at that time. 09/08/2022 the patient is here for pulmonary follow-up visit. The patient overall is doing well. Although he has been taking care of his sick in therefore not been able to take care of himself. He has not been performing the chest PT and the patient has not been using his inhaler. He is been using the APAP. The APAP therapy has been affecting beneficial. I did download the machine and his AHI is down to 1. He feels sometimes the pressure is not high enough, therefore increased his minimum pressure from 8-10 cm. The patient also had a CT scan of the chest that I personally reviewed. It appears that he has significant treating budding pulmonary nodules 3 much unchanged from before. He does have mycobacterial disease. At this point in view of the persistent findings will go ahead and start him on azithromycin therapy. 03/17/2023 the patient is here for a pulmonary follow-up visit. Overall he doing well. He is concerned that he is gained weight. Respiratory status stable. He did take the azithromycin but only for a month. Then he stopped it. Has not seen any significant congestion or cough. He is slightly short of breath but partly because of his weight gain and also having knee issues. The patient's last CT scan was back in July 2022 demonstrating the nodular densities again on the right side but also on the left upper lobe. The patient had a CT scan at a location [place]. We did compare to his previous. No significant changes. Although the Sizer significant. Will plan to repeat the CT scan in the fall 2023. He needs to continue using the chest PT for mucus clearance. The patient will hold off on azithromycin right now but if the CT scans worse then he will have to go back on antimycobacterial therapy. If he becomes congested I did give him a sputum cup so we can provide us another AFB culture. The patient is also using CPAP. CPAP therapy has been affecting beneficial. He still feels like his AHI is going up. Likely from the weight gain. Current settings are 8-16. His average pressure is around 9 cm and sometimes he goes up to 15. Therefore, I will just increase the pressures the little bit 10/08/2016. He will try it if he has any difficulties he will call the office about in change in back. The therapy continues to be affecting beneficial. His AHI is 2.3. 05/19/2023 the patient is here for sick visit. The patient has been complaining of shortness of breath along with feeling tremulousness internally. Feels anxious. He has been having a lot of issues with the family with health issues. Making him a little bit more concerned. He went to the ER because the shortness of breath in the anxious feeling. He had a blood work done which is reassuring. EKG was consistent with sinus bradycardia. Ultimately after that he did undergo a Holter monitor and demonstrated bradycardia. He then went to see his primary care doctor for order blood work including a D-dimer though slightly elevated. He was recommended to go to the ER if symptoms worsen. The patient did come in for sick visit. He is feeling little better although he still having this episodic episodes of the shortness of breath sensation in the fluttering side. We did go for brief walking oximetry the patient maintained a nice stable pulse ox and also heart rate actually came up to about 80 beats per minute. He has been pretty sedentary for the last few weeks since his has been healing from surgery. The patient also has significant lower extremity edema. Since he went to the ER is trying to make dietary discretion. I do believe that he is volume overloaded and taking a diuretic a stronger diuretic for a few days will be helpful in improving his volume status and hopefully that will decrease the workload hard. I am concerned for his underlying cardiac risk. He is going to be seeing Cardiology in July. Will go ahead and request a nuclear stress test at this time. In the meantime the patient is using the CPAP. The CPAP therapy has been affecting beneficial in his AHI now is below 1 which is reassuring. He is trying to sleep elevated. The patient also has been taking a baby asthma which I believe is a good idea. 11/10/2023 the patient is here for a follow-up visit. Overall he is doing well. Over the summer he was given a diagnosis of the atrial fibrillation and became a little concerned with that but subsequently after that he has followed up with Cardiology and has no evidence of any atrial filling additional this time. In addition to that he did undergo a CT scan of the chest that I personally reviewed. Unfortunately has not been officially read yet. The appears that the nodular densities are completely stable and unchanging. Most likely the related to the smoldering mycobacterial disease infection. Clinically he is doing well so therefore we do not have to consider treating him at this time. Although if there is any evidence of any worsening disease with symptoms or Radiology findings and we can also consider treating him then. He has been using the CPAP. CPAP therapy continues to be affecting beneficial he does try to use it more than 4 hours a night. [facility] Medical History Prediabetes Bronchiectasis Nontuberculous mycobacterial disease of lung Streptococcus viridans infection Arthritis Gallstones ISIAH (obstructive sleep apnea) HTN (hypertension) Pulmonary nodules Chronic bronchitis Surgical History Hx of total knee replacement History of surgical removal of pilonidal cyst History of arthroscopy of right knee Hx of colonoscopy Family History (Updated 10/25/23 @ 09:15 by Corey West MD) Mother Heart attack Father CHF (congestive heart failure) Social History Alcohol intake: current Alcohol intake frequency: holidays/special occasions only Alcohol type: beer Patient Tobacco Use Status: Former Tobacco user Tobacco use type: Cigarette Years Smoked: 30 years Substance Use Type: Marijuana Review of Systems Const Reports fatigue and Denies night sweats ENT Denies change in voice, Denies lip swelling, Denies mouth pain, Reports nasal congestion, Reports nasal discharge and Denies tongue swelling Card Denies chest pain and Reports dyspnea on exertion Resp Reports cough and Reports dyspnea on exertion GI Denies abdominal pain Musc Denies no additional complaints Neuro Denies Neuro-related abnormal movements Psych Denies no additional complaints Endo Reports fatigue Naun/Lymph Denies easy bleeding and Denies lymphadenopathy Aller/Immun Denies lip swelling and Denies tongue swelling Physical Exam Vital Signs: Last Vital Signs Pulse 58 11/10/23 09:33 BP 132/70 11/10/23 09:33 Pulse Ox 96 11/10/23 09:33 Oxygen Delivery Method Room Air 11/10/23 09:33 BMI result Body Mass Index 46.4 Const General: alert Neck Neck: Yes normal visual inspection, Yes full ROM and Yes no lymphadenopathy Chest Chest palpation & inspection: normal inspection of the chest Resp Auscultation: diminished lung sounds Cardio Rate: regular rate Rhythm: regular rhythm Heart sounds: S1 normal heart sound present and S2 normal heart sound present GI Palpation (GI): Soft to palpation and nontender Auscultation: normal bowel sounds Skin General skin exam: rashes and/or lesions noted Assessment & Plan Assessment & Plan (1) Pulmonary nodules: Code(s): R91.8 - Other nonspecific abnormal finding of lung field Category: Medical (2) Chronic bronchitis: Code(s): J42 - Unspecified chronic bronchitis Category: Medical Qualifiers: Chronic bronchitis type: mixed simple and mucopurulent Qualified Code(s): J41.8 - Mixed simple and mucopurulent chronic bronchitis (3) Nontuberculous mycobacterial disease of lung: Code(s): A31.0 - Pulmonary mycobacterial infection Category: Medical (4) Bronchiectasis: Code(s): J47.9 - Bronchiectasis, uncomplicated Category: Medical Qualifiers: Bronchiectasis type: uncomplicated Qualified Code(s): J47.9 - Bronchiectasis, uncomplicated Plan continue ASA continue hypertonic saline 7% via nebulizer CPT continue APAP therapy repeat AFB sputum CT chest, awaiting final read F/U 3-4 months Coding Level of Care Code Est Pt Level 4 (35029) Diagnoses Pulmonary nodules R91.8 Mixed simple and mucopurulent chronic bronchitis J41.8 Chronic bronchitis type: mixed simple and mucopurulent Nontuberculous mycobacterial disease of lung A31.0 Bronchiectasis without complication J47.9 Bronchiectasis type: uncomplicated Time Spent (min) 17
== END 2023-11-10 09:54 | disposition home or self-care (01) ==
PROVIDERS: PCP Internal Medicine; Visit Provider Hospitalist
DX: R91.8 Other nonspecific abnormal finding of lung field (principal); J41.8 Mixed simple and mucopurulent chronic bronchitis; A31.0 Pulmonary mycobacterial infection; J47.9 Bronchiectasis, uncomplicated
CPT/HCPCS: 99214

== ENCOUNTER → 2023-11-10 09:28 | Outpatient (BNVA) | payer MEDICARE, OTHER, SELFPAY | PROVIDERS: PCP Internal Medicine; Visit Provider Hospitalist | DX: J47.9 Bronchiectasis, uncomplicated (principal); J41.8 Mixed simple and mucopurulent chronic bronchitis; R91.8 Other nonspecific abnormal finding of lung field; A31.0 Pulmonary mycobacterial infection; G47.33 Obstructive sleep apnea (adult) (pediatric); Z99.89 Dependence on other enabling machines and devices; Z79.899 Other long term (current) drug therapy | CPT/HCPCS: 99212 ==

== ENCOUNTER 2023-12-10 12:59 | Emergency (ER) | payer MEDICARE, OTHER, SELFPAY ==
--- NOTE | ~2023-12-10 | XR_ITS ---
EXAMINATION: XR CHEST CLINICAL INFORMATION: Shortness of breath COMPARISON: 10/09/2023 TECHNIQUE: 2 views of the chest were obtained. FINDINGS: Mildly enlarged cardiomediastinal silhouette is stable. No dense consolidation, pleural effusion or pneumothorax. There are degenerative changes in the spine. XR/XR chest 2V IMPRESSION: No acute cardiopulmonary process. Electronically signed by: Burak Wheeler MD 12/10/2023 01:39 PM EST
[2023-12-10 13:03] VITALS: BP 103/80; PULSE 56; RESP 18; TEMP 36.6; O2SAT 98; BMI 44.7
--- NOTE | 2023-12-10 13:03 | ED_ITS ---
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 Patient denies cough, hemoptysis, leg swelling chest pain associated with any this and most of this is chronic who was just slightly worse earlier in the morning today. No abdominal pain nausea vomiting diarrhea otherwise feeling well. No drug use Related Data Home Medications ?Medication ?Instructions ?Recorded ?Confirmed hydrochlorothiazide 12.5 mg tablet 12.5 mg PO DAILY 08/20/20 10/25/23 lisinopril 40 mg tablet 40 mg PO DAILY 08/20/20 10/25/23 betamethasone dipropionate 0.05 % 1 appl topical BID 10/01/20 10/25/23 topical cream calcipotriene 0.005 % topical cream 1 appl topical BID 10/01/20 10/25/23 nebulizers 11/05/21 11/19/21 buspirone 10 mg tablet 10 mg PO BID PRN 09/08/22 10/25/23 Previous Rx's ?Medication ?Instructions ?Recorded albuterol sulfate 90 mcg/actuation 2 inh inhalation Q6H PRN shortness 09/08/22 aerosol inhaler of breath or wheezing 30 days #18 grams sodium chloride 3 % for 4 ml inhalation BID secretions 09/08/22 nebulization #240 mL albuterol sulfate 2.5 mg/3 mL 2.5 mg (3 mL) inhalation Q4H PRN 11/21/23 (0.083 %) solution for nebulization shortness of breath or wheezing #180 mL Allergies Allergy/AdvReac Type Severity Reaction Status Date / Time No Known Allergies Allergy Verified 12/10/23 13:06 [No Known Allergies*] FORMERLY [facility], [facility] Past Medical History Medical History Prediabetes Bronchiectasis Nontuberculous mycobacterial disease of lung Streptococcus viridans infection Arthritis Gallstones ISIAH (obstructive sleep apnea) HTN (hypertension) Pulmonary nodules Chronic bronchitis Surgical History Hx of total knee replacement History of surgical removal of pilonidal cyst History of arthroscopy of right knee Hx of colonoscopy Family History Family History (Updated 10/25/23 @ 09:15 by Corey West MD) Mother Heart attack Father CHF (congestive heart failure) Social History Social History Alcohol intake: current Alcohol intake frequency: holidays/special occasions only Alcohol type: beer Patient Tobacco Use Status: Former Tobacco user Tobacco use type: Cigarette Years Smoked: 30 years Smoked in Last 30 Days: No Use of substances other than those prescribed or required for medical reasons: No Substance Use Type: Marijuana Advance Directives: No Advance Directives Information Provided: Yes Do you have a plan to hurt others: No Plan Physical Exam 2 Vital Signs: Vital Signs: Last Vital Signs Temp 98.0 F 12/10/23 18:07 Pulse 49 L 12/10/23 18:07 Resp 15 12/10/23 18:07 BP 177/62 H 12/10/23 18:07 Pulse Ox 96 12/10/23 18:07 O2 Del Method Room Air 12/10/23 18:07 BMI result Body Mass Index 44.7 Const: Other: EXAM: Gen: Alert, awake, well appearing, well hydrated. Head: Atraumatic Eyes: Anicteric, Normal conjunctiva. ENT: Moist mucosa, no pallor. ? Neck: Supple. Respiratory: Breathing comfortably, No distress.Clear to auscultation bilaterally, symmetric chest expansion, No wheeze, rales, ronchi. Cardiovascular: Regular rate and rhythm. No murmurs or rub. Well perfused periphery, warm extremities. No edema. ?No calf tenderness Abdominal: Soft, no objective distension. No palpable masses or obvious organomegaly. No focal tenderness, no guarding, no rebound tenderness or other peritoneal findings. : No flank tenderness. Neuro: Alert. Gross movement of all extremities intact. ? Vital signs: See flowsheet Course Course Course Narrative: This is an RME: Additional HPI, ROS, PE not included below will be deferred to primary provider. RME assessment and note performed by: Ursula Sanchez PA-C This is a 25-dnyp-gdt-male, with a hx of prediabetes, bronchiectasis, arthritis, ISIAH, HTN, non tuberculosis mycobacterium disease of lung, who presents to the ER with complaints of shortness of breath and nausea. Reports that he woke up at 3AM and felt these symptoms. Took an aspirin and anxiety and used his cpap machine at that time, and eventually fell back asleep. Woke up later on to get ready and still felt these symptoms. Has been seen by Dr. West as there was a question of a fib, which he was told that he did not have a fib. He had a chest CT on 10/23 here which still has not been read. Plan: Labs, EKG, chest x-ray, further ER evaluation needed Medications Administered Discontinued Medications Generic Name Dose Route Start Last Admin Trade Name Kelsie PRN Reason Stop Dose Admin Clonazepam 0.125 mg 12/10/23 16:19 12/10/23 16:26 Clonazepam 0.125 Mg Tab.Rapdis PO 12/10/23 16:20 0.125 mg ONCE ONE Administration Ondansetron HCl 4 mg 12/10/23 16:19 12/10/23 16:27 Ondansetron Hcl 4 Mg/2 Ml Vial IVPUSH 12/10/23 16:20 4 mg ONCE ONE Administration Medical Decision Making Medical Decision Making [facility] Narrative: [age] male with anxiety. Vague shortness of breath no classical anginal symptoms. Patient tells me he has had outpatient workup with Cardiology including echo with no identifiable abnormalities he feels he also had a stress test during that time. He clinically looks well has clear lungs is not distressed he does seem somewhat anxious and attributes most of his symptoms to this. ECG is reassuring without ischemic changes. Bedside echo with normal EF, no RV dilation, no pericardial effusion. Reassuring lab work certainly no anginal symptomatology. I do suspect anxiety is the main corporate driver for this but strongly urged him to call his primary doctor and PCP Differential Diagnosis Differential Diagnoses: The differential diagnosis associated with the presentation includes Pneumonia, CHF, pleural effusion, anxiety, dysrhythmia Lab Data [facility] Lab Attestation statement: I reviewed the patient's lab results. 12/10/23 13:46 12/10/23 13:46 Labs: Lab Results 12/10/23 Range/Units 13:46 WBC 8.2 (4.8-10.8) X10*3/uL RBC 4.88 (4.60-5.80) X10*6/uL Hgb 14.8 (14.0-18.0) g/dl Hct 42.8 (42.0-52.0) % MCV 87.7 (80.0-98.0) fL MCH 30.3 (27.0-33.0) pg MCHC 34.6 (31.0-36.0) g/dl RDW 12.0 (11.0-16.0) % Plt Count 253 (160-400) X10*3/uL MPV 9.5 (9.4-12.4) fL Immature Gran % (Auto) 0.1 (0.0-0.4) % Neut % (Auto) 70.4 (45-73) % Lymph % (Auto) 20.4 (20-40) % [place] % (Auto) 6.6 (2-11) % Eos % (Auto) 2.3 (0-4) % Baso % (Auto) 0.2 (0-2) % Lymph # (Auto) 1.7 (1.2-4.9) X10*3/uL [place] # (Auto) 0.5 (0.1-1.2) X10*3/uL Eos # (Auto) 0.2 (0.0-0.4) X10*3/uL Baso # (Auto) 0.0 (0.0-0.2) X10*3/uL Abs Immat Gran (auto) 0.01 (0.00-0.03) X10*3/uL Absolute Neuts (auto) 5.8 (2.0-8.3) x10*3/uL Absolute Nucleated RBC 0.000 (0.0-0.012) X10*3/uL Nucleated RBC % (auto) 0.0 (0.0-0.2) /100WBC PT 11.5 (10.9-12.4) SEC INR 1.0 (0.9-1.1) Sodium 143 (135-145) mmol/L Potassium 4.7 D (3.3-5.1) mmol/L Chloride 107 (96-108) mmol/L Carbon Dioxide 24 (22-29) mmol/L Anion Gap 17 (12-20) BUN 15 (9-16) mg/dL Creatinine 0.89 (0.5-1.4) mg/dL Estim Creat Clear Calc 87.8 Estimated GFR > 60 Random Glucose 120 H (60-115) mg/dL Calcium 9.7 (8.4-10.2) mg/dL Magnesium 2.2 (1.6-2.6) mg/dL Total Bilirubin 1.4 H (0.0-1.0) mg/dL Direct Bilirubin 0.4 (0.0-0.5) mg/dL AST 40 H (5-37) U/L ALT 20 (0-40) U/L Alkaline Phosphatase 62 (39-117) U/L Troponin I High Sens 5.5 (<3.5-35.0) ng/L B-Natriuretic Peptide 90 (<100) pg/mL Total Protein 7.7 (6.5-8.0) g/dL Albumin 4.2 (3.5-5.0) g/dL Independent Interpretation I performed an independent interpretation of an: EKG Interpretation: 12/10/2023 1329: Sinus rhythm rate 52 QTC 420, [place] 180. No ischemic changes. Of note there are subtle ST changes in the inferior leads however morphology is consistent with at least the past 4 ECGs and very similar to 05/27/2023 with Cardiology. I also reviewed a prior stress test which was without ischemic provocation Discharge Plan Discharge Clinical Impression: Acute dyspnea Patient Disposition: Home, Self-Care Instructions: Dyspnea (ED) Additional Instructions: _ DISCHARGE DIAGNOSES: Shortness of breath unclear cause. Likely exacerbation or worsening of your underlying anxiety or panic. HISTORY OF PRESENTATION: ?Intermittent anxiety and shortness of breath ongoing for weeks to months EMERGENCY DEPARTMENT COURSE,TESTS, TREATMENTS: While in the ED today you had reassuring workup including a chest x-ray which showed no signs of pneumonia or fluid in the lungs or other abnormalities. Lab work including cardiac enzyme tests, electrolytes blood counts all of which was reassuring and normal. We did an echocardiogram at the bedside which was also reassuring showing normal structure of your heart. DISCHARGE MEDICATIONS: ?[We have made no changes to your regular medication regimen] FOLLOW-UP: ?Call your primary or general physician soon as possible to discuss your symptoms, your ED visit and to discuss follow up plans Call your primary doctor and office machine technician. INSTRUCTIONS ?& RETURN PRECAUTIONS: If any symptoms change first call your primary physician, if it is after-hours your primary doctors office should have a provider construction specialist you can speak with. If the symptoms are severe or very concerning to you then call 911 or return to the ED. Lane Colby MD Emergency Physician [facility] Prescriptions: No Action albuterol sulfate 2.5 mg /3 mL (0.083 %) solution for nebulization 2.5 mg inhalation Q4H PRN (Reason: shortness of breath or wheezing) Qty: 180 3RF calcipotriene 0.005 % cream 1 appl topical BID betamethasone dipropionate 0.05 % cream 1 appl topical BID lisinopril 40 mg tablet 40 mg PO DAILY hydrochlorothiazide 12.5 mg tablet 12.5 mg PO DAILY (DME) nebulizers Misc See Rx Instructions .ROUTE Rx Instructions: As directed buspirone 10 mg tablet 10 mg PO BID PRN sodium chloride 3 % solution for nebulization 4 ml inhalation BID Qty: 240 11RF albuterol sulfate 90 mcg/actuation HFA aerosol inhaler 2 inh inhalation Q6H PRN (Reason: shortness of breath or wheezing) 30 Days Qty: 18 12RF Interventions: ED Discharge Assessment Last Done: 12/10/23 18:07 Discharge Date/Time: 12/10/23 18:07 Print Language: Indonesian
--- NOTE | 2023-12-10 13:11 | ECG_ITS ---
Test Reason : Dyspnea Blood Pressure : / mmHG Vent. Rate : 052 BPM Atrial Rate : 052 BPM P-R Int : 186 ms QRS Dur : 094 ms QT Int : 452 ms P-R-T Axes : 035 027 062 degrees QTc Int : 420 ms Sinus bradycardia Nonspecific ST and T wave abnormality Abnormal ECG When compared with ECG of 09-OCT-2023 08:58, No significant change was found Referred By: Ursula Sanchez Electronically Signed By:KEVIN RONQUILLO
[2023-12-10 13:51] LABS: MANUAL DIFF FLAG NO
[2023-12-10 13:54] LABS: Basophils Percent Auto 0.2 % (0-2); Eosinophils Absolute Auto 0.2 X10*3/uL (0.0-0.4); Eosinophils Percent Auto 2.3 % (0-4); Hematocrit 42.8 % (42.0-52.0); Hemoglobin 14.8 g/dl (14.0-18.0); Imm Gran Abs Auto 0.01 X10*3/uL (0.00-0.03); Imm Gran Pct Auto 0.1 % (0.0-0.4); Lymphocytes Absolute Auto 1.7 X10*3/uL (1.2-4.9); Lymphocytes Percent Auto 20.4 % (20-40); Mean Corpuscular HGB Conc 34.6 g/dl (31.0-36.0); Mean Corpuscular Hemoglobin 30.3 pg (27.0-33.0); Mean Corpuscular Volume 87.7 fL (80.0-98.0); Mean Platelet Volume 9.5 fL (9.4-12.4); Monocytes Absolute Auto 0.5 X10*3/uL (0.1-1.2); Monocytes Percent Auto 6.6 % (2-11); Neutrophils Absolute Auto 5.8 x10*3/uL (2.0-8.3); Neutrophils Percent Auto 70.4 % (45-73); Platelet Count 253 X10*3/uL (160-400); Red Blood Count 4.88 X10*6/uL (4.60-5.80); White Blood Count 8.2 X10*3/uL (4.8-10.8)
[2023-12-10 13:59] LABS: Prothrombin Time 11.5 SEC (10.9-12.4)
[2023-12-10 14:03] VITALS: BP 103/80; PULSE 56; RESP 18; TEMP 36.6; O2SAT 98
[2023-12-10 14:21] LABS: B Type Natriuretic Peptide 90 pg/mL (<100)
[2023-12-10 14:25] LABS: Alanine Aminotransferase 20 U/L (0-40); Albumin Level 4.2 g/dL (3.5-5.0); Alkaline Phosphatase 62 U/L (39-117); Anion Gap 17 (12-20); Aspartate Amino Transferase 40 U/L (5-37); Bilirubin Direct 0.4 mg/dL (0.0-0.5); Bilirubin Total 1.4 mg/dL (0.0-1.0); Blood Urea Nitrogen 15 mg/dL (9-16); Calcium 9.7 mg/dL (8.4-10.2); Carbon Dioxide 24 mmol/L (22-29); Chloride 107 mmol/L (96-108); Creatinine Clr Calc Pharmacy 87.8; Estimated Glomerular Filt Rate > 60; Glucose Random 120 mg/dL (60-115); Magnesium 2.2 mg/dL (1.6-2.6); Potassium 4.7 mmol/L (3.3-5.1); Sodium 143 mmol/L (135-145); Total Protein 7.7 g/dL (6.5-8.0)
[2023-12-10 14:26] LABS: Troponin-I High Sensitivity 5.5 ng/L (<3.5-35.0)
--- NOTE | 2023-12-10 16:20 | ED_ITS ---
HPI - SOB/Dyspnea General Chief Complaint: Dyspnea Stated Complaint: Diff breathing Time Seen by Provider: 12/10/23 15:49 History of Present Illness ED Provider: angel HPI Narrative: 73 M reports shortness of breath intermittently and ongoing for several months slightly worse this morning upon awaking feels occasional shortness of breath at night Related Data Home Medications ?Medication ?Instructions ?Recorded ?Confirmed hydrochlorothiazide 12.5 mg tablet 12.5 mg PO DAILY 08/20/20 10/25/23 lisinopril 40 mg tablet 40 mg PO DAILY 08/20/20 10/25/23 betamethasone dipropionate 0.05 % 1 appl topical BID 10/01/20 10/25/23 topical cream calcipotriene 0.005 % topical cream 1 appl topical BID 10/01/20 10/25/23 nebulizers 11/05/21 11/19/21 buspirone 10 mg tablet 10 mg PO BID PRN 09/08/22 10/25/23 Previous Rx's ?Medication ?Instructions ?Recorded albuterol sulfate 90 mcg/actuation 2 inh inhalation Q6H PRN shortness 09/08/22 aerosol inhaler of breath or wheezing 30 days #18 grams sodium chloride 3 % for 4 ml inhalation BID secretions 09/08/22 nebulization #240 mL albuterol sulfate 2.5 mg/3 mL 2.5 mg (3 mL) inhalation Q4H PRN 11/21/23 (0.083 %) solution for nebulization shortness of breath or wheezing #180 mL Allergies Allergy/AdvReac Type Severity Reaction Status Date / Time No Known Allergies Allergy Verified 12/10/23 13:06 [No Known Allergies*] [facility] Past Medical History Medical History Prediabetes Bronchiectasis Nontuberculous mycobacterial disease of lung Streptococcus viridans infection Arthritis Gallstones ISIAH (obstructive sleep apnea) HTN (hypertension) Pulmonary nodules Chronic bronchitis Surgical History Hx of total knee replacement History of surgical removal of pilonidal cyst History of arthroscopy of right knee Hx of colonoscopy Family History Family History (Updated 10/25/23 @ 09:15 by Corey West MD) Mother Heart attack Father CHF (congestive heart failure) Social History Social History Alcohol intake: current Alcohol intake frequency: holidays/special occasions only Alcohol type: beer Patient Tobacco Use Status: Former Tobacco user Tobacco use type: Cigarette Years Smoked: 30 years Smoked in Last 30 Days: No Use of substances other than those prescribed or required for medical reasons: No Substance Use Type: Marijuana Advance Directives: No Advance Directives Information Provided: Yes Do you have a plan to hurt others: No Plan Physical Exam 2 Vital Signs: Vital Signs: Last Vital Signs Temp 97.8 F 12/10/23 14:03 Pulse 56 12/10/23 14:03 Resp 18 12/10/23 14:03 BP 103/80 12/10/23 14:03 Pulse Ox 98 12/10/23 14:03 O2 Del Method Room Air 12/10/23 14:03 BMI result Body Mass Index 44.7 Medical Decision Making Lab Data 12/10/23 13:46 12/10/23 13:46 Labs: Lab Results 12/10/23 Range/Units 13:46 WBC 8.2 (4.8-10.8) X10*3/uL RBC 4.88 (4.60-5.80) X10*6/uL Hgb 14.8 (14.0-18.0) g/dl Hct 42.8 (42.0-52.0) % MCV 87.7 (80.0-98.0) fL MCH 30.3 (27.0-33.0) pg MCHC 34.6 (31.0-36.0) g/dl RDW 12.0 (11.0-16.0) % Plt Count 253 (160-400) X10*3/uL MPV 9.5 (9.4-12.4) fL Immature Gran % (Auto) 0.1 (0.0-0.4) % Neut % (Auto) 70.4 (45-73) % Lymph % (Auto) 20.4 (20-40) % [place] % (Auto) 6.6 (2-11) % Eos % (Auto) 2.3 (0-4) % Baso % (Auto) 0.2 (0-2) % Lymph # (Auto) 1.7 (1.2-4.9) X10*3/uL [place] # (Auto) 0.5 (0.1-1.2) X10*3/uL Eos # (Auto) 0.2 (0.0-0.4) X10*3/uL Baso # (Auto) 0.0 (0.0-0.2) X10*3/uL Abs Immat Gran (auto) 0.01 (0.00-0.03) X10*3/uL Absolute Neuts (auto) 5.8 (2.0-8.3) x10*3/uL Absolute Nucleated RBC 0.000 (0.0-0.012) X10*3/uL Nucleated RBC % (auto) 0.0 (0.0-0.2) /100WBC PT 11.5 (10.9-12.4) SEC INR 1.0 (0.9-1.1) Sodium 143 (135-145) mmol/L Potassium 4.7 D (3.3-5.1) mmol/L Chloride 107 (96-108) mmol/L Carbon Dioxide 24 (22-29) mmol/L Anion Gap 17 (12-20) BUN 15 (9-16) mg/dL Creatinine 0.89 (0.5-1.4) mg/dL Estim Creat Clear Calc 87.8 Estimated GFR > 60 Random Glucose 120 H (60-115) mg/dL Calcium 9.7 (8.4-10.2) mg/dL Magnesium 2.2 (1.6-2.6) mg/dL Total Bilirubin 1.4 H (0.0-1.0) mg/dL Direct Bilirubin 0.4 (0.0-0.5) mg/dL AST 40 H (5-37) U/L ALT 20 (0-40) U/L Alkaline Phosphatase 62 (39-117) U/L Troponin I High Sens 5.5 (<3.5-35.0) ng/L B-Natriuretic Peptide 90 (<100) pg/mL Total Protein 7.7 (6.5-8.0) g/dL Albumin 4.2 (3.5-5.0) g/dL Discharge Plan Discharge Prescriptions: No Action albuterol sulfate 2.5 mg /3 mL (0.083 %) solution for nebulization 2.5 mg inhalation Q4H PRN (Reason: shortness of breath or wheezing) Qty: 180 3RF calcipotriene 0.005 % cream 1 appl topical BID betamethasone dipropionate 0.05 % cream 1 appl topical BID lisinopril 40 mg tablet 40 mg PO DAILY hydrochlorothiazide 12.5 mg tablet 12.5 mg PO DAILY (DME) nebulizers Misc See Rx Instructions .ROUTE Rx Instructions: As directed buspirone 10 mg tablet 10 mg PO BID PRN sodium chloride 3 % solution for nebulization 4 ml inhalation BID Qty: 240 11RF albuterol sulfate 90 mcg/actuation HFA aerosol inhaler 2 inh inhalation Q6H PRN (Reason: shortness of breath or wheezing) 30 Days Qty: 18 12RF Print Language: Yakut
[2023-12-10] MEDS: ondansetron HCL 4 MG/2 ML VIAL IVPUSH (16:27)
[2023-12-10 16:39] VITALS: BP 176/71; PULSE 49; RESP 15; O2SAT 96
[2023-12-10 17:59] VITALS: BP 177/62; PULSE 49; RESP 15; TEMP 36.7; O2SAT 96
[2023-12-10 18:07] VITALS: BP 177/62; PULSE 49; RESP 15; TEMP 36.7; O2SAT 96
== END 2023-12-10 18:07 | disposition home or self-care (01) ==
PROVIDERS: Physician Assistant Medical; Emergency Provider Emergency Medicine; PCP Internal Medicine
DX: R06.02 Shortness of breath (principal); R00.1 Bradycardia, unspecified; F41.9 Anxiety disorder, unspecified; Z79.899 Other long term (current) drug therapy
CPT/HCPCS: 36415; 71046; 80048; 80076; 83735; 83880; 84484; 85025; 85610; 93005; 99284; 99285; J2405

== ENCOUNTER → 2023-12-10 13:11 | Outpatient (BNV) | payer MEDICARE, OTHER, SELFPAY | PROVIDERS: PCP Internal Medicine; Visit Provider Internal Medicine | DX: R00.1 Bradycardia, unspecified (principal); R06.09 Other forms of dyspnea; R94.31 Abnormal electrocardiogram [ECG] [EKG] | CPT/HCPCS: 93010 ==

== ENCOUNTER 2024-03-08 19:09 | Emergency (ER) | payer MEDICARE, OTHER, SELFPAY ==
--- NOTE | 2024-03-08 | ECG_ITS ---
Test Reason : cp Blood Pressure : */* mmHG Vent. Rate : 64 BPM Atrial Rate : 64 BPM P-R Int : 182 ms QRS Dur : 92 ms QT Int : 400 ms P-R-T Axes : 42 28 70 degrees QTcB Int : 412 ms Sinus rhythm with marked sinus arrhythmia Otherwise normal ECG When compared with ECG of 10-Dec-2023 13:29, No significant change was found Referred By: Generic ED Physician Electronically Signed By: KEVIN RONQUILLO
--- NOTE | ~2024-03-08 | XR_ITS ---
CLINICAL HISTORY: chest pain 2 view chest x-ray Comparison: CR/SR - XR CHEST 2V - 12/10/23 14:10 EST CR/WI/SR - XR CHEST 2V - 10/09/23 09:39 EDT Findings: No consolidation or effusion. Heart size is normal. No acute fracture. IMPRESSION: 1. No acute findings. This document has been electronically signed by: Kareem Vargas MD on 03/08/2024 19:34:03
[2024-03-08 19:15] VITALS: BP 178/76; PULSE 71; RESP 17; TEMP 36.9; O2SAT 98; BMI 44.7
--- NOTE | 2024-03-08 19:15 | ED.CHESTPAIN ---
HPI - Chest Pain General Chief Complaint: Chest Pain Stated Complaint: chest pains/sob/jittery/nauseous Time Seen by Provider: 03/08/24 21:23 Source: patient Mode of arrival: ambulatory Limitations: no limitations History of Present Illness ED Provider: HPI narrative: Patient obese prediabetic history of ISIAH and hypotension no history of coronary artery disease or myocardial infarction had a equivocal stress test 06/29 with frequent chest pain with anxiety been here multiple times today around 14:00 noticed left-sided chest pain which sharp radiating in the right side with anxiety took his lorazepam pain improved pain is similar to that in the past but more on the right side this shortness a breath no cough at this time patient denied any chest pain initial troponin was negative EKG without ischemic changes Related Data Home Medications ?Medication ?Instructions ?Recorded ?Confirmed hydrochlorothiazide 12.5 mg tablet 12.5 mg PO DAILY 08/20/20 10/25/23 lisinopril 40 mg tablet 40 mg PO DAILY 08/20/20 10/25/23 betamethasone dipropionate 0.05 % 1 appl topical BID 10/01/20 10/25/23 topical cream calcipotriene 0.005 % topical cream 1 appl topical BID 10/01/20 10/25/23 nebulizers 11/05/21 11/19/21 buspirone 10 mg tablet 10 mg PO BID PRN 09/08/22 10/25/23 Previous Rx's ?Medication ?Instructions ?Recorded albuterol sulfate 90 mcg/actuation 2 inh inhalation Q6H PRN shortness 09/08/22 aerosol inhaler of breath or wheezing 30 days #18 grams sodium chloride 3 % for 4 ml inhalation BID secretions 09/08/22 nebulization #240 mL albuterol sulfate 2.5 mg/3 mL 2.5 mg (3 mL) inhalation Q4H PRN 11/21/23 (0.083 %) solution for nebulization shortness of breath or wheezing #180 mL Allergies Allergy/AdvReac Type Severity Reaction Status Date / Time No Known Allergies Allergy Verified 03/08/24 19:19 [No Known Allergies*] Review of Systems Review of Systems: Yes all other systems are reviewed and are negative PMFSH Past Medical History Medical History Prediabetes Bronchiectasis Nontuberculous mycobacterial disease of lung Streptococcus viridans infection Arthritis Gallstones ISIAH (obstructive sleep apnea) HTN (hypertension) Pulmonary nodules Chronic bronchitis Surgical History Hx of total knee replacement History of surgical removal of pilonidal cyst History of arthroscopy of right knee Hx of colonoscopy Family History Family History Mother Heart attack Father CHF (congestive heart failure) Social History Social History Alcohol intake: current Alcohol intake frequency: holidays/special occasions only Alcohol type: beer Patient Tobacco Use Status: Former Tobacco user Tobacco use type: Cigarette Years Smoked: 30 years Smoked in Last 30 Days: No Substance Use Type: Marijuana Advance Directives: No Advance Directives Information Provided: No Do you have a plan to hurt others: No Plan Physical Exam Vital Signs: Vital Signs: Last Vital Signs Temp 98 F 03/08/24 22:20 Pulse 60 03/08/24 22:20 Resp 16 03/08/24 22:20 BP 185/77 H 03/08/24 22:20 Pulse Ox 97 03/08/24 22:20 O2 Del Method Room Air 03/08/24 22:20 BMI result Body Mass Index 44.7 Appearance: Alert. Oriented X3. No acute distress. Obese anxious Eyes: PERRLA, No Nystagmus ENT: Pharynx normal. Oral Mucosa moist Neck: Normal inspection. Neck supple. CVS: Normal heart rate and rhythm. Pulses normal. Respiratory: No respiratory distress. Equal air entry bilateral, no wheezing/rales/rhonchi Abdomen: Soft and nontender. Bowel sounds are present, no mass palpable, no CVA tenderness Skin: Skin warm and dry. Normal skin color. Normal skin turgor. Extremities: No lower extremity edema. No calf tenderness Neuro: Oriented X 3. No motor deficit. No sensory deficit.No cerebellar signs , cranial nerves II-XII intact Course Course Course Narrative: This is a rapid medical exam. deferred additional HPI, ROS, PE to primary provider. 73 yo male with history of ISIAH here with complaints of chest pain, nausea, anxiety, ears ringing at 6pm while he was sitting down watching TV. Will obtain labs, EKG, CXR JANETTE Christensen APRN Medical Decision Making Medical Decision Making [facility] Narrative: Patient has atypical chest pain with previous on week ago stress test recurrent chest pain almost to 3 times a week with history of anxiety 2 sets of cardiac enzymes negative patient advised to follow with [facility] for further management Differential Diagnosis Differential Diagnoses: The differential diagnosis associated with the presentation includes ACS/atypical chest pain/pericarditis/anxiety Lab Data [facility] Lab Attestation statement: I reviewed the patient's lab results. 03/08/24 19:23 03/08/24 19:23 Labs: Lab Results 03/08/24 03/08/24 Range/Units 19:23 21:35 WBC 10.8 (4.8-10.8) X10*3/uL RBC 5.06 (4.60-5.80) X10*6/uL Hgb 15.2 (14.0-18.0) g/dl Hct 44.1 (42.0-52.0) % MCV 87.2 (80.0-98.0) fL MCH 30.0 (27.0-33.0) pg MCHC 34.5 (31.0-36.0) g/dl RDW 11.9 (11.0-16.0) % Plt Count 284 (160-400) X10*3/uL MPV 8.7 L (9.4-12.4) fL Immature Gran % (Auto) 0.3 (0.0-0.4) % Neut % (Auto) 68.8 (45-73) % Lymph % (Auto) 19.6 L (20-40) % [place] % (Auto) 7.9 (2-11) % Eos % (Auto) 3.1 (0-4) % Baso % (Auto) 0.3 (0-2) % Lymph # (Auto) 2.1 (1.2-4.9) X10*3/uL [place] # (Auto) 0.9 (0.1-1.2) X10*3/uL Eos # (Auto) 0.3 (0.0-0.4) X10*3/uL Baso # (Auto) 0.0 (0.0-0.2) X10*3/uL Abs Immat Gran (auto) 0.03 (0.00-0.03) X10*3/uL Absolute Neuts (auto) 7.4 (2.0-8.3) x10*3/uL Absolute Nucleated RBC 0.000 (0.0-0.012) X10*3/uL Nucleated RBC % (auto) 0.0 (0.0-0.2) /100WBC Sodium 141 (135-145) mmol/L Potassium 4.0 (3.3-5.1) mmol/L Chloride 106 (96-108) mmol/L Carbon Dioxide 25 (22-29) mmol/L Anion Gap 14 (12-20) BUN 18 H (9-16) mg/dL Creatinine 0.96 (0.5-1.4) mg/dL Estim Creat Clear Calc 81.4 Estimated GFR > 60 Random Glucose 141 H (60-115) mg/dL Calcium 9.9 (8.4-10.2) mg/dL Magnesium 2.1 (1.6-2.6) mg/dL Total Bilirubin 1.7 H (0.0-1.0) mg/dL Direct Bilirubin 0.4 (0.0-0.5) mg/dL AST 21 (5-37) U/L ALT 18 (0-40) U/L Alkaline Phosphatase 67 (39-117) U/L Troponin I High Sens 4.0 4.5 (<3.5-35.0) ng/L Total Protein 7.8 (6.5-8.0) g/dL Albumin 4.3 (3.5-5.0) g/dL Independent Interpretation I performed an independent interpretation of an: EKG Interpretation: Normal sinus rhythm with heart rate 64 beats per minute normal interval normal axis no acute STT wave changes no acute ischemia Discharge Plan Discharge Clinical Impression: Atypical chest pain Patient Disposition: Home, Self-Care Instructions: Chest Pain (ED) Additional Instructions: There is no evidence of coronary artery disease at this time causing the chest pain you need further testing Follow with your leverman/PCP Prescriptions: No Action albuterol sulfate 2.5 mg /3 mL (0.083 %) solution for nebulization 2.5 mg inhalation Q4H PRN (Reason: shortness of breath or wheezing) Qty: 180 3RF calcipotriene 0.005 % cream 1 appl topical BID betamethasone dipropionate 0.05 % cream 1 appl topical BID lisinopril 40 mg tablet 40 mg PO DAILY hydrochlorothiazide 12.5 mg tablet 12.5 mg PO DAILY (DME) nebulizers Misc See Rx Instructions .ROUTE Rx Instructions: As directed buspirone 10 mg tablet 10 mg PO BID PRN sodium chloride 3 % solution for nebulization 4 ml inhalation BID Qty: 240 11RF albuterol sulfate 90 mcg/actuation HFA aerosol inhaler 2 inh inhalation Q6H PRN (Reason: shortness of breath or wheezing) 30 Days Qty: 18 12RF Print Language: Macedonian
[2024-03-08 19:31] LABS: MANUAL DIFF FLAG NO
[2024-03-08 19:33] LABS: Basophils Percent Auto 0.3 % (0-2); Eosinophils Absolute Auto 0.3 X10*3/uL (0.0-0.4); Eosinophils Percent Auto 3.1 % (0-4); Hematocrit 44.1 % (42.0-52.0); Hemoglobin 15.2 g/dl (14.0-18.0); Imm Gran Abs Auto 0.03 X10*3/uL (0.00-0.03); Imm Gran Pct Auto 0.3 % (0.0-0.4); Lymphocytes Absolute Auto 2.1 X10*3/uL (1.2-4.9); Lymphocytes Percent Auto 19.6 % (20-40); Mean Corpuscular HGB Conc 34.5 g/dl (31.0-36.0); Mean Corpuscular Volume 87.2 fL (80.0-98.0); Mean Platelet Volume 8.7 fL (9.4-12.4); Monocytes Absolute Auto 0.9 X10*3/uL (0.1-1.2); Monocytes Percent Auto 7.9 % (2-11); Neutrophils Absolute Auto 7.4 x10*3/uL (2.0-8.3); Neutrophils Percent Auto 68.8 % (45-73); Platelet Count 284 X10*3/uL (160-400); Red Blood Count 5.06 X10*6/uL (4.60-5.80); Red Cell Distribution Width 11.9 % (11.0-16.0); White Blood Count 10.8 X10*3/uL (4.8-10.8)
--- NOTE | 2024-03-08 19:57 | PC.NURSE ---
Pt is an a&ox4, 73 yo male w pmh anxiety and prediabetes presents to ED w/ c/o 05/16 left chest pain, nausea, and flushing. Pt reports having similar sx for years has been seen for this on multiple occasions and work up is always neg. Pt denies vomiting, pain that radiates or visual changes. Plan of care ongoing.
[2024-03-08 19:58] LABS: Alanine Aminotransferase 18 U/L (0-40); Albumin Level 4.3 g/dL (3.5-5.0); Anion Gap 14 (12-20); Aspartate Amino Transferase 21 U/L (5-37); Bilirubin Direct 0.4 mg/dL (0.0-0.5); Bilirubin Total 1.7 mg/dL (0.0-1.0); Blood Urea Nitrogen 18 mg/dL (9-16); Calcium 9.9 mg/dL (8.4-10.2); Carbon Dioxide 25 mmol/L (22-29); Chloride 106 mmol/L (96-108); Creatinine Clr Calc Pharmacy 81.4; Estimated Glomerular Filt Rate > 60; Glucose Random 141 mg/dL (60-115); Magnesium 2.1 mg/dL (1.6-2.6); Sodium 141 mmol/L (135-145); Total Protein 7.8 g/dL (6.5-8.0)
[2024-03-08 20:45] LABS: Alkaline Phosphatase 67 U/L (39-117)
[2024-03-08 22:05] LABS: Troponin-I High Sensitivity 4.5 ng/L (<3.5-35.0)
[2024-03-08 22:20] VITALS: BP 185/77; PULSE 60; RESP 16; TEMP 36.6; O2SAT 97
[2024-03-08 22:53] VITALS: BP 185/77; PULSE 60; RESP 16; TEMP 36.6; O2SAT 97
== END 2024-03-08 22:56 | disposition home or self-care (01) ==
PROVIDERS: Nurse Practitioner Family; Physician Assistant Medical; Emergency Provider Internal Medicine; PCP Internal Medicine
DX: R07.89 Other chest pain (principal); R11.0 Nausea; R06.02 Shortness of breath; I25.10 Atherosclerotic heart disease of native coronary artery without angina pectoris; Z79.899 Other long term (current) drug therapy; Z87.891 Personal history of nicotine dependence
CPT/HCPCS: 36415; 71046; 80048; 80076; 83735; 84484; 85025; 93005; 99283; 99285

== ENCOUNTER → 2024-03-08 19:14 | Outpatient (BNV) | payer MEDICARE, OTHER, SELFPAY | PROVIDERS: Emergency Provider Internal Medicine; PCP Internal Medicine; Visit Provider Internal Medicine | DX: R07.9 Chest pain, unspecified (principal) | CPT/HCPCS: 93010 ==

== ENCOUNTER → 2024-03-08 19:16 | Outpatient (BNV) | payer MEDICARE, OTHER, SELFPAY | PROVIDERS: PCP Internal Medicine; Visit Provider Radiology Diagnostic Radiology | DX: R07.9 Chest pain, unspecified (principal) | CPT/HCPCS: 71046 ==

== ENCOUNTER 2024-03-21 14:08 | Outpatient (AMB) | payer MEDICARE, OTHER, SELFPAY ==
[2024-03-21 14:12] VITALS: BP 146/60; PULSE 55; BMI 45.0
--- NOTE | 2024-03-21 14:12 | MHC.OFFVIS ---
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 Outside Required: No Accompanied by: Self / Same As Patient Allergies No Known Allergies [No Known Allergies*] Allergy (Verified 03/08/24 19:19) Medication List - Last Reconciled 03/21/24 by Corey West MD albuterol sulfate 2.5 mg (3 mL) inhalation Q4H PRN albuterol sulfate 90 mcg/actuation 2 inhalations inhalation Q6H PRN 30 days betamethasone dipropionate 0.05% 1 appl topical BID buspirone 10 mg PO BID PRN calcipotriene 0.005% 1 appl topical BID hydrochlorothiazide 12.5 mg PO DAILY lisinopril 40 mg PO DAILY nebulizers As directed sodium chloride 3% 4 mL inhalation BID HPI Comments Details: Lisandro returns for follow-up. In the past, he was seen regarding question of equivocal stress test. Known pulmonary issues including bronchiectasis, non tuberculous mycobacterial disease, bronchitis/pulmonary nodules. There was a recent erroneous diagnosis of atrial fibrillation in the emergency room when he in fact had just sinus rhythm. Otherwise, he seems to be getting some chest pains in the lower part of his chest across the lower ribs. Very atypical for angina but seems to be bothering him a lot. However, it has been somewhat chronic. Nonexertional. He also states that sometimes when he checks his heart rate on pulse oximetry, it shows in the 30s. However, it does not have any symptoms like presyncope. Lot of anxiety at baseline. [facility] Medical History Prediabetes Bronchiectasis Nontuberculous mycobacterial disease of lung Streptococcus viridans infection Arthritis Gallstones ISIAH (obstructive sleep apnea) HTN (hypertension) Pulmonary nodules Chronic bronchitis Surgical History Hx of total knee replacement History of surgical removal of pilonidal cyst History of arthroscopy of right knee Hx of colonoscopy Family History Mother Heart attack Father CHF (congestive heart failure) Social History Alcohol intake: current Alcohol intake frequency: holidays/special occasions only Alcohol type: beer Patient Tobacco Use Status: Former Tobacco user Tobacco use type: Cigarette Years Smoked: 30 years Substance Use Type: Marijuana Review of Systems Const Denies chills, Denies fatigue, Denies fever(s), Denies weight gain and Denies weight loss ENT Denies dizziness Card Denies chest pain, Denies leg edema, Denies lightheadedness, Denies palpitations, Reports dyspnea on exertion, Denies orthopnea and Denies other Resp Denies cough and Reports dyspnea on exertion GI Denies hematochezia and Denies change in stool character Musc Denies abnormal gait, Denies muscle weakness, Denies numbness, Denies radiating pain into limb and Denies tingling Neuro Denies abnormal gait, Denies dizziness, Denies numbness and Denies tingling Endo Denies fatigue and Denies palpitations Physical Exam Vital Signs: Last Vital Signs Pulse 55 03/21/24 14:12 BP 146/60 H 03/21/24 14:12 BMI result Body Mass Index 45.0 Const General: comfortable and no acute distress Orientation/consciousness: patient oriented x3 HEENT Other: Unremarkable Head: Yes normal to inspection Neck Neck: Yes normal visual inspection Chest Chest palpation & inspection: normal inspection of the chest Resp Auscultation: clear to auscultation bilaterally Cardio Palpation: normal PMI Heart sounds: S1 normal heart sound present, S2 normal heart sound present, no gallops, no murmurs and no rubs GI Palpation (GI): Soft to palpation Back/Spine/Pelvis Other: unremarkable Skin General skin exam: no rashes or lesions noted Neuro General: patient oriented x3 Extrem General: Yes normal to inspection Psych Mental Status: mental status grossly normal Assessment & Plan Assessment & Plan (1) Equivocal stress test: Code(s): R94.39 - Abnormal result of other cardiovascular function study Category: Medical (2) Precordial chest pain: Code(s): R07.2 - Precordial pain Category: Medical (3) Sinus bradycardia: Code(s): R00.1 - Bradycardia, unspecified Category: Medical (4) ISIAH (obstructive sleep apnea): Code(s): G47.33 - Obstructive sleep apnea (adult) (pediatric) Category: Medical Plan Cardiac studies reviewed. EKG with underlying sinus rhythm and sinus arrhythmia. Nonspecific ST-T changes. Echocardiogram with LVEF of 70%. Moderate septal hypertrophy. No significant valvular findings. Ascending aortic size 4 cm, probably acceptable for his age. Myocardial perfusion imaging study shows equivocal findings for apical ischemia. In the Holter monitor, underlying rhythm is sinus with an average rate of 48/Min. Frequent sinus bradycardia noted about 87% of the time. Recent chest CT scan reported to have mild coronary calcification. Recent ER finding of atrial fibrillation is an error. With regard to the atypical chest pain, equivocal stress test, consider coronary CTA. Patient agrees. With regard to the question of bradycardia, repeat Holter monitor. With regard to blood pressure, seems to be up and down. Advised him to do home readings. For obstructive sleep apnea, continue CPAP. Follow-up after the testing. Orders: Orders Basic Metabolic Panel Today R94.39 - Abnormal result of other cardiovascular function study ECG 3 day holter monitor Today R00.1 - Bradycardia, unspecified CT Cardiac Coronary Angio Today I25.10 - Atherosclerotic heart disease of [place] coronary artery without angina pectoris Coding Level of Care Code Est Pt Level 4 (10856) Diagnoses Equivocal stress test R94.39 Precordial chest pain R07.2 Sinus bradycardia R00.1 ISIAH (obstructive sleep apnea) G47.33
--- OUTSIDE RECORDS SUMMARY | 2024-03-21 14:12 | XMS_ITS ---
Author Organization [facility] Address [address] [place] [address] Care Team Providers Care Territory Service Representative Name Role Phone Silverio Rutherford MD Primary Care Provider Daisy Fatima [phone] REASON FOR VISIT rs from 03/11/24 Encounters Encounter Location Date Provider Diagnosis [address] [address] 03/07/2024 Daisy Dailey Plan Of Treatment Next Appt Details Provider Name:Daisy manuel, 07/03/2024 02:45:00 PM, [address] [place], [address], Progress Notes * Lisandro GARCIADOB: 2 (73 yo M)Acc No.[id number]:03/07/2024 Patient:?MASON Lisandro :1950???Age:73 Y???Sex:Male Address:[place] [address] * true * Date:? Generated for Printi ng/Faleg/eTransmitting on:?03/21/2024 02:12 PM EST
--- OUTSIDE RECORDS SUMMARY | 2024-03-21 14:12 | XMS_ITS | Clinical Summary ---
Author Organization [employer] Address [address] [facility] [address] [place] [address] Care Team Providers Care Devil Tender Name Role Phone Unavailable Primary Care Provider Unavailabl e Encounters Date Type Department Care Team Description 01/16/2024 9:15 AM EST Immunization [facility] [address] [place] [address] Encounter for immunization from Last 3 Months Immunizations Name Administration Dates Next Due Influenza, High Dose Seasonal, Preservative Free 01/16/2024 Social History Tobacco Use Types Packs/Day Years Used Date Smoking Tobacco: Never Assessed Sex and Gender Information Value Date Recorded Sex Assigned at Male 01/16/2024 12:45 PM EST Legal Sex Male 12:44 PM EST Gender Identity Male 01/16/2024 12:45 PM EST Sexual Orientation Straight 01/16/2024 12 :45 PM EST Plan of Treatment Health Maintenance Due Date Last Done Comments CT Colonography 1950 Colonoscopy 1950 Colorectal Cancer Screening 1950 Depression Screening 1950 FIT DNA/Cologuard 1950 FIT 1950 FOBT 1950 Lipid Panel 1950 SDOH Screening 1950 Sigmoidoscopy 1950 Alcohol/Substance Use Screening 1963 Tobacco Screening 1963 Hepatitis C Screening 10/20/1969 DTaP/Tdap/Td Vaccines (1 - Tdap) 10/20/1970 Pneumococcal Vaccine: 50+ Ye ars (1 of 1 - PCV) 10/20/2001 Zoster Vaccines (1 of 2) 10/20/2001 COVID-19 Vaccine ( - 2023-2 5 season) 2023 RSV Patients and Pa tients Aged 60 years or older (1 - 1-dose 75+ series) 10/20/2026 Influenza Vaccine Completed 01/16/2024 HIB Vaccines Aged Out No longer eligi ble based on patient's age to complete this topic HPV Vaccines Aged Out No longer eligi ble based on patient's age to complete this topic Hepatitis A Vaccines Aged Out No long er eligible based on patient's age to complete this topic Hepatitis B Vaccines Aged Out No long er eligible based on patient's age to complete this topic IPV Vaccines Aged Out No longer eligi ble based on patient's age to complete this topic Meningococcal Vaccine Aged Out No andres lainey eligible based on patient's age to complete this topic RSV under 20 months Aged Out No longe r eligible based on patient's age to complete this topic Rotavirus Vaccines Aged Out No longer eligible based on patient's age to complete this topic Insurance MEDICARE
--- OUTSIDE RECORDS SUMMARY | 2024-03-21 14:12 | XMS_ITS | Patient Health Record ---
[facility] Address [address] [facility] [place] [address] Care Team Providers Care Scouring Train Operator Chief Name Role Phone Silverio Rutherford MD Primary Care Provider UnavailDaisy García Unavailable [phone] Maciel Layton Unavailable [phone] Allergies No Known Allergies Reason For Referral No Information Medications Medication SIG (Take, Route, Frequency, Duration) Notes Start Date End Date Status busPIRone HCl 10 MG 1 tablet Orally Twic e a day Active Posaconazole Not-Esteban ing ALPRAZolam Not-Takin g Lisinopril Active Saline Active albuterol Active hydroCHLOROthiazide 25 MG 1 tablet Orall y Once a day for 30 day(s) Active HYDROcodone-Acetaminophen Not-Taking Cephalexin 500 MG 1 tablet Orally Twic e a day for 5 days Not-Taking oxyCODONE HCl 5 MG 1 tablet as needed Orally every 6 hrs Not-Taking Immunizations Vaccine Route Administration Date Status Comme nts COVID-19 Moderna Vaccine Unknown 11/24/2021 Administered 1st 04/02/2020 2nd 04/30/2020 3rd 10/31/2020 Influenza Unknown 11/24/2021 Administered Social History Tobacco Use: Social History Observation Description Date Details (start date - stop date) Never Smoker NA - NA Tobacco Use/Smoking Question Answer Notes Are you a: nonsmoker Alcohol Screen Question Answer Notes Did you have a drink containing alcohol in the p ast year? No Points 0 Interpretation Negative Tobacco use other than smoking: Question Answer Notes Are you an other tobacco user? No Problems Problem Type SNOMED Code ICD Code Onset Dates Problem Status W/U Status Risk Notes Problem Acquired hammer toe of right foot (1059689483842436 ) Other hammer toe(s) (acquired), right foot (M20.41) Active confirmed Problem Acquired hammer toe of left foot (7946855769852594 ) Other hammer toe(s) (acquired), left foot (M20.42) Active confirmed Problem Polyneuropathy due to type 2 diabetes mellitus (663610158) Type 2 diabetes mellitus with diabetic polyneuropathy (E11.42) Active confirmed Vital Signs Blood pressure diastolic 80 mm Hg 06/05/2023 Height 5ft 4in in 12/07/2023 Blood pressure systolic 120 mm Hg 06/05/2023 Weight 265 lbs 12/07/2023 BMI 45.48 kg/m2 12/07/2023 Procedures Procedure Date Ordered Date Performed Result Body Sit e 67953-PYJK SKIN LESIONS, 2 TO 4 12/07/2023 N/A Encounters Encounter Location Date Provider Diagnosis [address] [address] 06/05/2023 MacielMortensen Tinea unguium B35.1 ; Pain in right toe(s) M79.674 ; Pain in left toe(s) M79.675 ; Type 2 diabetes mellitus with diabetic polyneuropathy E11.42 ; Other hammer toe(s) (acquired), left foot M20.42 ; Other hammer toe(s) (acquired), right foot M20.41 ; Ingrowing nail L60.0 and Xerosis cutis L85.[address] [address] 12/07/2023 Maciel Layton Tinea unguium B35.1 ; Pain in right toe(s) M79.674 ; Pain in left toe(s) M79.675 ; Type 2 diabetes mellitus with diabetic polyneuropathy E11.42 ; Other hammer toe(s) (acquired), left foot M20.42 ; Other hammer toe(s) (acquired), right foot M20.41 ; Ingrowing nail L60.0 and Xerosis cutis L85.[address] [address] 03/07/2024 Daisy Dailey Assessments Encounter Date Diagnosis (ICD Code) Assessment Notes Treatment Notes Treatment Clinical Notes Section Notes 06/05/2023 Tinea unguium (ICD-10 - B35.1) 06/05/2023 Pain in right toe(s) (ICD-10 - M79.674) 12/07/2023 Tinea unguium (ICD-10 - B35.1) 12/07/2023 Pain in right toe(s) (ICD-10 - M79.674) 12/07/2023 Pain in left toe(s) (ICD-10 - M79.675) 06/05/2023 Pain in left toe(s) (ICD-10 - M79.675) 06/05/2023 Type 2 diabetes mellitus with diabetic polyneuropathy (ICD-10 - E11.42) 12/07/2023 Type 2 diabetes mellitus with diabetic polyneuropathy (ICD-10 - E11.42) 12/07/2023 Other hammer toe(s) (acquired), left foot (ICD-10 - M20.42) 06/05/2023 Other hammer toe(s) (acquired), left foot (ICD-10 - M20.42) 06/05/2023 Other hammer toe(s) (acquired), right foot (ICD-10 - M20.41) 12/07/2023 Other hammer toe(s) (acquired), right foot (ICD-10 - M20.41) 12/07/2023 Ingrowing nail (ICD-10 - L60.0) 06/05/2023 Ingrowing nail (ICD-10 - L60.0) 06/05/2023 Xerosis cutis (ICD-10 - L85.3) 12/07/2023 Xerosis cutis (ICD-10 - L85.3) Plan Of Treatment Pending Test Test Name Order Date 02962 I&D ABSCESS- SIMPLE,SINGLE 021 37365-KYTW SKIN LESIONS, OVER 4 12/01/19 23 84675-ZWUZ SKIN LESIONS, 2 TO 4 12/07/19 24 78961-ALSO SKIN LESIONS, 2 TO 4 05/12/19 21 83312-TARN SKIN LESIONS, 2 TO 4 12/03/19 21 27049-ARZT SKIN LESIONS, 2 TO 4 06/03/19 22 [id number]-DHKGTZUJ OF HEMATOMA/FLUID 023 Next Appt Details Provider Name:Daisy manuel, 07/03/2024 02:45:00 PM, [address] [place], [address], Insurance Providers Payer Name Payer Address Payer Phone Subscriber Number Group Number Insured Name Patient Relationship to Insured Coverage Start Date Coverage End Date Medicare National Govt [facility] [address] [place] [address] [id number] Lisandro Rodriguez Self - patient is the insured [employer] [address] [place] [id number] Lisandro Rodriguez Self - patient is the insured Medical (General) History Medical History History ICD Code measles psoriasis/eczema hypertension back, hip, knee pain Arthritis Vascular grafts pre type II diabetes Surgical History Surgery Date(Month/Year) knee replacement 12/24-12/25 Meniscus repair 2014 cataract surgery 2020 knee cleaned out 2020 Lung Biopsy colonoscopy 2021 Hospitalization History Reason Date(Month/Year) CT scan bacterial infection lungs 2021
--- OUTSIDE RECORDS SUMMARY | 2024-03-21 14:12 | XMS_ITS ---
Author Organization [facility] Address [address] [place] [address] Care Team Providers Care Oxidation Operator Name Role Phone Silverio Rutherford MD Primary Care Provider Daisy Fatima [phone] Encounters Encounter Location Date Provider Diagnosis [address] [address] 03/11/2024 Daisy Dailey Plan Of Treatment Next Appt Details Provider Name:Daisy manuel, 07/03/2024 02:45:00 PM, [address] [place] [address], [phone], Progress Notes * Lisandro GARCIADOB: (73 yo M)Acc No.[id number]:03/11/2024 Progress Note Patient:?Lisandro GARCIA Provider:?Daisy Dailey DPM :1950???Age:73 Y???Sex:Male Richard e:03/11/2024 Address:[id number] Pcp:Silverio Rutherford MD Subjective: * Chief Complaints: * ??? * Medical History:? Objective: * Vitals:? Assessment: Plan: * Treatment: * Images: * The named appointment provid er may or may not be the originator of this progress note, and it is not deemed complete until electronically signed by the appointment provider. Sign off status: Pending * Provider:?Daisy Dailey DPM Date:?0 03/11/2024 Generated for Madhuri forte/Lexie/Pantera on:?03/21/2024 02:12 PM EST
--- OUTSIDE RECORDS SUMMARY | 2024-03-21 14:13 | XMS_ITS ---
Author Organization [facility] Address [address] [place] [address] Care Team Providers Care Dairy Quality Assurance Officer Name Role Phone Silverio Rutherford MD Primary Care Provider UnavailDaisy García Unavailable [phone] Maciel Layton Unavailable [phone] Allergies No Known Allergies REASON FOR VISIT Painful nail(s) aggrevated by shoes and causing difficulty standing/walking. Medications Medication SIG (Take, Route, Frequency, Duration) Notes Start Date End Date Status busPIRone HCl 10 MG 1 tablet Orally Twic e a day Active Posaconazole Not-Esteban ing Lisinopril Active albuterol Active hydroCHLOROthiazide 25 MG 1 tablet Orall y Once a day for 30 day(s) Active ALPRAZolam Not-Takin g Saline Active HYDROcodone-Acetaminophen Not-Taking Cephalexin 500 MG 1 tablet Orally Twic e a day for 5 days Not-Taking oxyCODONE HCl 5 MG 1 tablet as needed Orally every 6 hrs Not-Taking Social History Tobacco Use: Social History Observation [...] Are you an other tobacco user? No Vital Signs Height 5ft 4in in 12/07/2023 Weight 265 lbs 12/07/2023 BMI 45.48 kg/m2 12/07/2023 Procedures Procedure Date Ordered Date Performed Result Body Sit e 35025-ZPOD SKIN LESIONS, 2 TO 4 12/07/2023 N/A Encounters Encounter Location Date Provider Diagnosis [facility] [address] [address] 12/07/2023 Maciel Layton Tinea unguium B35.1 ; Pain in right toe(s) M79.674 ; Pain in left toe(s) M79.675 ; Type 2 diabetes mellitus with diabetic polyneuropathy E11.42 ; Other hammer toe(s) (acquired), left foot M20.42 ; Other hammer toe(s) (acquired), right foot M20.41 ; Ingrowing nail L60.0 and Xerosis cutis L85.3 Assessments Encounter Date Diagnosis (ICD Code) Assessment Notes Treatment Notes Treatment Clinical Notes Section Notes 12/07/2023 Tinea unguium (ICD-10 - B35.1) 12/07/2023 Pain in right toe(s) (ICD-10 - M79.674) 12/07/2023 Pain in left toe(s) (ICD-10 - M79.675) 12/07/2023 Type 2 diabetes mellitus with diabetic polyneuropathy (ICD-10 - E11.42) 12/07/2023 Other hammer toe(s) (acquired), left foot (ICD-10 - M20.42) 12/07/2023 Other hammer toe(s) (acquired), right foot (ICD-10 - M20.41) 12/07/2023 Ingrowing nail (ICD-10 - L60.0) 12/07/2023 Xerosis cutis (ICD-10 - L85.3) Plan Of Treatment Pending Test Test Name Order Date 24326-JOPX SKIN LESIONS, 2 TO 4 12/07/19 24 Next Appt Details Follow Up: 4 Months, Reason: Provider Name:Daisy manuel, 07/03/2024 02:45:00 PM, [address] [place] [address], [phone], Procedure Notes * Category Sub-Category Detail Notes Debride Nail 6-10 Nail debridement Nail debridem ent performed extensively to reduce/remove overall nail length and girth, subungual debris, and necrotic tissue, by manual and electrical means with use of a nail nipper and/or dremel, to more viable healthy nail plate or bed tissue 6-10. Silver nitrate used for any petechial bleeding as necessary. Patient chooses, no pharmaceutical tx (89113) Keratoma Treatment Parring or Cutting o f Benign Hyperkeratotic Lesion(s) (-56) 2-4 Lesions - The Benign hyperkeratotic lesions, as described above were pared, and/or cut utilizing a sterile 15 blade, tissue nippers, and/or dremel - 75405 Progress Notes * Lisandro CUEVASDOB: 2 (73 yo M)Acc No.[id number]:12/07/2023 Progress Note Patient:?Lisandro Cuevas Provider:?Maciel Layton DPM :1950???Age:73 Y???Sex:Male Richard e:12/07/2023 Address:[address] [place], [place] [address] Pcp:Silverio Rutherford MD Subjective: * Chief Complaints: * ??? Painful nail(s) aggrevat ed by shoes and causing difficulty standing/walking. * HPI: ???Painful Nails:?Pt States Last PCP Visit:?Date:?09/07/2023 * ROS:?General/Constitutional:?Nausea?denies.?Vomiting?denies.?Hunger Thirst?denies.?Loss appetite?denies.?Chills?denies.?Fatigue?denies.?Fever?denies.?Night Sweats?denies.?Unexplained weight loss?denies.?Unexplained weight gain?denies.?HEENTM:?Dentures?admits.?Dizziness?denies.?Glasses/contacts?admits.?Retinopathy?de nies.?Blurred/double vision?denies.?TMJ?denies.?Discharge/drainage?denies.?Implants?denies.?Sore throat?denies.?Dental implants?denies.?Hard of hearing ?denies.?Difficulty chewing/swallowing/speaking?denies.?Nose bleeds?denies.?Sore mouth?denies.?Respiratory:?On Oxygen?denies.?Pneumonia/pleurisy?denies.?Bronchitis?denies.?Emphysema?denies.?C oughing?denies.?Cough blood?denies.?Shortness of breath?denies.?Wheezing?denies.?Cardiovascular:?Pacemaker?denies.?MVP?denies.?WPW?denies.?CHF?denies.?Heart attack?denies.?Septal defect?denies.?Rapid beat?denies.?Chest pain ?denies.?Atrial Fib.?denies.?Murmur/Palpitations?denies.?Gastrointestinal:?Hemorrhoids?denies.?Stomach/Abdominal pain?denies.?Dark blood stool?denies.?Irritable bowel ?denies.?Constipation?denies.?Diarrhea?denies.?Hematology:?Swelling?denies.?Clots?denies.?Varicose Veins?denies.?Bruising?denies.?Bleeding problem?denies.?Genitourinary:?Blood urine?denies.?Frequent/Painfu/urination/bladder control?denies.?Kidney stones?denies.?Infection (UTI)?denies.?Nephropathy?denies.?sex trans dis (STD)?denies.?Prostate?denies.?Musculoskeletal:?Hammertoes?denies.?Bunions?denies.?Back Pain?admits.?Muscle Cramps/ Resting?denies.?Muscle cramps / walking?denies.?Generalized aches and pains?admits.?Weakness?denies.?Integ.:?Brewster?denies.?Scars?denies.?Corns/calluses?denies.?Ingrown nails?admits.?Painful nails?denies.?Open Sores?denies.?Rashes?denies.?Neurologic:?Difficulty sleeping?denies.?Brain disorder?denies.?Numbness?denies.?Balance trouble?denies.?Confusion?denies.?Fainting/blackouts?denies.?Tingling?denies.?Tr emors?denies.? * Medical History:? * Surgical History:?knee repla cement 12/24-12/25Meniscus repair 2015cataract surgery 2020knee cleaned out ung Biopsy colonoscopy 2021 * Hospitalization/Major Diagno stic Procedure:?CT scan bacterial infection lungs 2021 * Family History:?Mother: dece ased, arthritis,heart attach, diagnosed with Unspecified essential hypertension.?Father: , arthritis, cancer.? * Social History:?Tobacco Use:?Tobacco Use/Smoking?Are you a:?nonsmoker ?Tobacco use other than smoking?Are you an other tobacco user??No ???Drugs/Alcohol:?Drugs?Have you used drugs other than those for medical reasons in the past 12 months??No ?Alcohol Screen?Did you have a drink containing alcohol in the past year??No ?Points?0 ?Interpretation?Negative * Medications:?TakingbusPIRone HCl 10 MG Tablet 1 tablet Orally Twice a dayalbuterol hydroCHLOROthiazide 25 MG Tablet 1 tablet Orally Once a dayLisinopril Saline Taking busPIRone HCl 10 MG Tablet 1 tablet Orally Twice a dayTaking albuterol Taking hydroCHLOROthiazide 25 MG Tablet 1 tablet Orally Once a dayTaking Lisinopril Taking Saline Not-Taking/PRNALPRAZolam Posaconazole Cephalexin 500 MG Tablet 1 tablet Orally Twice a dayoxyCODONE HCl 5 MG Tablet 1 tablet as needed Orally every 6 hrsHYDROcodone-Acetaminophen Medication List reviewed and reconciled with the patientNot-Taking/PRN ALPRAZolam Not-Taking/PRN Posaconazole Not-Taking/PRN Cephalexin 500 MG Tablet 1 tablet Orally Twice a dayNot-Taking/PRN oxyCODONE HCl 5 MG Tablet 1 tablet as needed Orally every 6 hrsNot-Taking/PRN HYDROcodone- Acetaminophen Medication List reviewed and reconciled with the patient * Allergies:?N.K.D.A.yes[Aller gies Verified] Objective: * Vitals:?Ht: 5ft 4in, Wt:265, BMI:45.48, Shoe size: 9.5-10, BS: not taken, Ht-cm: 162.56 cm, Wt-k.2 kg. * Examination: ???Nails: ?NAILS are:?Elongated, overgrown, dystrophic, lytic, greater than 3mm thick, discolored and friable with crumbly malodorous subungual debris, with dull to no pain on palpation due to neuropathy, 1-5 B/L.?Dermatologic: ?SKIN FINDINGS:? Skin exam reveals Keratotic lesion(s) located at, Medial plantar, IPJ, TA, T5, Plantar, Heel(s), B/L .?General Examination: ?GENERAL APPEARANCE:?Reveals a pleasant, alert, well nourished, well developed, well hydrated individual, who demonstrates proper attention to hygene/body habitus, and is in no acute distress.?ORIENTED:?person, place, and time.?FOOT EXAM:?Neurological: ?SENSORY:?Neurological exam demonstrates, reduced vibration sensation, 5.07 monofilament test performed at plantar aspects of 5 varied sites per foot shows sensation, reduced , B/L.?Vascular: ?DP PULSES(B):? 1/4, B/L.?PT PULSES(B):? 2/4, B/L.?CAPILLARY FILL TIME:?immediate, all digits, B/L.?TROPHIC CONDITION-TEXTURE/ELASTICITY/TURGOR/HAIR GROWTH(B):?normal, B/L.?TEMPERTURE GRADIENT(C):?warm to cool, proximal to distal, B/L.?PIGMENTATION:?normal, B/L.?EDEMA(C):?absent, B/L.?Orthopedic: ?MUSCLE STRENGTH:?5/5 all groups in a symmetrical fashion , B/L.?GAIT ABNORMALITY:?antalgic.?DIGITAL DEFORMITIES:? Digital contracture, PIPJ, 2-5 B/L, non-reducable with WB or to push-up test.?Ophthalmology Referral: ?DIABETES EYE EXAM?Ingrown Nail: ?INSPECTION:? Reveals nail incurvation, dull pain on palpation due to neuropathy, groove hypertrophy, Bilateral nail borders, TA, T1, T5, T6.? Assessment: * Assessment: 1.?Tinea unguium - B35.1 (Pr imary)?2.?Pain in right toe(s) - M79.674?3.?Pain in left toe(s) - M79.675?4.?Type 2 diabetes mellitus with diabetic polyneuropathy - E11.42?5.?Other hammer toe(s) (acquired), left foot - M20.42?6.?Other hammer toe(s) (acquired), right foot - M20.41?7.?Ingrowing nail - L60.0?8.?Xerosis cutis - L85.3? Plan: * Treatment: * Procedures:?Debride Nail 6-10:?Nail debridement?Nail debridement performed extensively to reduce/remove overall nail length and girth, subungual debris, and necrotic tissue, by manual and electrical means with use of a nail nipper and/or dremel, to more viable healthy nail plate or bed tissue 6-10. Silver nitrate used for any petechial bleeding as necessary. Patient chooses, no pharmaceutical tx (80133).?Keratoma Treatment:?Parring or Cutting of Benign Hyperkeratotic Lesion(s)?(-56) 2-4 Lesions - The Benign hyperkeratotic lesions, as described above were pared, and/or cut utilizing a sterile 15 blade, tissue nippers, and/or dremel - 96867.? * Procedure Codes:?50198 DEBRI DE NAIL, 6 OR MORE, Modifiers: XS 80621 TRIM SKIN LESIONS, 2 TO 4, Modifiers: XS * Follow Up:?4 Months * Images: * Sign off status: Completed true * Provider:?Maciel Layton DPM Date:? 024 Generated for Madhuri forte/Lexie/Pantera on:?03/21/2024 02:12 PM EST History and Physical Notes * HPI (History of Present Illness) Category Sub-Category Detail Notes Category Not es Painful Nails Pt States Last PCP Visit: Date:: 09/07/2023 Examination Category Sub-Category Detail Notes Category Not es Ingrown Nail INSPECTION: Reveals nail inc urvation, dull pain on palpation due to neuropathy, groove hypertrophy, Bilateral nail borders, TA, T1, T5, T6 Neurological SENSORY: Neurological exa m demonstrates, reduced vibration sensation, 5.07 monofilament test performed at plantar aspects of 5 varied sites per foot shows sensation, reduced , B/L Dermatologic SKIN FINDINGS: Skin exam reveal s Keratotic lesion(s) located at, Medial plantar, IPJ, TA, T5, Plantar, Heel(s), B/L Orthopedic GAIT ABNORMALITY: antalgic DIGITAL DEFORMITIES: Digital contracture , PIPJ, 2-5 B/L, non-reducable with WB or to push-up test MUSCLE STRENGTH: 5/5 all groups in a symmetrical fashion , B/L General Examination GENERAL APPEARANCE: Reveals a pleasant, alert, well nourished, well developed, well hydrated individual, who demonstrates proper attention to hygene/body habitus, and is in no acute distress FOOT EXAM: Lower Extremity Neurological Exa m performed:: Yes Visual exam of foot performed:: Yes Date: 12/07/2023 Sensory testing performed:: sensations d iminished Pedal pulse taking performed:: 1+ ORIENTED: person, place, and t brian Ophthalmology Referral DIABETES EYE EXAM Diabeti c Retinopathy Screening:: Yes 11/2020 Findings of Diabetic Eye Exam:: no retin opathy Vascular DP PULSES (B): 1/4, B/L PT PULSES (B): 2/4, B/L CAPILLARY FILL TIME: immediate, all digi ts, B/L TEMPERTURE GRADIENT (C): warm to cool, p roximal to distal, B/L TROPHIC CONDITION-TEXTURE/ELASTICITY/TURGOR/HAIR GROWTH (B): normal, B/L EDEMA (C): absent, B/L PIGMENTATION: normal, B/L Nails NAILS are: Elongated, overg rown, dystrophic, lytic, greater than 3mm thick, discolored and friable with crumbly malodorous subungual debris, with dull to no pain on palpation due to neuropathy, 1-5 B/L
== END 2024-03-21 14:46 | disposition home or self-care (01) ==
PROVIDERS: PCP Internal Medicine; Visit Provider Internal Medicine
DX: R94.39 Abnormal result of other cardiovascular function study (principal); R07.2 Precordial pain; R00.1 Bradycardia, unspecified; G47.33 Obstructive sleep apnea (adult) (pediatric)
CPT/HCPCS: 99214

== ENCOUNTER → 2024-03-21 14:08 | Outpatient (BNVA) | payer MEDICARE, OTHER, SELFPAY | PROVIDERS: PCP Internal Medicine; Visit Provider Internal Medicine | DX: R94.39 Abnormal result of other cardiovascular function study (principal); R07.2 Precordial pain; R00.1 Bradycardia, unspecified; G47.33 Obstructive sleep apnea (adult) (pediatric) | CPT/HCPCS: 99212 ==

== ENCOUNTER → 2024-03-29 10:22 | Outpatient (REF) | payer MEDICARE, OTHER, SELFPAY ==
--- OUTSIDE RECORDS SUMMARY | 2024-03-29 11:13 | XMS_ITS ---
Author Organization [facility] Address [address] [facility] [place] [address] Care Team Providers Care In Store Marketing Representative Name Role Phone Silverio Rutherford MD Primary Care Provider UnavailDaisy García Unavailable [phone] Maciel Layton Unavailable [phone] Allergies No Known Allergies REASON FOR VISIT [...] Ordered Date Performed Result Body Sit e 61214-LPQC SKIN LESIONS, 2 TO 4 12/07/2023 N/A Encounters Encounter Location Date Provider Diagnosis [facility] [address] [address] 12/07/2023 Maciel Layton Tinea unguium B35.1 ; [...] Treatment Pending Test Test Name Order Date 60694-PUMA SKIN LESIONS, 2 TO 4 12/07/19 24 Next Appt Details Follow Up: 4 Months, Reason: Provider Name:Daisy manuel, 07/03/2024 02:45:00 PM, [address] [place] [address], [phone], Procedure Notes * Category Sub-Category Detail Notes [...] as necessary. Patient chooses, no pharmaceutical tx (01546) Keratoma Treatment Parring or Cutting o f Benign Hyperkeratotic Lesion(s) (-56) 2-4 Lesions - The Benign hyperkeratotic lesions, as described above were pared, and/or cut utilizing a sterile 15 blade, tissue nippers, and/or dremel - 18372 Progress Notes * Lisandro CUEVASDOB: 2 (73 yo M)Acc No.[id number]:12/07/2023 Progress Note Patient:?Lisandro Cuevas Provider:?Maciel Layton DPM :1950???Age:73 Y???Sex:Male Richard e:12/07/2023 Address:[address] [place], [place] [address] Pcp:Silverio Rutherford MD Subjective: * Chief Complaints: [...] as necessary. Patient chooses, no pharmaceutical tx (00334).?Keratoma Treatment:?Parring or Cutting of Benign Hyperkeratotic Lesion(s)?(-56) 2-4 Lesions - The Benign hyperkeratotic lesions, as described above were pared, and/or cut utilizing a sterile 15 blade, tissue nippers, and/or dremel - 48565.? * Procedure Codes:?59767 DEBRI DE NAIL, 6 OR MORE, Modifiers: XS 23949 TRIM SKIN LESIONS, 2 TO 4, Modifiers: XS * Follow Up:?4 Months * Images: * Sign off status: Completed true * Provider:?Maciel Layton DPM Date:? 024 Generated for Madhuri forte/Lexie/Pantera on:?03/29/2024 11:13 AM EST History and Physical Notes * HPI [...]
--- OUTSIDE RECORDS SUMMARY | 2024-03-29 11:13 | XMS_ITS ---
Author Organization [facility] Address [address] [place] [address] Care Team Providers Care Product Support Analyst Name Role Phone Silverio Rutherford MD Primary Care Provider Daisy Fatima [phone] Encounters Encounter Location Date Provider Diagnosis [address] [address] 03/11/2024 Daisy Dailey Plan Of Treatment Next Appt Details Provider Name:Daisy manuel, 07/03/2024 02:45:00 PM, [address] [place] [address], [phone], Progress Notes * Lisandro GARCIADOB: (73 yo M)Acc No.[id number]:03/11/2024 Progress Note Patient:?Lisandro GARCIA Provider:?Daisy Dailey DPM [...] DPM Date:?0 03/11/2024 Generated for Madhuri forte/Lexie/Pantera on:?03/29/2024 11:12 AM EST
--- OUTSIDE RECORDS SUMMARY | 2024-03-29 11:13 | XMS_ITS ---
Author Organization [facility] Address [address] [place] [address] Care Team Providers Care Controls Technician Name Role Phone Silverio Rutherford MD Primary Care Provider Daisy Fatima [phone] REASON FOR VISIT rs from 03/11/24 Encounters Encounter Location Date Provider Diagnosis [address] [address] 03/07/2024 Daisy Dailey Plan Of Treatment Next Appt Details Provider Name:Daisy manuel, 07/03/2024 02:45:00 PM, [address] [place], [address], Progress Notes * Lisandro GARCIADOB: 2 (73 yo M)Acc No.[id number]:03/07/2024 Patient:?MASON Lisandro :1950???Age:73 Y???Sex:Male Address:[place] [address] * true * Date:? Generated for Printi ng/Faleg/eTransmitting on:?03/29/2024 11:12 AM EST
--- OUTSIDE RECORDS SUMMARY | 2024-03-29 11:13 | XMS_ITS | Patient Health Record ---
Author [facility] Address [address] [facility] [place] [address] Care Team Providers Care Manufacturing Quality Engineer Name Role Phone Silverio Rutherford MD Primary Care Provider UnavailDaisy García Unavailable [phone] Maciel Layton Unavailable [phone] Allergies No Known Allergies Reason For Referral [...] Problem Acquired hammer toe of right foot (4886708211910611 ) Other hammer toe(s) (acquired), right foot (M20.41) Active confirmed Problem Acquired hammer toe of left foot (2979617004701488 ) Other hammer toe(s) (acquired), left foot (M20.42) Active confirmed Problem Polyneuropathy due to type 2 diabetes mellitus (835437659) Type 2 diabetes mellitus with diabetic polyneuropathy (E11.42) Active confirmed Vital Signs Blood pressure diastolic 80 mm Hg 06/05/2023 Height 5ft 4in in 12/07/2023 Blood pressure systolic 120 mm Hg 06/05/2023 Weight 265 lbs 12/07/2023 BMI 45.48 kg/m2 12/07/2023 Procedures Procedure Date Ordered Date Performed Result Body Sit e 20294-YKVE SKIN LESIONS, 2 TO 4 12/07/2023 N/A Encounters Encounter Location Date Provider Diagnosis [address] [address] 06/05/2023 MacielMortensen Tinea unguium B35.1 ; Pain in right toe(s) M79.674 ; Pain in left toe(s) M79.675 ; Type 2 diabetes mellitus with diabetic polyneuropathy E11.42 ; Other hammer toe(s) (acquired), left foot M20.42 ; Other hammer toe(s) (acquired), right foot M20.41 ; Ingrowing nail L60.0 and Xerosis cutis L85.[address] [address] 12/07/2023 Maciel Layton Tinea unguium B35.1 ; Pain in right toe(s) M79.674 ; Pain in left toe(s) M79.675 ; Type 2 diabetes mellitus with diabetic polyneuropathy E11.42 ; Other hammer toe(s) (acquired), left foot M20.42 ; Other hammer toe(s) (acquired), right foot M20.41 ; Ingrowing nail L60.0 and Xerosis cutis L85.[address] [address] 03/07/2024 Daisy Dailey Assessments Encounter Date Diagnosis [...] Treatment Pending Test Test Name Order Date 60132 I&D ABSCESS- SIMPLE,SINGLE 021 19859-ETNY SKIN LESIONS, OVER 4 12/01/19 23 97572-RRKX SKIN LESIONS, 2 TO 4 12/07/19 24 18966-RUSC SKIN LESIONS, 2 TO 4 05/12/19 21 64607-BQIR SKIN LESIONS, 2 TO 4 12/03/19 21 03759-GRLO SKIN LESIONS, 2 TO 4 06/03/19 22 42176-ZOONHKWV OF HEMATOMA/FLUID 023 Next Appt Details Provider Name:Daisy manuel, 07/03/2024 02:45:00 PM, [address] [place], [address], Insurance Providers Payer Name Payer Address Payer Phone Subscriber Number Group Number Insured Name Patient Relationship to Insured Coverage Start Date Coverage End Date Medicare National Govt [facility] [address] [place] [address] [id number] Lisandro Rodriguez Self - patient is the insured [employer] [address] [place] [id number] Lisandro Rodriguez Self - patient is the [...]
--- OUTSIDE RECORDS SUMMARY | 2024-03-29 11:13 | XMS_ITS | Clinical Summary ---
Author Organization [facility] Address [address] [facility] [address] [place] [address] Care Team Providers Care Conventional Machinist Name Role Phone Unavailable Primary Care Provider Unavailabl e Encounters Date Type Department Care Team Description 01/16/2024 9:15 AM EST Immunization [facility] [address] [place] [address] Encounter for immunization from Last 3 Months [...]
== END ==
LOC: HO.CARD 10:22
PROVIDERS: PCP Internal Medicine; Visit Provider Internal Medicine
DX: R00.1 Bradycardia, unspecified (principal)
CPT/HCPCS: 93242

== ENCOUNTER → 2024-03-29 10:24 | Outpatient (BNV) | payer MEDICARE, OTHER, SELFPAY | PROVIDERS: PCP Internal Medicine; Visit Provider Internal Medicine Cardiovascular Disease | DX: I49.1 Atrial premature depolarization (principal) | CPT/HCPCS: 93244 ==

== ENCOUNTER 2024-04-04 13:35 | Outpatient (AMB) | payer MEDICARE, OTHER, SELFPAY ==
--- NOTE | 2024-04-04 13:38 | A.OFFVIS_ITS ---
Vital Signs 04/04/24 13:39 Height 5 ft 4 in Weight 267 lb 13.786 oz BMI 46.0 BP 156/88 H Blood Pressure Location Rt brachial Position Sitting Pulse 57 Pulse Source Pulse Oximeter Pulse Oximetry (%) 97 Oxygen Delivery Method Room Air Intake Visit Reasons: Post ED visit Allergies No Known Allergies [No Known Allergies*] Allergy (Verified 04/04/24 13:42) HPI Comments Details: The patient is a 73-year-old gentleman with a known history of hypertension currently on ANNE-inhibitor was started developing worsening cough. Apparently he had been exposed to very unclean environment prior to developing the worsening cough. He was cleaning house for 3 weeks without a respirator. He started developing worsening cough. Therefore, he went to see his primary care doctor ordered a chest x-ray. There appeared to be nodular opacity the right hemithorax. Therefore, he underwent a CT scan of the chest. The CT scan he did demonstrate evidence tree-in-bud in addition to bronchitis and bronchiolitis. In addition to that appears to mucus plugging with what appears to be a density in the right middle lobe which also appears to be inspissated mucus. Again malignancies also in differential although he appears to disease elsewhere suggesting that is more of a diffuse process. Likely from a exposure. Therefore, will have him undergo blood work in addition to start chest physical therapy with a flutter valve to see if he can clear his own mucus. The patient is aware that he needs to avoid significant tracey or moldy environment. And if he ever needs to going to that is dosing virus he needs to wear a respirator. Will plan to follow-up in 4 weeks with chest x-ray and pulmonary function studies. If the densities still present on his x-ray or getting worse with definitely perform bronchoscopy at that time. 09/08/2022 the patient is here for pulmonary follow-up visit. The patient overall is doing well. Although he has been taking care of his sick in therefore not been able to take care of himself. He has not been performing the chest PT and the patient has not been using his inhaler. He is been using the APAP. The APAP therapy has been affecting beneficial. I did download the machine and his AHI is down to 1. He feels sometimes the pressure is not high enough, therefore increased his minimum pressure from 8-10 cm. The patient also had a CT scan of the chest that I personally reviewed. It appears that he has significant treating budding pulmonary nodules 3 much unchanged from before. He does have mycobacterial disease. At this point in view of the persistent findings will go ahead and start him on azithromycin therapy. 03/17/2023 the patient is here for a pulmonary follow-up visit. Overall he doing well. He is concerned that he is gained weight. Respiratory status stable. He did take the azithromycin but only for a month. Then he stopped it. Has not seen any significant congestion or cough. He is slightly short of breath but partly because of his weight gain and also having knee issues. The patient's last CT scan was back in July 2022 demonstrating the nodular densities again on the right side but also on the left upper lobe. The patient had a CT scan at a location [place]. We did compare to his previous. No significant changes. Although the Sizer significant. Will plan to repeat the CT scan in the fall 2023. He needs to continue using the chest PT for mucus clearance. The patient will hold off on azithromycin right now but if the CT scans worse then he will have to go back on antimycobacterial therapy. If he becomes congested I did give him a sputum cup so we can provide us another AFB culture. The patient is also using CPAP. CPAP therapy has been affecting beneficial. He still feels like his AHI is going up. Likely from the weight gain. Current settings are 8- 16. His average pressure is around 9 cm and sometimes he goes up to 15. Therefore, I will just increase the pressures the little bit 10/08/2016. He will try it if he has any difficulties he will call the office about in change in back. The therapy continues to be affecting beneficial. His AHI is 2.3. 05/19/2023 the patient is here for sick visit. The patient has been complaining of shortness of breath along with feeling tremulousness internally. Feels anxious. He has been having a lot of issues with the family with health issues. Making him a little bit more concerned. He went to the ER because the shortness of breath in the anxious feeling. He had a blood work done which is reassuring. EKG was consistent with sinus bradycardia. Ultimately after that he did undergo a Holter monitor and demonstrated bradycardia. He then went to see his primary care doctor for order blood work including a D-dimer though slightly elevated. He was recommended to go to the ER if symptoms worsen. The patient did come in for sick visit. He is feeling little better although he still having this episodic episodes of the shortness of breath sensation in the fluttering side. We did go for brief walking oximetry the patient maintained a nice stable pulse ox and also heart rate actually came up to about 80 beats per minute. He has been pretty sedentary for the last few weeks since his has been healing from surgery. The patient also has significant lower extremity edema. Since he went to the ER is trying to make dietary discretion. I do believe that he is volume overloaded and taking a diuretic a stronger diuretic for a few days will be helpful in improving his volume status and hopefully that will decrease the workload hard. I am concerned for his underlying cardiac risk. He is going to be seeing Cardiology in July. Will go ahead and request a nuclear stress test at this time. In the meantime the patient is using the CPAP. The CPAP therapy has been affecting beneficial in his AHI now is below 1 which is reassuring. He is trying to sleep elevated. The patient also has been taking a baby asthma which I believe is a good idea. 11/10/2023 the patient is here for a follow-up visit. Overall he is doing well. Over the summer he was given a diagnosis of the atrial fibrillation and became a little concerned with that but subsequently after that he has followed up with Cardiology and has no evidence of any atrial filling additional this time. In addition to that he did undergo a CT scan of the chest that I personally reviewed. Unfortunately has not been officially read yet. The appears that the nodular densities are completely stable and unchanging. Most likely the related to the smoldering mycobacterial disease infection. Clinically he is doing well so therefore we do not have to consider treating him at this time. Although if there is any evidence of any worsening disease with symptoms or Radiology findings and we can also consider treating him then. He has been using the CPAP. CPAP therapy continues to be affecting beneficial he does try to use it more than 4 hours a night. 04/04/2024 the patient is here for a pulmonary follow-up visit. Overall the patient has been doing fair. She still having some left-sided chest discomfort. It comes and goes. He is better right now. He did go to the ER because he was concerning anxious about the discomfort. He had his initial cardiac evaluation was negative. He did follow-up with cardiology it now scheduled to undergo a coronary artery CT scan. The patient also had CT scan of the chest back in the fall 2023 which I personally reviewed with him that and now. Patient does have some evidence of the pulmonary nodules in a little bit of emphysema. Will plan to repeat the CT scan again in the fall of 2024. For now continue with CPT and will follow-up with the cardiology evaluation. I suspect that his symptoms may be more musculoskeletal suggesting possible muscular spasms or diaphragmatic irritation. Once his cardiac workup is complete consider antispasmodic agents to see this provides him relief. 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 infection Arthritis Gallstones ISIAH (obstructive sleep apnea) HTN (hypertension) Pulmonary nodules Chronic bronchitis Surgical History Hx of total knee replacement History of surgical removal of pilonidal cyst History of arthroscopy of right knee Hx of colonoscopy Family History Mother Heart attack Father CHF (congestive heart failure) Social History Alcohol intake: current Alcohol intake frequency: holidays/special occasions only Alcohol type: beer Patient Tobacco Use Status: Former Tobacco user Tobacco use type: Cigarette Years Smoked: 30 years Substance Use Type: Marijuana Review of Systems Const Reports fatigue and Denies night sweats ENT Denies change in voice, Denies lip swelling, Denies mouth pain, Reports nasal congestion, Reports nasal discharge and Denies tongue swelling Card Reports chest pain and Reports dyspnea on exertion Resp Reports cough and Reports dyspnea on exertion GI Denies abdominal pain Musc Denies no additional complaints Neuro Denies Neuro-related abnormal movements Psych Denies no additional complaints Endo Reports fatigue Naun/Lymph Denies easy bleeding and Denies lymphadenopathy Aller/Immun Denies lip swelling and Denies tongue swelling Physical Exam Vital Signs: Last Vital Signs Pulse 57 04/04/24 13:39 BP 156/88 H 04/04/24 13:39 Pulse Ox 97 04/04/24 13:39 Oxygen Delivery Method Room Air 04/04/24 13:39 BMI result Body Mass Index 46.0 Const General: alert Neck Neck: Yes normal visual inspection, Yes full ROM and Yes no lymphadenopathy Chest Chest palpation & inspection: normal inspection of the chest Resp Auscultation: diminished lung sounds Cardio Rate: regular rate Rhythm: regular rhythm Heart sounds: S1 normal heart sound present and S2 normal heart sound present GI Palpation (GI): Soft to palpation and nontender Auscultation: normal bowel sounds Skin General skin exam: rashes and/or lesions noted Assessment & Plan Assessment & Plan (1) Pulmonary nodules: Code(s): R91.8 - Other nonspecific abnormal finding of lung field Category: Medical (2) Chronic bronchitis: Code(s): J42 - Unspecified chronic bronchitis Category: Medical Qualifiers: Chronic bronchitis type: mixed simple and mucopurulent Qualified Code(s): J41.8 - Mixed simple and mucopurulent chronic bronchitis (3) Nontuberculous mycobacterial disease of lung: Code(s): A31.0 - Pulmonary mycobacterial infection Category: Medical (4) Bronchiectasis: Code(s): J47.9 - Bronchiectasis, uncomplicated Category: Medical Qualifiers: Bronchiectasis type: uncomplicated Qualified Code(s): J47.9 - Bronchiectasis, uncomplicated Plan continue ASA continue hypertonic saline 7% via nebulizer CPT continue APAP therapy, AHI 0.8 repeat AFB sputum when able cradiac evaluation in progress CT chest in November 2024 F/U Fall [address] chest Orders: Orders CT chest wo IV con 11/06/24 R91.8 - Other nonspecific abnormal finding of lung field Coding Level of Care Code Tele Est Pt Level 4 (57398) Complex EM visit Add On G2211 Diagnoses Pulmonary nodules R91.8 Mixed simple and mucopurulent chronic bronchitis J41.8 Chronic bronchitis type: mixed simple and mucopurulent Nontuberculous mycobacterial disease of lung A31.0 Bronchiectasis without complication J47.9 Bronchiectasis type: uncomplicated Time Spent (min) 17
[2024-04-04 13:39] VITALS: BP 156/88; PULSE 57; O2SAT 97; BMI 46.0
--- OUTSIDE RECORDS SUMMARY | 2024-04-04 16:19 | XMS_ITS ---
Author Organization [facility] Address [address] [place] [address] Care Team Providers Care Pickle Sorter Name Role Phone Silverio Rutherford MD Primary Care Provider Daisy Fatima [phone] Encounters Encounter Location Date Provider Diagnosis [address] [address] 03/11/2024 Daisy Dailey Plan Of Treatment Next Appt Details Provider Name:Daisy manuel, 07/03/2024 02:45:00 PM, [address] [place] [address], [phone], Progress Notes * Lisandro GARCIADOB: (73 yo M)Acc No.[id number]:03/11/2024 Progress Note Patient:?Lisandro GARCIA Provider:?Daisy Dailey DPM [...] DPM Date:?0 03/11/2024 Generated for Madhuri forte/Lexie/Pantera on:?04/04/2024 04:19 PM EST
--- OUTSIDE RECORDS SUMMARY | 2024-04-04 16:19 | XMS_ITS ---
Author Organization [facility] Address [address] [place] [address] Care Team Providers Care Railroad Police Officer Name Role Phone Silverio Rutherford MD Primary Care Provider Daisy Fatima [phone] REASON FOR VISIT rs from 03/11/24 Encounters Encounter Location Date Provider Diagnosis [address] [address] 03/07/2024 Daisy Dailey Plan Of Treatment Next Appt Details Provider Name:Daisy manuel, 07/03/2024 02:45:00 PM, [address] [place] [address], [phone], Progress Notes * Lisandro GARCIADOB: 2 (73 yo M)Acc No.[id number]:03/07/2024 Patient:?MASON Lisandro :1950???Age:73 Y???Sex:Male Address:[place] [address] * true * Date:? Generated for Printi ng/Faleg/eTransmitting on:?04/04/2024 04:19 PM EST
--- OUTSIDE RECORDS SUMMARY | 2024-04-04 16:19 | XMS_ITS | Patient Health Record ---
Author Organization [facility] Address [address] [facility] [place] [address] Care Team Providers Care Mud Plant Operator Name Role Phone Silverio Rutherford MD Primary Care Provider UnavailDaisy García Unavailable [phone] Maciel Layton Unavailable [phone] Allergies No Known Allergies Reason For Referral [...] Problem Acquired hammer toe of right foot (0765967654967099 ) Other hammer toe(s) (acquired), right foot (M20.41) Active confirmed Problem Acquired hammer toe of left foot (3569329622855081 ) Other hammer toe(s) (acquired), left foot (M20.42) Active confirmed Problem Polyneuropathy due to type 2 diabetes mellitus (941238009) Type 2 diabetes mellitus with diabetic polyneuropathy (E11.42) Active confirmed Vital Signs Blood pressure diastolic 80 mm Hg 06/05/2023 Height 5ft 4in in 12/07/2023 Blood pressure systolic 120 mm Hg 06/05/2023 Weight 265 lbs 12/07/2023 BMI 45.48 kg/m2 12/07/2023 Procedures Procedure Date Ordered Date Performed Result Body Sit e 33196-BYXB SKIN LESIONS, 2 TO 4 12/07/2023 N/A Encounters Encounter Location Date Provider Diagnosis [address] [address] 06/05/2023 MacielMortensen Tinea unguium B35.1 ; Pain in right toe(s) M79.674 ; Pain in left toe(s) M79.675 ; Type 2 diabetes mellitus with diabetic polyneuropathy E11.42 ; Other hammer toe(s) (acquired), left foot M20.42 ; Other hammer toe(s) (acquired), right foot M20.41 ; Ingrowing nail L60.0 and Xerosis cutis L85.[address] [address] 12/07/2023 Maciel Layton Tinea unguium B35.1 ; Pain in right toe(s) M79.674 ; Pain in left toe(s) M79.675 ; Type 2 diabetes mellitus with diabetic polyneuropathy E11.42 ; Other hammer toe(s) (acquired), left foot M20.42 ; Other hammer toe(s) (acquired), right foot M20.41 ; Ingrowing nail L60.0 and Xerosis cutis L85.[address] [address] 03/07/2024 Daisy Dailey Assessments Encounter Date Diagnosis [...] Treatment Pending Test Test Name Order Date 85504 I&D ABSCESS- SIMPLE,SINGLE 021 94782-VDNZ SKIN LESIONS, OVER 4 12/01/19 23 87284-JOPD SKIN LESIONS, 2 TO 4 12/07/19 24 81556-ALSC SKIN LESIONS, 2 TO 4 05/12/19 21 79958-QIHT SKIN LESIONS, 2 TO 4 12/03/19 21 11672-NZCC SKIN LESIONS, 2 TO 4 06/03/19 22 54635-PEIZFOGS OF HEMATOMA/FLUID 023 Next Appt Details Provider Name:Daisy manuel, 07/03/2024 02:45:00 PM, [address] [place], [address], Insurance Providers Payer Name Payer Address Payer Phone Subscriber Number Group Number Insured Name Patient Relationship to Insured Coverage Start Date Coverage End Date Medicare National Govt [facility] [address] [place] [address] [id number] Lisandro Rodriguez Self - patient is the insured Gaylord Kyte [address] [place] [id number] Lisandro Rodriguez Self - patient is the [...]
--- OUTSIDE RECORDS SUMMARY | 2024-04-04 16:20 | XMS_ITS ---
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 Patient chooses, no pharmaceutical tx (34017) Keratoma Treatment Parring or Cutting o f Benign Hyperkeratotic Lesion(s) (-56) 2-4 Lesions - The Benign hyperkeratotic lesions, as described above were pared, and/or cut utilizing a sterile 15 blade, tissue nippers, and/or dremel - 58732 Progress Notes * Lisandro CUEVASDOB: 2 (73 yo M)Acc No.[id number]:12/07/2023 Progress Note Patient:?Lisandro Cuevas Provider:?Maciel Layton DPM :1950???Age:73 Y???Sex:Male Richard e:12/07/2023 Address:[address] [place], [place] [phone] Pcp:Silverio Rutherford MD Subjective: * Chief Complaints: [...] in no acute distress.?ORIENTED:?person, place, and time.?FOOT EXAM:?Lower Extremity Neurological Exam performed:?Yes ?Visual exam of foot performed:?Yes ?Date?12/07/2023 ?Sensory testing performed:?sensations diminished ?Pedal pulse taking performed:?1+?Neurological: ?SENSORY:?Neurological exam demonstrates, reduced vibration sensation, 5.07 [...] or to push-up test.?Ophthalmology Referral: ?DIABETES EYE EXAM?Diabetic Retinopathy Screening:?Yes 11/2020 ?Findings of Diabetic Eye Exam:?no retinopathy?Ingrown Nail: ?INSPECTION:? Reveals nail incurvation, dull pain [...] as necessary. Patient chooses, no pharmaceutical tx (83087).?Keratoma Treatment:?Parring or Cutting of Benign Hyperkeratotic Lesion(s)?(-56) 2-4 Lesions - The Benign hyperkeratotic lesions, as described above were pared, and/or cut utilizing a sterile 15 blade, tissue nippers, and/or dremel - 91879.? * Procedure Codes:?92422 DEBRI DE NAIL, 6 OR MORE, Modifiers: XS 70318 TRIM SKIN LESIONS, 2 TO 4, Modifiers: XS * Follow Up:?4 Months * Images: * Sign off status: Completed true * Provider:?Maciel Layton DPM Date:? 024 Generated for Madhuri forte/Lexie/Pantera on:?04/04/2024 04:19 PM EST History and Physical Notes * [...]
== END 2024-04-04 14:42 | disposition home or self-care (01) ==
PROVIDERS: PCP Internal Medicine; Visit Provider Hospitalist
DX: R91.8 Other nonspecific abnormal finding of lung field (principal); J41.8 Mixed simple and mucopurulent chronic bronchitis; A31.0 Pulmonary mycobacterial infection; J47.9 Bronchiectasis, uncomplicated
CPT/HCPCS: 99214; G2211

== ENCOUNTER → 2024-04-04 13:35 | Outpatient (BNVA) | payer MEDICARE, OTHER, SELFPAY | PROVIDERS: PCP Internal Medicine; Visit Provider Hospitalist | DX: R91.8 Other nonspecific abnormal finding of lung field (principal); J41.8 Mixed simple and mucopurulent chronic bronchitis; J47.9 Bronchiectasis, uncomplicated; A31.0 Pulmonary mycobacterial infection | CPT/HCPCS: 99212 ==

== ENCOUNTER 2024-04-25 12:46 | Outpatient (AMB) | payer MEDICARE, OTHER, SELFPAY ==
--- NOTE | 2024-04-25 13:08 | MHC.PC.OV ---
Vital Signs 04/25/24 13:16 Height 5 ft 4 in Weight 258 lb BMI 44.3 BP 128/70 Blood Pressure Location Lt brachial Position Sitting Pulse 64 Temp 97.7 F Pulse Oximetry (%) 97 Intake Visit Reasons: Routine Intake Note: Pt coming to the office for a bp check and also for other issues to talk with Doctor Allergies No Known Allergies [No Known Allergies*] Allergy (Verified 04/25/24 13:24) HPI HPI Comments History of Present Illness Details The patient is a 73 y/o male with htn, hld, anxiety, bronchiectasis presenting for follow up Last seen pcp Dec 2023 CV: On lisinopril, hctz. 128/70. No chest pain. [place] [facility] Going for cardiac ct scan. ringing in the ears b/l non pulsatile. Interested in GLP BH: On buspar 10mg bid. not well controlled Respiratory: Following with pulmonology. ROS see HPI PHYSICAL EXAM: GENERAL: Alert and oriented x 3. NAD EYES: EOMI. Anicteric. HENT: Moist mucous membranes. No scleral icterus. No cervical lymphadenopathy. LUNGS: Clear to auscultation bilaterally. CARDIOVASCULAR: Regular rate and rhythm. No murmur. No JVD. ABDOMEN: Soft, non-tender +bs EXTREMITIES: No edema. Non-tender. SKIN: No rashes or lesions. Warm. NEUROLOGIC: No focal neurological deficits. CN II-XII grossly intact PSYCHIATRIC: Cooperative. Appropriate mood and affect [facility] Medical History Prediabetes Bronchiectasis Nontuberculous mycobacterial disease of lung Streptococcus viridans infection Arthritis Gallstones ISIAH (obstructive sleep apnea) HTN (hypertension) Pulmonary nodules Chronic bronchitis Surgical History Hx of total knee replacement History of surgical removal of pilonidal cyst History of arthroscopy of right knee Hx of colonoscopy Family History Mother Heart attack Father CHF (congestive heart failure) Social History Alcohol intake: current Alcohol intake frequency: holidays/special occasions only Alcohol type: beer Patient Tobacco Use Status: Former Tobacco user Tobacco use type: Cigarette Years Smoked: 30 years Substance Use Type: Marijuana Physical exam (Primary Care) Vital Signs: Last Vital Signs Temp 97.7 F 04/25/24 13:16 Pulse 64 04/25/24 13:16 BP 128/70 04/25/24 13:16 Pulse Ox 97 04/25/24 13:16 BMI result Body Mass Index 44.3 Tobacco/Smoking Status: Tobacco use Status Patient Tobacco Use Status Former Tobacco user 04/25/24 13:26 Tobacco use type Cigarette 04/25/24 13:26 Coding Level of Care Code New Pt Level 4 (04331) Complex EM visit Add On G2211 Diagnoses Encounter to establish care Z76.89 Mixed simple and mucopurulent chronic bronchitis J41.8 Chronic bronchitis type: mixed simple and mucopurulent Primary hypertension I10 Hypertension type: primary hypertension 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 Assessment & Plan Assessment & Plan (1) Encounter to establish care: Code(s): Z76.89 - Persons encountering health services in other specified circumstances Category: Medical (2) Chronic bronchitis: Code(s): J42 - Unspecified chronic bronchitis Category: Medical Qualifiers: Chronic bronchitis type: mixed simple and mucopurulent Qualified Code(s): J41.8 - Mixed simple and mucopurulent chronic bronchitis (3) Hypertension: Code(s): I10 - Essential (primary) hypertension Qualifiers: Hypertension type: primary hypertension Qualified Code(s): I10 - Essential (primary) hypertension (4) Hearing loss associated with syndrome of both ears: Code(s): H91.93 - Unspecified hearing loss, bilateral [facility] medical, surgical, social family reviewed meds reconciled start SSRI. return in six months. consider glp Orders: Orders Complete Blood Count Auto Diff Today J41.8 - Mixed simple and mucopurulent chronic bronchitis, R73.09 - Other abnormal glucose, R79.89 - Other specified abnormal findings of blood chemistry Pathologist Review - CBC Today J41.8 - Mixed simple and mucopurulent chronic bronchitis, R73.09 - Other abnormal glucose, R79.89 - Other specified abnormal findings of blood chemistry Comprehensive Met. Panel Today J41.8 - Mixed simple and mucopurulent chronic bronchitis, R73.09 - Other abnormal glucose, R79.89 - Other specified abnormal findings of blood chemistry Hemoglobin A1c Today J41.8 - Mixed simple and mucopurulent chronic bronchitis, R73.09 - Other abnormal glucose, R79.89 - Other specified abnormal findings of blood chemistry Prostate Specific Antigen Today J41.8 - Mixed simple and mucopurulent chronic bronchitis, R73.09 - Other abnormal glucose, R79.89 - Other specified abnormal findings of blood chemistry Referrals Speech and Hearing Referral H91.93 - Unspecified hearing loss, bilateral Medications: New sertraline Take 1/2 tab oral once daily then 1 tab oral once daily 25 mg PO DAILY 90 tabs 3RF
[2024-04-25 13:16] VITALS: BP 128/70; PULSE 64; TEMP 36.5; O2SAT 97; BMI 44.3
--- OUTSIDE RECORDS SUMMARY | 2024-04-25 15:09 | XMS_ITS | Clinical Summary ---
Author Organization [facility] Address [address] [facility] [address] [place] [address] Care Team Providers Care Civil Rights Investigator Name Role Phone Unavailable Primary Care Provider Unavailabl e Immunizations Name Administration Dates Next Due Influenza, [...] Vaccines (1 of 2) 10/20/2001 COVID-19 Vaccine (2023-2 5 season) 2023 RSV Patients and Pa [...]
--- OUTSIDE RECORDS SUMMARY | 2024-04-25 15:09 | XMS_ITS ---
Author Organization [facility] Address [address] [place] [id number] Care Team Providers Care Dishing Machine Operator Name Role Phone Silverio Rutherford MD Primary Care Provider Daisy Fatima [phone] Encounters Encounter Location Date Provider Diagnosis [address] [address] 03/11/2024 Daisy Dailey Plan Of Treatment Next Appt Details Provider Name:Daisy manuel, 07/03/2024 02:45:00 PM, [address] [place] [address], [phone], Progress Notes * Lisandro GARCIADOB: (73 yo M)Acc No.[id number]:03/11/2024 Progress Note Patient:?Lisandro GARCIA Provider:?Daisy Dailey DPM :1950???Age:73 Y???Sex:Male Richard e:03/11/2024 Address:[id number] Pcp:Silverio Rutherford MD Subjective: * Chief Complaints: [...] DPM Date:?0 03/11/2024 Generated for Madhuri forte/Lexie/Pantera on:?04/25/2024 03:09 PM EDT
--- OUTSIDE RECORDS SUMMARY | 2024-04-25 15:09 | XMS_ITS ---
Author Organization [facility] Address [address] [place] [address] Care Team Providers Care Director Of Recruitment Name Role Phone Silverio Rutherford MD Primary Care Provider Daisy Fatima [phone] REASON FOR VISIT rs from 03/11/24 Encounters Encounter Location Date Provider Diagnosis [address] [address] 03/07/2024 Daisy Dailey Plan Of Treatment Next Appt Details Provider Name:Daisy manuel, 07/03/2024 02:45:00 PM, [address] [place] [address], [phone], Progress Notes * Lisandro GARCIADOB: 2 (73 yo M)Acc No.[id number]:03/07/2024 Patient:?MASON Lisandro :1950???Age:73 Y???Sex:Male Address:[place] [address] * true * Date:? Generated for Printi ng/Faxing/eTransmitting on:?04/25/2024 03:09 PM EDT
--- OUTSIDE RECORDS SUMMARY | 2024-04-25 15:10 | XMS_ITS | Patient Health Record ---
Author Organization [facility] Address [address] [facility] [place] [address] Care Team Providers Care Spa Consultant Name Role Phone Silverio Rutherford MD Primary Care Provider UnavailDaisy García Unavailable [phone] Maciel Layton Unavailable [phone] Allergies No Known Allergies Reason For Referral [...] Problem Acquired hammer toe of right foot (0484763264145883 ) Other hammer toe(s) (acquired), right foot (M20.41) Active confirmed Problem Acquired hammer toe of left foot (0403479613360545 ) Other hammer toe(s) (acquired), left foot (M20.42) Active confirmed Problem Polyneuropathy due to type 2 diabetes mellitus (408240687) Type 2 diabetes mellitus with diabetic polyneuropathy (E11.42) Active confirmed Vital Signs Blood pressure diastolic 80 mm Hg 06/05/2023 Height 5ft 4in in 12/07/2023 Blood pressure systolic 120 mm Hg 06/05/2023 Weight 265 lbs 12/07/2023 BMI 45.48 kg/m2 12/07/2023 Procedures Procedure Date Ordered Date Performed Result Body Sit e 45555-VLRL SKIN LESIONS, 2 TO 4 12/07/2023 N/A Encounters Encounter Location Date Provider Diagnosis [address] [address] 06/05/2023 MacielMortensen Tinea unguium B35.1 ; Pain in right toe(s) M79.674 ; Pain in left toe(s) M79.675 ; Type 2 diabetes mellitus with diabetic polyneuropathy E11.42 ; Other hammer toe(s) (acquired), left foot M20.42 ; Other hammer toe(s) (acquired), right foot M20.41 ; Ingrowing nail L60.0 and Xerosis cutis L85.[address] [address] 12/07/2023 Maciel Layton Tinea unguium B35.1 ; Pain in right toe(s) M79.674 ; Pain in left toe(s) M79.675 ; Type 2 diabetes mellitus with diabetic polyneuropathy E11.42 ; Other hammer toe(s) (acquired), left foot M20.42 ; Other hammer toe(s) (acquired), right foot M20.41 ; Ingrowing nail L60.0 and Xerosis cutis L85.[address] [address] 03/07/2024 Daisy Dailey Assessments Encounter Date Diagnosis [...] Treatment Pending Test Test Name Order Date 07028 I&D ABSCESS- SIMPLE,SINGLE 021 65689-LICN SKIN LESIONS, OVER 4 12/01/19 23 51054-RNWL SKIN LESIONS, 2 TO 4 12/07/19 24 29748-ETHC SKIN LESIONS, 2 TO 4 05/12/19 21 65114-QQHB SKIN LESIONS, 2 TO 4 12/03/19 21 29483-VWLV SKIN LESIONS, 2 TO 4 06/03/19 22 21371-CPEPMCVI OF HEMATOMA/FLUID 023 Next Appt Details Provider Name:Daisy manuel, 07/03/2024 02:45:00 PM, [address] [place], [address], Insurance Providers Payer Name Payer Address Payer Phone Subscriber Number Group Number Insured Name Patient Relationship to Insured Coverage Start Date Coverage End Date Medicare National Govt [facility] [address] [place] [address] [id number] Lisandro Rodriguez Self - patient is the insured [employer] [address] [place] [id number] Lisandro Rodriguez Self - patient is the [...]
--- OUTSIDE RECORDS SUMMARY | 2024-04-25 15:10 | XMS_ITS ---
Author Organization [facility] Address [address] [place] [address] Care Team Providers Care Players Club Representative Name Role Phone Silverio Rutherford MD Primary Care Provider UnavailDaisy García Unavailable [phone] Maciel Layton Unavailable [phone] Allergies No Known Allergies REASON FOR VISIT [...] Ordered Date Performed Result Body Sit e 24602-SMVF SKIN LESIONS, 2 TO 4 12/07/2023 N/A Encounters Encounter Location Date Provider Diagnosis [facility] [address] [address] 12/07/2023 Maciel Layton Tinea unguium B35.1 ; [...] Treatment Pending Test Test Name Order Date 28015-APMO SKIN LESIONS, 2 TO 4 12/07/19 24 Next Appt Details Follow Up: 4 Months, Reason: Provider Name:Daisy manuel, 07/03/2024 02:45:00 PM, [address] [place] [address], [phone], Procedure Notes * Category Sub-Category Detail Notes [...] as necessary. Patient chooses, no pharmaceutical tx (93628) Keratoma Treatment Parring or Cutting o f Benign Hyperkeratotic Lesion(s) (-56) 2-4 Lesions - The Benign hyperkeratotic lesions, as described above were pared, and/or cut utilizing a sterile 15 blade, tissue nippers, and/or dremel - 92806 Progress Notes * Lisandro CUEVASDOB: 2 (73 yo M)Acc No.[id number]:12/07/2023 Progress Note Patient:?Lisandro Cuevas Provider:?Maciel Layton DPM :1950???Age:73 Y???Sex:Male Richard e:12/07/2023 Address:[address] [place], [place] [phone] Pcp:Silverio Rutherford MD Subjective: * Chief Complaints: [...] as necessary. Patient chooses, no pharmaceutical tx (76220).?Keratoma Treatment:?Parring or Cutting of Benign Hyperkeratotic Lesion(s)?(-56) 2-4 Lesions - The Benign hyperkeratotic lesions, as described above were pared, and/or cut utilizing a sterile 15 blade, tissue nippers, and/or dremel - 79453.? * Procedure Codes:?51663 DEBRI DE NAIL, 6 OR MORE, Modifiers: XS 82597 TRIM SKIN LESIONS, 2 TO 4, Modifiers: XS * Follow Up:?4 Months * Images: * Sign off status: Completed true * Provider:?Maciel Layton DPM Date:? 024 Generated for Madhuri forte/Lexie/Pantera on:?04/25/2024 03:09 PM EDT History and Physical Notes * HPI (History [...]
== END 2024-04-25 14:05 | disposition home or self-care (01) ==
LOC: HO.HMCHD 12:46
PROVIDERS: PCP Internal Medicine; Visit Provider Internal Medicine
DX: Z76.89 Persons encountering health services in other specified circumstances (principal); J41.8 Mixed simple and mucopurulent chronic bronchitis; I10 Essential (primary) hypertension; H91.93 Unspecified hearing loss, bilateral

== ENCOUNTER → 2024-04-25 12:46 | Outpatient (BNVA) | payer MEDICARE, OTHER, SELFPAY | PROVIDERS: PCP Internal Medicine; Visit Provider Internal Medicine | DX: I10 Essential (primary) hypertension (principal); E78.5 Hyperlipidemia, unspecified; J41.8 Mixed simple and mucopurulent chronic bronchitis; H91.93 Unspecified hearing loss, bilateral; R73.09 Other abnormal glucose; Z76.89 Persons encountering health services in other specified circumstances | CPT/HCPCS: 99202 ==

== ENCOUNTER 2024-05-16 10:48 | Outpatient (REF) | payer MEDICARE, OTHER, SELFPAY ==
[2024-05-16 11:08] LABS: MANUAL DIFF FLAG NO
[2024-05-16 11:37] LABS: Basophils Percent Auto 0.2 % (0-2); Eosinophils Absolute Auto 0.2 X10*3/uL (0.0-0.4); Eosinophils Percent Auto 2.3 % (0-4); Hematocrit 42.4 % (42.0-52.0); Hemoglobin 14.8 g/dl (14.0-18.0); Imm Gran Abs Auto 0.02 X10*3/uL (0.00-0.03); Imm Gran Pct Auto 0.2 % (0.0-0.4); Lymphocytes Absolute Auto 1.8 X10*3/uL (1.2-4.9); Lymphocytes Percent Auto 20.5 % (20-40); Mean Corpuscular HGB Conc 34.9 g/dl (31.0-36.0); Mean Corpuscular Hemoglobin 30.3 pg (27.0-33.0); Mean Corpuscular Volume 86.9 fL (80.0-98.0); Mean Platelet Volume 8.7 fL (9.4-12.4); Monocytes Absolute Auto 0.7 X10*3/uL (0.1-1.2); Monocytes Percent Auto 7.5 % (2-11); Neutrophils Absolute Auto 6.1 x10*3/uL (2.0-8.3); Neutrophils Percent Auto 69.3 % (45-73); Platelet Count 269 X10*3/uL (160-400); Red Blood Count 4.88 X10*6/uL (4.60-5.80); Red Cell Distribution Width 12.1 % (11.0-16.0); White Blood Count 8.8 X10*3/uL (4.8-10.8)
[2024-05-16 11:48] LABS: Estimated Average Glucose 143 mg/dL; Hemoglobin A1C 188.9432 umol/L; Hemoglobin A1c % 6.6 % (<6.0); Total Hemoglobin (HGBA1C) 3907.8822 umol/L
[2024-05-16 12:16] LABS: Alanine Aminotransferase 17 U/L (0-40); Albumin Level 4.3 g/dL (3.5-5.0); Alkaline Phosphatase 63 U/L (39-117); Anion Gap 12 (12-20); Aspartate Amino Transferase 17 U/L (5-37); Bilirubin Total 1.4 mg/dL (0.0-1.0); Blood Urea Nitrogen 20 mg/dL (9-16); Calcium 9.8 mg/dL (8.4-10.2); Carbon Dioxide 28 mmol/L (22-29); Chloride 106 mmol/L (96-108); Estimated Glomerular Filt Rate > 60; Glucose Random 122 mg/dL (60-115); Potassium 4.1 mmol/L (3.3-5.1); Sodium 142 mmol/L (135-145); Total Protein 7.1 g/dL (6.5-8.0)
--- OUTSIDE RECORDS SUMMARY | 2024-05-16 12:55 | XMS_ITS | Clinical Summary ---
Author Organization [employer] Address [address] [facility] [address]t [place] [address] Care Team Providers Care Multiple Sclerosis Nurse Name Role Phone Unavailable Primary Care Provider [...]
== END 2024-05-16 10:49 | disposition home or self-care (01) ==
LOC: HO.LAB 10:48
PROVIDERS: Absent Provider Internal Medicine; PCP Internal Medicine; Visit Provider Internal Medicine
DX: R73.09 Other abnormal glucose (principal); R79.89 Other specified abnormal findings of blood chemistry; J41.8 Mixed simple and mucopurulent chronic bronchitis; Z12.5 Encounter for screening for malignant neoplasm of prostate
CPT/HCPCS: 80053; 83036; 84153; 85025

== ENCOUNTER 2024-05-23 14:32 | Outpatient (REF) | payer MEDICARE, OTHER, SELFPAY | END 2024-05-23 14:33 | disposition home or self-care (01) | LOC: HO.SH 14:32 | PROVIDERS: PCP Internal Medicine; Visit Provider Internal Medicine | DX: Z01.118 Encounter for examination of ears and hearing with other abnormal findings (principal); H90.3 Sensorineural hearing loss, bilateral | CPT/HCPCS: 92557 ==

== ENCOUNTER 2024-06-11 13:27 | Outpatient (AMB) | payer MEDICARE, OTHER, SELFPAY ==
[2024-06-11 13:30] VITALS: BP 148/62; PULSE 51; BMI 44.6
--- NOTE | 2024-06-11 13:30 | MHC.OFFVIS ---
Vital Signs 06/11/24 13:30 Height 5 ft 4 in Weight 260 lb 2.327 oz BMI 44.6 BP 148/62 H Blood Pressure Location Lt brachial Position Sitting Pulse 51 Pulse Source Pulse Oximeter Intake Visit Reasons: follow up CTA Residential Roofer Helper Required: No Allergies No Known Allergies [No Known Allergies*] Allergy (Verified 06/11/24 13:32) Medication List - Last Reconciled 06/11/24 by SONJA Feliz albuterol sulfate 2.5 mg (3 mL) inhalation Q4H PRN albuterol sulfate 90 mcg/actuation 2 inhalations inhalation Q6H PRN 30 days betamethasone dipropionate 0.05% 1 appl topical BID buspirone 10 mg PO BID PRN calcipotriene 0.005% 1 appl topical BID hydrochlorothiazide 12.5 mg PO DAILY lisinopril 40 mg PO DAILY nebulizers As directed sertraline 25 mg PO DAILY sodium chloride 3% 4 mL inhalation BID HPI HPI follow up CTA: Details: Lisandro is a 73-year-old male past medical history of hypertension, prediabetes, morbid obesity, atypical chest discomfort who recently had nuclear stress test which was equivocal for ischemia. He then underwent a coronary CTA which is showing moderate LAD stenosis. He now presents for follow-up. Today he reports that he does get some twinges of pain in his left chest region which have occurred for many years. He says there is no pattern to this symptom and it is not worse with physical activity. He has had episodes where he feels he is not able to get oxygen and then gets anxious. He has been seen in the ER for this and was told it was panic attacks. In the mornings at times he will notice pressure in his chest that he says goes away when he gets up and moves around. He does wear his CPAP at night. He has been trying to increase his walking which he says he tolerates well. He is working on weight loss due to the newer diagnosis of prediabetes. No heart palpitations, lightheadedness, presyncope, syncope, falls. Compliant with meds. He tells me he has a chronic bacterial infection in his lungs and he follows with Dr. Story for pulmonology. At times he will get shortness of breath that is relieved with his inhaler and/or use of updraft machine. [facility] Medical History Prediabetes Bronchiectasis Nontuberculous mycobacterial disease of lung Streptococcus viridans infection Arthritis Gallstones ISIAH (obstructive sleep apnea) HTN (hypertension) Pulmonary nodules Chronic bronchitis Surgical History Hx of total knee replacement History of surgical removal of pilonidal cyst History of arthroscopy of right knee Hx of colonoscopy Family History Mother Heart attack Father CHF (congestive heart failure) Social History Alcohol intake: current Alcohol intake frequency: holidays/special occasions only Alcohol type: beer Patient Tobacco Use Status: Former Tobacco user Tobacco use type: Cigarette Years Smoked: 30 years Substance Use Type: Marijuana Review of Systems Const All systems reviewed & are unremarkable except as noted in HPI and below ENT Denies dizziness Card Reports chest pain, Denies chest pain at rest, Denies chest pain with activity, Denies rapid heart rate, Denies pedal edema, Denies edema, Denies leg edema, Denies lightheadedness, Denies palpitations, Denies dyspnea, Denies dyspnea on exertion and Denies orthopnea Resp Denies cough, Denies dyspnea and Denies dyspnea on exertion GI Denies hematochezia and Denies change in stool character Musc Denies abnormal gait, Denies limited range of motion, Denies muscle cramps, Denies muscle weakness, Denies numbness, Denies radiating pain into limb, Denies stiffness and Denies tingling Neuro Denies abnormal gait, Denies dizziness, Denies numbness and Denies tingling Endo Denies palpitations Physical Exam Vital Signs: Last Vital Signs Pulse 51 06/11/24 13:30 BP 148/62 H 06/11/24 13:30 BMI result Body Mass Index 44.6 Const Other: Morbidly obese General: cooperative, comfortable and no acute distress Orientation/consciousness: patient oriented x3 Neck Neck: Yes normal visual inspection and Yes no JVD Resp Effort & Inspection: normal respiratory effort Auscultation: clear to auscultation bilaterally, no rales, no rhonchi and no wheezes Cardio Rate: regular rate Rhythm: regular rhythm Heart sounds: S1 normal heart sound present, S2 normal heart sound present, no murmurs and no rubs Neuro General: patient oriented x3 Extrem General: Yes normal to inspection, No no pedal edema and No calf tenderness Psych Appearance: grossly normal Mental Status: mental status grossly normal Speech and movement: Normal speech and movement present Assessment & Plan Assessment & Plan (1) Precordial chest pain: Code(s): R07.2 - Precordial pain Category: Medical Plan: Atypical chest discomfort with prior ER evaluation showing normal troponins. His EKGs show sinus rhythm and sinus bradycardia without acute ST or T-wave abnormalities. He has cardiac risk factors of morbid obesity, hypertension and prediabetes. A pharmacological nuclear stress test was done on 06/26/2023 which was equivocal for apical ischemia. He did undergo a CTA of the coronary arteries 05/29/2024 showing moderate to significant plaque in the proximal to mid LAD, 50-70%. Discuss this finding with him in detail, reviewed coronary artery disease in the need for risk factor modification. Signs and symptoms of angina reviewed. Will start on aspirin 81 mg daily. Labs 09/08/2023 showed LDL 82. Will start on atorvastatin 40 mg daily. Blood pressure elevated this visit, recheck done by me 172/82. Will add amlodipine 5 mg daily. Will not use beta-denisse since he has underlying sinus bradycardia. Continue his current hydrochlorothiazide and lisinopril. Spent time discussing cardiac catheterization, risks, potential outcomes and he is interested in pursuing further testing at this time. Will order cardiac catheterization, question PCI. Will order preprocedure labs. Cardiology follow-up 2 weeks post procedure, sooner if needed. (2) CAD (coronary artery disease): Comment: CTA of coronary arteries 05/29/2024, left main non calcific plaque less than 25% stenosis, lad proximal 25-50% stenosis, proximal to mid LAD junction, causing possible 50-70% stenosis, also possible 50-70% focal stenosis at the D1 origin, suspicious long segment 30-50% stenosis of the mid LAD left circumflex no plaque or stenosis, ramus small to medium size branch with focal 50% stenosis at its origin, RCA no plaque or stenosis Code(s): I25.10 - Atherosclerotic heart disease of [place] coronary artery without angina pectoris Category: Medical Plan: Confirmed coronary artery disease based on CTA of the coronary arteries (3) Equivocal stress test: Code(s): R94.39 - Abnormal result of other cardiovascular function study Category: Medical Plan: As above (4) ISIAH (obstructive sleep apnea): Code(s): G47.33 - Obstructive sleep apnea (adult) (pediatric) Category: Medical Plan: Compliant with CPAP (5) Morbid obesity: Code(s): E66.01 - Morbid (severe) obesity due to excess calories Category: Medical Plan: Morbidly obese, prediabetic. He tells me he is working on weight loss with diet control and increasing physical activity (6) Sinus bradycardia: Code(s): R00.1 - Bradycardia, unspecified Category: Medical Plan: EKG shows sinus bradycardia, asymptomatic. Holter monitor 05/10/2023 for 3 days shows sinus rhythm with average heart rate 48, 87% of the time heart rate less than 60, occasional PACs, burden 0.6%. Repeat Holter monitor done 03/29/2024 for 3 days shows sinus bradycardia, average heart rate 57, 73% of the time heart rate less than 60, Pac burden 8.1%. Avoid rate slowing agents. Plan Time spent on chart review, documentation, interviewing assessment Patient was informed and verbally consented to the use of an ambient scribe for clinic note documentation during this visit. In our discussion, I outlined the current findings from the heart CT scan and their implications for coronary artery disease, concentrating on the LAD artery's narrowing. We agreed to start aspirin and atorvastatin as part of medical management to improve artery blood flow and address high cholesterol levels. I emphasized the need for amlodipine to manage blood pressure independently from heart rate, considering the patient's bradycardia history. We discussed the coronary angiography and angioplasty procedure, detailing its advantages in improving arterial flow and contrasting it against medical management, with attention to procedural risks like bleeding and contrast effects on kidneys. The patient accepted the plan while committing to lifestyle modifications, particularly for weight management and addressing prediabetes. Follow-up arrangements and potential concerns were also reviewed. Orders: Orders Cardiac Cath LT w PCI 06/18/24 I25.10 - Atherosclerotic heart disease of [place] coronary artery without angina pectoris, R07.2 - Precordial pain Complete Blood Count Auto Diff 06/18/24 I25.10 - Atherosclerotic heart disease of [place] coronary artery without angina pectoris Basic Metabolic Panel 06/18/24 I25.10 - Atherosclerotic heart disease of [place] coronary artery without angina pectoris, R07.2 - Precordial pain Prothrombin Time INR 06/18/24 I25.10 - Atherosclerotic heart disease of [place] coronary artery without angina pectoris Medications: New amlodipine 5 mg PO DAILY 30 tabs 5RF aspirin 81 mg PO DAILY 30 tabs 5RF atorvastatin 40 mg PO BEDTIME 30 tabs 5RF Patient Instructions: - Take prescribed aspirin once daily in the morning with food. - Take atorvastatin as directed to lower cholesterol levels. - Take amlodipine daily for blood pressure management. - Maintain regular physical activity, focusing on daily walks. - Follow dietary guidelines to manage weight and prediabetes. - Monitor for any new or worsening chest discomfort, breathlessness, or other cardiovascular symptoms. - Report any side effects from medications. - Return for follow-up as scheduled or if symptoms change. - Seek immediate care if experiencing signs of heart attack or other urgent symptoms. Coding Level of Care Code Est Pt Level 4 (87793) Complex EM visit Add On G2211 Diagnoses Precordial chest pain R07.2 CAD (coronary artery disease) I25.10 Equivocal stress test R94.39 ISIAH (obstructive sleep apnea) G47.33 Morbid obesity E66.01 Sinus bradycardia R00.1 Time Spent (min) 32
--- OUTSIDE RECORDS SUMMARY | 2024-06-11 14:44 | XMS_ITS | Clinical Summary ---
Author Organization [employer] Address [address] [facility] [address] [place] [address] Care Team Providers Care Credit Interviewer Name Role Phone Unavailable Primary Care Provider [...]
== END 2024-06-11 14:34 | disposition home or self-care (01) ==
LOC: HO.HCS 13:28
PROVIDERS: PCP Internal Medicine; Visit Provider Nurse Practitioner Family
DX: R07.2 Precordial pain (principal); I25.10 Atherosclerotic heart disease of native coronary artery without angina pectoris; R94.39 Abnormal result of other cardiovascular function study; G47.33 Obstructive sleep apnea (adult) (pediatric); E66.01 Morbid (severe) obesity due to excess calories; R00.1 Bradycardia, unspecified
CPT/HCPCS: 99214; G2211

== ENCOUNTER 2024-06-11 13:27 | Outpatient (REF) | payer MEDICARE, OTHER, SELFPAY ==
--- OUTSIDE RECORDS SUMMARY | 2024-06-11 15:48 | XMS_ITS | Clinical Summary ---
Author Organization [employer] Address [address] [facility] [address] [place] [address] Care Team Providers Care Welder Boilermaker Name Role Phone Unavailable Primary Care Provider [...]
[2024-06-11 15:54] LABS: Anion Gap 12 (12-20); Blood Urea Nitrogen 18 mg/dL (9-16); Calcium 9.3 mg/dL (8.4-10.2); Carbon Dioxide 27 mmol/L (22-29); Chloride 106 mmol/L (96-108); Estimated Glomerular Filt Rate > 60; Glucose Random 114 mg/dL (60-115); Potassium 4.3 mmol/L (3.3-5.1); Sodium 141 mmol/L (135-145)
== END 2024-06-11 13:28 | disposition home or self-care (01) ==
LOC: HO.LAB 13:27
PROVIDERS: Absent Provider Internal Medicine; PCP Internal Medicine; Visit Provider Nurse Practitioner Family
DX: R07.2 Precordial pain (principal); R94.39 Abnormal result of other cardiovascular function study; I25.10 Atherosclerotic heart disease of native coronary artery without angina pectoris; G47.33 Obstructive sleep apnea (adult) (pediatric); E66.01 Morbid (severe) obesity due to excess calories; R00.1 Bradycardia, unspecified
CPT/HCPCS: 36415; 80048; 99212

== ENCOUNTER 2024-06-21 09:59 | Outpatient (REF) | payer MEDICARE, OTHER, SELFPAY ==
[2024-06-21 10:15] LABS: MANUAL DIFF FLAG NO
--- OUTSIDE RECORDS SUMMARY | 2024-06-21 10:19 | XMS_ITS | Clinical Summary ---
Author Organization [employer] Address [address] [facility] [address] [place] [address] Care Team Providers Care Sound Assistant Name Role Phone Unavailable Primary Care Provider Unavailabl e Immunizations Immunization Administration Dates Next Due Influenza, High Dose [...] patient's age to complete this topic Meningococcal B Vaccine Aged Out No l onger eligible based on patient's age to complete [...]
[2024-06-21 10:45] LABS: Prothrombin Time 11.2 SEC (10.9-12.4)
[2024-06-21 10:47] LABS: Basophils Percent Auto 0.3 % (0-2); Eosinophils Absolute Auto 0.3 X10*3/uL (0.0-0.4); Eosinophils Percent Auto 4.1 % (0-4); Hematocrit 41.8 % (42.0-52.0); Hemoglobin 14.5 g/dl (14.0-18.0); Imm Gran Abs Auto 0.02 X10*3/uL (0.00-0.03); Imm Gran Pct Auto 0.3 % (0.0-0.4); Lymphocytes Absolute Auto 1.4 X10*3/uL (1.2-4.9); Lymphocytes Percent Auto 21.7 % (20-40); Mean Corpuscular HGB Conc 34.7 g/dl (31.0-36.0); Mean Corpuscular Hemoglobin 30.3 pg (27.0-33.0); Mean Corpuscular Volume 87.3 fL (80.0-98.0); Monocytes Absolute Auto 0.6 X10*3/uL (0.1-1.2); Monocytes Percent Auto 8.4 % (2-11); Neutrophils Absolute Auto 4.3 x10*3/uL (2.0-8.3); Neutrophils Percent Auto 65.2 % (45-73); Platelet Count 261 X10*3/uL (160-400); Red Blood Count 4.79 X10*6/uL (4.60-5.80); White Blood Count 6.5 X10*3/uL (4.8-10.8)
[2024-06-21 11:08] LABS: Anion Gap 14 (12-20); Blood Urea Nitrogen 18 mg/dL (9-16); Calcium 9.1 mg/dL (8.4-10.2); Carbon Dioxide 26 mmol/L (22-29); Chloride 106 mmol/L (96-108); Estimated Glomerular Filt Rate > 60; Glucose Random 154 mg/dL (60-115); Potassium 3.7 mmol/L (3.3-5.1); Sodium 142 mmol/L (135-145)
== END 2024-06-21 10:00 | disposition home or self-care (01) ==
LOC: HO.LAB 09:59
PROVIDERS: PCP Internal Medicine; Visit Provider Nurse Practitioner Family
DX: I25.10 Atherosclerotic heart disease of native coronary artery without angina pectoris (principal); R07.2 Precordial pain
CPT/HCPCS: 36415; 80048; 85025; 85610

== ENCOUNTER 2024-06-27 14:40 | Outpatient (AMB) | payer MEDICARE, OTHER, SELFPAY ==
--- NOTE | 2024-06-27 14:14 | A.OFFPC_ITS ---
Vital Signs 06/27/24 14:47 Height 5 ft 4 in Weight 256 lb BMI 43.9 BP 144/80 H Respiration 14 Pulse 56 Pulse Source Pulse Oximeter Temp 97.5 F Temp Source Temporal Artery Scan Pulse Oximetry (%) 97 Oxygen Delivery Method Room Air Intake Visit Reasons: Routine - see comments Metal Slitter Required: No Accompanied by: Self / Same As Patient Allergies No Known Allergies [No Known Allergies*] Allergy (Verified 06/27/24 14:14) Tobacco use date assessed: 06/27/24 Fall risk assessment: No Falls in past year Last assessed Fall Risk: 06/27/24 Dental Screening Dental Screen Date: 06/27/24 Did you have a dental visit in the last 12 months?: Yes Did you have a dental problem in the last 6 months where you did not have access to dental care?: No Was dental information given to patient?: Patient has dentist HPI HPI Comments History of Present Illness Details The patient is a 73 y/o male with htn, hld, anxiety, bronchiectasis presenting for follow up CV: On lisinopril, hctz. BP well controlled. No chest pain. Seeing cardiology at [facility] [place]. Going for cardiac ct scan. ringing in the ears b/l non pulsatile. Diabetes: Last A1C increased into diabetic range. He has made some interval d ietary changes. Interested in GLP BH: Started on sertraline. Is helping even anxiety out but is giving him diarrhea. On buspar 10mg bid. Respiratory: Following with pulmonology. ROS see HPI PHYSICAL EXAM: GENERAL: Alert and oriented x 3. NAD EYES: EOMI. Anicteric. HENT: Moist mucous membranes. No scleral icterus. No cervical lymphadenopathy. LUNGS: Clear to auscultation bilaterally. CARDIOVASCULAR: Regular rate and rhythm. No murmur. No JVD. ABDOMEN: Soft, non-tender +bs EXTREMITIES: No edema. Non-tender. SKIN: No rashes or lesions. Warm. NEUROLOGIC: No focal neurological deficits. CN II-XII grossly intact PSYCHIATRIC: Cooperative. Appropriate mood and affect [facility] Medical History Prediabetes Bronchiectasis Nontuberculous mycobacterial disease of lung Streptococcus viridans infection Arthritis Gallstones ISIAH (obstructive sleep apnea) HTN (hypertension) Pulmonary nodules Chronic bronchitis Surgical History Hx of total knee replacement History of surgical removal of pilonidal cyst History of arthroscopy of right knee Hx of colonoscopy (~11/19/21) Family History Mother Heart attack Father CHF (congestive heart failure) Social History Housing: House Alcohol intake: current Alcohol intake frequency: holidays/special occasions only Alcohol type: beer Patient Tobacco Use Status: Former Tobacco user Tobacco use type: Cigarette Years Smoked: 30 years Substance Use Type: Marijuana service: No Current occupational status: retired Cognitive needs: No Hearing needs: No Vision needs: Yes (reading glasses) Questionnaire PHQ-9 Over the last 2 weeks, how often have you been bothered by any of the following problems? 1. Little interest or pleasure in doing things: not at all 2. Feeling down, depressed, or hopeless: not at all 3. Trouble falling or staying asleep, or sleeping too much: not at all 4. Feeling tired or having little energy: not at all 5. Poor appetite or overeating: not at all 6. Feeling bad about yourself - or that you are a failure or have let yourself or your family down: not at all 7. Trouble concentrating on things, such as reading the newspaper or watching television: not at all 8. Moving or speaking so slowly that other people could have noticed. Or the opposite - being so fidgety or restless that you have been moving around a lot more than usual: not at all 9. Thoughts that you would be better off or of hurting yourself in some way: not at all Total score: 0 Depression Screening Interpretation: Negative Depression Screening Done: Yes 99930 - PHQ-9 Billing: Yes Source: Developed by Drs. Burak Posada, Paola Glasgow, Simón Peña and colleagues, with an educational vamshi from [employer]. Thrive Questionnaire Date Thrive assessed: 06/27/24 I am a: Patient What is your living situation today?: I have a steady place to live Within the past 12 months, did the food you bought not last and you didn't have the money to get more?: Never true Within the past 12 months, did you worry whether your food would run out before you got money to buy more?: Never true Do you have trouble paying for medicines?: No Do you have trouble getting transportation to medical appointments?: No Do you have trouble paying your heating and electricity bill?: No Do you have trouble taking care of your child, family member or friend?: No Do you have trouble with day-to-day activities such as bathing, preparing meals, shopping, managing finances, etc.?: No Are you currently unemployed and looking for a job?: No Are you interested in more education?: No Please select the resources that you would like help with: None THRIVE Score: 0 AUDIT C Alcohol Use Questionnaire (AUDIT-C) 1. How often do you have a drink containing alcohol?: Monthly or less 2. How many drinks containing alcohol do you have on a typical day when you are drinking?: 1 or 2 3. How often do you have six or more drinks on one occasion?: Never Total Score: 1 MERLE-7 AMB Questionnaire MERLE-7 Date MERLE - 7 assessed: 06/27/24 Feeling nervous, anxious, or on edge: 0 = Not at all Not being able to stop or control worryin = Not at all Worrying too much about different things: 0 = Not at all Trouble relaxin = Not at all Being so restless that it is hard to sit still: 0 = Not at all Becoming easily annoyed or irritable: 0 = Not at all Feeling afraid as if something awful might happen: 0 = Not at all Total MERLE-7 score (0-4 normal; 5-9 mild; 10-14 moderate; 15-21 severe): 0 Source: Developed by Drs. Burak Posada, Paola Glasgow, Simón Peña and colleagues, with an educational vamshi from [employer]. Physical exam (Primary Care) Vital Signs: Last Vital Signs Temp 97.5 F 06/27/24 14:47 Pulse 56 06/27/24 14:47 Resp 14 06/27/24 14:47 BP 144/80 H 06/27/24 14:47 Pulse Ox 97 06/27/24 14:47 Oxygen Delivery Method Room Air 06/27/24 14:47 BMI result Body Mass Index 43.9 Tobacco/Smoking Status: Tobacco use Status Tobacco use date assessed 06/27/24 06/27/24 14:16 Patient Tobacco Use Status Former Tobacco user 06/27/24 14:16 Tobacco use type Cigarette 06/27/24 14:16 PHQ-9: PHQ-9 Score PHQ-9: Total score 0 06/27/24 15:31 Depression Screening Interpretation: Negative Thrive Assessment: Date of Thrive Assessment Date Thrive assessed 06/27/24 06/27/24 14:16 Coding Level of Care Code Est Pt Level 4 (10245) Diagnoses Anxiety F41.9 Type 2 diabetes mellitus without complication, without long-term current use of insulin E11.9 Diabetes mellitus type: type 2 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: without petroleum terminal plant operator use Diabetes mellitus complication status: without complication ISIAH (obstructive sleep apnea) G47.33 Additional Codes PHQ-9 - 31019 - PHQ-9 Billing: Yes ([id number]) Assessment & Plan Assessment & Plan (1) Anxiety: Code(s): F41.9 - Anxiety disorder, unspecified Category: Medical (2) Diabetes: Code(s): E11.9 - Type 2 diabetes mellitus without complications Category: Medical Qualifiers: Diabetes mellitus type: type 2 Diabetes mellitus group home insulin use: without petroleum terminal plant operator use Diabetes mellitus complication status: without complication Qualified Code(s): E11.9 - Type 2 diabetes mellitus without complications (3) ISIAH (obstructive sleep apnea): Code(s): G47.33 - Obstructive sleep apnea (adult) (pediatric) Category: Medical Plan Anxiety improved on SSRI but sertraline is giving him diarrhea. Will switch him to prozac. A1C is now diabetic range-start glp. He will follow up in one month to review glucose, weight HTN well controlled Medications: New fluoxetine 20 mg PO DAILY 90 caps 3RF Mounjaro (tirzepatide) for 4 weeks 2.5 mg (0.5 mL) subcut QWEEK 2 mL 1RF NS Discontinued sertraline Take 1/2 tab oral once daily for one week then increase to 1 tab oral once daily Discontinued Reason: Doctor's Order 25 mg PO DAILY 90 tabs 3RF
--- OUTSIDE RECORDS SUMMARY | 2024-06-27 14:43 | XMS_ITS | Clinical Summary ---
Author Organization [employer] Address [address] [place] [address] Care Team Providers Care Client Architect Name Role Phone Unavailable Primary Care Provider [...]
[2024-06-27 14:47] VITALS: BP 144/80; PULSE 56; RESP 14; TEMP 36.4; O2SAT 97; BMI 43.9
== END 2024-06-27 15:45 | disposition home or self-care (01) ==
LOC: HO.HMCHD 14:40
PROVIDERS: PCP Internal Medicine; Visit Provider Internal Medicine
DX: F41.9 Anxiety disorder, unspecified (principal); E11.9 Type 2 diabetes mellitus without complications; G47.33 Obstructive sleep apnea (adult) (pediatric)

== ENCOUNTER → 2024-06-27 14:40 | Outpatient (BNVA) | payer MEDICARE, OTHER, SELFPAY | PROVIDERS: PCP Internal Medicine; Visit Provider Internal Medicine | DX: F41.9 Anxiety disorder, unspecified (principal); I10 Essential (primary) hypertension; E78.5 Hyperlipidemia, unspecified; E11.9 Type 2 diabetes mellitus without complications; G47.33 Obstructive sleep apnea (adult) (pediatric) | CPT/HCPCS: 96127; 99212 ==

== ENCOUNTER → 2024-07-11 23:59 | Outpatient (BNV) | payer MEDICARE, OTHER, SELFPAY | PROVIDERS: PCP Internal Medicine; Visit Provider Internal Medicine Cardiovascular Disease | DX: I20.89 Other forms of angina pectoris (principal) | CPT/HCPCS: 93458; 99152 ==

== ENCOUNTER 2024-07-26 08:41 | Outpatient (AMB) | payer MEDICARE, OTHER, SELFPAY ==
[2024-07-26 08:45] VITALS: BP 118/74; PULSE 78; BMI 43.5
--- NOTE | 2024-07-26 08:45 | A.OFFVIS_ITS ---
Vital Signs 07/26/24 08:45 Height 5 ft 4 in Weight 253 lb 8.505 oz BMI 43.5 BP 118/74 Blood Pressure Location Lt brachial Position Sitting Pulse 78 Intake Visit Reasons: 2 wk s/p cath Intake Note: 2 week follow-up Cardiac Cath feeling good Allergies No Known Allergies (No Known Allergies*) Allergy (Verified 06/27/24 14:14) Medication List - Last Reconciled 07/26/24 by Justine Graff GENERAL ASSIGNMENT REPORTER-C albuterol sulfate 2.5 mg (3 mL) inhalation Q4H PRN albuterol sulfate 90 mcg/actuation 2 inhalations inhalation Q6H PRN 30 days amlodipine 5 mg PO DAILY aspirin 81 mg PO DAILY atorvastatin 40 mg PO BEDTIME betamethasone dipropionate 0.05% 1 appl topical BID buspirone 10 mg PO BID PRN calcipotriene 0.005% 1 appl topical BID fluoxetine 20 mg PO DAILY hydrochlorothiazide 12.5 mg PO DAILY lisinopril 40 mg PO DAILY Mounjaro (tirzepatide) 2.5 mg (0.5 mL) subcut QWEEK NS nebulizers As directed sodium chloride 3% 4 mL inhalation BID HPI HPI 2 wk s/p cath: Details: Lisandro is a 73-year-old male past medical history of hypertension, prediabetes, morbid obesity, atypical chest discomfort who recently had nuclear stress test which was equivocal for ischemia. He then underwent a coronary CTA which is showing moderate LAD stenosis, followed by cardiac catheterization showing ostial diagonal 60% stenosis, managed medically. He now presents for follow-up. Today he reports that he still gets some twinges of pain in his left chest region which have occurred for many years. He has not had any new or exertional chest discomfort. He has some shortness of breath with activity which is not new. No PND, orthopnea or edema. He wears CPAP at night. No palpitations, lightheadedness, presyncope, syncope. He follows with Dr. Story for pulmo nology. Right radial catheterization site feels good. [facility] Medical History Prediabetes Bronchiectasis Nontuberculous mycobacterial disease of lung Streptococcus viridans infection Arthritis Gallstones ISIAH (obstructive sleep apnea) HTN (hypertension) Pulmonary nodules Chronic bronchitis Surgical History Hx of total knee replacement History of surgical removal of pilonidal cyst History of arthroscopy of right knee Hx of colonoscopy (~11/19/21) Family History Mother Heart attack Father CHF (congestive heart failure) Social History Housing: House Alcohol intake: current Alcohol intake frequency: holidays/special occasions only Alcohol type: beer Patient Tobacco Use Status: Former Tobacco user Tobacco use type: Cigarette Years Smoked: 30 years Substance Use Type: Marijuana service: No Current occupational status: retired Cognitive needs: No Hearing needs: No Vision needs: Yes (reading glasses) Review of Systems Const All systems reviewed & are unremarkable except as noted in HPI and below Denies chills, Denies fatigue, Denies fever(s), Denies frequent falls, Denies weakness, Denies weight gain and Denies weight loss ENT Denies dizziness Card Denies chest pain, Denies leg edema, Denies lightheadedness, Denies palpitations, Denies dyspnea, Denies dyspnea on exertion, Denies orthopnea and Denies other (loss of consciousness) Resp Denies cough, Denies dyspnea and Denies dyspnea on exertion GI Denies hematochezia and Denies change in stool character Musc Details: right radial cath site feeling good Denies abnormal gait, Denies muscle weakness, Denies numbness, Denies radiating pain into limb and Denies tingling Neuro Denies abnormal gait, Denies dizziness, Denies frequent falls, Denies numbness, Denies tingling and Denies weakness Endo Denies fatigue and Denies palpitations Physical Exam Vital Signs: Last Vital Signs Pulse 78 07/26/24 08:45 BP 118/74 07/26/24 08:45 BMI result Body Mass Index 43.5 Const Other: Morbidly obese General: cooperative, comfortable and no acute distress Orientation/consciousness: patient oriented x3 Neck Neck: Yes normal visual inspection and Yes no JVD Resp Effort & Inspection: normal respiratory effort Auscultation: clear to auscultation bilaterally, no rales, no rhonchi and no wheezes Cardio Rate: regular rate Rhythm: regular rhythm Heart sounds: S1 normal heart sound present, S2 normal heart sound present, no murmurs and no rubs Neuro General: patient oriented x3 Extrem Other: right radial pulse easily palpable, right hand assessment normal General: Yes normal to inspection, No no pedal edema and No calf tenderness Psych Appearance: grossly normal Mental Status: mental status grossly normal Speech and movement: Normal speech and movement present Assessment & Plan Assessment & Plan (1) Precordial chest pain: Code(s): R07.2 - Precordial pain Category: Medical Plan: Atypical chest discomfort with prior ER evaluation showing normal troponins. He has cardiac risk factors of morbid obesity, hypertension and prediabetes. A pharmacological nuclear stress test was done on 06/26/2023 which was equivocal for apical ischemia. CTA of the coronary arteries 05/29/2024 showing moderate to significant plaque in the proximal to mid LAD, 50-70%. Cardiac catheterization 07/11/2024 showing LAD ostial diagonal 60% stenosis, RCA minimal irregularities, managed medically. Currently no anginal symptoms. The ongoing need for risk factor modification discussed. Continue aspirin indefinitely. Continue atorvastatin with ideal LDL goal less than 70. Continue amlodipine and lisinopril for good blood pressure control. He is not on beta-denisse due to sinus bradycardia. Signs and symptoms of angina reviewed with him. Cardiology follow-up 6 months, sooner if needed (2) CAD (coronary artery disease): Comment: CTA of coronary arteries 05/29/2024, left main non calcific plaque less than 25% stenosis, lad proximal 25-50% stenosis, proximal to mid LAD junction, causing possible 50-70% stenosis, also possible 50-70% focal stenosis at the D1 origin, suspicious long segment 30-50% stenosis of the mid LAD left circumflex no plaque or stenosis, ramus small to medium size branch with focal 50% stenosis at its origin, RCA no plaque or stenosis Cardiac catheterization 07/11/2024 lad ostial diagonal 60% stenosis RCA minimal irregularities Code(s): I25.10 - Atherosclerotic heart disease of algaaciq coronary artery without angina pectoris Category: Medical Plan: Nonobstructive coronary disease, managed medically as above (3) ISIAH (obstructive sleep apnea): Code(s): G47.33 - Obstructive sleep apnea (adult) (pediatric) Category: Medical Plan: Compliant with CPAP (4) Morbid obesity: Code(s): E66.01 - Morbid (severe) obesity due to excess calories Category: Medical Plan: Morbidly obese, prediabetic. He tells me he is working on weight loss with shots, diet control and increasing physical activity (5) Sinus bradycardia: Code(s): R00.1 - Bradycardia, unspecified Category: Medical Plan: History of sinus bradycardia with last Holter monitor 03/29/2024 for 3 days shows sinus bradycardia, average heart rate 57, 73% of the time heart rate less than 60, Pac burden 8.1%. Pulse normal range on exam today. Avoid rate slowing agents. (6) S/P cardiac cath: Comment: 07/11/2024 lad ostial diagonal 60% stenosis, RCA minimal irregularities Code(s): Z98.890 - Other specified postprocedural states Category: Surgical Plan: Right radial catheterization site well healed Plan I discussed with the patient the findings from his cardiac catheterization, w hich showed moderate LAD ostial diagonal 60% stenosis, but no need for stenting at this time. We talked about the importance of risk factor modification, including cholesterol management and weight control, to prevent further progression of coronary artery disease. I advised him to monitor for any new symptoms such as chest pain or unexplained dizziness, and to maintain hydration, especially in hot weather. We agreed on a follow-up in six months, with fasting blood work to check cholesterol levels. Orders: Orders Lipid Panel Today I25.10 - Atherosclerotic heart disease of algaaciq coronary artery without angina pectoris Patient Instructions: - Continue with cholesterol management and weight control. - Monitor for new symptoms like chest pain or dizziness. - Stay hydrated, especially in hot weather. - Schedule fasting blood work in September or October. - Follow up in six months unless new symptoms arise. Patient was informed and verbally consented to the use of an ambient scribe for clinic note documentation during this visit. Visit time spent on chart review, interview, assessment, orders, documentation. Coding Level of Care Code Est Pt Level 4 (22410) Complex EM visit Add On G2211 Diagnoses Precordial chest pain R07.2 CAD (coronary artery disease) I25.10 ISIAH (obstructive sleep apnea) G47.33 Morbid obesity E66.01 Sinus bradycardia R00.1 S/P cardiac cath Z98.890 Time Spent (min) 30
== END 2024-07-26 09:23 | disposition home or self-care (01) ==
LOC: HO.HCS 08:42
PROVIDERS: PCP Internal Medicine; Visit Provider Nurse Practitioner Family
DX: R07.2 Precordial pain (principal); I25.10 Atherosclerotic heart disease of native coronary artery without angina pectoris; G47.33 Obstructive sleep apnea (adult) (pediatric); E66.01 Morbid (severe) obesity due to excess calories; R00.1 Bradycardia, unspecified; Z98.890 Other specified postprocedural states
CPT/HCPCS: 99214; G2211

== ENCOUNTER → 2024-07-26 08:41 | Outpatient (BNVA) | payer MEDICARE, OTHER, SELFPAY | PROVIDERS: PCP Internal Medicine; Visit Provider Nurse Practitioner Family | DX: R07.2 Precordial pain (principal); R00.1 Bradycardia, unspecified; I25.10 Atherosclerotic heart disease of native coronary artery without angina pectoris; G47.33 Obstructive sleep apnea (adult) (pediatric); E66.01 Morbid (severe) obesity due to excess calories; Z98.890 Other specified postprocedural states; Z68.41 Body mass index [BMI] 40.0-44.9, adult | CPT/HCPCS: 99212 ==

== ENCOUNTER 2024-08-02 10:53 | Outpatient (AMB) | payer MEDICARE, OTHER, SELFPAY ==
[2024-08-02 09:58] VITALS: BP 122/74; PULSE 53; TEMP 36.3; O2SAT 98; BMI 43.3
--- NOTE | 2024-08-02 09:58 | A.OFFPC_ITS ---
Vital Signs 08/02/24 09:58 Height 5 ft 4 in Weight 252 lb BMI 43.3 BP 122/74 Blood Pressure Location Lt brachial Position Sitting Pulse 53 Pulse Source Pulse Oximeter Temp 97.3 F Temp Source Axillary Pulse Oximetry (%) 98 Oxygen Delivery Method Room Air Intake Visit Reasons: RE Mounjaro update Singeing Torch Operator Required: No Accompanied by: Self / Same As Patient Allergies No Known Allergies (No Known Allergies*) Allergy (Verified 08/02/24 09:59) Tobacco use date assessed: 08/02/24 Fall risk assessment: No Falls in past year Last assessed Fall Risk: 08/02/24 Dental Screening Dental Screen Date: 08/02/24 Did you have a dental visit in the last 12 months?: Yes Did you have a dental problem in the last 6 months where you did not have access to dental care?: No HPI HPI Comments History of Present Illness Details The patient is a 73 y/o male with htn, hld, anxiety, bronchiectasis presenting for follow up CV: On lisinopril, hctz. BP well controlled. No chest pain. Seeing cardiology at [facility]. Going for cardiac ct scan. ringing in the ears b/l non pulsatile. Diabetes: Last A1C increased into diabetic range. Mounjaro sent. 252 from 256. The mounjaro is causing vertigo. At first he thought it was a coincident but then it happened again with the second and third shot of the medication BH: Started on sertraline. Is helping even anxiety out but is giving him diarrhea. On buspar 10mg bid. Respiratory: Following with pulmonology. ROS see HPI PHYSICAL EXAM: GENERAL: Alert and oriented x 3. NAD EYES: EOMI. Anicteric. HENT: Moist mucous membranes. No scleral icterus. No cervical lymphadenopathy. LUNGS: Clear to auscultation bilaterally. CARDIOVASCULAR: Regular rate and rhythm. No murmur. No JVD. ABDOMEN: Soft, non-tender +bs EXTREMITIES: No edema. Non-tender. SKIN: No rashes or lesions. Warm. NEUROLOGIC: No focal neurological deficits. CN II-XII grossly intact PSYCHIATRIC: Cooperative. 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 infection Arthritis Gallstones ISIAH (obstructive sleep apnea) HTN (hypertension) Pulmonary nodules Chronic bronchitis Surgical History Hx of total knee replacement History of surgical removal of pilonidal cyst History of arthroscopy of right knee Hx of colonoscopy (~11/19/21) Family History Mother Heart attack Father CHF (congestive heart failure) Social History Housing: House Alcohol intake: current Alcohol intake frequency: holidays/special occasions only Alcohol type: beer Patient Tobacco Use Status: Former Tobacco user Tobacco use type: Cigarette Years Smoked: 30 years Substance Use Type: Marijuana service: No Current occupational status: retired Cognitive needs: No Hearing needs: No Vision needs: Yes (reading glasses) Questionnaire PHQ-9 Over the last 2 weeks, how often have you been bothered by any of the following problems? 1. Little interest or pleasure in doing things: not at all 2. Feeling down, depressed, or hopeless: not at all 3. Trouble falling or staying asleep, or sleeping too much: not at all 4. Feeling tired or having little energy: not at all 5. Poor appetite or overeating: not at all 6. Feeling bad about yourself - or that you are a failure or have let yourself or your family down: not at all 7. Trouble concentrating on things, such as reading the newspaper or watching television: not at all 8. Moving or speaking so slowly that other people could have noticed. Or the opposite - being so fidgety or restless that you have been moving around a lot more than usual: not at all 9. Thoughts that you would be better off or of hurting yourself in some way: not at all Total score: 0 Depression Screening Interpretation: Negative Depression Screening Done: Yes 75675 - PHQ-9 Billing: Yes Source: Developed by Drs. Burak Posada, Paola Glasgow, Simón Peña and colleagues, with an educational vamshi from [employer]. Thrive Questionnaire Date Thrive assessed: 08/02/24 I am a: Patient Within the past 12 months, did the food you bought not last and you didn't have the money to get more?: Never true Do you have trouble paying for medicines?: No Do you have trouble getting transportation to medical appointments?: No Do you have trouble paying your heating and electricity bill?: No Do you have trouble taking care of your child, family member or friend?: No Do you have trouble with day-to-day activities such as bathing, preparing meals, shopping, managing finances, etc.?: No Are you currently unemployed and looking for a job?: No Are you interested in more education?: No THRIVE Score: 0 AUDIT C Alcohol Use Questionnaire (AUDIT-C) 1. How often do you have a drink containing alcohol?: Monthly or less 2. How many drinks containing alcohol do you have on a typical day when you are drinking?: 1 or 2 3. How often do you have six or more drinks on one occasion?: Less than monthly Total Score: 2 MERLE-7 AMB Questionnaire MERLE-7 Date MERLE - 7 assessed: 08/02/24 Feeling nervous, anxious, or on edge: 0 = Not at all Not being able to stop or control worryin = Not at all Worrying too much about different things: 0 = Not at all Trouble relaxin = Not at all Being so restless that it is hard to sit still: 0 = Not at all Becoming easily annoyed or irritable: 0 = Not at all Feeling afraid as if something awful might happen: 0 = Not at all Total MERLE-7 score (0-4 normal; 5-9 mild; 10-14 moderate; 15-21 severe): 0 Source: Developed by Drs. Burak Posada, Paola Glasgow, Simón Peña and colleagues, with an educational vamshi from [employer]. Physical exam (Primary Care) Vital Signs: Last Vital Signs Temp 97.3 F 08/02/24 09:58 Pulse 53 08/02/24 09:58 BP 122/74 08/02/24 09:58 Pulse Ox 98 08/02/24 09:58 Oxygen Delivery Method Room Air 08/02/24 09:58 BMI result Body Mass Index 43.3 Tobacco/Smoking Status: Tobacco use Status Tobacco use date assessed 08/02/24 08/02/24 10:00 Patient Tobacco Use Status Former Tobacco user 08/02/24 10:00 Tobacco use type Cigarette 08/02/24 10:00 e-Cigarette/Vaping Use 08/02/24 10:00 PHQ-9: PHQ-9 Score PHQ-9: Total score 0 08/04/24 10:51 Depression Screening Interpretation: Negative Thrive Assessment: Date of Thrive Assessment Date Thrive assessed 08/02/24 08/02/24 10:00 Coding Level of Care Code Est Pt Level 4 (21815) Diagnoses Anxiety F41.9 Primary hypertension I10 Hypertension type: primary hypertension Coronary artery disease, unspecified vessel or lesion type, unspecified whether angina present, unspecified whether [place] or transplanted heart I25.10 Associated angina: unspecified whether angina present Coronary Disease-Associated Artery/Lesion type: unspecified vessel or lesion type [place] vs. transplanted heart: unspecified whether [place] or transplanted heart Type 2 diabetes mellitus without complication, without long-term current use of insulin E11.9 Diabetes mellitus complication status: without complication Diabetes mellitus long term care phlebotomist insulin use: without long term care phlebotomist use Diabetes mellitus type: type 2 Additional Codes PHQ-9 - 66987 - PHQ-9 Billing: Yes ([id number]) Assessment & Plan Assessment & Plan (1) Anxiety: Code(s): F41.9 - Anxiety disorder, unspecified Category: Medical (2) HTN (hypertension): Code(s): I10 - Essential (primary) hypertension Category: Medical Qualifiers: Hypertension type: primary hypertension Qualified Code(s): I10 - Essential (primary) hypertension (3) CAD (coronary artery disease): Comment: CTA of coronary arteries 05/29/2024, left main non calcific plaque less than 25% stenosis, lad proximal 25-50% stenosis, proximal to mid LAD junction, causing possible 50-70% stenosis, also possible 50-70% focal stenosis at the D1 origin, suspicious long segment 30-50% stenosis of the mid LAD left circumflex no plaque or stenosis, ramus small to medium size branch with focal 50% stenosis at its origin, RCA no plaque or stenosis Cardiac catheterization 07/11/2024 lad ostial diagonal 60% stenosis RCA minimal irregularities Code(s): I25.10 - Atherosclerotic heart disease of [place] coronary artery without angina pectoris Category: Medical Qualifiers: Associated angina: unspecified whether angina present Coronary Disease- Associated Artery/Lesion type: unspecified vessel or lesion type [place] vs. transplanted heart: unspecified whether [place] or transplanted heart Qualified Code(s): I25.10 - Atherosclerotic heart disease of [place] coronary artery without angina pectoris (4) Diabetes: Code(s): E11.9 - Type 2 diabetes mellitus without complications Category: Medical Qualifiers: Diabetes mellitus complication status: without complication Diabetes mellitus long term care phlebotomist insulin use: without long term care phlebotomist use Diabetes mellitus type: type 2 Qualified Code(s): E11.9 - Type 2 diabetes mellitus without complications Plan 73 year old presenting for diabetic follow up diabetes-improved weight glucose. However there was vertigo associated with the mounajro so we will trial ozempic He will follow up in Orders: Orders Hemoglobin A1c 08/02/24 E11.9 - Type 2 diabetes mellitus without complications Comprehensive Met. Panel 08/02/24 E11.9 - Type 2 diabetes mellitus without complications Medications: New Ozempic (semaglutide) 0.5 mg (0.736 mL) subcut QWEEK 9 mL 3RF NS E11.9 - Type 2 diabetes mellitus without complications Ozempic (semaglutide) 0.5 mg (0.736 mL) subcut QWEEK 9 mL 3RF NS E11.9 - Type 2 diabetes mellitus without complications Discontinued Mounjaro (tirzepatide) for 4 weeks Discontinued Reason: Doctor's Order 2.5 mg (0.5 mL) subcut QWEEK 2 mL 1RF NS
--- OUTSIDE RECORDS SUMMARY | 2024-08-02 12:01 | XMS_ITS | Clinical Summary ---
Author Organization [employer] Address [address] 7[address] [place] [address] Care Team Providers Care Transformer Maker Name Role Phone Unavailable Primary Care Provider [...]
== END 2024-08-02 11:35 | disposition home or self-care (01) ==
LOC: HO.HMCHD 10:54
PROVIDERS: PCP Internal Medicine; Visit Provider Internal Medicine
DX: F41.9 Anxiety disorder, unspecified (principal); I10 Essential (primary) hypertension; I25.10 Atherosclerotic heart disease of native coronary artery without angina pectoris; E11.9 Type 2 diabetes mellitus without complications

== ENCOUNTER → 2024-08-02 10:53 | Outpatient (BNVA) | payer MEDICARE, OTHER, SELFPAY | PROVIDERS: PCP Internal Medicine; Visit Provider Internal Medicine | DX: I10 Essential (primary) hypertension (principal); F41.9 Anxiety disorder, unspecified; I25.10 Atherosclerotic heart disease of native coronary artery without angina pectoris; E11.9 Type 2 diabetes mellitus without complications; Z79.899 Other long term (current) drug therapy; Z13.31 Encounter for screening for depression; Z13.30 Encounter for screening examination for mental health and behavioral disorders, unspecified | CPT/HCPCS: 96127; 99212 ==

== ENCOUNTER 2024-10-01 08:52 | Outpatient (REF) | payer MEDICARE, OTHER, SELFPAY ==
--- OUTSIDE RECORDS SUMMARY | 2024-09-30 13:15 | XMS_ITS | Encounter Summary ---
Author Organization [facility] Address [address] [place] [address] Phone Care Team Providers Care Director Of Event Marketing Name Role Phone Silverio Rutherford MD Primary Care Provider Encounter Details Date Type Department Care Team (Latest Contact Info) Description 11/26/2016 Ancillary Orders [facility] [address] 3[address] Floor, [address] [place] [address] Gonzalo Torres MD [address] [place] [address] Diagnosis unknown Social History Tobacco Use Types Packs/Day Years Used Date Smoking Tobacco: Never Assessed Sex and Gender Information Value Date Recorded Sex Assigned at Not on file Legal Sex Male 5:20 PM EDT Gender Identity Not on file Sexual Orientation Not on file documented as of this encounter Plan of Treatment Scheduled Orders Name Type Priority Associated Diagnoses Orde r Schedule Adult Echo TTE Echocardiography Routine Diagnosis unknown 1 Occurrences starting 11/26/2016 until 02/26/2018 documented as of this encounter Visit Diagnoses Diagnosis Diagnosis unknown documented in this encounter Care Teams Director Of Event Marketing Relationship Specialty Start Date End Date Silverio Rutherford MD [address] [place] [address] [address] PCP - General 08/30/16 documented as of this encounter Additional Source Comments The information contained in this document represents components of the legal health record. It is not the complete legal health record.[facility]
--- OUTSIDE RECORDS SUMMARY | 2024-09-30 13:15 | XMS_ITS | Clinical Summary ---
Author Organization [employer] Address [address] [facility] 7t [place] [address] Care Team Providers Care Joiner Helper Name Role Phone Unavailable Primary Care Provider [...] Vaccine ( - 2023-2 5 season) 2023 Influenza Vaccine (#1) 2024 01/16/2024 RSV Patients and Pa tients Aged 60 years or older (1 - 1-dose 75+ series) 10/20/2026 HIB Vaccines Aged Out No longer eligi [...]
--- OUTSIDE RECORDS SUMMARY | 2024-10-01 09:11 | XMS_ITS | Encounter Summary ---
Author Organization [facility] Address [address] [place] [address] Phone Care Team Providers Care Felt Pad Cutter Name Role Phone Silverio Rutherford MD Primary Care Provider Encounter Details Date Type Department Care Team (Latest Contact Info) Description 11/26/2016 Ancillary Orders [facility] [address] 3[address] Floor, [address] [place] [address] Gonzalo Torres MD [address] [place] [address] Diagnosis unknown Social History Tobacco Use Types [...] unknown documented in this encounter Care Teams Felt Pad Cutter Relationship Specialty Start Date End Date Silverio Rutherford MD [address] [place] [address] [address] PCP - General 08/30/16 documented as of this encounter Additional Source Comments The information contained in this document represents components of the legal health record. It is not the complete legal health record.[facility]
--- OUTSIDE RECORDS SUMMARY | 2024-10-01 09:11 | XMS_ITS | Encounter Summary ---
Author Organization [facility] Address [address] [place] [address] Phone Care Team Providers Care Record Librarian Name Role Phone Silverio Rutherford MD Primary Care Provider Encounter Details Date Type Department Care Team (Late st Contact Info) Description 11/26/2016 Ancillary Orders [facility] [address] [place] [id number] Gonzalo Torres MD [address] [facility] [place] [facility] [place] [place] [id number] Social History Tobacco Use Types Packs/Day Years Used Date Smoking Tobacco: Never Assessed Sex and Gender Information Value Date Recorded Sex Assigned at Not on file Legal Sex Male 5:20 PM EDT Gender Identity Not on file Sexual Orientation Not on file documented as of this encounter Plan of Treatment Not on file documented as of this encounter Visit Diagnoses Not on filedocumented in this encounter Care Teams Record Librarian Relationship Specialty Start Date End Date Silverio Rutherford MD [address] [place] [address] [place] [address] PCP - General 08/30/16 documented as of this encounter Additional Source Comments The information contained in this document represents components of the legal health record. It is not the complete legal health record.[facility]
--- OUTSIDE RECORDS SUMMARY | 2024-10-01 09:11 | XMS_ITS | Clinical Summary ---
Author Organization [facility] Address [address] [place] [address] Phone Care Team Providers Care Bisque Grader Name Role Phone Silverio Rutherford MD Primary Care Provider Social History Tobacco Use Types Packs/Day Years Used Date Smoking Tobacco: Never Assessed Education Answer Date Recorded Are you interested in more education? Not on agustin e 06/03/2022 Are you concerned about learning? Not on file 06/03/2022 No 06/03/2022 No 06/03/2022 Digital Access Answer Date Recorded No 07/04/2022 No 07/04/2022 No 07/04/2022 Reliable internet access at home? Not on file 07/04/2022 Device with a working camera? Not on file Sex and Gender Information Value Date Recorded Sex Assigned at Not on file Legal Sex Male 5:20 PM EDT Gender Identity Not on file Sexual Orientation Not on file Plan of Treatment Health Maintenance Due Date Last Done Comments Adult Td,Tdap Booster 1950 LIPID PANEL 1950 DEPRESSION SCREENING 1963 SMOKING Hx and SMOKELESS TOB ACCO SCREENING 10/20/1964 HEPATITIS C SCREENING 10/20/1969 COLOGUARD 10/20/1996 COLONOSCOPY 10/20/1996 COLORECTAL CANCER SCREENING 10/20/1996 FIT TEST 10/20/1996 FOBT 10/20/1996 SIGMOIDOSCOPY 10/20/1996 VIRTUAL COLONOSCOPY 10/20/1996 ZOSTER VACCINES (2 of 3) 04/30/2014 03/05/2014 PNEUMOCOCCAL VACCINES (50+ y ears) (2 of 2 - PPSV23) 11/09/2019 11/08/2018 COVID-19 VACCINE (2 - 2023-2 5 season) 2023 04/02/2020 RSV VACCINE (1 - 1-dose 75+ series) 10/20/2026 HEPATITIS A VACCINES Aged Out No long er eligible based on patient's age to complete this topic HIB VACCINES Aged Out No longer eligi ble based on patient's age to complete this topic MENINGOCOCCAL VACCINES (ACWY) Aged Out No longer eligible based on patient's age to complete this topic MENINGOCOCCAL VACCINES (B) Aged Out N o longer eligible based on patient's age to complete this topic Medical Devices Not on file Care Teams Bisque Grader Relationship Specialty Start Date End Date Silverio Rutherford MD [address] [place] [address] [place] [address] PCP - General 08/30/16 Additional Source Comments The information contained in this document represents components of the legal health record. It is not the complete legal health record.[facility]
[2024-10-01 10:09] LABS: Hemoglobin A1C 149.9468 umol/L; Total Hemoglobin (HGBA1C) 3637.4365 umol/L
[2024-10-01 10:57] LABS: Alanine Aminotransferase 21 U/L (0-40); Albumin Level 4.0 g/dL (3.5-5.0); Alkaline Phosphatase 80 U/L (39-117); Anion Gap 11 (12-20); Aspartate Amino Transferase 23 U/L (5-37); Blood Urea Nitrogen 23 mg/dL (9-16); Calcium 9.0 mg/dL (8.4-10.2); Carbon Dioxide 25 mmol/L (22-29); Chloride 108 mmol/L (96-108); Cholesterol 90 mg/dL (<200); Estimated Glomerular Filt Rate > 60; HDL Cholesterol 31 mg/dL (>40); Potassium 3.8 mmol/L (3.3-5.1); Sodium 140 mmol/L (135-145); Total Protein 6.4 g/dL (6.5-8.0); Triglycerides 92 mg/dL (<150)
== END 2024-10-01 08:53 | disposition home or self-care (01) ==
LOC: HO.LAB 08:52
PROVIDERS: Absent Provider Nurse Practitioner Family; PCP Internal Medicine; Visit Provider Internal Medicine
DX: I25.10 Atherosclerotic heart disease of native coronary artery without angina pectoris (principal); E11.9 Type 2 diabetes mellitus without complications
CPT/HCPCS: 36415; 80053; 80061; 83036

== ENCOUNTER 2024-10-11 10:08 | Outpatient (AMB) | payer MEDICARE, OTHER, SELFPAY ==
--- NOTE | 2024-10-11 10:11 | A.OFFPC_ITS ---
Vital Signs 10/11/24 10:12 Height 5 ft 4 in Weight 249 lb 4 oz BMI 42.8 BP 114/64 Blood Pressure Location Lt brachial Position Sitting Respiration 14 Pulse 60 Pulse Source Pulse Oximeter Pulse Oximetry (%) 94 Oxygen Delivery Method Room Air Intake Visit Reasons: follow-up Intake Note: Follow up Allergies No Known Allergies (No Known Allergies*) Allergy (Verified 10/11/24 10:14) Tobacco use date assessed: 10/11/24 Fall risk assessment: No Falls in past year Last assessed Fall Risk: 10/11/24 Dental Screening Dental Screen Date: 08/02/24 HPI HPI Comments History of Present Illness Details The patient is a 73 y/o male with htn, hld, anxiety, bronchiectasis presenting for follow up CV: On lisinopril, hctz,amlodipine. BP well controlled. No chest pain. Follows with cardiology at [facility]. Diabetes: On ozempic 0.25mg weekly. A1C at goal. Would like to increase to 0.5mg weekly. He did not tolerate mounjaro. BH: On prozac 20mg daily. On buspar 10mg bid. Did not tolerate sertraline - diarrhea Respiratory: Following with pulmonology. Pulled his back last week-lower,mid left. ROS see HPI PHYSICAL EXAM: GENERAL: Alert and oriented x 3. NAD EYES: EOMI. Anicteric. HENT: Moist mucous membranes. No scleral icterus. No cervical lymphadenopathy. LUNGS: Clear to auscultation bilaterally. CARDIOVASCULAR: Regular rate and rhythm. No murmur. No JVD. ABDOMEN: Soft, non-tender +bs EXTREMITIES: No edema. Non-tender. MSK: Right paraspinal muscle spasm SKIN: No rashes or lesions. Warm. NEUROLOGIC: No focal neurological deficits. CN II-XII grossly intact PSYCHIATRIC: Cooperative. Appropriate mood and affect [facility] Medical History Prediabetes Bronchiectasis Nontuberculous mycobacterial disease of lung Streptococcus viridans infection Arthritis Gallstones ISIAH (obstructive sleep apnea) HTN (hypertension) Pulmonary nodules Chronic bronchitis Surgical History Hx of total knee replacement History of surgical removal of pilonidal cyst History of arthroscopy of right knee Hx of colonoscopy (~10/14/22) Family History Mother Heart attack Father CHF (congestive heart failure) Social History Housing: House Alcohol intake: current Alcohol intake frequency: holidays/special occasions only Alcohol type: beer Patient Tobacco Use Status: Former Tobacco user Tobacco use type: Cigarette Years Smoked: 30 years Substance Use Type: Marijuana service: No Current occupational status: retired Cognitive needs: No Hearing needs: No Vision needs: Yes (reading glasses) Questionnaire PHQ-9 Over the last 2 weeks, how often have you been bothered by any of the following problems? 1. Little interest or pleasure in doing things: not at all 2. Feeling down, depressed, or hopeless: not at all 3. Trouble falling or staying asleep, or sleeping too much: not at all 4. Feeling tired or having little energy: not at all 5. Poor appetite or overeating: not at all 6. Feeling bad about yourself - or that you are a failure or have let yourself or your family down: not at all 7. Trouble concentrating on things, such as reading the newspaper or watching television: not at all 8. Moving or speaking so slowly that other people could have noticed. Or the opposite - being so fidgety or restless that you have been moving around a lot more than usual: not at all 9. Thoughts that you would be better off or of hurting yourself in some way: not at all Total score: 0 Depression Screening Interpretation: Negative Depression Screening Done: Yes 48939 - PHQ-9 Billing: Yes Source: Developed by Drs. Burak Posada, Paola Glasgow, Simón Peña and colleagues, with an educational vamshi from [employer]. Thrive Questionnaire Date Thrive assessed: 10/08/24 I am a: Patient What is your living situation today?: I have a steady place to live Within the past 12 months, did the food you bought not last and you didn't have the money to get more?: Never true Within the past 12 months, did you worry whether your food would run out before you got money to buy more?: Never true Do you have trouble paying for medicines?: No Do you have trouble getting transportation to medical appointments?: No Do you have trouble paying your heating and electricity bill?: No Do you have trouble taking care of your child, family member or friend?: No Do you have trouble with day-to-day activities such as bathing, preparing meals, shopping, managing finances, etc.?: No Are you currently unemployed and looking for a job?: No Are you interested in more education?: No Please select the resources that you would like help with: None Currently or been in a relationship where the following occur: No concerns reported THRIVE Score: 0 AUDIT C Alcohol Use Questionnaire (AUDIT-C) 1. How often do you have a drink containing alcohol?: Monthly or less 2. How many drinks containing alcohol do you have on a typical day when you are drinking?: 1 or 2 3. How often do you have six or more drinks on one occasion?: Never Total Score: 1 MERLE-7 AMB Questionnaire MERLE-7 Date MERLE - 7 assessed: 08/02/24 Feeling nervous, anxious, or on edge: 0 = Not at all Not being able to stop or control worryin = Not at all Worrying too much about different things: 0 = Not at all Trouble relaxin = Not at all Being so restless that it is hard to sit still: 0 = Not at all Becoming easily annoyed or irritable: 0 = Not at all Feeling afraid as if something awful might happen: 0 = Not at all Total MERLE-7 score (0-4 normal; 5-9 mild; 10-14 moderate; 15-21 severe): 0 Source: Developed by Drs. Burak Posada, Paola Glasgow, Simón Peña and colleagues, with an educational vamshi from [employer]. Physical exam (Primary Care) Vital Signs: Last Vital Signs Pulse 60 10/11/24 10:12 Resp 14 10/11/24 10:12 BP 114/64 10/11/24 10:12 Pulse Ox 94 10/11/24 10:12 Oxygen Delivery Method Room Air 10/11/24 10:12 BMI result Body Mass Index 42.8 Tobacco/Smoking Status: Tobacco use Status Tobacco use date assessed 10/11/24 10/11/24 10:20 Patient Tobacco Use Status Former Tobacco user 10/11/24 10:20 Tobacco use type Cigarette 10/11/24 10:20 Depression Screening Interpretation: Negative Thrive Assessment: Date of Thrive Assessment Date Thrive assessed 10/08/24 10/11/24 10:20 Currently or been in a relationship where the following occur: No concerns reported Coding Level of Care Code Est Pt Level 4 (62148) Complex EM visit Add On G2211 Diagnoses Type 2 diabetes mellitus without complication, without long-term current use of insulin E11.9 Diabetes mellitus type: type 2 Diabetes mellitus custodial insulin use: without custodial use Diabetes mellitus complication status: without complication Primary hypertension I10 Hypertension type: primary hypertension ISIAH (obstructive sleep apnea) G47.33 Injury of low back, sequela S39.92XS Encounter type: sequela Additional Codes PHQ-9 - 23953 - PHQ-9 Billing: Yes ([id number]) Assessment & Plan Assessment & Plan (1) Diabetes: Code(s): E11.9 - Type 2 diabetes mellitus without complications Category: Medical Qualifiers: Diabetes mellitus type: type 2 Diabetes mellitus long term acute care registered nurse insulin use: without long term acute care registered nurse use Diabetes mellitus complication status: without complication Qualified Code(s): E11.9 - Type 2 diabetes mellitus without complications (2) HTN (hypertension): Code(s): I10 - Essential (primary) hypertension Category: Medical Qualifiers: Hypertension type: primary hypertension Qualified Code(s): I10 - Essential (primary) hypertension (3) ISIAH (obstructive sleep apnea): Code(s): G47.33 - Obstructive sleep apnea (adult) (pediatric) Category: Medical (4) Lumbosacral injury: Code(s): S39.92XA - Unspecified injury of lower back, initial encounter Qualifiers: Encounter type: sequela Qualified Code(s): S39.92XS - Unspecified injury of lower back, sequela Plan 73 year old male presenting for follow up DM is well controlled. Increase ozempic to 0.5mg weekly HTN is well controlled Low back pain -muscle relaxer and prednisone sent Orders: Orders Hemoglobin A1c 3 Months E11.9 - Type 2 diabetes mellitus without complications, I10 - Essential (primary) hypertension Basic Metabolic Panel 3 Months E11.9 - Type 2 diabetes mellitus without complications, I10 - Essential (primary) hypertension Liver Panel 3 Months E11.9 - Type 2 diabetes mellitus without complications, I10 - Essential (primary) hypertension Medications: New cyclobenzaprine 5 - 10 mg (1 - 2 x 5 mg) PO BEDTIME PRN 30 tabs 1RF muscle spasm prednisone 40 mg (2 x 20 mg) PO DAILY 6 tabs 0RF
[2024-10-11 10:12] VITALS: BP 114/64; PULSE 60; RESP 14; O2SAT 94; BMI 42.8
--- OUTSIDE RECORDS SUMMARY | 2024-10-11 11:04 | XMS_ITS | Encounter Summary ---
Author Organization [facility] Address [address] [place] [address] Phone Care Team Providers Care Library Circulation Clerk Name Role Phone Silverio Rutherford MD Primary Care Provider Encounter Details Date Type Department Care Team (Late st Contact Info) Description 11/26/2016 Ancillary Orders [facility] [address] [place] [address] Gonzalo Torres MD [address] [facility] [place] [address] Social History Tobacco Use Types Packs/Day Years [...] on filedocumented in this encounter Care Teams Library Circulation Clerk Relationship Specialty Start Date End Date Silverio Rutherford MD [address] [place] [address] [place] [address] PCP - General 08/30/16 documented as of this encounter Additional Source Comments The information contained in this document represents components of the legal health record. It is not the complete legal health record.[facility]
--- OUTSIDE RECORDS SUMMARY | 2024-10-11 11:04 | XMS_ITS | Clinical Summary ---
Author Organization [facility] Address [address] [place] [address] Phone Care Team Providers Care Naval Gunfire Spotter Name Role Phone Silverio Rutherford MD Primary [...] DEPRESSION SCREENING 1963 SMOKING Hx and SMOKELESS TOBACCO SCREENING 10/20/1964 HEPATITIS C SCREENING 10/20/1969 COLOGUARD 10/20/1996 COLONOSCOPY 10/20/1996 COLORECTAL CANCER SCREENING 10/20/1996 FIT TEST 10/20/1996 FOBT 10/20/1996 SIGMOIDOSCOPY 10/20/1996 VIRTUAL COLONOSCOPY 10/20/1996 ZOSTER VACCINES (2 of 3) 04/30/2014 03/05/2014 PNEUMOCOCCAL VACCINES (50+ years) (2 of 2 - PPSV23) 11/09/2019 11/08/2018 INFLUENZA VACCINE (#1) 2024 0, 11/08/2018, 11/02/2016 COVID-19 VACCINE (2 - 2024-2 6 season) 2024 04/02/2020 RSV VACCINE (1 - 1-dose 75+ [...] Medical Devices Not on file Care Teams Naval Gunfire Spotter Relationship Specialty Start Date End Date Silverio Rutherford MD [address] [place] [address] [place] [address] PCP - General 08/30/16 Additional Source Comments The information contained in this document represents components of the legal health record. It is not the complete legal health record.[facility]
--- OUTSIDE RECORDS SUMMARY | 2024-10-11 11:04 | XMS_ITS | Clinical Summary ---
Author Organization [employer] Address [address] [facility] 7t [place] [address] Care Team Providers Care Geophysical Manager Name Role Phone Unavailable Primary Care Provider [...] COVID-19 Vaccine ( - 2023-2 5 season) 2024 Influenza Vaccine (#1) 2024 01/16/2024 RSV Patients [...]
--- OUTSIDE RECORDS SUMMARY | 2024-10-11 11:04 | XMS_ITS | Encounter Summary ---
Author Organization [facility] Address [address] [place] [address] Phone Care Team Providers Care Telephone Triage Nurse Name Role Phone Silverio Rutherford MD Primary Care Provider Encounter Details Date Type Department Care Team (Latest Contact Info) Description 11/26/2016 Ancillary Orders [facility] [address] 3rd Floor, [address] [place] [address] Gonzalo Torres MD [address] [place] [address] Diagnosis unknown Social History Tobacco Use Types [...] unknown documented in this encounter Care Teams Telephone Triage Nurse Relationship Specialty Start Date End Date Silverio Rutherford MD [address] [place] [address] [address] PCP - General 08/30/16 documented as of this encounter Additional Source Comments The information contained in this document represents components of the legal health record. It is not the complete legal health record.[facility]
== END 2024-10-11 10:47 | disposition home or self-care (01) ==
LOC: HO.HMCFM 10:09
PROVIDERS: PCP Internal Medicine; Visit Provider Internal Medicine
DX: E11.9 Type 2 diabetes mellitus without complications (principal); I10 Essential (primary) hypertension; G47.33 Obstructive sleep apnea (adult) (pediatric); S39.92XS Unspecified injury of lower back, sequela

== ENCOUNTER → 2024-10-11 10:08 | Outpatient (BNVA) | payer MEDICARE, OTHER, SELFPAY | PROVIDERS: PCP Internal Medicine; Visit Provider Internal Medicine | DX: E11.9 Type 2 diabetes mellitus without complications (principal); I10 Essential (primary) hypertension; G47.33 Obstructive sleep apnea (adult) (pediatric); S39.92XS Unspecified injury of lower back, sequela | CPT/HCPCS: 96127; 99212 ==

== ENCOUNTER 2024-11-12 15:50 | Outpatient (REF) | payer MEDICARE, OTHER, SELFPAY ==
--- OUTSIDE RECORDS SUMMARY | 2024-03-11 05:15 | XMS_ITS ---
[facility] Address [address] [place] [id number] Care Team Providers Care Flatwork Finisher Name Role Phone Nydia Peck Primary Care Provider Daisy Childers [phone] Encounters Encounter Location Date Provider Diagnosis [address] [address] 03/11/2024 Daisy Dailey Plan Of Treatment Next Appt Details Provider Name:Daisy manuel, 12/12/2024 01:00:00 PM, [address] [place] [address], [phone], Progress Notes * Lisandro CUEVASDOB: 2 (74 yo M)Acc No.[id number]:03/11/2024 Progress Note Patient: Lisandro JAY Provider: Bj Dailey DPM :1950 A ge:73 Y S ex:Male Date:03/11/2024 Address:[address] [id number] Pcp:Nydia Peck Subjective: * Chief Complaints: * * Medical History: Objective: * Vitals: Assessment: Plan: * Treatment: * Images: * The named appointment provid er may or may not be the originator of this progress note, and it is not deemed complete until electronically signed by the appointment provider. Sign off status: Pending * Provider: Bj Dailey DPM Date: 0 03/11/2024 Generated for Madhuri forte/Lexie/Pantera on: 1 06:46 PM EDT
--- OUTSIDE RECORDS SUMMARY | 2024-10-02 10:30 | XMS_ITS ---
Author Organization [facility] Address [address] [place] [id number] Care Team Providers Care Auto Overhauler Name Role Phone Nydia Peck Primary Care Provider Daisy Childers [phone] REASON FOR VISIT Seen Sooner Encounters Encounter Location Date Provider Diagnosis [address] [id number] 10/02/2024 Daisy Dailey Plan Of Treatment Next Appt Details Provider Name:Daisy manuel, 12/12/2024 01:00:00 PM, [address] [place] [address], [id number], Progress Notes * Lisandro CUEVASDOB: 2 (74 yo M)Acc No.[id number]:10/02/2024 Progress Note Patient: Lisandro JAY Provider: Bj Dailey DPM :1950 A ge:73 Y S ex:Male Date:10/02/2024 Address:[id number] Pcp:Nydia Peck Subjective: * Chief Complaints: * 1 . Seen Sooner. * Medical History: Objective: * Vitals: Assessment: Plan: * Treatment: * Images: * The named appointment provid er may or may not be the originator of this progress note, and it is not deemed complete until electronically signed by the appointment provider. Sign off status: Pending * Provider: Bj Dailey DPM Date: 0 10/02/2024 Generated for Madhuri forte/Lexie/Pantera on: 06:46 PM EDT
--- NOTE | ~2024-11-12 | CT_ITS ---
EXAMINATION: CT CHEST WITHOUT CONTRAST CLINICAL INFORMATION: R91.8 - Other nonspecific abnormal finding of lung field COMPARISON: 10/24/2023 and 10/07/2021 CT and x-ray March 08, 2024 TECHNIQUE: Multidetector volumetric CT imaging of the chest was done. Axial MIP volume rendering provided. Sagittal and coronal reformatted images were obtained. This CT examination was performed using dose optimization techniques as appropriate, variously including the following: *Automated exposure control *Adjustment of mA and/or kV according to patient size (this includes techniques or standardized protocols for targeted exams where dose is matched to indication/reason for exam; i.e. extremities or head) *Use of iterative reconstruction technique FINDINGS: LUNGS: Stable 3 mm calcified nodule in the right middle lobe near the minor fissure is stable. Axial CT #4 Image 79, right lower lobe nodule measuring 7 mm is unchanged since 202. Image 65: Superior left lower lobe solid nodule measures 6 mm, previously 8 mm, before that 5 mm. Images 82 and 84: There are two left lower lobe solid nodules that appears similar to the prior. Image 112: There is a solid nodule in the posterior left lower lobe 6 mm diameter, unchanged from 2022. Image 121: Nodule is thought to be the same nodule as image 112 related to breathing artifact. There are other scattered smaller nodular densities in the lungs and branching densities consistent with mucus plugging. There are other smaller nodules MEDIASTINUM: The mediastinum is normal. CORONARY ARTERY CALCIFICATION: Present PLEURA: No pleural effusion or pleural thickening. AXILLA: No lymphadenopathy. UPPER ABDOMEN: There is calcification in the wall the gallbladder that has been present since 202. OSSEOUS STRUCTURES: Extensive bridging osteophytes are present in the anterior thoracic spine. CT/CT chest wo IV con IMPRESSION: Stable pulmonary nodules and pulmonary changes compared with 2022. Porcelain gallbladder with incomplete calcification. There is a questionable increased risk of gallbladder cancer with this condition. 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 Electronically signed by: Vipin Lara MD 11/12/2024 04:49 PM EDT
--- OUTSIDE RECORDS SUMMARY | 2024-11-12 18:46 | XMS_ITS | Clinical Summary ---
Author Organization [employer] Address [address] [facility] [address] 7t [place] [address] Care Team Providers Care Parachute Inspector Name Role Phone Unavailable Primary Care Provider [...]
--- OUTSIDE RECORDS SUMMARY | 2024-11-12 18:46 | XMS_ITS | Encounter Summary ---
Author Organization [facility] Address [address] [place] [address] Phone Care Team Providers Care Army Officer Name Role Phone Silverio Rutherford MD Primary Care Provider Encounter Details Date Type Department Care Team (Latest Contact Info) Description 11/26/2016 Ancillary Orders [facility] [address] [facility] 3rd Floor, [address] [place] [address] Gonzalo Torres MD [address] [place] [address] Diagnosis unknown Social History Tobacco Use Types [...] unknown documented in this encounter Care Teams Army Officer Relationship Specialty Start Date End Date Silverio Rutherford MD [address] [place] [address] [address] PCP - General 08/30/16 documented as of this encounter Additional Source Comments The information contained in this document represents components of the legal health record. It is not the complete legal health record.[facility]
--- OUTSIDE RECORDS SUMMARY | 2024-11-12 18:46 | XMS_ITS | Encounter Summary ---
Author Organization [facility] Address [address] [place] [address] Phone Care Team Providers Care Delinquent Tax Collection Assistant Name Role Phone Silverio Rutherford MD Primary Care Provider Encounter Details Date Type Department Care Team (Late st Contact Info) Description 11/26/2016 Ancillary Orders [facility] [address] [place] [address] Gonzalo Torres MD [address] [facility] [place] [address] Social History Tobacco Use Types Packs/Day Years [...] on filedocumented in this encounter Care Teams Delinquent Tax Collection Assistant Relationship Specialty Start Date End Date Silverio Rutherford MD [address] [place] [address] [place] [address] PCP - General 08/30/16 documented as of this encounter Additional Source Comments The information contained in this document represents components of the legal health record. It is not the complete legal health record.[facility]
--- OUTSIDE RECORDS SUMMARY | 2024-11-12 18:46 | XMS_ITS | Clinical Summary ---
Author Organization [facility] Address [address] [facility] [address] [place] [address] Phone Care Team Providers Care Wildlife Rehabilitator Name Role Phone Silverio Rutherford MD Primary [...] Medical Devices Not on file Care Teams Wildlife Rehabilitator Relationship Specialty Start Date End Date Silverio Rutherford MD [address] [place] [address] [place] [address] PCP - General 08/30/16 Additional Source Comments The information contained in this document represents components of the legal health record. It is not the complete legal health record.[facility]
--- OUTSIDE RECORDS SUMMARY | 2024-11-12 18:46 | XMS_ITS | Patient Health Record ---
Author Organization [facility] Address [address] [facility] [place] [address] Care Team Providers Care Body Designer Name Role Phone CiscoLuis Eduardo arreagaah Primary Care Provider UnavailDaisy Carr Unavailable [phone] Maciel Vera Unavailable [phone] Allergies No Known Allergies Results Component Value Reference Range Notes HEMOGLOBIN A1C (GLYCOHEMOGLO BIN) Reviewed date:07/03/2024 02:51:44 PM Interpretation: Performing Lab: Notes/Report: HEMOGLOBIN A1C % (HH) 5.6 Reason For Referral No Information Medications Medication SIG (Take, Route, Frequency, Duration) Notes Start Date End Date Status Posaconazole Not-Esteban ing Fluoxetine Active Cephalexin 500 MG 1 tablet Orally Twic e a day; Duration: 5 days Not-Taking ALPRAZolam Not-Takin g amLODIPine Benzoate Active busPIRone HCl 10 MG 1 tablet Orally Twic e a day Active Atorvastatin Calcium Active oxyCODONE HCl 5 MG 1 tablet as needed Orally every 6 hrs Not-Taking Aspirin 81 Active HYDROcodone-Acetaminophen Not-Taking Lisinopril Active Saline Active albuterol Active hydroCHLOROthiazide 25 MG 1 tablet Orall y Once a day; Duration: 30 day(s) Active Immunizations Vaccine Route Administration Date Status Comme nts Influenza Unknown 11/24/2021 Administered COVID-19 Moderna Vaccine Unknown 11/24/2021 Administered 1st 04/02/2020 2nd 04/30/2020 3rd 10/31/2020 Social History Tobacco Use: Social History Observation Description Date Details (start date - stop date) Never Smoker NA - NA Tobacco use other than smoking: Question Answer Notes Are you an other tobacco user? No Tobacco Control (Standard) Question Answer Notes Tobacco use: Nonsmoker Additional Findings: Tobacco non-user Current no nsmoker AUDIT-C (Standard) Question Answer Notes Did you have a drink containing alcohol in the p ast year? No Points 0 Interpretation Negative Problems Problem Type SNOMED Code ICD Code Onset Dates Problem Status W/U Status Risk Notes Problem Polyneuropathy due to type 2 diabetes mellitus ([id number]) Type 2 diabetes mellitus with diabetic polyneuropathy (E11.42) Active confirmed Vital Signs Blood pressure diastolic 65 mm Hg 09/12/2024 Height 5ft 4in in 09/12/2024 Blood pressure systolic 128 mm Hg 09/12/2024 Weight 265 lbs 09/12/2024 BMI 45.48 kg/m2 09/12/2024 Procedures Procedure Date Ordered Date Performed Result Body Sit e 28503-YXBL SKIN LESIONS, 2 TO 4 12/07/2023 N/A 74080-FNYBGRU NAIL, 6 OR MORE 07/03/2024 N/A 82742-SYZT SKIN LESIONS, 2 TO 4 07/03/2024 N/A 07731-QJNKIBR NAIL, 6 OR MORE 09/12/2024 N/A 61426-Xqmliflu Plate 09/12/2024 N/A 16240-HGDG SKIN LESIONS, 2 TO 4 09/12/2024 N/A Encounters Encounter Location Date Provider Diagnosis [facility] [address] [address] 12/07/2023 Maciel Vera Tinea unguium B35.1 ; Pain in right toe(s) M79.674 ; Pain in left toe(s) M79.675 ; Type 2 diabetes mellitus with diabetic polyneuropathy E11.42 ; Other hammer toe(s) (acquired), left foot M20.42 ; Other hammer toe(s) (acquired), right foot M20.41 ; Ingrowing nail L60.0 and Xerosis cutis L85.3 [facility] [address] [address] 07/03/2024 Daisy Dailey Type 2 diabetes mellitus with diabetic polyneuropathy E11.42 and Tinea unguium B35.1 [facility] [address] [place] [address] 09/12/2024 Daisy Dailey Type 2 diabetes mellitus with diabetic polyneuropathy E11.42 ; Tinea unguium B35.1 and Ingrown nail L60.0 [facility] [address] [place] [address] 03/07/2024 [facility] [address] [facility] [address] [place] [address] 09/09/2024 Daisy Dailey Assessments Encounter Date Diagnosis (ICD Code) Assessment Notes Treatment Notes Treatment Clinical Notes Section Notes 12/07/2023 Tinea unguium (ICD-10 - B35.1) 12/07/2023 Pain in right toe(s) (ICD-10 - M79.674) 07/03/2024 Type 2 diabetes mellitus with diabetic polyneuropathy (ICD-10 - E11.42) 07/03/2024 Tinea unguium (ICD-10 - B35.1) 09/12/2024 Type 2 diabetes mellitus with diabetic polyneuropathy (ICD-10 - E11.42) 09/12/2024 Tinea unguium (ICD-10 - B35.1) 12/07/2023 Pain in left toe(s) (ICD-10 - M79.675) 09/12/2024 Ingrown nail (ICD-10 - L60.0) 12/07/2023 Type 2 diabetes mellitus with diabetic polyneuropathy (ICD-10 - E11.42) 12/07/2023 Other hammer toe(s) (acquired), left foot (ICD-10 - M20.42) 12/07/2023 Other hammer toe(s) (acquired), right foot (ICD-10 - M20.41) 12/07/2023 Ingrowing nail (ICD-10 - L60.0) 12/07/2023 Xerosis cutis (ICD-10 - L85.3) Plan Of Treatment Pending Test Test Name Order Date 52160-RPXBFZP NAIL, 6 OR MORE 07/03/2024 31171-LJMYJIE NAIL, 6 OR MORE 09/12/2024 36868-Qaczftzc Plate 09/12/2024 88415 I&D ABSCESS- SIMPLE,SINGLE 021 89859-FMWT SKIN LESIONS, OVER 4 12/01/19 23 71102-TCMP SKIN LESIONS, 2 TO 4 12/07/19 24 32811-HJSG SKIN LESIONS, 2 TO 4 07/04/19 25 85446-ZUPE SKIN LESIONS, 2 TO 4 12/03/19 21 52283-QZBS SKIN LESIONS, 2 TO 4 06/03/19 22 31652-QNNM SKIN LESIONS, 2 TO 4 05/12/19 21 72564-SBAQ SKIN LESIONS, 2 TO 4 09/13/19 25 64574-BNHCVSTD OF HEMATOMA/FLUID 023 Next Appt Details Provider Name:Daisy Jewell kaleb, 12/12/2024 01:00:00 PM, [address] [facility], [place], [address], Insurance Providers Payer Name Payer Address Payer Phone Subscriber Number Group Number Insured Name Patient Relationship to Insured Coverage Start Date Coverage End Date Medicare National [employer] [address] [facility] [address] [id number] Lisandro Rodriguez Self - patient is the insured [place] [address] [place] [id number] Lisandro Rodriguez Self - patient is the insured Medical (General) History Medical History History ICD Code measles psoriasis/eczema hypertension back, hip, knee pain Arthritis Vascular grafts pre type II diabetes Surgical History Surgery Date(Month/Year) knee replacement 12/24-12/25 Meniscus repair 2015 cataract surgery 2020 knee cleaned out 2020 Lung Biopsy colonoscopy 2021 Hospitalization History Reason Date(Month/Year) CT scan bacterial infection lungs 2021
== END 2024-11-12 15:51 | disposition home or self-care (01) ==
LOC: HO.CT 15:50
PROVIDERS: PCP Internal Medicine; Visit Provider Hospitalist
DX: R91.8 Other nonspecific abnormal finding of lung field (principal)
CPT/HCPCS: 71250

== ENCOUNTER → 2024-11-12 15:51 | Outpatient (BNV) | payer MEDICARE, OTHER, SELFPAY | PROVIDERS: PCP Internal Medicine; Visit Provider Radiology Diagnostic Radiology | DX: K82.8 Other specified diseases of gallbladder (principal) | CPT/HCPCS: 71250 ==

== ENCOUNTER 2024-11-28 13:35 | Outpatient (AMB) | payer MEDICARE, OTHER, SELFPAY ==
[2024-11-28 13:52] VITALS: BP 146/60; PULSE 64; O2SAT 94; BMI 42.8
--- NOTE | 2024-11-28 13:52 | A.OFFVIS_ITS ---
Vital Signs 11/28/24 13:52 Height 5 ft 4 in Weight 249 lb 1.957 oz BMI 42.8 BP 146/60 H Blood Pressure Location Lt brachial Position Sitting Pulse 64 Pulse Source Pulse Oximeter Pulse Oximetry (%) 94 Oxygen Delivery Method Room Air Intake Visit Reasons: COPD Science Technician Required: No Accompanied by: Self / Same As Patient Allergies No Known Allergies (No Known Allergies*) Allergy (Verified 11/28/24 14:05) HPI Comments Details: The patient is a 74-year-old gentleman with a known history of hypertension currently on ANNE-inhibitor was started developing worsening cough. Apparently he had been exposed to very unclean environment prior to developing the worsening cough. He was cleaning house for 3 weeks without a respirator. He started developing worsening cough. Therefore, he went to see his primary care doctor ordered a chest x-ray. There appeared to be nodular opacity the right hemithorax. Therefore, he underwent a CT scan of the chest. The CT scan he did demonstrate evidence tree-in-bud in addition to bronchitis and bronchiolitis. In addition to that appears to mucus plugging with what appears to be a density in the right middle lobe which also appears to be inspissated mucus. Again malignancies also in differential although he appears to disease elsewhere suggesting that is more of a diffuse process. Likely from a exposure. Therefore, will have him undergo blood work in addition to start chest physical therapy with a flutter valve to see if he can clear his own mucus. The patient is aware that he needs to avoid significant tracey or moldy environment. And if he ever needs to going to that is dosing virus he needs to wear a respirator. Will plan to follow-up in 4 weeks with chest x-ray and pulmonary function studies. If the densities still present on his x-ray or getting worse with definitely perform bronchoscopy at that time. 09/08/2022 the patient is here for pulmonary follow-up visit. The patient overall is doing well. Although he has been taking care of his sick in therefore not been able to take care of himself. He has not been performing the chest PT and the patient has not been using his inhaler. He is been using the APAP. The APAP therapy has been affecting beneficial. I did download the machine and his AHI is down to 1. He feels sometimes the pressure is not high enough, therefore increased his minimum pressure from 8-10 cm. The patient also had a CT scan of the chest that I personally reviewed. It appears that he has significant treating budding pulmonary nodules 3 much unchanged from before. He does have mycobacterial disease. At this point in view of the persistent findings will go ahead and start him on azithromycin therapy. 03/17/2023 the patient is here for a pulmonary follow-up visit. Overall he doing well. He is concerned that he is gained weight. Respiratory status stable. He did take the azithromycin but only for a month. Then he stopped it. Has not seen any significant congestion or cough. He is slightly short of breath but partly because of his weight gain and also having knee issues. The patient's last CT scan was back in July 2022 demonstrating the nodular densities again on the right side but also on the left upper lobe. The patient had a CT scan at a location [place]. We did compare to his previous. No significant changes. Although the Sizer significant. Will plan to repeat the CT scan in the fall 2023. He needs to continue using the chest PT for mucus clearance. The patient will hold off on azithromycin right now but if the CT scans worse then he will have to go back on antimycobacterial therapy. If he becomes congested I did give him a sputum cup so we can provide us another AFB culture. The patient is also using CPAP. CPAP therapy has been affecting beneficial. He still feels like his AHI is going up. Likely from the weight gain. Current settings are 8- 16. His average pressure is around 9 cm and sometimes he goes up to 15. Therefore, I will just increase the pressures the little bit 10/08/2016. He will try it if he has any difficulties he will call the office about in change in back. The therapy continues to be affecting beneficial. His AHI is 2.3. 05/19/2023 the patient is here for sick visit. The patient has been complaining of shortness of breath along with feeling tremulousness internally. Feels anxious. He has been having a lot of issues with the family with health issues. Making him a little bit more concerned. He went to the ER because the shortness of breath in the anxious feeling. He had a blood work done which is reassuring. EKG was consistent with sinus bradycardia. Ultimately after that he did undergo a Holter monitor and demonstrated bradycardia. He then went to see his primary care doctor for order blood work including a D-dimer though slightly elevated. He was recommended to go to the ER if symptoms worsen. The patient did come in for sick visit. He is feeling little better although he still having this episodic episodes of the shortness of breath sensation in the fluttering side. We did go for brief walking oximetry the patient maintained a nice stable pulse ox and also heart rate actually came up to about 80 beats per minute. He has been pretty sedentary for the last few weeks since his has been healing from surgery. The patient also has significant lower extremity edema. Since he went to the ER is trying to make dietary discretion. I do believe that he is volume overloaded and taking a diuretic a stronger diuretic for a few days will be helpful in improving his volume status and hopefully that will decrease the workload hard. I am concerned for his underlying cardiac risk. He is going to be seeing Cardiology in July. Will go ahead and request a nuclear stress test at this time. In the meantime the patient is using the CPAP. The CPAP therapy has been affecting beneficial in his AHI now is below 1 which is reassuring. He is trying to sleep elevated. The patient also has been taking a baby asthma which I believe is a good idea. 11/10/2023 the patient is here for a follow-up visit. Overall he is doing well. Over the summer he was given a diagnosis of the atrial fibrillation and became a little concerned with that but subsequently after that he has followed up with Cardiology and has no evidence of any atrial filling additional this time. In addition to that he did undergo a CT scan of the chest that I personally reviewed. Unfortunately has not been officially read yet. The appears that the nodular densities are completely stable and unchanging. Most likely the related to the smoldering mycobacterial disease infection. Clinically he is doing well so therefore we do not have to consider treating him at this time. Although if there is any evidence of any worsening disease with symptoms or Radiology findings and we can also consider treating him then. He has been using the CPAP. CPAP therapy continues to be affecting beneficial he does try to use it more than 4 hours a night. 04/04/2024 the patient is here for a pulmonary follow-up visit. Overall the patient has been doing fair. She still having some left-sided chest discomfort. It comes and goes. He is better right now. He did go to the ER because he was concerning anxious about the discomfort. He had his initial cardiac evaluation was negative. He did follow-up with cardiology it now scheduled to undergo a coronary artery CT scan. The patient also had CT scan of the chest back in the fall 2023 which I personally reviewed with him that and now. Patient does have some evidence of the pulmonary nodules in a little bit of emphysema. Will plan to repeat the CT scan again in the fall of 2024. For now continue with CPT and will follow-up with the cardiology evaluation. I suspect that his symptoms may be more musculoskeletal suggesting possible muscular spasms or diaphragmatic irritation. Once his cardiac workup is complete consider antispasmodic agents to see this provides him relief. 11/28/2024 the patient is here for pulmonary follow-up visit. Overall the patient is doing well. Although he does complaint of increasing fatigue just feel like he is not himself. [id number] severity. He has been using the CPAP in the CPAP therapy has been affecting beneficial. He does use it 100% of the time. He uses the fullface mask. I did download the data in his AHI is down to 0.5. Therefore his machine is working just fine and he is sleeping adequately enough to feel rested in the morning. Still though with the increased fatigue we need to consider other etiologies. The patient did have a CT scan of the chest which we personally reviewed. Pulmonary nodules appear to be stable which is overall reassuring. They did not comment on a porcelain gallbladder. He denies any abdominal discomfort at this time. Will go ahead and refer him to General surgery in order for him to be evaluated for that specially since he is developing some constitutional vague symptoms. The patient follow-up in a year's time will follow-up with a CAT scan at that point follow-up with the pulmonary nodules if any issues arise prior to that he can always call for further recommendations. 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 Arthritis Gallstones ISIAH (obstructive sleep apnea) HTN (hypertension) Pulmonary nodules Chronic bronchitis Surgical History Hx of total knee replacement History of surgical removal of pilonidal cyst History of arthroscopy of right knee Hx of colonoscopy (~11/19/21) Family History Mother Heart attack Father CHF (congestive heart failure) Social History Housing: House Alcohol intake: current Alcohol intake frequency: holidays/special occasions only Alcohol type: beer Patient Tobacco Use Status: Former Tobacco user Tobacco use type: Cigarette Years Smoked: 30 years Substance Use Type: Marijuana service: No Current occupational status: retired Cognitive needs: No Hearing needs: No Vision needs: Yes (reading glasses) Review of Systems Const All systems reviewed & are unremarkable except as noted in HPI and below Reports fatigue and Denies night sweats ENT Denies change in voice, Denies lip swelling, Denies mouth pain, Reports nasal congestion, Reports nasal discharge and Denies tongue swelling Card Reports chest pain and Reports dyspnea on exertion Resp Reports cough and Reports dyspnea on exertion GI Denies abdominal pain Musc Denies no additional complaints Neuro Denies Neuro-related abnormal movements Psych Denies no additional complaints Endo Reports fatigue Naun/Lymph Denies easy bleeding and Denies lymphadenopathy Aller/Immun Denies lip swelling and Denies tongue swelling Physical Exam Vital Signs: Last Vital Signs Pulse 64 11/28/24 13:52 BP 146/60 H 11/28/24 13:52 Pulse Ox 94 11/28/24 13:52 Oxygen Delivery Method Room Air 11/28/24 13:52 BMI result Body Mass Index 42.8 Const General: alert Neck Neck: Yes normal visual inspection, Yes full ROM and Yes no lymphadenopathy Chest Chest palpation & inspection: normal inspection of the chest Resp Auscultation: diminished lung sounds Cardio Rate: regular rate Rhythm: regular rhythm Heart sounds: S1 normal heart sound present and S2 normal heart sound present GI Palpation (GI): Soft to palpation and nontender Auscultation: normal bowel sounds Skin General skin exam: rashes and/or lesions noted Assessment & Plan Assessment & Plan (1) Pulmonary nodules: Code(s): R91.8 - Other nonspecific abnormal finding of lung field Category: Medical (2) Chronic bronchitis: Code(s): J42 - Unspecified chronic bronchitis Category: Medical Qualifiers: Chronic bronchitis type: mixed simple and mucopurulent Qualified Code(s): J41.8 - Mixed simple and mucopurulent chronic bronchitis (3) Nontuberculous mycobacterial disease of lung: Code(s): A31.0 - Pulmonary mycobacterial infection Category: Medical (4) Bronchiectasis: Code(s): J47.9 - Bronchiectasis, uncomplicated Category: Medical Qualifiers: Bronchiectasis type: uncomplicated Qualified Code(s): J47.9 - Bronchiectasis, uncomplicated (5) Porcelain gallbladder: Code(s): K82.8 - Other specified diseases of gallbladder Category: Medical Plan continue hypertonic saline 7% via nebulizer CPT continue APAP therapy, AHI 0.8 cradiac evaluation, single vessel LAD, medical management CT chest in November 2024 with porcelain GB , will refer to General Surgery for evaluation Repeat CT chest 1 yr F/U 1 yr Orders: Orders CT chest wo IV con 11 Months R91.8 - Other nonspecific abnormal finding of lung field Referrals General Surgery Referral K82.8 - Other specified diseases of gallbladder Coding Level of Care Code Est Pt Level 4 (20308) Diagnoses Pulmonary nodules R91.8 Mixed simple and mucopurulent chronic bronchitis J41.8 Chronic bronchitis type: mixed simple and mucopurulent Nontuberculous mycobacterial disease of lung A31.0 Bronchiectasis without complication J47.9 Bronchiectasis type: uncomplicated Porcelain gallbladder K82.8 Time Spent (min) 17
--- OUTSIDE RECORDS SUMMARY | 2024-11-28 17:33 | XMS_ITS | Clinical Summary ---
Author Organization [employer] Address [address] [place] [address] Care Team Providers Care Assurance Auditor Name Role Phone Unavailable Primary Care Provider [...]
--- OUTSIDE RECORDS SUMMARY | 2024-11-28 17:33 | XMS_ITS | Clinical Summary ---
Author Organization [facility] Address [address] [place] [phone] Phone Care Team Providers Care Clearing Tub Worker Name Role Phone Silverio Rutherford MD Primary [...] Medical Devices Not on file Care Teams Clearing Tub Worker Relationship Specialty Start Date End Date Silverio Rutherford MD [address] [place] [address] [place] [address] PCP - General 08/30/16 Additional Source Comments The information contained in this document represents components of the legal health record. It is not the complete legal health record.[facility]
--- OUTSIDE RECORDS SUMMARY | 2024-11-28 17:33 | XMS_ITS | Encounter Summary ---
Author Organization [facility] Address [address] [place] [id number] Phone Care Team Providers Care Dry Molder Name Role Phone Silverio Rutherford MD Primary Care Provider Encounter Details Date Type Department Care Team (Late st Contact Info) Description 11/26/2016 Ancillary Orders [facility] [address] [place] [address] Gonzalo Torres MD [address] [place] [address] Social History Tobacco Use Types Packs/Day Years [...] on filedocumented in this encounter Care Teams Dry Molder Relationship Specialty Start Date End Date Silverio Rutherford MD [address] [place] [address] [place] [address] PCP - General 08/30/16 documented as of this encounter Additional Source Comments The information contained in this document represents components of the legal health record. It is not the complete legal health record.[facility]
--- OUTSIDE RECORDS SUMMARY | 2024-11-28 17:33 | XMS_ITS | Encounter Summary ---
Author Organization [facility] Address [address] [place] [address] Phone Care Team Providers Care Conveyor Tender [employer] Name Role Phone Silverio Rutherford MD Primary Care Provider Encounter Details Date Type Department Care Team (Latest Contact Info) Description 11/26/2016 Ancillary Orders [facility] [address], [address] [place] [address] Gonzalo Torres MD [address] [place] [address] Diagnosis unknown Social History Tobacco Use Types [...] unknown documented in this encounter Care Teams Conveyor Tender [employer] Relationship Specialty Start Date End Date Silverio Rutherford MD [address] [place] [address] [address] PCP - General 08/30/16 documented as of this encounter Additional Source Comments The information contained in this document represents components of the legal health record. It is not the complete legal health record.[facility]
== END 2024-11-28 14:32 | disposition home or self-care (01) ==
LOC: HO.HPS 13:37
PROVIDERS: PCP Internal Medicine; Visit Provider Hospitalist
DX: R91.8 Other nonspecific abnormal finding of lung field (principal); J41.8 Mixed simple and mucopurulent chronic bronchitis; A31.0 Pulmonary mycobacterial infection; J47.9 Bronchiectasis, uncomplicated; K82.8 Other specified diseases of gallbladder
CPT/HCPCS: 99214

== ENCOUNTER → 2024-11-28 13:35 | Outpatient (BNVA) | payer MEDICARE, OTHER, SELFPAY | PROVIDERS: PCP Internal Medicine; Visit Provider Hospitalist | DX: J41.8 Mixed simple and mucopurulent chronic bronchitis (principal); J47.9 Bronchiectasis, uncomplicated; A31.0 Pulmonary mycobacterial infection; K82.8 Other specified diseases of gallbladder; Z87.891 Personal history of nicotine dependence; Z99.89 Dependence on other enabling machines and devices | CPT/HCPCS: 99212 ==

== ENCOUNTER 2024-12-25 20:15 | Emergency (ER) | payer MEDICARE, OTHER, SELFPAY ==
[2024-12-25 20:22] VITALS: BP 149/63; PULSE 77; RESP 20; TEMP 36.7; O2SAT 96; BMI 42.0
[2024-12-25 20:34] VITALS: BP 127/57; PULSE 83; RESP 18; TEMP 36.8; O2SAT 97
--- NOTE | 2024-12-25 20:48 | PC.NURSE ---
pt reports waking up a 4 am with numbness on the L side of his tongue, this subsided soon after, at 0900 he was given the flu shot. Reports hives on wrist and on chest, very itchy, states he feels like he has something stuck in his throat. Pt swallowing and speaking well. sp02 97% on room air. spouse at bedside
[2024-12-25 20:56] LABS: MANUAL DIFF FLAG NO
[2024-12-25 21:02] LABS: Hematocrit 41.6 % (42.0-52.0); Hemoglobin 13.9 g/dl (14.0-18.0); Imm Gran Abs Auto 0.04 X10*3/uL (0.00-0.03); Imm Gran Pct Auto 0.3 % (0.0-0.4); Lymphocytes Absolute Auto 2.1 X10*3/uL (1.2-4.9); Mean Corpuscular HGB Conc 33.4 g/dl (31.0-36.0); Mean Corpuscular Hemoglobin 29.7 pg (27.0-33.0); Mean Corpuscular Volume 88.9 fL (80.0-98.0); NRBC Abs Auto 0.000 X10*3/uL (0.0-0.012); NRBC Pct Auto 0.0 /100WBC (0.0-0.2); Platelet Count 291 X10*3/uL (160-400); Red Blood Count 4.68 X10*6/uL (4.60-5.80); White Blood Count 12.9 X10*3/uL (4.8-10.8)
[2024-12-25 21:20] LABS: Alanine Aminotransferase 19 U/L (0-40); Albumin Level 4.2 g/dL (3.5-5.0); Alkaline Phosphatase 99 U/L (39-117); Anion Gap 10 (12-20); Aspartate Amino Transferase 28 U/L (5-37); Blood Urea Nitrogen 19 mg/dL (9-16); Calcium 9.7 mg/dL (8.4-10.2); Carbon Dioxide 30 mmol/L (22-29); Chloride 103 mmol/L (96-108); Creatinine Clr Calc Pharmacy 84.5; Estimated Glomerular Filt Rate > 60; Potassium 3.4 mmol/L (3.3-5.1); Sodium 140 mmol/L (135-145); Total Protein 6.8 g/dL (6.5-8.0)
[2024-12-25 22:36] VITALS: BP 137/58; PULSE 72; RESP 18; O2SAT 95
--- NOTE | 2024-12-25 23:50 | ED.GENADULT ---
HPI - General Adult General Chief complaint: Allergic Reaction Stated complaint: flu shot reaction ? Time Seen by Provider: 12/25/24 23:28 Source: patient, RN notes reviewed and old records reviewed Mode of arrival: ambulatory Limitations: no limitations History of Present Illness ED Provider: Bryce ARCEO narrative: 74-year-old male past medical history significant for diabetes, coronary artery disease, hypertension, morbid obesity, sleep apnea presents for evaluation of a rash. The patient reports that he got his flu shot around 1:30 p.m. today. Few hours later he noticed an itchy, red rash in his arms, chest. He took some Benadryl at home but no significant improvement. At the time of my evaluation he reports that his symptoms have improved greatly but he still has some itching and rash. The patient reports that he has gotten numerous flu shots in the past in his different had a reaction like this. He denies any difficulty breathing swallowing. He denies any new soaps, lotions, detergents, has not tried any new foods Additionally, the patient reports waking up this morning with left-sided tongue swelling. This has resolved by the time my evaluation. That has never happened to him before. He does not remember biting his tongue and did not have any pain Related Data Home Medications ?Medication ?Instructions ?Recorded ?Confirmed nebulizers 11/05/21 06/11/24 buspirone 10 mg tablet 10 mg PO BID PRN 09/08/22 07/26/24 Previous Rx's ?Medication ?Instructions ?Recorded sodium chloride 3 % for 4 ml inhalation BID secretions 09/08/22 nebulization #240 mL albuterol sulfate 2.5 mg/3 mL 2.5 mg (3 mL) inhalation Q4H PRN 11/21/23 (0.083 %) solution for nebulization shortness of breath or wheezing #180 mL aspirin 81 mg tablet,delayed 81 mg PO DAILY #30 tabs 06/11/24 release fluoxetine 20 mg capsule 20 mg PO DAILY #90 caps 06/27/24 amlodipine 5 mg tablet 5 mg PO DAILY #90 tabs 08/05/24 atorvastatin 40 mg tablet 40 mg PO BEDTIME #90 tabs 08/05/24 hydrochlorothiazide 12.5 mg tablet 12.5 mg PO DAILY #90 tabs 08/05/24 lisinopril 40 mg tablet 40 mg PO DAILY #90 tabs 08/05/24 albuterol sulfate 90 mcg/actuation 2 puff inhalation Q6H PRN for 09/13/24 aerosol inhaler wheezing #8.5 ea Ozempic 1 mg/dose (4 mg/3 mL) 1 mg (0.75 mL) subcut QWEEK #9 mL 10/23/24 subcutaneous pen injector (semaglutide) prednisone 20 mg tablet 40 mg (2 x 20 mg) PO DAILY #6 tabs 12/25/24 Allergies Allergy/AdvReac Type Severity Reaction Status Date / Time No Known Allergies (No Known Allergy Verified 12/25/24 20:26 Allergies*) Review of Systems Constitutional: Constitutional: Denies body ache(s), Denies chills, Denies fever(s) and Denies headache(s) Eyes: Eyes: Denies blurry vision ENT: Denies vertigo, Denies dizziness, Denies headache(s), Denies throat swelling and Reports tongue swelling Cardiovascular: Cardiovascular: Denies chest pain and Denies dyspnea on exertion Respiratory: Respiratory: Denies cough and Denies dyspnea on exertion Gastrointestinal: Gastrointestinal: Denies abdominal pain, Denies nausea and Denies vomiting Musculoskeletal: Musculoskeletal: Denies back pain Integumentary/Breasts: Skin/Breast: Reports pruritus and Reports rash Neurologic: Denies vertigo, Denies dizziness and Denies headache(s) Psychiatric: Psychiatric: Denies anxiety Allergic/Immunologic: Allergic/Immunologic: Denies throat swelling and Reports tongue swelling [facility] Past Medical History Medical History (Updated 12/25/24 @ 23:51 by Grayson Wu) Porcelain gallbladder Prediabetes Bronchiectasis Nontuberculous mycobacterial disease of lung Streptococcus viridans infection Arthritis Gallstones ISIAH (obstructive sleep apnea) HTN (hypertension) Pulmonary nodules Chronic bronchitis Surgical History Hx of total knee replacement History of surgical removal of pilonidal cyst History of arthroscopy of right knee Hx of colonoscopy (~11/19/21) Family History Family History Mother Heart attack Father CHF (congestive heart failure) Social History Social History Housing: House Alcohol intake: current Alcohol intake frequency: holidays/special occasions only Alcohol type: beer Patient Tobacco Use Status: Former Tobacco user Tobacco use type: Cigarette Years Smoked: 30 years Smoked in Last 30 Days: No Use of substances other than those prescribed or required for medical reasons: No Substance Use Type: Marijuana Advance Directives: Yes Advance Directives Information Provided: No Advance Directives on File: No service: No Current occupational status: retired Cognitive needs: No Hearing needs: No Vision needs: Yes (reading glasses) Physical Exam ED Vital Signs: Vital Signs - 24 hr 12/25/24 20:22 12/25/24 20:34 12/25/24 22:36 Temperature 98.1 F 98.3 F Pulse Rate 77 83 72 Respiratory Rate 20 18 18 Blood Pressure 149/63 H 127/57 L 137/58 L Pulse Oximetry 96 97 95 Oxygen Delivery Method Room Air Room Air Room Air BMI result Body Mass Index 42.0 Const General: healthy appearing, comfortable, no acute distress, alert and awake Nutritional Appearance: well nourished Orientation/consciousness: patient oriented x3 HENMT Other: No oral, perioral, or retropharyngeal edema. The tongue does not appear edematous and is symmetric Head: Yes normocephalic and Yes atraumatic Eyes Eyelids: Yes eyelids normal Conjunctivae: conjunctivae normal Sclerae: sclerae normal Corneas: corneas normal Pupils: Equal, round and reactive pupils present EOM: EOMs intact bilaterally Neck Neck: Yes full ROM Resp Effort & Inspection: normal respiratory effort, able to speak in complete sentences, no audible wheezes and not labored Auscultation: clear to auscultation bilaterally Cardio Rate: regular rate Rhythm: regular rhythm GI Inspection: No distended Palpation (GI): Soft to palpation, not firm, nontender, no guarding and not rigid Skin Other: Scattered urticaria most notable on the bilateral upper extremities. There is some faint urticaria on the chest. General skin exam: elasticity normal Neuro General: patient oriented x3 Cranial nerves: Yes Equal, round and reactive pupils present and Yes Bilaterally intact EOM present Cognition (Neuro): normal cognition Extrem Other: Moving all extremities well without any obvious deformities Medical Decision Making Medical Decision Making MDM Narrative: In his 74-year-old male presents for evaluation of itching, rash. He incidentally had some tongue swelling this morning that has since resolved. In his difficult to assess this as in his currently resolved. However the patient does take lisinopril and I discussed this is possibly related to angioedema. If he has any other oral, perioral or retropharyngeal edema he was advised to come to the emergency department for evaluation. His urticaria is pretty classic and likely related to an allergic reaction. In his possible that this is due to the flu shot because his symptoms started shortly after receiving a flu shot. He has no difficulty breathing, no stridor, no obvious edema. We will Benadryl and Pepcid orally and he will be discharged to follow up with outpatient providers Differential Diagnosis Differential Diagnoses: The differential diagnosis associated with the presentation includes Urticaria Allergic reaction Angioedema Lab Data MDM Lab Attestation statement: I reviewed the patient's lab results. Mild leukocytosis, no significant anemia. Normal platelet count. No electrolyte abnormalities warranting dimension. 12/25/24 20:49 12/25/24 20:49 Labs: Lab Results 12/25/24 Range/Units 20:49 WBC 12.9 H (4.8-10.8) X10*3/uL RBC 4.68 (4.60-5.80) X10*6/uL Hgb 13.9 L (14.0-18.0) g/dl Hct 41.6 L (42.0-52.0) % MCV 88.9 (80.0-98.0) fL MCH 29.7 (27.0-33.0) pg MCHC 33.4 (31.0-36.0) g/dl RDW 12.0 (11.0-16.0) % Plt Count 291 (160-400) X10*3/uL MPV 8.4 L (9.4-12.4) fL Immature Gran % (Auto) 0.3 (0.0-0.4) % Neut % (Auto) 68.0 (45-73) % Lymph % (Auto) 16.6 L (20-40) % [place] % (Auto) 7.1 (2-11) % Eos % (Auto) 7.8 H (0-4) % Baso % (Auto) 0.2 (0-2) % Lymph # (Auto) 2.1 (1.2-4.9) X10*3/uL [place] # (Auto) 0.9 (0.1-1.2) X10*3/uL Eos # (Auto) 1.0 H (0.0-0.4) X10*3/uL Baso # (Auto) 0.0 (0.0-0.2) X10*3/uL Abs Immat Gran (auto) 0.04 H (0.00-0.03) X10*3/uL Absolute Neuts (auto) 8.8 H (2.0-8.3) x10*3/uL Absolute Nucleated RBC 0.000 (0.0-0.012) X10*3/uL Nucleated RBC % (auto) 0.0 (0.0-0.2) /100WBC Sodium 140 (135-145) mmol/L Potassium 3.4 (3.3-5.1) mmol/L Chloride 103 (96-108) mmol/L Carbon Dioxide 30 H (22-29) mmol/L Anion Gap 10 L (12-20) BUN 19 H (9-16) mg/dL Creatinine 0.88 (0.5-1.4) mg/dL Estim Creat Clear Calc 84.5 Estimated GFR > 60 Random Glucose 164 H (60-115) mg/dL Calcium 9.7 D (8.4-10.2) mg/dL Total Bilirubin 1.2 H (0.0-1.0) mg/dL AST 28 (5-37) U/L ALT 19 (0-40) U/L Alkaline Phosphatase 99 (39-117) U/L Total Protein 6.8 (6.5-8.0) g/dL Albumin 4.2 (3.5-5.0) g/dL Discharge Plan Discharge Clinical Impression: Urticaria Patient Disposition: Home, Self-Care Instructions: Urticaria (ED) Additional Instructions: Your rash is classic for an allergic reaction. In his possibly related to the vaccine you received earlier today. Take Benadryl 50 mg every 6 hours as needed for itching and rash. Take prednisone 40 mg daily for the next 3 days. Follow up with your primary doctor, return for new or worsening symptoms Prescriptions: New prednisone 20 mg tablet 40 mg PO DAILY Qty: 6 0RF No Action albuterol sulfate 2.5 mg /3 mL (0.083 %) solution for nebulization 2.5 mg inhalation Q4H PRN (Reason: shortness of breath or wheezing) Qty: 180 3RF hydrochlorothiazide 12.5 mg tablet 12.5 mg PO DAILY Qty: 90 1RF lisinopril 40 mg tablet 40 mg PO DAILY Qty: 90 1RF amlodipine 5 mg tablet 5 mg PO DAILY Qty: 90 3RF atorvastatin 40 mg tablet 40 mg PO BEDTIME Qty: 90 3RF albuterol sulfate 90 mcg/actuation HFA aerosol inhaler 2 puff inhalation Q6H PRN (Reason: for wheezing) Qty: 8.5 12RF Ozempic 1 mg/dose (4 mg/3 mL) pen injector 1 mg subcut QWEEK Qty: 9 3RF (DME) nebulizers Misc See Rx Instructions .Route Rx Instructions: As directed fluoxetine 20 mg capsule 20 mg PO DAILY Qty: 90 3RF buspirone 10 mg tablet 10 mg PO BID PRN sodium chloride 3 % solution for nebulization 4 ml inhalation BID Qty: 240 11RF aspirin 81 mg tablet,delayed release (DR/EC) 81 mg PO DAILY Qty: 30 5RF Print Language: Nepalese
[2024-12-26 00:41] VITALS: BP 158/74; PULSE 78; RESP 18; TEMP 36.4; O2SAT 96
--- OUTSIDE RECORDS SUMMARY | 2024-12-26 05:20 | XMS_ITS | Clinical Summary ---
Author Organization [facility] Address [address] [place] [phone] Phone Care Team Providers Care Motorcycle Police Officer Name Role Phone Silverio Rutherford [...] VACCINES (50+ years) (2 of 2 - PCV20 or PCV21) 11/09/2019 11/08/2018 INFLUENZA VACCINE (#1) 2024 0, [...] Medical Devices Not on file Care Teams Motorcycle Police Officer Relationship Specialty Start Date End Date Silverio Rutherford MD [address] [place] [address] [place] [address] PCP - General 08/30/16 Additional Source Comments The information contained in this document represents components of the legal health record. It is not the complete legal health record.[facility]
--- OUTSIDE RECORDS SUMMARY | 2024-12-26 05:20 | XMS_ITS | Encounter Summary ---
Author Organization [facility] Address [address] [place] [phone] Phone Care Team Providers Care Deoiling Machine Operator Name Role Phone Silverio Rutherford MD Primary Care Provider Encounter Details Date Type Department Care Team (Late st Contact Info) Description 11/26/2016 Ancillary Orders [facility] [address] [place] [address] Gonzalo Torres MD [address] [facility] [place] [address] Social History Tobacco Use Types Packs/Day Years [...] on filedocumented in this encounter Care Teams Deoiling Machine Operator Relationship Specialty Start Date End Date Silverio Rutherford MD [address] [place] [address] [place] [address] PCP - General 08/30/16 documented as of this encounter Additional Source Comments The information contained in this document represents components of the legal health record. It is not the complete legal health record.[facility]
--- OUTSIDE RECORDS SUMMARY | 2024-12-26 05:20 | XMS_ITS | Clinical Summary ---
Author Organization [employer] Address [address] 7t [place] [address] Care Team Providers Care Rope Maker Name Role Phone Unavailable Primary Care [...] Vaccines (1 of 2) 10/20/2001 COVID-19 Vaccine (1 - 2024-2 6 season) 2024 Influenza Vaccine (#1) 2024 01/16/2024 [...]
--- OUTSIDE RECORDS SUMMARY | 2024-12-26 05:20 | XMS_ITS | Encounter Summary ---
Author Organization [facility] Address [address] [place] [address] Phone Care Team Providers Care Bookmaker Map Name Role Phone Silverio Rutherford MD Primary Care Provider Encounter Details Date Type Department Care Team (Latest Contact Info) Description 11/26/2016 Ancillary Orders [facility] [address] 3rd Floor, [address] [place] [address] Gonzalo Torres MD [address] [place] [address] Diagnosis unknown Social History Tobacco Use Types [...] unknown documented in this encounter Care Teams Bookmaker Map Relationship Specialty Start Date End Date Silverio Rutherford MD [address] [place] [address] [address] [address] PCP - General 08/30/16 documented as of this encounter Additional Source Comments The information contained in this document represents components of the legal health record. It is not the complete legal health record.[facility]
== END 2024-12-26 00:43 | disposition home or self-care (01) ==
PROVIDERS: Emergency Provider Emergency Medicine; PCP Internal Medicine
DX: L50.9 Urticaria, unspecified (principal); I10 Essential (primary) hypertension; E11.9 Type 2 diabetes mellitus without complications; E66.01 Morbid (severe) obesity due to excess calories; G47.33 Obstructive sleep apnea (adult) (pediatric); I25.10 Atherosclerotic heart disease of native coronary artery without angina pectoris; Z79.899 Other long term (current) drug therapy; Z87.891 Personal history of nicotine dependence
CPT/HCPCS: 36415; 80053; 85025; 99283; 99284

== ENCOUNTER 2025-01-06 12:49 | Outpatient (AMB) | payer MEDICARE, OTHER, SELFPAY ==
--- NOTE | 2025-01-06 12:53 | MHC.OFFVIS ---
Vital Signs 01/06/25 13:08 Height 5 ft 4 in Weight 243 lb BMI 41.7 BP 161/74 H Blood Pressure Location Lt brachial Position Sitting Pulse 68 Intake Visit Reasons: porcaelin gallbladder Intake Note: Patient is seen in office for evaluation and treatment of the gallbladder. Pt c/o: nauseous when getting up in the morning, couple weeks ago had diarrhea and vomit on and off, denies abdominal pain and unsure of symptoms CT:11/12/24 Fundraising Consultant Required: No Accompanied by: Self / Same As Patient Allergies No Known Allergies (No Known Allergies*) Allergy (Verified 01/06/25 13:06) Medication List - Last Reconciled 01/06/25 by Percy Lopez MD albuterol sulfate 2.5 mg (3 mL) inhalation Q4H PRN albuterol sulfate 90 mcg/actuation 2 puffs inhalation Q6H PRN amlodipine 5 mg PO DAILY aspirin 81 mg PO DAILY atorvastatin 40 mg PO BEDTIME buspirone 10 mg PO BID PRN fluoxetine 20 mg PO DAILY hydrochlorothiazide 12.5 mg PO DAILY lisinopril 40 mg PO DAILY nebulizers As directed Ozempic (semaglutide) 1 mg (0.75 mL) subcut QWEEK NS sodium chloride 3% 4 mL inhalation BID HPI Comments Details: 74-year-old male patient presenting for evaluation of a recent finding of a porcelain gallbladder noted on chest CT. He has a known history of gallstones for many years but was recently noted to have evidence of a porcelain gallbladder on a chest CT due to pulmonary nodules. He reports occasional discomfort in the epigastric region with nausea and vomiting but has no fatty food intolerance. He does occasionally have diarrhea as well. He denies a history of prior abdominal surgeries. He denies fever or chills. He has currently on Ozempic for weight loss. REPLACED BY [facility] Medical History Porcelain gallbladder Prediabetes Bronchiectasis Nontuberculous mycobacterial disease of lung Streptococcus viridans infection Arthritis Gallstones ISIAH (obstructive sleep apnea) HTN (hypertension) Pulmonary nodules Chronic bronchitis Surgical History Hx of total knee replacement History of surgical removal of pilonidal cyst History of arthroscopy of right knee Hx of colonoscopy (~11/19/21) Family History Mother Heart attack Father CHF (congestive heart failure) Social History Housing: House Alcohol intake: current Alcohol intake frequency: holidays/special occasions only Alcohol type: beer Patient Tobacco Use Status: Former Tobacco user Tobacco use type: Cigarette Years Smoked: 30 years Substance Use Type: Marijuana service: No Current occupational status: retired Cognitive needs: No Hearing needs: No Vision needs: Yes (reading glasses) Review of Systems Const All systems reviewed & are unremarkable except as noted in HPI and below Physical Exam Vital Signs: Last Vital Signs Pulse 68 01/06/25 13:08 BP 161/74 H 01/06/25 13:08 BMI result Body Mass Index 41.7 Const General: cooperative and no acute distress Nutritional Appearance: obese Orientation/consciousness: patient oriented x3 Limitations: no limitations HEENT Head: Yes normocephalic and Yes atraumatic Ears: hearing grossly normal bilaterally Resp Effort & Inspection: normal respiratory effort, no audible wheezes, no cough and no respiratory distress Cardio Jugular venous distension: no JVD GI Inspection: Yes normal to inspection Palpation (GI): Soft to palpation, nontender, no guarding and not rigid Percussion: Yes normal to percussion Skin Other: Warm, dry, no rash Neuro General: patient oriented x3 Extrem General: Yes no clubbing, cyanosis or edema Assessment & Plan Assessment & Plan (1) Porcelain gallbladder: Code(s): K82.8 - Other specified diseases of gallbladder Category: Medical Plan 74-year-old male patient presenting with some mild abdominal symptoms found incidentally to have evidence of a porcelain gallbladder on CT of the chest. Patient has mild epigastric abdominal pain with the associated nausea and vomiting and diarrhea. Symptoms may be related to the cholelithiasis. I reviewed the images of the CT suggesting porcelain gallbladder and discussed the implications of this possibly being associated with gallbladder cancer. I recommended an elective laparoscopic or possible open cholecystectomy and after discussion of the procedure, risks, and alternatives, he consents to the surgery. Coding Level of Care Code New Pt Level 4 (35164) Diagnoses Porcelain gallbladder K82.8
[2025-01-06 13:08] VITALS: BP 161/74; PULSE 68; BMI 41.7
--- OUTSIDE RECORDS SUMMARY | 2025-01-06 16:24 | XMS_ITS | Encounter Summary ---
Author Organization [facility] Address [address] [place] [address] Phone Care Team Providers Care Enroute Controller Name Role Phone Silverio Rutherford MD Primary Care Provider Encounter Details Date Type Department Care Team (Latest Contact Info) Description 11/26/2016 Ancillary Orders [facility] [address] 3rd Floor, [address] [place] [address] Gonzalo Torres MD [address] [place] [address] Diagnosis unknown Social History Tobacco Use Types [...] unknown documented in this encounter Care Teams Enroute Controller Relationship Specialty Start Date End Date Silverio Rutherford MD [address] [place] [address] [address] PCP - General 08/30/16 documented as of this encounter Additional Source Comments The information contained in this document represents components of the legal health record. It is not the complete legal health record.[facility]
--- OUTSIDE RECORDS SUMMARY | 2025-01-06 16:24 | XMS_ITS | Encounter Summary ---
Author Organization [facility] Address [address] [place] [phone] Phone Care Team Providers Care Hand Cultivator Name Role Phone Silverio Rutherford MD Primary Care Provider Encounter Details Date Type Department Care Team (Late st Contact Info) Description 11/26/2016 Ancillary Orders [facility] [address] [place] [address] Gonzalo Torres MD [address] [facility] [address] Social History Tobacco Use Types Packs/Day Years [...] on filedocumented in this encounter Care Teams Hand Cultivator Relationship Specialty Start Date End Date Silverio Rutherford MD [address] [place] [address] [place] [address] PCP - General 08/30/16 documented as of this encounter Additional Source Comments The information contained in this document represents components of the legal health record. It is not the complete legal health record.[facility]
--- OUTSIDE RECORDS SUMMARY | 2025-01-06 16:24 | XMS_ITS | Clinical Summary ---
Author Organization [facility] Address [address] [place] [phone] Phone Care Team Providers Care Animal Humane Agent Supervisor Name Role Phone Silverio Rutherofrd MD Primary Care Provider Social History Tobacco [...] Medical Devices Not on file Care Teams Animal Humane Agent Supervisor Relationship Specialty Start Date End Date Silverio Rutherford MD [address] [place] [address] [place] [address] PCP - General 08/30/16 Additional Source Comments The information contained in this document represents components of the legal health record. It is not the complete legal health record.[facility]
--- OUTSIDE RECORDS SUMMARY | 2025-01-06 16:24 | XMS_ITS | Clinical Summary ---
Author Organization [employer] Address [address] 7t [place] [address] Care Team Providers Care Proof Passer Name Role Phone Unavailable Primary Care Provider [...]
== END 2025-01-06 13:42 | disposition home or self-care (01) ==
LOC: HO.HGS 12:50
PROVIDERS: PCP Internal Medicine; Visit Provider Surgery
DX: K82.8 Other specified diseases of gallbladder (principal)
CPT/HCPCS: 99204

== ENCOUNTER → 2025-01-06 12:49 | Outpatient (BNVA) | payer MEDICARE, OTHER, SELFPAY | PROVIDERS: PCP Internal Medicine; Visit Provider Surgery | DX: K82.8 Other specified diseases of gallbladder (principal) | CPT/HCPCS: 99202 ==

== ENCOUNTER 2025-01-17 09:18 | Outpatient (AMB) | payer MEDICARE, OTHER, SELFPAY ==
[2025-01-17 09:40] VITALS: BP 116/64; PULSE 63; RESP 16; O2SAT 97; BMI 41.9
--- NOTE | 2025-01-17 09:40 | MHC.PC.OV ---
Vital Signs 01/17/25 09:40 Height 5 ft 4 in Weight 244 lb 6 oz BMI 41.9 BP 116/64 Blood Pressure Location Rt brachial Position Sitting Respiration 16 Pulse 63 Pulse Source Pulse Oximeter Pulse Oximetry (%) 97 Oxygen Delivery Method Room Air Intake Visit Reasons: DM Intake Note: Diabetes follow up Pattern Marking Supervisor Required: No Allergies influenza A (H5N1) virus vaccine mo Allergy (Severe, Verified 01/17/25 09:44) Hives Tobacco use date assessed: 01/17/25 Fall risk assessment: No Falls in past year Last assessed Fall Risk: 01/17/25 Dental Screening Dental Screen Date: 08/02/24 HPI HPI Comments History of Present Illness Details The patient is a 74 y/o male with htn, hld, anxiety, bronchiectasis presenting for follow up CV: On lisinopril, hctz, amlodipine. BP well controlled. No chest pain. Follows with cardiology at [facility] [place]. Diabetes: On ozempic 1mg weekly. He did not tolerate mounjaro. A1C is 6.1% BH: On prozac 20mg daily. On buspar 10mg bid. Did not tolerate sertraline -diarrhea He recently saw surgery for consultation on porcelain gallbladder ruq pain. He has cholecystectomy scheduled for Feb 26. Respiratory: Following with pulmonology. Had a few week history of diarrhea and vomiting. he has an appt to see Dr Barragan. Colonoscopy due 2026 Had ? reaction to flu shot. Hives, globus ROS see HPI PHYSICAL EXAM: GENERAL: Alert and oriented x 3. NAD EYES: EOMI. Anicteric. HENT: Moist mucous membranes. No scleral icterus. No cervical lymphadenopathy. LUNGS: Clear to auscultation bilaterally. CARDIOVASCULAR: Regular rate and rhythm. No murmur. No JVD. ABDOMEN: Soft, non-tender +bs EXTREMITIES: No edema. Non-tender. MSK: Right paraspinal muscle spasm SKIN: No rashes or lesions. Warm. NEUROLOGIC: No focal neurological deficits. CN II-XII grossly intact PSYCHIATRIC: Cooperative. Appropriate mood and affect [facility] Medical History (Updated 01/17/25 @ 10:03 by Nydia Yousif MD) Porcelain gallbladder Prediabetes Bronchiectasis Nontuberculous mycobacterial disease of lung Streptococcus viridans infection Arthritis Gallstones ISIAH (obstructive sleep apnea) HTN (hypertension) Pulmonary nodules Chronic bronchitis Surgical History (Updated 01/17/25 @ 09:42 by Ellen Gonzalez CMA) History of cardiac cath Hx of total knee replacement History of surgical removal of pilonidal cyst History of arthroscopy of right knee Hx of colonoscopy (~11/19/21) Family History Mother Heart attack Father CHF (congestive heart failure) Social History Housing: House Alcohol intake: current Alcohol intake frequency: holidays/special occasions only Alcohol type: beer Patient Tobacco Use Status: Former Tobacco user Tobacco use type: Cigarette Years Smoked: 30 years Substance Use Type: Marijuana service: No Current occupational status: retired Cognitive needs: No Hearing needs: No Vision needs: Yes (reading glasses) Questionnaire PHQ-9 Over the last 2 weeks, how often have you been bothered by any of the following problems? 3. Trouble falling or staying asleep, or sleeping too much: not at all Source: Developed by Drs. Burak Posada, Paola Glasgow, Simón Peña and colleagues, with an educational vamshi from [employer]. Thrive Questionnaire Date Thrive assessed: 10/08/24 I am a: Patient What is your living situation today?: I have a steady place to live Within the past 12 months, did the food you bought not last and you didn't have the money to get more?: Never true Within the past 12 months, did you worry whether your food would run out before you got money to buy more?: Never true Do you have trouble paying for medicines?: No Do you have trouble getting transportation to medical appointments?: No Do you have trouble paying your heating and electricity bill?: No Do you have trouble taking care of your child, family member or friend?: No Do you have trouble with day-to-day activities such as bathing, preparing meals, shopping, managing finances, etc.?: No Are you currently unemployed and looking for a job?: No Are you interested in more education?: No Please select the resources that you would like help with: None Currently or been in a relationship where the following occur: No concerns reported THRIVE Score: 0 AUDIT C Alcohol Use Questionnaire (AUDIT-C) 1. How often do you have a drink containing alcohol?: Monthly or less 2. How many drinks containing alcohol do you have on a typical day when you are drinking?: 1 or 2 3. How often do you have six or more drinks on one occasion?: Never Total Score: 1 MERLE-7 AMB Questionnaire MERLE-7 Date MERLE - 7 assessed: 08/02/24 Source: Developed by Drs. Burak Posada, Paola Glasgow, Simón Peña and colleagues, with an educational vamshi from [employer]. Physical exam (Primary Care) Vital Signs: Last Vital Signs Pulse 63 01/17/25 09:40 Resp 16 01/17/25 09:40 BP 116/64 01/17/25 09:40 Pulse Ox 97 01/17/25 09:40 Oxygen Delivery Method Room Air 01/17/25 09:40 BMI result Body Mass Index 41.9 Tobacco/Smoking Status: Tobacco use Status Tobacco use date assessed 10/11/24 01/17/25 09:42 Patient Tobacco Use Status Former Tobacco user 01/17/25 09:42 Tobacco use type Cigarette 01/17/25 09:42 Thrive Assessment: Date of Thrive Assessment Date Thrive assessed 10/08/24 01/17/25 09:42 Currently or been in a relationship where the following occur: No concerns reported Coding Level of Care Code Add On Preventative Visit Only Diagnoses Primary hypertension I10 Hypertension type: primary hypertension Coronary artery disease, unspecified vessel or lesion type, unspecified whether angina present, unspecified whether [place] or transplanted heart I25.10 Coronary Disease-Associated Artery/Lesion type: unspecified vessel or lesion type [place] vs. transplanted heart: unspecified whether [place] or transplanted heart Associated angina: unspecified whether angina present Anxiety F41.9 Type 2 diabetes mellitus without complication, without long-term current use of insulin E11.9 Diabetes mellitus type: type 2 Diabetes mellitus residential insulin use: without manager terminal use Diabetes mellitus complication status: without complication Porcelain gallbladder K82.8 Assessment & Plan Assessment & Plan (1) HTN (hypertension): Code(s): I10 - Essential (primary) hypertension Category: Medical Qualifiers: Hypertension type: primary hypertension Qualified Code(s): I10 - Essential (primary) hypertension (2) CAD (coronary artery disease): Comment: CTA of coronary arteries 05/29/2024, left main non calcific plaque less than 25% stenosis, lad proximal 25-50% stenosis, proximal to mid LAD junction, causing possible 50-70% stenosis, also possible 50-70% focal stenosis at the D1 origin, suspicious long segment 30-50% stenosis of the mid LAD left circumflex no plaque or stenosis, ramus small to medium size branch with focal 50% stenosis at its origin, RCA no plaque or stenosis Cardiac catheterization 07/11/2024 lad ostial diagonal 60% stenosis RCA minimal irregularities Code(s): I25.10 - Atherosclerotic heart disease of [place] coronary artery without angina pectoris Category: Medical Qualifiers: Coronary Disease-Associated Artery/Lesion type: unspecified vessel or lesion type [place] vs. transplanted heart: unspecified whether [place] or transplanted heart Associated angina: unspecified whether angina present Qualified Code(s): I25.10 - Atherosclerotic heart disease of [place] coronary artery without angina pectoris (3) Anxiety: Code(s): F41.9 - Anxiety disorder, unspecified Category: Medical (4) Diabetes: Code(s): E11.9 - Type 2 diabetes mellitus without complications Category: Medical Qualifiers: Diabetes mellitus type: type 2 Diabetes mellitus manager terminal insulin use: without residential use Diabetes mellitus complication status: without complication Qualified Code(s): E11.9 - Type 2 diabetes mellitus without complications (5) Porcelain gallbladder: Code(s): K82.8 - Other specified diseases of gallbladder Category: Medical Plan Diabetes is well controlled. Plan on increasing to 2mg when 1mg ozempic completed CV-continue cardiology follow up. BP is adequately controlled. ?allergy to lisinopril Follow up scheduled with GI Continue follow up with pulmonary Return in 4 months or sooner as needed, lab prior Orders: Orders AMB Hemoglobin A1c Today E11.9 - Type 2 diabetes mellitus without complications Complete Blood Count Auto Diff 4 Months E11.9 - Type 2 diabetes mellitus without complications, F41.9 - Anxiety disorder, unspecified, I10 - Essential (primary) hypertension, I25.10 - Atherosclerotic heart disease of [place] coronary artery without angina pectoris, Z12.5 - Encounter for screening for malignant neoplasm of prostate Comprehensive Met. Panel 4 Months E11.9 - Type 2 diabetes mellitus without complications, F41.9 - Anxiety disorder, unspecified, I10 - Essential (primary) hypertension, I25.10 - Atherosclerotic heart disease of [place] coronary artery without angina pectoris, Z12.5 - Encounter for screening for malignant neoplasm of prostate Lipid Panel 4 Months E11.9 - Type 2 diabetes mellitus without complications, F41.9 - Anxiety disorder, unspecified, I10 - Essential (primary) hypertension, I25.10 - Atherosclerotic heart disease of [place] coronary artery without angina pectoris, Z12.5 - Encounter for screening for malignant neoplasm of prostate Hemoglobin A1c 4 Months E11.9 - Type 2 diabetes mellitus without complications, F41.9 - Anxiety disorder, unspecified, I10 - Essential (primary) hypertension, I25.10 - Atherosclerotic heart disease of [place] coronary artery without angina pectoris, Z12.5 - Encounter for screening for malignant neoplasm of prostate Prostate Specific Antigen 4 Months E11.9 - Type 2 diabetes mellitus without complications, F41.9 - Anxiety disorder, unspecified, I10 - Essential (primary) hypertension, I25.10 - Atherosclerotic heart disease of [place] coronary artery without angina pectoris, Z12.5 - Encounter for screening for malignant neoplasm of prostate Medications: New epinephrine (EpiPen 2-Reagan) for 3 doses 0.3 mg (0.3 mL) IM Q10M PRN 2 ea 3RF anaphylaxis
== END 2025-01-17 10:06 | disposition home or self-care (01) ==
LOC: HO.HMCFM 09:19
PROVIDERS: PCP Internal Medicine; Visit Provider Internal Medicine
DX: I10 Essential (primary) hypertension (principal); I25.10 Atherosclerotic heart disease of native coronary artery without angina pectoris; F41.9 Anxiety disorder, unspecified; E11.9 Type 2 diabetes mellitus without complications; K82.8 Other specified diseases of gallbladder

== ENCOUNTER → 2025-01-17 09:18 | Outpatient (BNVA) | payer MEDICARE, OTHER, SELFPAY | PROVIDERS: PCP Internal Medicine; Visit Provider Internal Medicine | DX: I10 Essential (primary) hypertension (principal); I25.10 Atherosclerotic heart disease of native coronary artery without angina pectoris; F41.9 Anxiety disorder, unspecified; E11.9 Type 2 diabetes mellitus without complications; K82.8 Other specified diseases of gallbladder | CPT/HCPCS: 83036; 99212 ==

== ENCOUNTER 2025-01-29 09:49 | Outpatient (AMB) | payer MEDICARE, OTHER, SELFPAY ==
[2025-01-29 09:51] VITALS: BP 128/70; PULSE 66; BMI 41.6
--- NOTE | 2025-01-29 09:51 | A.OFFVIS_ITS ---
Vital Signs 01/29/25 09:51 Height 5 ft 4 in Weight 242 lb 8.136 oz BMI 41.6 BP 128/70 Blood Pressure Location Lt brachial Position Sitting Pulse 66 Pulse Source Monitor Intake Visit Reasons: 6m follow up Allergies influenza A (H5N1) virus vaccine mo Allergy (Severe, Verified 01/17/25 09:44) Hives Medication List - Last Reconciled 01/29/25 by Corey West MD albuterol sulfate 2.5 mg (3 mL) inhalation Q4H PRN albuterol sulfate 90 mcg/actuation 2 puffs inhalation Q6H PRN amlodipine 5 mg PO DAILY aspirin 81 mg PO DAILY atorvastatin 40 mg PO BEDTIME buspirone 10 mg PO BID PRN epinephrine (EpiPen 2-Reagan) 0.3 mg (0.3 mL) IM Q10M PRN fluoxetine 20 mg PO DAILY hydrochlorothiazide 12.5 mg PO DAILY lisinopril 40 mg PO DAILY nebulizers As directed Ozempic (semaglutide) 1 mg (0.75 mL) subcut QWEEK NS sodium chloride 3% 4 mL inhalation BID HPI Comments Details: Lisandro returns for follow-up regarding coronary artery disease. Due to chest discomfort he underwent further workup including a stress test coronary CTA followed by cardiac catheterization showing nonobstructive diagonal disease treated medically. Overall, he states he feeling good. Does not really have any symptoms like exertional angina or in fact anything cardiac sounding. Otherwise, doing okay. [facility] Medical History (Updated 01/29/25 @ 12:16 by Corey West MD) Porcelain gallbladder Prediabetes Bronchiectasis Nontuberculous mycobacterial disease of lung Streptococcus viridans infection Arthritis Gallstones ISIAH (obstructive sleep apnea) HTN (hypertension) Pulmonary nodules Chronic bronchitis Surgical History History of cardiac cath Hx of total knee replacement History of surgical removal of pilonidal cyst History of arthroscopy of right knee Hx of colonoscopy (~11/19/21) Family History Mother Heart attack Father CHF (congestive heart failure) Social History (Updated 01/17/25 @ 09:51 by Ellen Gonzalez CMA) Housing: House Alcohol intake: current Alcohol intake frequency: holidays/special occasions only Alcohol type: beer Patient Tobacco Use Status: Former Tobacco user Tobacco use type: Cigarette Years Smoked: 30 years Substance Use Type: Marijuana service: No Current occupational status: retired Cognitive needs: No Hearing needs: No Vision needs: Yes (reading glasses) Review of Systems Const Denies weakness ENT Denies dizziness Card Denies chest pain, Denies chest pain with activity, Denies syncope, Denies rapid heart rate, Denies pedal edema, Denies edema, Denies leg edema, Denies lightheadedness, Reports palpitations, Denies dyspnea, Denies dyspnea on exertion and Denies orthopnea Resp Denies cough, Denies dyspnea and Denies dyspnea on exertion GI Denies hematochezia and Denies change in stool character Musc Denies abnormal gait, Denies muscle cramps, Denies muscle weakness, Denies numbness, Denies radiating pain into limb and Denies tingling Neuro Denies abnormal gait, Denies dizziness, Denies syncope, Denies numbness, Denies tingling and Denies weakness Endo Reports palpitations Physical Exam Vital Signs: Last Vital Signs Pulse 66 01/29/25 09:51 BP 128/70 01/29/25 09:51 BMI result Body Mass Index 41.6 Const General: comfortable and no acute distress Orientation/consciousness: patient oriented x3 HEENT Other: Unremarkable Head: Yes normal to inspection Neck Neck: Yes normal visual inspection Chest Chest palpation & inspection: normal inspection of the chest Resp Auscultation: clear to auscultation bilaterally Cardio Palpation: normal PMI Heart sounds: S1 normal heart sound present, S2 normal heart sound present, no gallops, no murmurs and no rubs GI Palpation (GI): Soft to palpation Back/Spine/Pelvis Other: unremarkable Skin General skin exam: no rashes or lesions noted Neuro General: patient oriented x3 Extrem General: Yes normal to inspection Psych Mental Status: mental status grossly normal Office Procedures EKG Details: EKG with sinus rhythm at 66/Min; sinus arrhythmias; nonspecific ST-T changes; [place]. [id number], Complete Assessment & Plan Assessment & Plan (1) CAD (coronary artery disease): Code(s): I25.10 - Atherosclerotic heart disease of [place] coronary artery without angina pectoris Category: Medical Qualifiers: Coronary Disease-Associated Artery/Lesion type: unspecified vessel or lesion type [place] vs. transplanted heart: unspecified whether [place] or transplanted heart Associated angina: unspecified whether angina present Qualified Code(s): I25.10 - Atherosclerotic heart disease of [place] coronary artery without angina pectoris Plan: Cardiac catheterization 2023-ostial diagonal 60% stenosis but otherwise minimal irregularities only. Echocardiogram with LVEF of 70%. Moderate septal hypertrophy. No significant valvular findings. Ascending aortic size 4 cm, probably acceptable for his age. Continue aspirin and statins. Last LDL 41 mg/dL. Triglycerides 91 mg/dL. (2) Sinus bradycardia: Code(s): R00.1 - Bradycardia, unspecified Category: Medical Plan: In the Holter monitor, underlying rhythm is sinus with an average rate of 57/Min. Frequent sinus bradycardia but nothing overtly concerning. We will monitor. (3) ISIAH (obstructive sleep apnea): Code(s): G47.33 - Obstructive sleep apnea (adult) (pediatric) Category: Medical Plan: CPAP. Plan I reviewed the patient's current status and noted he feels well. I explained that the occasional chest twinge he experiences is unlikely related to his heart blockage and is more likely muscular in origin. I commended his excellent progress with weight loss, noting a reduction of over 30 pounds, and confirmed he is on a good medication regimen. We agreed to a follow-up appointment in 6 mo [facility] for continued monitoring, and the patient verbalized understanding with no further questions. Patient was informed and verbally consented to the use of an ambient scribe for clinic note documentation during this visit. Coding Level of Care Code Est Pt Level 4 (34099) Add On Problem Visit Only Diagnoses Coronary artery disease, unspecified vessel or lesion type, unspecified whether angina present, unspecified whether [place] or transplanted heart I25.10 Coronary Disease-Associated Artery/Lesion type: unspecified vessel or lesion type [place] vs. transplanted heart: unspecified whether [place] or transplanted heart Associated angina: unspecified whether angina present Sinus bradycardia R00.1 ISIAH (obstructive sleep apnea) G47.33 CPT Codes EKG - CPT: 76912-[id number], Complete ([id number])
--- OUTSIDE RECORDS SUMMARY | 2025-01-29 09:56 | XMS_ITS | Encounter Summary ---
Author Organization [facility] Address [address] [place] [id number] Phone Care Team Providers Care Administrative Processor Name Role Phone Silverio Rutherford MD Primary Care Provider Encounter Details Date Type Department Care Team (Late st Contact Info) Description 11/26/2016 Ancillary Orders [facility] [address] [place] [address] Gonzalo Torres MD [address] [place] [address] Social History Tobacco Use Types Packs/Day Years [...] on filedocumented in this encounter Care Teams Administrative Processor Relationship Specialty Start Date End Date Silverio Rutherford MD [address] [place] [address] [place] [address] PCP - General 08/30/16 documented as of this encounter Additional Source Comments The information contained in this document represents components of the legal health record. It is not the complete legal health record.[facility]
--- OUTSIDE RECORDS SUMMARY | 2025-01-29 09:56 | XMS_ITS ---
Author Name Joaquina Kaplan Address Unknown Organization [facility] Care Team Providers Care Family Consumer Science Teacher Name Role Phone Unavailable Primary Care Physician Unavailab le History Of Present Illness No Data Medications Medication Generic Name RxNorm Strength Strength Unit Route Dose Dose Form Frequency Date Started Date Ended Status Indication Sig betamethaso ne dipropionat e betameth asone dipropio cindi 187050 0.05 % Topica l cream 09/17/19 21 active Appl y to affe cted area s of psor iasi s once or twic e angel y on week ends . Not on face betamethaso ne dipropionat e betameth asone dipropio cindi 933664 0.05 % Topica l cream 04/22/19 18 suspend ed Appl y to affe cted area s of psor iasi s twic e angel y on week ends . Not on face calcipotrie ne calcipot riene 623352 0.005 % Topica l cream 04/22/19 18 suspend ed Appl y to affe cted area s of psor iasi s on twic e angel y on week days (Mon thro ug ay) calcipotrie ne calcipot riene 647862 0.005 % Topica l cream 09/17/19 21 active Appl y to affe cted area s of psor iasi s twic e angel y on week days (Mon thro ugmond ay) triamcinolo ne acetonide triamcin olone acetonid e 5562539 0.1 % Topica l cream bid 03/11/19 21 suspend ed Appl y to psor iasi s on ears twic e a day for up to 2 week s then inte rmit tent ly as need ed. Do not use on face triamcinolo ne acetonide triamcin olone acetonid e 3455381 0.1 % Topica l cream bid 06/18/19 21 active Appl y to psor iasi s on ears twic e a day for up to 2 week s then inte rmit tent ly as need ed. Do not use on face buspirone 10 mg Oral table t active hydrochloro thiazide 12.5 mg Oral table t active lisinopril 20 mg Oral table t active meloxicam 7.5 mg Oral table t suspend ed Otezla Starter apremila st 10 mg (4)-20 mg (4)-30 mg (47) Oral table ts,do se pack 11/25/19 22 suspend ed On Day 1 take 10mg in the AM, on day two take 10mg in the AM and 10mg in the PM, on day 3 take 10mg in the AM and 20MG in the PM, on day 4 take 20mg in the AM and 20mg in the PM, on day 5 take 20mg in the AM and and 30 mg in the PM. Problems Problem Code Type Status Date of Diagnosis Da te of Resolution Psoriasis vulgaris (disorder) (SN OMED) Diagnosis active 07/23/2024 Psoriasis vulgaris (disorder) (SN OMED) Diagnosis active 07/25/2024 Psoriasis vulgaris (disorder) (SN OMED) Diagnosis active 07/30/2024 Psoriasis vulgaris (disorder) (SN OMED) Diagnosis active 08/06/2024 Psoriasis vulgaris (disorder) (SN OMED) Diagnosis active 08/08/2024 Psoriasis vulgaris (disorder) (SN OMED) Diagnosis active 08/13/2024 Psoriasis vulgaris (disorder) (SN OMED) Diagnosis active 08/15/2024 Psoriasis vulgaris L40.0(ICD-10 ) Diagnosis active 09/19/2017 Inflamed seborrheic keratosis (disorder) 824983721(SN OMED) Diagnosis active 02/13/2023 Psoriasis vulgaris (disorder) (SN OMED) Diagnosis active 11/24/2021 Other skin changes due to chronic exposure to nonionizing radiation L57.8(ICD-10 ) Diagnosis active 03/11/2020 Other rosacea L71.8(ICD-10 ) Diagnosis active 04/21/2017 Psoriasis vulgaris (disorder) (SN OMED) Diagnosis active 07/14/2021 Eczema (disorder) 08744285(SNO MED) Problem active Skin changes due to chronic exposure to non-ionizing radiation (disorder) 902791431(SN OMED) Diagnosis active 02/15/2024 Inflammatory dermatosis (disorder) 907115674(SN OMED) Diagnosis active 01/16/2023 Other specified follicular disorders L73.8(ICD-10 ) Diagnosis active 03/11/2020 Psoriasis vulgaris L40.0(ICD-10 ) Diagnosis active 04/25/2018 Seborrheic keratosis (disorder) 565157665(SN OMED) Diagnosis active 01/18/2023 Psoriasis vulgaris L40.0(ICD-10 ) Diagnosis active 04/21/2017 Psoriasis vulgaris L40.0(ICD-10 ) Diagnosis active 12/04/2019 Neoplasm of uncertain behavior of skin D48.5(ICD-10 ) Diagnosis active 06/15/2017 Skin changes due to chronic exposure to non-ionizing radiation (disorder) 224391740(SN OMED) Diagnosis active 01/18/2023 Squamous cell carcinoma (disorder) 150641910(SN OMED) Problem active History of clinical finding in subject (situation) 235725334(SN OMED) Problem active Psoriasis vulgaris L40.0(ICD-10 ) Diagnosis active 08/12/2019 Seborrheic keratosis (disorder) 727942600(SN OMED) Diagnosis active 02/15/2024 Psoriasis vulgaris (disorder) 455460363(SN OMED) Diagnosis active 06/17/2020 Hemangioma of skin and subcutaneous tissue D18.01(ICD-1 0) Diagnosis active 06/06/2018 Itching of skin (finding) 890192130(SN OMED) Diagnosis active 07/14/2021 Asteatosis cutis (disorder) 04291698(SNO MED) Problem active Other hypertrophic disorders of the skin L91.8(ICD-10 ) Diagnosis active 09/19/2017 Melanocytic nevi of trunk D22.5(ICD-10 ) Diagnosis active 03/11/2020 Other skin changes due to chronic exposure to nonionizing radiation L57.8(ICD-10 ) Diagnosis active 04/21/2017 Psoriasis vulgaris L40.0(ICD-10 ) Diagnosis active 09/25/2019 Psoriasis vulgaris L40.0(ICD-10 ) Diagnosis active 06/15/2017 Increased blood pressure (finding) 02267215(SNO MED) Problem active Squamous cell carcinoma of upper extremity (disorder) 352322683(SN OMED) Diagnosis active 02/13/2023 Psoriasis vulgaris (disorder) 784801456(SN OMED) Diagnosis active 01/18/2023 Psoriasis vulgaris (disorder) 444169498(SN OMED) Diagnosis active 02/15/2024 Psoriasis vulgaris (disorder) 843582552(SN OMED) Diagnosis active 09/16/2020 Psoriasis vulgaris L40.0(ICD-10 ) Diagnosis active 03/11/2020 Psoriasis vulgaris L40.0(ICD-10 ) Diagnosis active 06/06/2018 Increased blood pressure (finding) 06594309(SNO MED) Problem active Psoriasis (disorder) 0803405(SNOM ED) Problem active Psoriasis vulgaris L40.0(ICD-10 ) Diagnosis active 08/07/2018 Arthritis (disorder) 6994291(SNOM ED) Problem active Psoriasis vulgaris (disorder) 390317206(SN OMED) Diagnosis active 08/20/2024 Psoriasis vulgaris (disorder) 128542434(SN OMED) Diagnosis active 08/22/2024 Psoriasis vulgaris (disorder) 044476360(SN OMED) Diagnosis active 08/27/2024 Psoriasis vulgaris (disorder) 779726081(SN OMED) Diagnosis active 08/29/2024 Psoriasis vulgaris (disorder) 228198210(SN OMED) Diagnosis active 09/03/2024 Psoriasis vulgaris (disorder) 219404544(SN OMED) Diagnosis active 01/16/2025 Psoriasis vulgaris (disorder) 708691674(SN OMED) Diagnosis active 01/21/2025 Psoriasis vulgaris (disorder) 321678782(SN OMED) Diagnosis active 01/14/2025 Psoriasis vulgaris (disorder) 759720086(SN OMED) Diagnosis active 01/23/2025 Psoriasis vulgaris (disorder) 225522976(SN OMED) Diagnosis active 01/28/2025 Results No data Encounters Service provided at [facility], [address] [place] [phone]. Office fax number is [phone]. Encounter Diagnosis Location Date / Time Type Disc harge Status Psoriasis (L40.0) [facility] 01/28/2025 15:04:00 UTC NI Reason For Referral No data Procedures Procedure Date Phototherapy of skin (procedure) 025 12:00 am UTC Phototherapy of skin (procedure) 025 12:00 am UTC Phototherapy of skin (procedure) 025 12:00 am UTC Phototherapy of skin (procedure) 025 12:00 am UTC Phototherapy of skin (procedure) 025 12:00 am UTC Phototherapy of skin (procedure) 025 12:00 am UTC Phototherapy of skin (procedure) 025 12:00 am UTC Phototherapy of skin (procedure) 025 12:00 am UTC Phototherapy of skin (procedure) 025 12:00 am UTC Phototherapy of skin (procedure) 025 12:00 am UTC Phototherapy of skin (procedure) 025 12:00 am UTC Phototherapy of skin (procedure) 025 12:00 am UTC Phototherapy of skin (procedure) 025 12:00 am UTC Phototherapy of skin (procedure) 025 12:00 am UTC Phototherapy of skin (procedure) 025 12:00 am UTC Phototherapy of skin (procedure) 025 12:00 am UTC Phototherapy of skin (procedure) 025 12:00 am [place] Tumor destruction (procedure) 02/13/2023 12:00 am [place] Shave excision of skin lesion (procedure ) 01/16/2023 12:00 am [place] Documentation of past medical history (p rocedure) Documentation of past medical history (p rocedure) Documentation of past medical history (p rocedure) Documentation of past medical history (p rocedure) Documentation of past medical history (p rocedure) Documentation of past medical history (p rocedure) Documentation of past medical history (p rocedure) Documentation of past medical history (p rocedure) Documentation of past medical history (p rocedure) Documentation of past medical history (p rocedure) Documentation of past medical history (p rocedure) Documentation of past medical history (p rocedure) Documentation of past medical history (p rocedure) Documentation of past medical history (p rocedure) Documentation of past medical history (p rocedure) Documentation of past medical history (p rocedure) Documentation of past medical history (p rocedure) Documentation of past medical history (p rocedure) Documentation of past medical history (p rocedure) Documentation of past medical history (p rocedure) Documentation of past medical history (p rocedure) Documentation of past medical history (p rocedure) Documentation of past medical history (p rocedure) Documentation of past medica l history (procedure) Meniscus tear. Right knee replacement 12/2018Meniscus tear. Right knee replacement 12/2018 Review Of Systems No Data Assessment 1.PsoriasisPhototherapy Treatment: Total Body Energy - 593MJ; Location (Body Touches will Override)- full body; Total Treatment Time - 2:57; Render Post-care in the Note - no; Comments on Previous Treatment - UVB1; Protocol - NBUVB. Plan of Care Code Detail Instructions [id number] triamcinolone aceton rashad 0.1 % topical cream Apply to affected areas of psoriasis on ears and hands twice a day, as needed when active. Do not use in face, genital area. 4325369 triamcinolone aceton rashad 0.1 % topical cream Apply to affected areas of psoriasis on ears and hands twice a day, as needed when active. Do not use in face, genital area. 592865 Otezla Starter 10 mg (4)-20 mg (4)-30 mg(47) tablets in a dose pack On Day 1 take 10mg in the AM, on day two take 10mg in the AM and 10mg in the PM, on day 3 take 10mg in the AM and 20MG in the PM, on day 4 take 20mg in the AM and 20mg in the PM, on day 5 take 20mg in the AM and and 30 mg in the PM. 575121 betamethasone diprop ionate 0.05 % topical cream Apply to affected areas of psoriasis twice daily on weekends. Do not use on face or skin folds 160771 calcipotriene 0.005 % topical cr eam Apply to affected areas of psoriasis on arms,legs and trunk twice daily on weekdays (Monday through Monday) 760780 calcipotriene 0.005 % topical cr eam Apply to affected areas of psoriasis twice daily on weekdays (Monday through Monday) 240293 betamethasone diprop ionate 0.05 % topical cream Apply to affected areas of psoriasis once or twice daily on weekends. Not on face 743606 calcipotriene 0.005 % topical cr eam Apply to affected areas of psoriasis twice daily on weekdays (Monday through Monday) 4148213 triamcinolone aceton rashad 0.1 % topical cream Apply to psoriasis on ears twice a day for up to 2 weeks then intermittently as needed. Do not use on face 0135421 triamcinolone aceton rashad 0.1 % topical cream Apply to psoriasis on ears twice a day for up to 2 weeks then intermittently as needed. Do not use on face 652168 calcipotriene 0.005 % topical cr eam Apply to affected areas of psoriasis twice daily on weekdays (Monday through Monday) 567979 calcipotriene 0.005 % topical cr eam Apply to affected areas of psoriasis twice daily on weekdays (Monday through Monday) 235839 betamethasone diprop ionate 0.05 % topical cream Apply to affected areas of psoriasis twice daily on weekends. Not on face 592736 betamethasone diprop ionate 0.05 % topical cream Apply to affected areas of psoriasis twice daily on weekends. Not on face 700740 betamethasone diprop ionate 0.05 % topical cream Apply to affected areas of psoriasis twice daily on weekends. Not on face 653745 calcipotriene 0.005 % topical cr eam Apply to affected areas of psoriasis on twice daily on weekdays (Monday through Monday) Instructions No Data Social History Code Activity Start Date End Date [id number] (SNOMED) Former smoker Sex Male Sexual orientation Unspecified Gender identity Unspecified Vital Signs No data Insurances Coverage Status Coverage Type Relationship to Subscriber Member Identifier Subscriber Identifier Group Identifier Payer Identifier Inactive Self Active MB Self [id number] Inactive Self Inactive Self [id number] Inactive Self [id number] Inactive Self [id number] Active C1 Self [id number] Inactive Self [id number] Inactive Self [id number]
--- OUTSIDE RECORDS SUMMARY | 2025-01-29 09:56 | XMS_ITS | Clinical Summary ---
Author Organization [facility] Address [address] [place] [phone] Phone Care Team Providers Care Damage Inside Adjuster Name Role Phone Silverio Rutherford MD Primary [...] Medical Devices Not on file Care Teams Damage Inside Adjuster Relationship Specialty Start Date End Date Silverio Rutherford MD [address] [place] [address] [place] [address] PCP - General 08/30/16 Additional Source Comments The information contained in this document represents components of the legal health record. It is not the complete legal health record.[facility]
--- OUTSIDE RECORDS SUMMARY | 2025-01-29 09:56 | XMS_ITS | Encounter Summary ---
Author Organization [facility] Address [address] [place] [address] Phone Care Team Providers Care Oil Driller Name Role Phone Silverio Rutherford MD Primary Care Provider Encounter Details Date Type Department Care Team (Latest Contact Info) Description 11/26/2016 Ancillary Orders [facility] [address], [address] [place] [address] Gonzalo Torres MD [address] [place] [address] Diagnosis unknown Social History Tobacco Use Types [...] unknown documented in this encounter Care Teams Oil Driller Relationship Specialty Start Date End Date Silverio Rutherford MD [address] [place] [address] [facility] [place] [address] PCP - General 08/30/16 documented as of this encounter Additional Source Comments The information contained in this document represents components of the legal health record. It is not the complete legal health record.[facility]
== END 2025-01-29 10:10 | disposition home or self-care (01) ==
LOC: HO.HCS 09:50
PROVIDERS: PCP Internal Medicine; Visit Provider Internal Medicine
DX: I25.10 Atherosclerotic heart disease of native coronary artery without angina pectoris (principal); R00.1 Bradycardia, unspecified; G47.33 Obstructive sleep apnea (adult) (pediatric)
CPT/HCPCS: 93010; 99214; G2211

== ENCOUNTER → 2025-01-29 09:49 | Outpatient (BNVA) | payer MEDICARE, OTHER, SELFPAY | PROVIDERS: PCP Internal Medicine; Visit Provider Internal Medicine | DX: R00.1 Bradycardia, unspecified (principal); I25.10 Atherosclerotic heart disease of native coronary artery without angina pectoris; G47.33 Obstructive sleep apnea (adult) (pediatric); Z99.89 Dependence on other enabling machines and devices; Z79.85 Long-term (current) use of injectable non-insulin antidiabetic drugs; Z87.891 Personal history of nicotine dependence; I25.84 Coronary atherosclerosis due to calcified coronary lesion; I10 Essential (primary) hypertension | CPT/HCPCS: 93005; 99212 ==